=== PATIENT | male | born 1965 | race Caucasian/White ===

== ENCOUNTER → 2020-08-13 09:08 | Outpatient (BNVA) | payer SELFPAY | PROVIDERS: PCP Hospitalist; Visit Provider Urology | DX: N40.1 Benign prostatic hyperplasia with lower urinary tract symptoms (principal); N13.8 Other obstructive and reflux uropathy; R33.9 Retention of urine, unspecified | CPT/HCPCS: 99212 ==

== ENCOUNTER → 2021-02-15 13:22 | Outpatient (BNVA) | payer OTHER, SELFPAY | PROVIDERS: PCP Hospitalist; Visit Provider Urology | DX: N40.1 Benign prostatic hyperplasia with lower urinary tract symptoms (principal); R33.9 Retention of urine, unspecified; N13.8 Other obstructive and reflux uropathy | CPT/HCPCS: 51798; 99212 ==

== ENCOUNTER 2021-02-25 13:50 | Emergency (ER) | payer MEDICAID, SELFPAY ==
--- NOTE | ~2021-02-25 | CT_ITS ---
EXAMINATION: CT HEAD WITHOUT CONTRAST CLINICAL INFORMATION: Fall. Head trauma. COMPARISON: None TECHNIQUE: Contiguous axial imaging was performed from the skull base to vertex without intravenous administration of contrast. This CT examination was performed using dose optimization techniques as appropriate, variously including the following: *Automated exposure control *Adjustment of mA and/or kV according to patient size (this includes techniques or standardized protocols for targeted exams where dose is matched to indication/reason for exam; i.e. extremities or head) *Use of iterative reconstruction technique DLP: 866 mGy-cm FINDINGS: There is no evidence of acute intracranial hemorrhage or territorial infarction. No abnormal mass effect or midline shift is seen. Burt to white matter differentiation is well preserved. No extra-axial fluid collections are identified. The ventricles are normal in size. There is no abnormal attenuation within the brain parenchyma. The osseous structures and soft tissues are normal. There are skin shaun and soft tissue swelling over the right posterior parietal bone. There are small polyps or cysts seen in the maxillary sinuses. There is increased soft tissue seen in the left external auditory canal. The mastoid air cells and visualized portions of the paranasal sinuses are otherwise clear. CT/CT head/brain wo con IMPRESSION: No acute findings. Skin shaun and soft tissue swelling over the right posterior parietal bone.
--- NOTE | ~2021-02-25 | CT_ITS ---
EXAMINATION: CT CERVICAL SPINE WITHOUT CONTRAST CLINICAL INFORMATION: Fall. Head and neck trauma. COMPARISON: None TECHNIQUE: Axial images through the cervical spine without contrast. Sagittal and coronal reconstructions on the technologist's workstation were performed. This CT examination was performed using dose optimization techniques as appropriate, variously including the following: *Automated exposure control *Adjustment of mA and/or kV according to patient size (this includes techniques or standardized protocols for targeted exams where dose is matched to indication/reason for exam; i.e. extremities or head) *Use of iterative reconstruction technique DLP: 497 mGy-cm FINDINGS: Bone alignment is normal. No fracture or dislocation is seen. There is degenerative spondylosis and degenerative disc disease at C5-C6 and C6-C7. There is facet arthritis at C2-C3 on the left. Prevertebral soft tissues are normal. There is cervical lymphadenopathy. There is a 2.5 x 2 x 2 cm nodule in the inferior right lobe of the thyroid gland. The lung apices are clear. CT/CT cervical spine wo con IMPRESSION: Degenerative changes. No fracture or dislocation seen. 2.5 x 2 x 2 cm right thyroid nodule. Follow-up thyroid ultrasound recommended.
[2021-02-25 14:02] VITALS: BP 98/56; PULSE 66; RESP 17; TEMP 36.6; O2SAT 98; BMI 28.8
--- NOTE | 2021-02-25 14:42 | ED_ITS ---
HPI - Fall General Chief Complaint: Fall Stated Complaint: mechanical fall Time Seen by Provider: 02/25/21 14:17 Source: EMS Mode of arrival: EMS Limitations: other (uncooperative) History of Present Illness HPI Narrative: 55 y/o male with history of dementia, schizophrenia, anxiety disorder, GERD, BPH, HTN, urinary incontinence hx LE cellulitis who presents to the ER from SNF via EMS after he threw himself onto the ground, hit his head on the wall and sustained a small laceration to the back of his head. He was sent in for evaluation of sutures/shaun. He is not on anticoagulation and did not lose consciousness. Per SNF staff this is his baseline behavior. MD complaint: fall Onset (ago): hour(s) Fall from: standing Fall witnessed: yes, by living facility staff Place fall occurred: assisted/SNF Loss of consciousness: none Prolonged down time: no Symptoms prior to fall: none Context: history of frequent falls (frequently throws himself to the ground - baseline behavior ) Location of injury: head Severity: mild Associated symptoms (after fall): denies Related Data Home Medications Medication Instructions Recorded Confirmed acetaminophen 325 mg capsule 325 mg PO QID PRN 02/15/21 benztropine 1 mg tablet 1 mg PO DAILY 02/15/21 clonazepam 1 mg tablet 1 mg PO DAILY 02/15/21 diazepam 5 mg tablet 5 mg PO BID PRN 02/15/21 haloperidol 5 mg tablet 5 mg PO BEDTIME 02/15/21 lithium carbonate 150 mg capsule 300 mg PO BEDTIME 02/15/21 propranolol 10 mg tablet 10 mg PO BID 02/15/21 risperidone 4 mg tablet (Risperdal) 4 mg PO BEDTIME 02/15/21 sennosides 8.6 mg capsule (senna) 8.6 mg PO DAILY 02/15/21 tamsulosin 0.4 mg capsule 0.4 mg PO BEDTIME 02/15/21 Previous Rx's Medication Instructions Recorded finasteride 5 mg tablet 5 mg PO DAILY 90 Days #90 tab 08/13/20 Allergies Allergy/AdvReac Type Severity Reaction Status Date / Time Wekorwa-Nlz-Drd Reductase Allergy Unknown UNKNOWN Verified 02/15/21 13:29 Inhibitor [MVMPIOT-CND-ZPS REDUCTASE INHIBITOR] Sulfa (Sulfonamide Allergy Unknown UNKNOWN Verified 02/15/21 13:29 Antibiotics) [SULFA (SULFONAMIDE ANTIBIOTICS)] sulfamethoxazole Allergy Unknown rash Verified 02/15/21 13:29 Sulfonylureas [SULFONYLUREAS] Allergy Unknown UNKNOWN Verified 02/15/21 13:29 ANIHYPERLIPIDEMICS AdvReac Unknown ADVERSE Uncoded 02/15/21 13:29 REACTION ANTIARTERIOSCLEROTIC DRUGS AdvReac Unknown ADVERSE Uncoded 02/15/21 13:29 REACTION Review of Systems Review of Systems: uncooperative and yelling Yes Unobtainable due to mental condition [facility] Past Medical History Medical History (Updated 02/25/21 @ 15:54 by LAUREANO White) Anxiety BPH (benign prostatic hyperplasia) Dementia GERD (gastroesophageal reflux disease) HTN (hypertension) Hypernatremia Metabolic encephalopathy Schizophrenia Social History Social History Advance Directives: No Advance Directives Information Provided: No Physical Exam Vital Signs: Vital Signs: Last Vital Signs Temp 98 F 02/25/21 14:02 Pulse 76 02/25/21 15:20 Resp 19 02/25/21 15:20 BP 105/68 02/25/21 15:20 Pulse Ox 97 02/25/21 15:20 Body Mass Index 28.8 Appearance: Alert, appears older than stated age, in cervical collar, agitated. Head: occipital area with 2 cm linear laceration, mild oozing, no tenderness. no palpable skull fracture. Eyes: Pupils equal, round and reactive to light. ENT: Pharynx normal. Neck: Normal inspection. Neck supple. No cervical spinal deformities palpable. CVS: Normal heart rate and rhythm. Pulses normal. Respiratory: No respiratory distress. Breath sounds normal. Abdomen: Soft and nontender. +BS x4 Skin: Skin warm and dry. Normal skin color. Normal skin turgor. No rashes. Extremities: No lower extremity edema. Atraumatic x4 Neuro: awake and alert, uncooperative, kicking at staff, moves all extremities, yelling in complete sentences. strength appears equal and symmetrical throughout Course Course Course Narrative: 55 y/o male with history of dementia and schizophrenia who presents from SNF with small head lac after he threw himself to the ground and hit his head on a wall, no LOC, no thinners. This is his baseline behavior per SNF. Given head strike and behaviors, unreliable historian and exam will get CT head/neck to r/o traumatic injury. Reevaluation(s) Reevaluation #1: CT head/neck showed no traumtic injuries. C-spine cleared. Patient thankful for collar removal and he has no pain. His behaviors have improved. He is stable for discharge back to SNF. Procedures Laceration Laceration 1: Site: scalp Size (cm): 3 Description: linear Depth: simple, single layer Pre-repair: irrigated extensively Skin layer closed with: other (3 shaun) Critical Care Time Critical Care Time Critical Care Time: No Discharge Plan Discharge Clinical Impression: Laceration of head Qualifiers: Encounter type: initial encounter Location of open wound of head: scalp Foreign body presence: without foreign body Qualified Code(s): S01.01XA - Laceration without foreign body of scalp, initial encounter Patient Disposition: Xfer [facility] Instructions: Head Laceration (ED) Additional Instructions: Shaun will need to be removed in 10 days - see your PCP or come back to the ER for this Take all of your medication as prescribed Follow up with your doctor next week Prescriptions: No Action finasteride 5 mg tablet 5 mg PO DAILY 90 Days Qty: 90 RF: 1
[2021-02-25] MEDS: Haloperidol Lactate 5 MG/ML VIAL IM (14:51)
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
[2021-02-25 15:20] VITALS: BP 105/68; PULSE 76; RESP 19; O2SAT 97
== END 2021-02-25 19:18 | disposition skilled nursing facility (03) ==
PROVIDERS: Emergency Provider Emergency Medicine; PCP Hospitalist
DX: S01.01XA Laceration without foreign body of scalp, initial encounter (principal); R51.9 Headache, unspecified; M54.2 Cervicalgia; W01.0XXA Fall on same level from slipping, tripping and stumbling without subsequent striking against object, initial encounter; Y93.9 Activity, unspecified; Y92.129 Unspecified place in nursing home as the place of occurrence of the external cause; Y99.9 Unspecified external cause status
CPT/HCPCS: 12002; 70450; 72125; 96372; 99283; 99284

== ENCOUNTER → 2021-08-16 08:54 | Outpatient (BNVA) | payer MEDICAID, SELFPAY | PROVIDERS: PCP Hospitalist; Visit Provider Urology | DX: N40.1 Benign prostatic hyperplasia with lower urinary tract symptoms (principal); N13.8 Other obstructive and reflux uropathy; R33.8 Other retention of urine | CPT/HCPCS: 51798; 99212 ==

== ENCOUNTER → 2021-11-04 13:08 | Outpatient (BNVA) | payer MEDICAID, SELFPAY | PROVIDERS: PCP Hospitalist; Visit Provider Urology | DX: N40.1 Benign prostatic hyperplasia with lower urinary tract symptoms (principal); N13.8 Other obstructive and reflux uropathy; R33.8 Other retention of urine | CPT/HCPCS: 51798; 99212 ==

== ENCOUNTER 2022-01-23 07:04 | Day surgery (SDC) | payer SELFPAY ==
[2022-01-17 14:06] VITALS: BMI 28.0
--- NOTE | 2022-01-20 09:54 | HO.ANESPROP2 ---
Documented by User: Brandy Hess NP 01/20/22 09:57 HPI - Anesthesia Eval Consult details Narrative: 56yo M for Laser Ablation Prostate w/[facility] resident, dementia PMFSH Active Problems Active Problems: All Active Problems (Updated 02/26/21 @ 00:02 by Iona Malhotra) BPH w urinary obs/LUTS (Acute) Incomplete emptying of bladder due to benign prostatic hyperplasia (Acute) Past Medical History Medical History Anxiety BPH (benign prostatic hyperplasia) Dementia GERD (gastroesophageal reflux disease) HTN (hypertension) Hypernatremia Metabolic encephalopathy Resides in long-term facility Schizophrenia Surgical History Surgical History Hx of cystoscopy Social History Social History Housing Other:: resides at [facility] Patient Tobacco Use Status: Tobacco use Unknown Use of substances other than those prescribed or required for medical reasons: Unknown Are you DNR?: No Advance Directives: Yes (MOLST & legal guardianship) Advance Directives Information Provided: Yes Advance Directives on File: Yes Advance Directives Date on File: 01/17/22 Recently lost weight without trying: No Nutrition Risks: No Nutritional Risk Meds Allergies Allergy/AdvReac Type Severity Reaction Status Date / Time Sulfa (Sulfonamide Allergy Intermediate Rash Verified 01/23/22 07:15 Antibiotics) [SULFA (SULFONAMIDE ANTIBIOTICS)] Rjzhplp-TGQ-ImR Reductase Allergy Unknown Unknown Verified 01/23/22 07:15 Inhibitor [HUOUPXG-CZQ-QFW REDUCTASE INHIBITOR] ANTIARTERIOSCLEROTIC DRUGS AdvReac Unknown Unknown Uncoded 01/17/22 08:55 Home Medications Medication Instructions Recorded Confirmed Last Taken Type acetaminophen 325 mg capsule 325 mg PO QID PRN Pain 02/15/21 01/17/22 Unknown History benztropine 1 mg tablet 1 mg PO DAILY 02/15/21 01/17/22 Unknown History clonazepam 1 mg tablet 1 mg PO BID 02/15/21 01/17/22 Unknown History diazepam 5 mg tablet 5 mg PO BID 02/15/21 01/17/22 Unknown History haloperidol 5 mg tablet 5 mg PO BEDTIME 02/15/21 01/17/22 Unknown History lithium carbonate 150 mg capsule 300 mg PO BEDTIME 02/15/21 01/17/22 Unknown History propranolol 10 mg tablet 5 mg PO BID 02/15/21 01/17/22 Unknown History sennosides 8.6 mg capsule (senna) 8.6 mg PO DAILY 02/15/21 01/17/22 Unknown History benztropine 0.5 mg tablet 0.5 mg PO DAILY 01/17/22 01/17/22 Unknown History divalproex 125 mg capsule,delayed 625 mg PO BID 01/17/22 01/17/22 Unknown History release sprinkle (Depakote Sprinkles) haloperidol 5 mg tablet 2.5 mg PO QAM 01/17/22 01/17/22 Unknown History risperidone 2 mg tablet 2 mg PO BEDTIME 01/17/22 01/17/22 Unknown History Exam Exam Date and Time: January 20, 2022 0954 Height,Weight and Vital Signs: Height 5 ft 5 in Weight 76.544 kg Assessment and Plan Assessment Anesthesia Assessment: Chart Reviewed Documented by User: Sulma Denney MD 01/23/22 08:58 [facility] Past Medical History Medical History Anxiety BPH (benign prostatic hyperplasia) Dementia GERD (gastroesophageal reflux disease) HTN (hypertension) Hypernatremia Metabolic encephalopathy Resides in long-term facility Schizophrenia Family History Family history of problems with anesthesia: No Surgical History Surgical History Hx of cystoscopy History of Problems with Anesthesia: No Social History Social History Housing Other:: resides at [facility] Patient Tobacco Use Status: Tobacco use Unknown Use of substances other than those prescribed or required for medical reasons: Unknown Are you DNR?: No Advance Directives: Yes (MOLST & legal guardianship) Advance Directives Information Provided: Yes Advance Directives on File: Yes Advance Directives Date on File: 01/17/22 Recently lost weight without trying: No Nutrition Risks: No Nutritional Risk Meds Allergies Allergy/AdvReac Type Severity Reaction Status Date / Time Sulfa (Sulfonamide Allergy Intermediate Rash Verified 01/23/22 07:15 Antibiotics) [SULFA (SULFONAMIDE ANTIBIOTICS)] Gakqgls-WAU-CmT Reductase Allergy Unknown Unknown Verified 01/23/22 07:15 Inhibitor [BKZWDPS-UYM-EAP REDUCTASE INHIBITOR] ANTIARTERIOSCLEROTIC DRUGS AdvReac Unknown Unknown Uncoded 01/17/22 08:55 Home Medications Medication Instructions Recorded Confirmed Last Taken Type acetaminophen 325 mg capsule 325 mg PO QID PRN Pain 02/15/21 01/17/22 Unknown History benztropine 1 mg tablet 1 mg PO DAILY 02/15/21 01/17/22 Unknown History clonazepam 1 mg tablet 1 mg PO BID 02/15/21 01/17/22 Unknown History diazepam 5 mg tablet 5 mg PO BID 02/15/21 01/17/22 Unknown History haloperidol 5 mg tablet 5 mg PO BEDTIME 02/15/21 01/17/22 Unknown History lithium carbonate 150 mg capsule 300 mg PO BEDTIME 02/15/21 01/17/22 Unknown History propranolol 10 mg tablet 5 mg PO BID 02/15/21 01/17/22 Unknown History sennosides 8.6 mg capsule (senna) 8.6 mg PO DAILY 02/15/21 01/17/22 Unknown History benztropine 0.5 mg tablet 0.5 mg PO DAILY 01/17/22 01/17/22 Unknown History divalproex 125 mg capsule,delayed 625 mg PO BID 01/17/22 01/17/22 Unknown History release sprinkle (Depakote Sprinkles) haloperidol 5 mg tablet 2.5 mg PO QAM 01/17/22 01/17/22 Unknown History risperidone 2 mg tablet 2 mg PO BEDTIME 01/17/22 01/17/22 Unknown History Exam Airway Mallampati Class: II TM Dist: >3cm Neck ROM: Full Heart: rrr Lungs: cta Assessment and Plan Assessment Anesthesia Assessment: Anesthesia Plan Discussed and Chart Reviewed Final Anesthetic Review Family History of Problems with Anesthesia: No History of Problems with Anesthesia: No NPO: Yes ASA Class: III Final Preanesthetic Review: No Changes in Pt Med Stat, Meds/Allgs Chart Reviewed and Consent Obtained/Reviewed Patient Risk: Intermediate Procedure Risk: Intermediate Anesthetic Plan Anesthetic Plan: GA Disposition: Standard PACU
[2022-01-23 07:43] VITALS: BP 99/57; PULSE 67; RESP 20; TEMP 36.6; O2SAT 100
--- NOTE | 2022-01-23 07:49 | PC.NURSE ---
patient is non-verbal. caregiver trista from [facility] is present. author also spoke to [facility] staff at [facility] to verify questions that were answered in documentation. patient comfortable in bed. has personal protective helmet on. trista at bedside.
[2022-01-23] MEDS: Lactated Ringers 1,000 ML 100 ML IVCONT (07:58)
--- NOTE | 2022-01-23 09:00 | P.HPSUR_ITS ---
Pre-Procedural Eval Section A Date of Service: 01/23/22 The patient is an INPATIENT: No Changes since office visit: No Cold of Flu in the past 2 weeks, No New Medical Problems, No Changes in Medication and No Patient answered all questions The History & Physical has been completed within 30 days and I have reviewed it.: Yes Section B Chief Complaint: BPH Details of Present Illness: plan for laser prostatectomy Allergies: Allergies Allergy/AdvReac Type Severity Reaction Status Date / Time Sulfa (Sulfonamide Allergy Intermediate Rash Verified 01/23/22 07:15 Antibiotics) [SULFA (SULFONAMIDE ANTIBIOTICS)] Pdglzon-KNR-LkF Reductase Allergy Unknown Unknown Verified 01/23/22 07:15 Inhibitor [PEDUXUC-YOA-TAZ REDUCTASE INHIBITOR] ANTIARTERIOSCLEROTIC DRUGS AdvReac Unknown Unknown Uncoded 01/17/22 08:55 Review of Systems Sugical H&P ROS: Negative: Constitution, Cardiovascular, Respiratory, Neurological, Psychiatric, Hem-Onc, Allergic/Immunologic, Gastrointestinal, Genitourinary, Musculoskeletal, Integumentary, Endocrine and Eyes/Ears/Nose/ Throat Exam Surgical H&P Exam: Normal: HEENT, Normal: Heart, Normal: Lungs, Normal: Extremities, Normal: Abdomen, Normal: Skin and Normal: Neurological Plan Diagnosis/Plan: Unchanged (greenlight laser) I have reviewed the history and physical and performed a pertinent physical examination on my patient. No changes have occurred unless specified.
--- NOTE | 2022-01-23 09:34 | P.OP_ITS ---
Operative Note Operative Note Date of Service: 01/23/22 Narrative: PreOperative Diagnosis: Bladder outlet obstruction Post Operative Diagnosis: Bladder outlet obstruction Procedure: [facility] Laser Enucleation of the prostate Surgeon: Dr Jevon Sharif Anesthesia: General Indications for procedure: Failure on medications History of bladder outlet obstruction. Treated with alpha-alan and other medications. Still with symptoms. On cystoscopy in office has tight bladder neck. Recommendation for prostate procedure with laser enucleation of prostate. It has been discussed. Focus was placed on development of retrograde examination which is a normal part of this procedure. Procedure: After informed consent was verified the patient was brought to the operating room and placed in a supine position. Anesthesia was administered per protocol. Patient was placed in modified dorsal lithotomy position and prepped and draped in a sterile fashion. Safety pause time-out was confirmed. Antibiotics have been given. Twenty-four Persian laser cystoscope was inserted per urethra. No abnormalities found the anterior posterior urethra. The bladder was filled on both ureteric orifices were seen in normal position away from our area of interest. Using a GreenLight laser settings of 80 w incisions were made at the 5 and 7 o'clock position. They were taken down and then laterally on each side. They were brought from the bladder neck down to the level of the veru. These defined the lateral aspects of the median lobe area. The median lobe was ablated and enucleated tissue removed. He had a hyper developed bladder neck and fibers were divided in the direction to was each ureteric orifice. There was a short prostate from the bladder neck to the veru. Once the bladder neck tissue would been released and ablated decision was made not to move forward with lateral lobe procedures When this was completed debris and pieces of prostate removed from the bladder. Both ureteric orifices were reviewed again in shown to be patent in away from any areas of energy damage. The apical area was reviewed in any stray ooze was controlled. A 22 Persian 30 cc balloon Muller catheter was placed over stylet into the bladder. Clear efflux was obtained. 30 cc was placed in the balloon and gentle traction was placed. A snap was used to hold tension once the patient will be moved and transported. Once transportation its finish this novel be removed. A belladonna and opiate suppository was placed for postprocedure pain management. He tolerated procedure well was extubated in the operating and transferred in a stable condition to the recovery area. Total Power 25 kW, 6 minute lase time Pathology: Drains: Muller catheter
[2022-01-23 09:41] VITALS: BP 110/66; PULSE 70; RESP 16; TEMP 36.9; O2SAT 96
[2022-01-23 09:46] VITALS: BP 106/64; PULSE 68; RESP 16; O2SAT 95
[2022-01-23 09:51] VITALS: BP 104/63; PULSE 67; RESP 17; O2SAT 95
[2022-01-23 09:56] VITALS: BP 104/65; PULSE 66; RESP 20; O2SAT 95
[2022-01-23 10:11] VITALS: BP 103/66; PULSE 73; RESP 20; TEMP 36.2; O2SAT 97
== END 2022-01-23 10:39 | disposition home or self-care (01) ==
PROVIDERS: PCP Hospitalist; Visit Provider Urology
PROC: (CPT 52648; principal; 2022-01-23 09:10)
DX: N40.1 Benign prostatic hyperplasia with lower urinary tract symptoms (principal); N13.8 Other obstructive and reflux uropathy; N32.0 Bladder-neck obstruction; R33.9 Retention of urine, unspecified; I10 Essential (primary) hypertension; E87.0 Hyperosmolality and hypernatremia; K21.9 Gastro-esophageal reflux disease without esophagitis; G93.41 Metabolic encephalopathy; F20.9 Schizophrenia, unspecified; F41.1 Generalized anxiety disorder; F03.90 Unspecified dementia, unspecified severity, without behavioral disturbance, psychotic disturbance, mood disturbance, and anxiety; Z79.899 Other long term (current) drug therapy; Z88.2 Allergy status to sulfonamides; Z88.8 Allergy status to other drugs, medicaments and biological substances
CPT/HCPCS: 52648; J1100; J1956; J2250; J2405; J3010

== ENCOUNTER → 2022-03-07 09:23 | Outpatient (BNVA) | payer MEDICAID, SELFPAY | PROVIDERS: PCP Hospitalist; Visit Provider Urology | DX: N40.1 Benign prostatic hyperplasia with lower urinary tract symptoms (principal); N13.8 Other obstructive and reflux uropathy; R33.8 Other retention of urine; Z79.899 Other long term (current) drug therapy | CPT/HCPCS: 99212 ==

== ENCOUNTER → 2022-06-16 14:00 | Outpatient (BNVA) | payer SELFPAY | PROVIDERS: PCP Hospitalist; Visit Provider Nurse Practitioner Family | DX: Z01.818 Encounter for other preprocedural examination (principal) | CPT/HCPCS: 99202 ==

== ENCOUNTER 2022-08-21 10:38 | Inpatient (IN) | payer SELFPAY ==
[2022-08-21] VITALS (11 sets, daily range): BP systolic 70–104; BP diastolic 47–69; PULSE 69–89; RESP 16–20; TEMP 36.2–38.9; O2SAT 88–99; BMI 33.9
--- NOTE | ~2022-08-21 | CT_ITS ---
EXAMINATION: CTA chest and CT abdomen pelvis with IV contrast. CLINICAL INDICATION: Unwitnessed fall plus Covid 19 infection with hypoxia. COMPARISON: None. TECHNIQUE: Following intravenous administration of 85 mm Omnipaque 350 axial 5 minutes thin and reformatted 3 mm thin coronal and sagittal and 8 mm oblique images images of chest were obtained as part CTA protocol. Subsequently 5 mm thin axial and reformatted 3 mm thin sagittal and coronal images of abdomen and pelvis were obtained. FINDINGS: CTA: There is good opacification of pulmonary artery and its branches without any intraluminal filling defect. The thoracic aorta is of normal caliber. No aneurysm or dissection seen. Heart size and the great vessels are normal caliber. No abnormal size mediastinal or hilar lymph nodes seen. LUNGS: The lungs are well-expanded with a dense consolidation left lower lobe, patchy infiltrates left upper lobe and lingula. Minimal infiltrative changes also seen in the right lower lobe. Pleura: There is minimal bilateral pleural thickening seen. There is no large effusion suspected.. Axilla: No abnormal axillary lymph nodes or mass seen. The chest wall is unremarkable. Osseous structures: There is no compression fracture, aggressive lytic or sclerotic process seen except for mild spondylosis. ABDOMEN AND PELVIS:: Liver, gallbladder and ducts: The liver is homogeneous in density, normal size and contour. There is no focal lesion or intrahepatic ductal dilatation seen. Pancreas: Unremarkable. Spleen: Unremarkable. Adrenal glands: Unremarkable. Kidneys and ureters: Both kidneys are normal size, contour and cortical thickness. No radiopaque calculi or hydronephrosis seen. There are punctate lower pole cortical cyst left kidney suspected. Mild bilateral perinephric stranding seen. Lymphovascular structures: No abnormal size lymph nodes seen. The abdominal aorta is normal caliber. No retrobulbar mass or lymphadenopathy seen. GI tract: There is scattered stool and gas seen throughout the colon without any significant distention. The small bowel loops are normal caliber. Appendix is normal caliber. Abdominal wall:. Unremarkable. Pelvis: The bladder is distended. There is no free fluid or free air. No abnormal pelvic lymph nodes. Osseous structures: There is an 8 mm round sclerotic lesion left iliac bone. CT/CT abdomen pelvis w IV con IMPRESSION:: No evidence of PE. No evidence aortic dissection or aneurysm. Multi lobar infiltrates and mild bilateral posterior pleural thickening. Distended urinary bladder. Mild constipation.
--- NOTE | ~2022-08-21 | CT_ITS ---
EXAMINATION: CT brain and CT cervical spine without contrast. CLINICAL INDICATION: Unwitnessed fall. COMPARISON: CT brain 02/25/2021 TECHNIQUE: 5 mm thin axial and reformatted 2 mm thin sagittal and coronal images of brain were obtained. Subsequently axial 3 mm thin and reformatted 2 mm thin sagittal and coronal images of cervical spine were obtained. DL [id number] FINDINGS: There is no acute intra-axial, extra-axial bleed, masses or midline shift. There is no acute infarction in evolution. There is no edema. The montgomery to white matter differentiation is maintained normal. The lateral ventricles are symmetrical in size and configuration without enlargement. Bone windows reveal no calvarial abnormality. There is no scalp soft tissue abnormality. There is diffuse mucoperiosteal thickening bilateral maxillary and ethmoid sinuses. Rest of the paranasal sinuses are clear. Cervical spine: There is mild straightening of cervical lordosis. The vertebral heights and alignment is normal. There is loss of C5-C6 and C6-C7 disc heights with moderate ventral and mild posterior spondylosis. The craniovertebral junction and the C1-C2 alignment is normal. There is no acute fracture, dislocation or subluxation seen. The bone windows reveal no lytic or sclerotic process.. Is patchy opacity in the left lung base question developing infiltrate or atelectasis. The tracheal airways widely patent. CT/CT head/brain wo IV con IMPRESSION: No acute intracranial process seen. Chronic bilateral maxillary and ethmoid sinus inflammatory changes. Degenerative disc changes C5-C6 and C6-C7 disc levels with moderate ventral and mild posterior spondylosis. No visible acute fracture, dislocation or lytic process seen.
--- NOTE | ~2022-08-21 | CT_ITS ---
EXAMINATION: CT brain and CT cervical spine without contrast. CLINICAL INDICATION: Unwitnessed fall. COMPARISON: CT brain 02/25/2021 TECHNIQUE: 5 mm thin axial and reformatted 2 mm thin sagittal and coronal images of brain were obtained. Subsequently axial 3 mm thin and reformatted 2 mm thin sagittal and coronal images of cervical spine were obtained. DL [id number] FINDINGS: There is no acute intra-axial, extra-axial bleed, masses or midline shift. There is no acute infarction in evolution. There is no edema. The montgomery to white matter differentiation is maintained normal. The lateral ventricles are symmetrical in size and configuration without enlargement. Bone windows reveal no calvarial abnormality. There is no scalp soft tissue abnormality. There is diffuse mucoperiosteal thickening bilateral maxillary and ethmoid sinuses. Rest of the paranasal sinuses are clear. Cervical spine: There is mild straightening of cervical lordosis. The vertebral heights and alignment is normal. There is loss of C5-C6 and C6-C7 disc heights with moderate ventral and mild posterior spondylosis. The craniovertebral junction and the C1-C2 alignment is normal. There is no acute fracture, dislocation or subluxation seen. The bone windows reveal no lytic or sclerotic process.. Is patchy opacity in the left lung base question developing infiltrate or atelectasis. The tracheal airways widely patent. CT/CT cervical spine wo IV con IMPRESSION: No acute intracranial process seen. Chronic bilateral maxillary and ethmoid sinus inflammatory changes. Degenerative disc changes C5-C6 and C6-C7 disc levels with moderate ventral and mild posterior spondylosis. No visible acute fracture, dislocation or lytic process seen.
--- NOTE | 2022-08-21 11:00 | ECG_ITS ---
Test Reason : ALTERED MENTAL STATUS Blood Pressure : / mmHG Vent. Rate : 069 BPM Atrial Rate : 069 BPM P-R Int : 154 ms QRS Dur : 076 ms QT Int : 422 ms P-R-T Axes : 069 009 015 degrees QTc Int : 452 ms Normal sinus rhythm Cannot rule out Anterior infarct , age undetermined Abnormal ECG When compared with ECG of 28-SEP-2019 14:27, ST no longer depressed in Anterior leads T wave inversion no longer evident in Anterolateral leads Referred By: Yessica Uribe Electronically Signed By:REJI SALCIDO MD
--- NOTE | 2022-08-21 11:05 | PC.NURSE ---
pt coming from [facility] for a unwitnessed fall around 0900. pt is currently very drowsy, respirations even and unlabored, ls diminished, currently on a oxymask at 7l and sating about 95-97%, sating 87% on room air, pupils pinpoint and sluggish in reaction, skin pwd, pt will intermittently open his eyes to voice command but mostly to will respond to painful stimulations, pt is in c-aravind per ems, ns on the monitor,
[2022-08-21 11:09] LABS: Glucose, Whole Blood 89 mg/dL (60-115)
--- NOTE | 2022-08-21 11:17 | PC.NURSE ---
Spoke with nurse at [facility] who said that the patient fell approximately 0900 which was unwitnessed. Patient was noted to be very weak and lethargic and not acting like himself. Patient was assisted back to bed and sats were noted to be dropping so staff decided to send patient in for further eval and care.
[2022-08-21 11:39] LABS: ABG Base Excess 1.3 mmol/L; ABG HCO3 24 mmol/L (22-26); ABG pCO2 35 mmHg (32-45); ABG pH 7.45 (7.35-7.45); ABG pO2 58 mmHg (83-108)
[2022-08-21] MEDS: 0.9 % Sodium Chloride 1,000 ML 999 ML IVCONT (11:43)
[2022-08-21 11:46] LABS: MANUAL DIFF FLAG NO
[2022-08-21 11:51] LABS: Basophils Percent Auto 0.3 % (0-2); Eosinophils Absolute Auto 0.1 X10*3/uL (0.0-0.4); Eosinophils Percent Auto 0.7 % (0-4); Hematocrit 41.2 % (42.0-52.0); Imm Gran Abs Auto 0.03 X10*3/uL (0.00-0.03); Imm Gran Pct Auto 0.4 % (0.0-0.4); Lymphocytes Absolute Auto 1.7 X10*3/uL (1.2-4.9); Lymphocytes Percent Auto 25.2 % (20-40); Mean Corpuscular HGB Conc 31.6 g/dl (31.0-36.0); Mean Corpuscular Hemoglobin 29.3 pg (27.0-33.0); Mean Platelet Volume 11.1 fL (9.4-12.4); Monocytes Absolute Auto 0.5 X10*3/uL (0.1-1.2); Monocytes Percent Auto 7.5 % (2-11); Neutrophils Absolute Auto 4.5 x10*3/uL (2.0-8.3); Neutrophils Percent Auto 65.9 % (45-73); Platelet Count 155 X10*3/uL (160-400); Red Blood Count 4.43 X10*6/uL (4.60-5.80); Red Cell Distribution Width 14.4 % (11.0-16.0); White Blood Count 6.8 X10*3/uL (4.8-10.8)
[2022-08-21 11:55] LABS: Prothrombin Time 11.4 SEC (10.0-13.1)
[2022-08-21 11:58] LABS: Lithium 0.72 mmol/L (0.60-1.20)
[2022-08-21 12:10] LABS: Alanine Aminotransferase 13 U/L (0-40); Albumin Level 3.5 g/dL (3.5-5.0); Alkaline Phosphatase 54 U/L (39-117); Anion Gap 14 (12-20); Aspartate Amino Transferase 14 U/L (5-37); Bilirubin Total 0.3 mg/dL (0.0-1.0); Blood Urea Nitrogen 9 mg/dL (9-16); Calcium 8.8 mg/dL (8.4-10.2); Carbon Dioxide 28 mmol/L (22-29); Chloride 110 mmol/L (96-108); Creatinine Clr Calc Pharmacy 112.7; Estimated Glomerular Filt Rate > 60; Glucose Random 104 mg/dL (60-115); Lipase 10 U/L (8-78); Magnesium 2.2 mg/dL (1.6-2.6); Potassium 4.5 mmol/L (3.3-5.1); Sodium 147 mmol/L (135-145); Total Protein 5.8 g/dL (6.5-8.0)
[2022-08-21 12:10] LABS: Lactic Acid 1.3 mmol/L (0.5-2.0)
[2022-08-21 12:16] LABS: Troponin-I High Sensitivity < 3.5 ng/L (<3.5-35.0)
[2022-08-21 12:17] LABS: B Type Natriuretic Peptide 41 pg/mL (<100)
[2022-08-21 12:34] LABS: Influenza A PCR NEGATIVE (Negative); Influenza B PCR NEGATIVE (Negative); Resp Syncy Virus RNA Qual PCR NEGATIVE (Negative); SARS COV2 PCR INHOUSE POSITIVE (Negative)
[2022-08-21] MEDS: iohexoL 350 MG/ML 100 ML INFUS..BTL 85 ML IV (12:55)
[2022-08-21 13:57] LABS: ABG Refer to POC result
--- NOTE | 2022-08-21 14:22 | ED.GENADULT ---
HPI - General Adult General Chief complaint: Fall Stated complaint: LETHARGY,WEAK,FALL IN AM,+COVID FROM SNF Time Seen by Provider: 08/21/22 10:59 Source: EMS and RN notes reviewed Mode of arrival: EMS Limitations: altered mental status History of Present Illness HPI narrative: 56yoM with a PMHx of dementia, schizophrenia, anxiety disorder, GERD, BPH, hypertension, urinary incontinence, seizure disorder who wears a Helmet who is currently at [facility] who is presenting to the ER after he had unwitnessed fall at the group home prior to arrival. They report that he normally walks and they noticed today that he had generalized weakness therefore they sent him here for further evaluation treatment. He did test positive for COVID 3 days ago. [facility] nursing facility staff report that he is at baseline that he normally is difficult to understand with his speech. On arrival patient is hypoxic therefore he was placed on an OxyMask. He has pinpoint pupils. Patient does attempt to speak although we cannot understand him. No obvious signs of trauma. MD complaint: Unwitnessed fall, general weakness that started today and COVID positive x3 Related Data Home Medications Medication Instructions Recorded Confirmed acetaminophen 325 mg capsule 325 mg PO QID PRN Pain 02/15/21 01/17/22 benztropine 1 mg tablet 1 mg PO DAILY 02/15/21 01/17/22 clonazepam 1 mg tablet 1 mg PO BID 02/15/21 01/17/22 diazepam 5 mg tablet 5 mg PO BID 02/15/21 01/17/22 haloperidol 5 mg tablet 5 mg PO BEDTIME 02/15/21 01/17/22 lithium carbonate 150 mg capsule 300 mg PO BEDTIME 02/15/21 01/17/22 propranolol 10 mg tablet 5 mg PO BID 02/15/21 01/17/22 sennosides 8.6 mg capsule (senna) 8.6 mg PO DAILY 02/15/21 01/17/22 benztropine 0.5 mg tablet 0.5 mg PO DAILY 01/17/22 01/17/22 divalproex 125 mg capsule,delayed 625 mg PO BID 01/17/22 01/17/22 release sprinkle (Depakote Sprinkles) haloperidol 5 mg tablet 2.5 mg PO QAM 01/17/22 01/17/22 risperidone 2 mg tablet 2 mg PO BEDTIME 01/17/22 01/17/22 Previous Rx's Medication Instructions Recorded finasteride 5 mg tablet 5 mg PO DAILY 90 days #90 tabs 08/13/20 terazosin 10 mg capsule 10 mg PO BEDTIME 90 days #90 caps 08/16/21 ciprofloxacin HCl 250 mg tablet 250 mg PO DAILY 5 days #5 tabs 01/23/22 bisacodyl 5 mg tablet,delayed 10 mg PO BEDTIME #14 tabs 06/16/22 release (Dulcolax (bisacodyl)) polyethylene glycol 3350 17 238 g PO ONCE #238 grams 06/16/22 gram/dose oral powder (Miralax) Allergies Allergy/AdvReac Type Severity Reaction Status Date / Time Sulfa (Sulfonamide Allergy Intermediate Rash Verified 06/16/22 14:17 Antibiotics) [SULFA (SULFONAMIDE ANTIBIOTICS)] [id number]-[id number] Reductase Allergy Unknown Unknown Verified 06/16/22 14:17 Inhibitor [[id number] REDUCTASE INHIBITOR] ANTIARTERIOSCLEROTIC DRUGS AdvReac Unknown Unknown Uncoded 06/16/22 14:17 Review of Systems Review of Systems: Yes Unobtainable due to mental condition and Unobtainable due to mental status [facility] Past Medical History Source: old records reviewed and nursing notes reviewed Medical History Anxiety BPH (benign prostatic hyperplasia) Dementia GERD (gastroesophageal reflux disease) HTN (hypertension) Hypernatremia Metabolic encephalopathy Resides in custodial facility Schizophrenia Surgical History Hx of cystoscopy Social History Social History Housing Other:: resides at [facility] Alcohol intake: never Patient Tobacco Use Status: Tobacco use Unknown Smoked in Last 30 Days: No Use of substances other than those prescribed or required for medical reasons: Unable to respond Advance Directives: Yes Advance Directives on File: Yes Advance Directives Date on File: 01/17/22 Physical Exam ED Vital Signs: Vital Signs - 24 hr 08/21/22 10:55 08/21/22 14:21 Temperature 97.1 F Pulse Rate 73 87 Respiratory Rate 20 18 Blood Pressure 104/69 103/60 Pulse Oximetry 93 99 Oxygen Delivery Method Oxymask Oxymask BMI result Body Mass Index 33.9 vital signs have been reviewed as normal and appeared to be correct. Blood pressure normal. Heart rate normal. Respiration rate normal. Temperature normal. Oxygen saturation hypoxic placed on OxyMask Appearance: Patient appears somnolent. Is hypoxic otherwise no other acute distress. Head: Normal external exam. Normocephalic. Atraumatic. No Muniz signs noted. No raccoon eyes noted Eyes: Conjunctiva and sclera normal. Eyelids normal. ENT: EAC normal. TM's Normal. No septal hematoma noted. No hemotympanum noted. Pharynx normal. Uvula midline. Moist mucous membranes. No lesions/ulcerations or masses noted on the tongue. No trismus noted. No drooling noted. Neck: Normal inspection. Neck supple. FROM. No adenopathy. Thyroid Normal. No tracheal deviation noted. No crepitus is noted. No meningeal signs. No neck mass noted. No signs of trauma noted. CVS: Normal heart rate and rhythm. Heart sound normal. Pulses normal throughout. No murmurs/rales/gallops. Respiratory: No respiratory distress. Painless inspiration. Breath sounds normal. No wheezes/rales/rhonchi noted. Chest nontender. No crepitus is noted. No signs of trauma noted. No accessory muscle usage noted or decreased air movement noted. No signs of trauma. Abdomen: Soft and nontender. Bowel sounds normal in all 4 quadrants. No distention noted. No organomegaly noted. No visible injury noted. Back: No CVA tenderness. Full range of motion noted. Nontender. No signs of trauma. Patient neuro intact bilaterally and distally on all 4 extremities. Patient's reflexes intact bilaterally and distally on all 4 extremities. No rashes/lesion/induration/fluctuance or signs of infection noted. Skin: Skin warm and dry. Normal skin color. Normal skin turgor. No rashes/lesions/lacerations noted. Extremities: No lower extremity edema. No calf tenderness is noted. Extremities exhibit normal range of motion and nontender. Neuro: Somnolent. Patient able to move all extremities bilaterally. No obvious motor or sensory deficit noted. Gait has not been tested. No obvious focal neuro deficits noted. Vascular: + radial pulses/+ 2 distal pedal pulses/+2 dorsalis pedis b/l. Normal cap refill. No cyanosis noted to upper extremity nails and lower extremity toes nails. Course Course Course Narrative: 11am - 56yoM with a PMHx of dementia, schizophrenia, anxiety disorder, GERD, BPH, hypertension, urinary incontinence, seizure disorder who wears a Helmet who is currently at [facility] who is presenting to the ER after he had unwitnessed fall today along with generalized weakness and they report that he tested positive for COVID 3 days ago and they noted him to be hypoxic. residential facility report that he is at baseline that he normally is hard to understand with his speech. Although he normally walks On my exam patient noted to be hypoxic therefore was placed on OxyMask. patient is very somnolent although does try to respond although I and unable to understand what he is saying. There is no obvious focal deficits noted. He is able to move all extremities equal bilaterally. There are no obvious signs of trauma. Lungs clear to auscultation. CV RRR. Abdomen is soft and nontender. There is no lower extremity edema or calf tenderness. There is no obvious deformities. Plan: Labs, EKG, CT scan of brain/CT scan of cervical spine/ CTA of chest for PE/CT scan abdomen pelvis with IV contrast, UA, lithium/Depakote and Haldol level, blood cultures, lactic acid, ABG. Provide a L of IV fluids and re-evaluate. Reevaluation(s) Reevaluation #1: Labs reviewed - mild anemia with an H&H of 13.0/41.2 - platelet count 855199 - sodium 147 - chloride 100 time - total protein 5.8 - Patient tested positive for COVID Otherwise all other labs are within normal limits. At this time awaiting imaging will re-evaluate. Time: 14:34 Reevaluation #2: CT scan of brain/cervical spine return at this time and revealed chronic changes no acute processes are noted. CTA of chest for PE and CT scan abdomen pelvis with IV contrast revealed multilobar infiltrates and mild bilateral posterior pleural thickening and distended urinary bladder mild constipation otherwise no other acute processes noted Plan: Therefore at this time will order Zosyn and azithromycin for possible hospital-acquired pneumonia and plan to admit for hypoxia with general weakness and fall. Discussing this case with Dr. Turner Time: 15:56 Medications Administered Discontinued Medications Generic Name Dose Route Start Last Admin Trade Name Ines PRN Reason Stop Dose Admin Sodium Chloride 1,000 mls @ 999 mls/hr 08/21/22 11:00 08/21/22 13:30 Ns IVCONT 08/21/22 12:00 Infused .Q1H1M MONTEZ Infusion Iohexol 85 ml 08/21/22 12:54 08/21/22 12:55 Iohexol 350 Mg/Ml 100 Ml Infus..Btl IV 08/21/22 12:55 85 ml ONCE ONE Administration Medical Decision Making Lab Data [facility] Lab Attestation statement: I reviewed the patient's lab results. 08/21/22 11:39 08/21/22 11:39 Labs: Lab Results 08/21/22 08/21/22 08/21/22 Range/Units 11:01 11:31 11:37 WBC (4.8-10.8) X10*3/uL RBC (4.60-5.80) X10*6/uL Hgb (14.0-18.0) g/dl Hct (42.0-52.0) % MCV (80.0-98.0) fL MCH (27.0-33.0) pg MCHC (31.0-36.0) g/dl RDW (11.0-16.0) % Plt Count (160-400) X10*3/uL MPV (9.4-12.4) fL Immature Gran % (Auto) (0.0-0.4) % Neut % (Auto) (45-73) % Lymph % (Auto) (20-40) % Edmunds % (Auto) (2-11) % Eos % (Auto) (0-4) % Baso % (Auto) (0-2) % Lymph # (Auto) (1.2-4.9) X10*3/uL Edmunds # (Auto) (0.1-1.2) X10*3/uL Eos # (Auto) (0.0-0.4) X10*3/uL Baso # (Auto) (0.0-0.2) X10*3/uL Abs Immat Gran (auto) (0.00-0.03) X10*3/uL Absolute Neuts (auto) (2.0-8.3) x10*3/uL Absolute Nucleated RBC (0.0-0.012) X10*3/uL Nucleated RBC % (auto) (0.0-0.2) /100WBC PT (10.0-13.1) SEC INR (0.9-1.1) O2 Saturation 90.0 % ABG pH at Pt Temp 7.45 (7.35-7.45) ABG pCO2 at Pt Temp 35 (32-45) mmHg ABG pO2 at Pt Temp 58 L (83-108) mmHg ABG HCO3 24 (22-26) mmol/L ABG Base Excess (Actual) 1.3 mmol/L Sodium (135-145) mmol/L Potassium (3.3-5.1) mmol/L Chloride (96-108) mmol/L Carbon Dioxide (22-29) mmol/L Anion Gap (12-20) BUN (9-16) mg/dL Creatinine (0.5-1.4) mg/dL Estim Creat Clear Calc Estimated GFR POC Glucose 89 (60-115) mg/dL Random Glucose (60-115) mg/dL Lactic Acid (0.5-2.0) mmol/L Calcium (8.4-10.2) mg/dL Magnesium (1.6-2.6) mg/dL Total Bilirubin (0.0-1.0) mg/dL AST (5-37) U/L ALT (0-40) U/L Alkaline Phosphatase (39-117) U/L Total Creatine Kinase (38-174) U/L Troponin I High Sens (<3.5-35.0) ng/L B-Natriuretic Peptide 41 (<100) pg/mL Total Protein (6.5-8.0) g/dL Albumin (3.5-5.0) g/dL Lipase (8-78) U/L Valproic Acid (50.0-100.0) mcg/mL [place] (0.60-1.20) mmol/L Influenza Type A (PCR) (Negative) Influenza Type B (PCR) (Negative) RSV RNA Qual (PCR) (Negative) SARS-CoV-2 RNA (RT-PCR) (Negative) 08/21/22 08/21/22 08/21/22 Range/Units 11:38 11:38 11:38 WBC (4.8-10.8) X10*3/uL RBC (4.60-5.80) X10*6/uL Hgb (14.0-18.0) g/dl Hct (42.0-52.0) % MCV (80.0-98.0) fL MCH (27.0-33.0) pg MCHC (31.0-36.0) g/dl RDW (11.0-16.0) % Plt Count (160-400) X10*3/uL MPV (9.4-12.4) fL Immature Gran % (Auto) (0.0-0.4) % Neut % (Auto) (45-73) % Lymph % (Auto) (20-40) % Edmunds % (Auto) (2-11) % Eos % (Auto) (0-4) % Baso % (Auto) (0-2) % Lymph # (Auto) (1.2-4.9) X10*3/uL Edmunds # (Auto) (0.1-1.2) X10*3/uL Eos # (Auto) (0.0-0.4) X10*3/uL Baso # (Auto) (0.0-0.2) X10*3/uL Abs Immat Gran (auto) (0.00-0.03) X10*3/uL Absolute Neuts (auto) (2.0-8.3) x10*3/uL Absolute Nucleated RBC (0.0-0.012) X10*3/uL Nucleated RBC % (auto) (0.0-0.2) /100WBC PT (10.0-13.1) SEC INR (0.9-1.1) O2 Saturation % ABG pH at Pt Temp (7.35-7.45) ABG pCO2 at Pt Temp (32-45) mmHg ABG pO2 at Pt Temp (83-108) mmHg ABG HCO3 (22-26) mmol/L ABG Base Excess (Actual) mmol/L Sodium (135-145) mmol/L Potassium (3.3-5.1) mmol/L Chloride (96-108) mmol/L Carbon Dioxide (22-29) mmol/L Anion Gap (12-20) BUN (9-16) mg/dL Creatinine (0.5-1.4) mg/dL Estim Creat Clear Calc Estimated GFR POC Glucose (60-115) mg/dL Random Glucose (60-115) mg/dL Lactic Acid 1.3 (0.5-2.0) mmol/L Calcium (8.4-10.2) mg/dL Magnesium (1.6-2.6) mg/dL Total Bilirubin (0.0-1.0) mg/dL AST (5-37) U/L ALT (0-40) U/L Alkaline Phosphatase (39-117) U/L Total Creatine Kinase 117 (38-174) U/L Troponin I High Sens < 3.5 (<3.5-35.0) ng/L B-Natriuretic Peptide (<100) pg/mL Total Protein (6.5-8.0) g/dL Albumin (3.5-5.0) g/dL Lipase (8-78) U/L Valproic Acid (50.0-100.0) mcg/mL [place] (0.60-1.20) mmol/L Influenza Type A (PCR) (Negative) Influenza Type B (PCR) (Negative) RSV RNA Qual (PCR) (Negative) SARS-CoV-2 RNA (RT-PCR) (Negative) 08/21/22 08/21/22 08/21/22 Range/Units 11:38 11:38 11:39 WBC 6.8 (4.8-10.8) X10*3/uL RBC 4.43 L (4.60-5.80) X10*6/uL Hgb 13.0 L (14.0-18.0) g/dl Hct 41.2 L (42.0-52.0) % MCV 93.0 (80.0-98.0) fL MCH 29.3 (27.0-33.0) pg MCHC 31.6 (31.0-36.0) g/dl RDW 14.4 (11.0-16.0) % Plt Count 155 L (160-400) X10*3/uL MPV 11.1 (9.4-12.4) fL Immature Gran % (Auto) 0.4 (0.0-0.4) % Neut % (Auto) 65.9 (45-73) % Lymph % (Auto) 25.2 (20-40) % Edmunds % (Auto) 7.5 (2-11) % Eos % (Auto) 0.7 (0-4) % Baso % (Auto) 0.3 (0-2) % Lymph # (Auto) 1.7 (1.2-4.9) X10*3/uL Edmunds # (Auto) 0.5 (0.1-1.2) X10*3/uL Eos # (Auto) 0.1 (0.0-0.4) X10*3/uL Baso # (Auto) 0.0 (0.0-0.2) X10*3/uL Abs Immat Gran (auto) 0.03 (0.00-0.03) X10*3/uL Absolute Neuts (auto) 4.5 (2.0-8.3) x10*3/uL Absolute Nucleated RBC 0.000 (0.0-0.012) X10*3/uL Nucleated RBC % (auto) 0.0 (0.0-0.2) /100WBC PT (10.0-13.1) SEC INR (0.9-1.1) O2 Saturation % ABG pH at Pt Temp (7.35-7.45) ABG pCO2 at Pt Temp (32-45) mmHg ABG pO2 at Pt Temp (83-108) mmHg ABG HCO3 (22-26) mmol/L ABG Base Excess (Actual) mmol/L Sodium (135-145) mmol/L Potassium (3.3-5.1) mmol/L Chloride (96-108) mmol/L Carbon Dioxide (22-29) mmol/L Anion Gap (12-20) BUN (9-16) mg/dL Creatinine (0.5-1.4) mg/dL Estim Creat Clear Calc Estimated GFR POC Glucose (60-115) mg/dL Random Glucose (60-115) mg/dL Lactic Acid (0.5-2.0) mmol/L Calcium (8.4-10.2) mg/dL Magnesium (1.6-2.6) mg/dL Total Bilirubin (0.0-1.0) mg/dL AST (5-37) U/L ALT (0-40) U/L Alkaline Phosphatase (39-117) U/L Total Creatine Kinase (38-174) U/L Troponin I High Sens (<3.5-35.0) ng/L B-Natriuretic Peptide (<100) pg/mL Total Protein (6.5-8.0) g/dL Albumin (3.5-5.0) g/dL Lipase (8-78) U/L Valproic Acid 91.0 (50.0-100.0) mcg/mL [place] 0.72 (0.60-1.20) mmol/L Influenza Type A (PCR) (Negative) Influenza Type B (PCR) (Negative) RSV RNA Qual (PCR) (Negative) SARS-CoV-2 RNA (RT-PCR) (Negative) 08/21/22 08/21/22 08/21/22 Range/Units 11:39 11:39 11:42 WBC (4.8-10.8) X10*3/uL RBC (4.60-5.80) X10*6/uL Hgb (14.0-18.0) g/dl Hct (42.0-52.0) % MCV (80.0-98.0) fL MCH (27.0-33.0) pg MCHC (31.0-36.0) g/dl RDW (11.0-16.0) % Plt Count (160-400) X10*3/uL MPV (9.4-12.4) fL Immature Gran % (Auto) (0.0-0.4) % Neut % (Auto) (45-73) % Lymph % (Auto) (20-40) % Edmunds % (Auto) (2-11) % Eos % (Auto) (0-4) % Baso % (Auto) (0-2) % Lymph # (Auto) (1.2-4.9) X10*3/uL Edmunds # (Auto) (0.1-1.2) X10*3/uL Eos # (Auto) (0.0-0.4) X10*3/uL Baso # (Auto) (0.0-0.2) X10*3/uL Abs Immat Gran (auto) (0.00-0.03) X10*3/uL Absolute Neuts (auto) (2.0-8.3) x10*3/uL Absolute Nucleated RBC (0.0-0.012) X10*3/uL Nucleated RBC % (auto) (0.0-0.2) /100WBC PT 11.4 (10.0-13.1) SEC INR 1.0 (0.9-1.1) O2 Saturation % ABG pH at Pt Temp (7.35-7.45) ABG pCO2 at Pt Temp (32-45) mmHg ABG pO2 at Pt Temp (83-108) mmHg ABG HCO3 (22-26) mmol/L ABG Base Excess (Actual) mmol/L Sodium 147 H (135-145) mmol/L Potassium 4.5 (3.3-5.1) mmol/L Chloride 110 H (96-108) mmol/L Carbon Dioxide 28 (22-29) mmol/L Anion Gap 14 (12-20) BUN 9 (9-16) mg/dL Creatinine 0.79 (0.5-1.4) mg/dL Estim Creat Clear Calc 112.7 Estimated GFR > 60 POC Glucose (60-115) mg/dL Random Glucose 104 (60-115) mg/dL Lactic Acid (0.5-2.0) mmol/L Calcium 8.8 (8.4-10.2) mg/dL Magnesium 2.2 (1.6-2.6) mg/dL Total Bilirubin 0.3 (0.0-1.0) mg/dL AST 14 (5-37) U/L ALT 13 (0-40) U/L Alkaline Phosphatase 54 (39-117) U/L Total Creatine Kinase (38-174) U/L Troponin I High Sens (<3.5-35.0) ng/L B-Natriuretic Peptide (<100) pg/mL Total Protein 5.8 L (6.5-8.0) g/dL Albumin 3.5 (3.5-5.0) g/dL Lipase 10 (8-78) U/L Valproic Acid (50.0-100.0) mcg/mL [place] (0.60-1.20) mmol/L Influenza Type A (PCR) NEGATIVE (Negative) Influenza Type B (PCR) NEGATIVE (Negative) RSV RNA Qual (PCR) NEGATIVE (Negative) SARS-CoV-2 RNA (RT-PCR) POSITIVE A (Negative) Independent Interpretation I performed an independent interpretation of an: EKG (Normal sinus rhythm with ventricular rate of [address] abnormalities no acute ischemic change are noted. Similar compared to prior EKG 09/22/2019) and CT Scan (I reviewed all CT scan results and agreeable radiologist report) Radiology Impression Discussion of test interpretation with radiology: I have reviewed the radiologist's reading. Radiologist Impression: FINDINGS: There is no acute intra-axial, extra-axial bleed, masses or midline shift. There is no acute infarction in evolution. There is no edema. The montgomery to white matter differentiation is maintained normal. The lateral ventricles are symmetrical in size and configuration without enlargement. Bone windows reveal no calvarial abnormality. There is no scalp soft tissue abnormality. There is diffuse mucoperiosteal thickening bilateral maxillary and ethmoid sinuses. Rest of the paranasal sinuses are clear. Cervical spine: There is mild straightening of cervical lordosis. The vertebral heights and alignment is normal. There is loss of C5-C6 and C6-C7 disc heights with moderate ventral and mild posterior spondylosis. The craniovertebral junction and the C1-C2 alignment is normal. There is no acute fracture, dislocation or subluxation seen. The bone windows reveal no lytic or sclerotic process.. Is patchy opacity in the left lung base question developing infiltrate or atelectasis. The tracheal airways widely patent. CT/CT head/brain wo IV con IMPRESSION: No acute intracranial process seen. ? Chronic bilateral maxillary and ethmoid sinus inflammatory changes. ? Degenerative disc changes C5-C6 and C6-C7 disc levels with moderate ventral and mild posterior spondylosis. No visible acute fracture, dislocation or lytic process seen. FINDINGS: CTA: There is good opacification of pulmonary artery and its branches without any intraluminal filling defect. The thoracic aorta is of normal caliber. No aneurysm or dissection seen. Heart size and the great vessels are normal caliber. No abnormal size mediastinal or hilar lymph nodes seen. LUNGS: The lungs are well-expanded with a dense consolidation left lower lobe, patchy infiltrates left upper lobe and lingula. Minimal infiltrative changes also seen in the right lower lobe. Pleura: There is minimal bilateral pleural thickening seen. There is no large effusion suspected.. Axilla: No abnormal axillary lymph nodes or mass seen. The chest wall is unremarkable. Osseous structures: There is no compression fracture, aggressive lytic or sclerotic process seen except for mild spondylosis. ABDOMEN AND PELVIS:: Liver, gallbladder and ducts: The liver is homogeneous in density, normal size and contour. There is no focal lesion or intrahepatic ductal dilatation seen. Pancreas: Unremarkable. Spleen: Unremarkable. Adrenal glands: Unremarkable. Kidneys and ureters: Both kidneys are normal size, contour and cortical thickness. No radiopaque calculi or hydronephrosis seen. There are punctate lower pole cortical cyst left kidney suspected. Mild bilateral perinephric stranding seen. Lymphovascular structures: No abnormal size lymph nodes seen. The abdominal aorta is normal caliber. No retrobulbar mass or lymphadenopathy seen. GI tract: There is scattered stool and gas seen throughout the colon without any significant distention. The small bowel loops are normal caliber. Appendix is normal caliber. Abdominal wall:. Unremarkable. Pelvis: The bladder is distended. There is no free fluid or free air. No abnormal pelvic lymph nodes. Osseous structures: There is an 8 mm round sclerotic lesion left iliac bone. CT/CT angio chest PE protocol IMPRESSION:: No evidence of PE. ? No evidence aortic dissection or aneurysm. ? Multi lobar infiltrates and mild bilateral posterior pleural thickening. ? Distended urinary bladder. ? Mild constipation. Independent Historian Clinical information obtained from an independent historian. History obtained from or confirmed by: EMS and Other (We called the group home and reviewed the record) External Record Review External record reviewed: Inpatient record, Office record, Outpatient record, Prior outpatient labs, Prior outpatient radiology, Primary care record and Outside ED record All group home records, prior visits, labs, radiology are reviewed by myself Chronic Conditions Patient?s care impacted by: Other (Dementia, schizophrenia, anxiety, GERD, BPH, hypertension and multiple other chronic conditions) Critical Care Time Critical Care Time Critical Care Time: Yes Total Critical Care Time: 60 Attestation: I personally attest to this time spent taking care of the patient Discharge Plan Discharge Clinical Impression: COVID-19, Hypoxia, General weakness, Pneumonia, Fall Patient Disposition: Admitted As Inpatient
[2022-08-21] MEDS: Azithromycin 500 MG in 0.9 % Sodium Chloride 250 ML 125 MG IV (16:29)
[2022-08-21] MEDS: Piperacillin Sodium/Tazobactam 3.375 GM in 0.9 % Sodium Chloride 50 ML IV (16:34)
--- NOTE | 2022-08-21 16:37 | P.HPHOSP_ITS ---
History of Present Illness Date of Service: 08/21/22 Attending physician on admission: Sharyn Turner Chief Complaint: Weakness and fall 56yoM with a PMHx of dementia, schizophrenia, anxiety disorder, GERD, BPH, hypertension, urinary incontinence, seizure disorder who wears a Helmet while walking resident of [facility] presented to [place] [facility] after he had unwitnessed fall at the senior living prior to arrival, patient noted to have generalized weakness and recently diagnosed to have COVID 3 days prior to presentation at baseline patient walks normally, as per [facility] patient has difficult to understand speech in the emergency room patient was unable to provide meaningful history he was noted to be hypoxic, patient underwent extensive testing including head CT that showed no acute abnormality, CTA chest showed multifocal pneumonia, cervical CT showed degenerative changes otherwise no acute abnormality, CT abdomen showed distended urinary bladder and mild constipation, patient treated in the emergency room with 1 L of IV fluid, IV Zosyn and IV azithromycin, and placed on OxyMask at present oxygenation is 99% patient is being admitted to [facility] due to COVID-19 infection/pneumonia with mild hypernatremia with sodium of 147 and generalized weakness.? Review of Systems Review of Systems: Unable to obtain meaningful history since patient somnolent and speech is not clear. Yes Other [facility] Medical History Anxiety BPH (benign prostatic hyperplasia) Dementia GERD (gastroesophageal reflux disease) HTN (hypertension) Hypernatremia Metabolic encephalopathy Resides in senior living facility Schizophrenia Pertinent family history: Unable to obtain family history since patient is somnolent Surgical History Hx of cystoscopy Social History Household Members: Other Housing: [facility] Housing Other:: [facility] Unable to assess alcohol history related to: Unable to respond Alcohol intake: never Patient Tobacco Use Status: Tobacco use Unknown Advance Directives Date on File: 01/17/22 Meds Allergies Allergy/AdvReac Type Severity Reaction Status Date / Time Sulfa (Sulfonamide Allergy Intermediate Rash Verified 06/16/22 14:17 Antibiotics) [SULFA (SULFONAMIDE ANTIBIOTICS)] [id number] Reductase Allergy Unknown Unknown Verified 06/16/22 14:17 Inhibitor [[id number] REDUCTASE INHIBITOR] ANTIARTERIOSCLEROTIC DRUGS AdvReac Unknown Unknown Uncoded 06/16/22 14:17 Active Medications: Current Medications Acetaminophen (Acetaminophen 325 Mg Tablet) 650 mg PO Q6H PRN PRN Reason: Pain, Mild (Pain Scale 1-3) Albuterol Sulfate 2.5 mg/ (Ipratropium [place] 0.5 mg) 0 mg INHALE RQ6H WHILE AWAKE PRN PRN Reason: sob Dexamethasone Sodium Phosphate (Dexamethasone Sod Phosphate 4 Mg/Ml Vial) 6 mg IVPUSH DAILY MONTEZ Enoxaparin Sodium (Enoxaparin Sodium 40 Mg/0.4 Ml Syringe) 40 mg SUBCUT Q24H MONTEZ Azithromycin 500 mg/ Sodium (Chloride) 250 mls @ 125 mls/hr IV ONCE ONE Stop: 08/21/22 17:50 Last Admin: 08/21/22 16:29 Dose: 125 mls/hr Doxycycline Hyclate 100 mg/ (Sodium Chloride) 250 mls @ 166.67 mls/hr IV Q12H [facility] Ondansetron HCl (Ondansetron Hcl 4 Mg/2 Ml Vial) 4 mg IVPUSH Q8H PRN PRN Reason: Nausea and Vomiting Pharmacy Consult (Consult Rx Perform Med Rec) 1 each MISCELLANE ONCE PRN PRN Reason: Consult order Sodium Chloride (0.9 % Sodium Chloride Flush 3 Ml Syringe) 3 ml IVFLUSH QSHIFT [facility] Home Medications Medication Instructions Recorded Confirmed Last Taken Type acetaminophen 325 mg capsule 325 mg PO QID PRN Pain 02/15/21 08/21/22 Unknown History benztropine 1 mg tablet 1 mg PO BID 02/15/21 08/21/22 Unknown History clonazepam 1 mg tablet 1 mg PO BID 02/15/21 08/21/22 Unknown History diazepam 5 mg tablet 5 mg PO BID 02/15/21 08/21/22 Unknown History haloperidol 5 mg tablet 5 mg PO BEDTIME 02/15/21 08/21/22 Unknown History lithium carbonate 150 mg capsule 450 mg PO BEDTIME 02/15/21 08/21/22 Unknown History propranolol 10 mg tablet 5 mg PO BID 02/15/21 08/21/22 Unknown History sennosides 8.6 mg capsule (senna) 8.6 mg PO DAILY PRN Constipation 02/15/21 08/21/22 Unknown History benztropine 0.5 mg tablet 0.5 mg PO BID 01/17/22 08/21/22 Unknown History divalproex 125 mg capsule,delayed 625 mg PO BID 01/17/22 08/21/22 Unknown History release sprinkle (Depakote Sprinkles) haloperidol 5 mg tablet 2.5 mg PO QAM 01/17/22 08/21/22 Unknown History risperidone 2 mg tablet 2 mg PO BEDTIME 01/17/22 08/21/22 Unknown History bisacodyl 10 mg rectal suppository 10 mg PA DAILY PRN Constipation 08/21/22 08/21/22 Unknown History docusate sodium 100 mg capsule 100 mg PO BID 08/21/22 08/21/22 Unknown History lactulose 10 gram/15 mL oral 30 ml PO BID 08/21/22 08/21/22 Unknown History solution loperamide 2 mg capsule 2 mg PO Q4H PRN Diarrhea 08/21/22 08/21/22 Unknown History Physical Exam Vital Signs and Narrative: Vital Signs: Last Vital Signs Temp 97.1 F 08/21/22 10:55 Pulse 87 08/21/22 14:21 Resp 18 08/21/22 14:21 BP 103/60 08/21/22 14:21 Pulse Ox 99 08/21/22 14:21 O2 Del Method 08/21/22 14:21 Oxygen Flow Rate 5 08/21/22 10:55 BMI result Body Mass Index 33.9 Const: Other: General somnolent arousable to verbal stimuli ,in no acute distress. Pupils reactive to light Neck supple, no JVD. CVS regular rate rhythm, Respiratory lungs bilateral rhonchi, no respiratory distress, no use of accessory muscles Gastrointestinal abdomen soft, nontender, bowel sounds audible, no guarding , no rigidity. Extremities no edema. Neuro nonfocal , moving all 4 extremity , skin no rash Results Labs 08/21/22 11:39 08/21/22 11:39 Labs: Laboratory Results - last 24 hr 08/21/22 08/21/22 08/21/22 11:01 11:31 11:37 MCV MCH MCHC RDW Plt Count MPV Immature Gran % (Auto) Neut % (Auto) Lymph % (Auto) [place] % (Auto) Eos % (Auto) Baso % (Auto) Lymph # (Auto) [place] # (Auto) Eos # (Auto) Baso # (Auto) Abs Immat Gran (auto) Absolute Neuts (auto) Absolute Nucleated RBC Nucleated RBC % (auto) PT INR O2 Saturation 90.0 ABG pH at Pt Temp 7.45 ABG pCO2 at Pt Temp 35 ABG pO2 at Pt Temp 58 L ABG HCO3 24 ABG Base Excess (Actual) 1.3 Anion Gap Estim Creat Clear Calc Estimated GFR POC Glucose 89 Random Glucose Lactic Acid Calcium Magnesium Total Bilirubin AST ALT Alkaline Phosphatase Total Creatine Kinase Troponin I High Sens B-Natriuretic Peptide 41 Total Protein Albumin Lipase Valproic Acid Mag[place] Influenza Type A (PCR) Influenza Type B (PCR) RSV RNA Qual (PCR) SARS-CoV-2 RNA (RT-PCR) 08/21/22 08/21/22 08/21/22 11:38 11:38 11:38 MCV MCH MCHC RDW Plt Count MPV Immature Gran % (Auto) Neut % (Auto) Lymph % (Auto) [place] % (Auto) Eos % (Auto) Baso % (Auto) Lymph # (Auto) [place] # (Auto) Eos # (Auto) Baso # (Auto) Abs Immat Gran (auto) Absolute Neuts (auto) Absolute Nucleated RBC Nucleated RBC % (auto) PT INR O2 Saturation ABG pH at Pt Temp ABG pCO2 at Pt Temp ABG pO2 at Pt Temp ABG HCO3 ABG Base Excess (Actual) Anion Gap Estim Creat Clear Calc Estimated GFR POC Glucose Random Glucose Lactic Acid 1.3 Calcium Magnesium Total Bilirubin AST ALT Alkaline Phosphatase Total Creatine Kinase 117 Troponin I High Sens < 3.5 B-Natriuretic Peptide Total Protein Albumin Lipase Valproic Acid [place] Influenza Type A (PCR) Influenza Type B (PCR) RSV RNA Qual (PCR) SARS-CoV-2 RNA (RT-PCR) 08/21/22 08/21/22 08/21/22 11:38 11:38 11:39 MCV 93.0 MCH 29.3 MCHC 31.6 RDW 14.4 Plt Count 155 L MPV 11.1 Immature Gran % (Auto) 0.4 Neut % (Auto) 65.9 Lymph % (Auto) 25.2 [place] % (Auto) 7.5 Eos % (Auto) 0.7 Baso % (Auto) 0.3 Lymph # (Auto) 1.7 [place] # (Auto) 0.5 Eos # (Auto) 0.1 Baso # (Auto) 0.0 Abs Immat Gran (auto) 0.03 Absolute Neuts (auto) 4.5 Absolute Nucleated RBC 0.000 Nucleated RBC % (auto) 0.0 PT INR O2 Saturation ABG pH at Pt Temp ABG pCO2 at Pt Temp ABG pO2 at Pt Temp ABG HCO3 ABG Base Excess (Actual) Anion Gap Estim Creat Clear Calc Estimated GFR POC Glucose Random Glucose Lactic Acid Calcium Magnesium Total Bilirubin AST ALT Alkaline Phosphatase Total Creatine Kinase Troponin I High Sens B-Natriuretic Peptide Total Protein Albumin Lipase Valproic Acid 91.0 [place] 0.72 Influenza Type A (PCR) Influenza Type B (PCR) RSV RNA Qual (PCR) SARS-CoV-2 RNA (RT-PCR) 08/21/22 08/21/22 08/21/22 11:39 11:39 11:42 MCV MCH MCHC RDW Plt Count MPV Immature Gran % (Auto) Neut % (Auto) Lymph % (Auto) [place] % (Auto) Eos % (Auto) Baso % (Auto) Lymph # (Auto) [place] # (Auto) Eos # (Auto) Baso # (Auto) Abs Immat Gran (auto) Absolute Neuts (auto) Absolute Nucleated RBC Nucleated RBC % (auto) PT 11.4 INR 1.0 O2 Saturation ABG pH at Pt Temp ABG pCO2 at Pt Temp ABG pO2 at Pt Temp ABG HCO3 ABG Base Excess (Actual) Anion Gap 14 Estim Creat Clear Calc 112.7 Estimated GFR > 60 POC Glucose Random Glucose 104 Lactic Acid Calcium 8.8 Magnesium 2.2 Total Bilirubin 0.3 AST 14 ALT 13 Alkaline Phosphatase 54 Total Creatine Kinase Troponin I High Sens B-Natriuretic Peptide Total Protein 5.8 L Albumin 3.5 Lipase 10 Valproic Acid [place] Influenza Type A (PCR) NEGATIVE Influenza Type B (PCR) NEGATIVE RSV RNA Qual (PCR) NEGATIVE SARS-CoV-2 RNA (RT-PCR) POSITIVE A Imaging Radiologist's Impressions: Impressions Abdomen/Pelvis CT 08/21/22 13:41 IMPRESSION:: No evidence of PE. No evidence aortic dissection or aneurysm. Multi lobar infiltrates and mild bilateral posterior pleural thickening. Distended urinary bladder. Mild constipation. Cervical Spine CT 08/21/22 13:41 IMPRESSION: No acute intracranial process seen. Chronic bilateral maxillary and ethmoid sinus inflammatory changes. Degenerative disc changes C5-C6 and C6-C7 disc levels with moderate ventral and mild posterior spondylosis. No visible acute fracture, dislocation or lytic process seen. Chest CTA 08/21/22 13:41 IMPRESSION:: No evidence of PE. No evidence aortic dissection or aneurysm. Multi lobar infiltrates and mild bilateral posterior pleural thickening. Distended urinary bladder. Mild constipation. Head CT 08/21/22 13:41 IMPRESSION: No acute intracranial process seen. Chronic bilateral maxillary and ethmoid sinus inflammatory changes. Degenerative disc changes C5-C6 and C6-C7 disc levels with moderate ventral and mild posterior spondylosis. No visible acute fracture, dislocation or lytic process seen. Assessment and Plan (1) COVID-19: Status: Acute (2) Hypoxia: Status: Acute (3) General weakness: Status: Acute (4) Pneumonia: Status: Acute Plan 56-year-old gentleman resident of [facility] with underlying history of GERD, hypertension, history of convulsions, urinary incontinence, schizophrenia, unspecified dementia without behavioral disturbance, benign prostate hyperplasia sent to [facility] due to generalized weakness fall likely related to recently diagnosed COVID-19 infection will be admitted to [facility] due to acute hypoxic respiratory failure COVID-19 pneumonia. Acute hypoxic respiratory failure due to COVID-19 pneumonia Concern for super added bacterial infection, admitted to [facility] [place], no sepsis Noted to have O2 sat 88% therefore placed on 7 L OxyMask, oxygenation improved patient not on home oxygen will gradually wean O2 as tolerated. IV doxycycline, IV Decadron 6 mg daily times 10 days, supportive care with cough medication, DuoNeb updraft, Tylenol per rectum Normal CBC, no fevers, blood cultures x2 pending Hypotension Give IV fluids , hold propranolol, follow BP closley. Chronic hypernatremia likely due to decreased by mouth intake will give IV fluid follow labs. Toxic metabolic encephalopathy Patient noted to be some somnolent, has normal valproic acid and lithium level, head CT unremarkable Likely due to hypernatremia/COVID infection Hold sedatives Generalized weakness/fall Likely due to above, supportive care PT eval prior to discharge, continue helmet with ambulation , remove helmet while in bed. Dementia unspecified with no behavioral issues continue home medications History of schizophrenia hold home medications since patient somnolent/lethargic unable to take by mouth medications . DVT prophylaxis with Lovenox. Code status full code In my clinical judgment patient need 2 night inpatient stay due to COVID-19 infection requiring IV antibiotics and acute hypoxia. Time Spent With Patient Time: Total time managing care of this patient today ____ minutes. Quality Stroke Does the patient have a stroke diagnosis?: No VTE Prior VTE?: No VTE Risk Level:: Medical - moderate - high VTE Device Contraindication: Treatment Not Indicated VTE Drug Contraindication: N/A - Med Ordered
[2022-08-21] MEDS: Doxycycline Hyclate 100 MG in 0.9 % Sodium Chloride 250 ML 166.67 MG IV (17:35)
--- NOTE | 2022-08-21 17:53 | PHA.MEDREC ---
Pharmacy Consult ? Medication Reconciliation Pharmacy has completed the medication reconciliation.
[2022-08-21] MEDS: dexAMETHasone sod phosphate 4 MG/ML VIAL 6 MG IVPUSH (17:56)
[2022-08-21] MEDS: Enoxaparin Sodium 40 MG/0.4 ML SYRINGE SUBCUT (17:56)
[2022-08-21 17:57] LABS: Glucose, Whole Blood 110 mg/dL (60-115)
--- NOTE | 2022-08-21 18:03 | PC.NURSE ---
Patient noted to have a low BP on monitor, manual was 82/48; patient also more lethargic than previously; provider made aware of low BP and of changed mental status. Patient warm to touch a rectal temp was obtained and noted to be 102.1; AK Tylenol requested. Patient had phlegm in his upper airways, suctioned with good results. Patient resting at this time, will respond slightly to tactile stimulation but not to verbal stimulation at this time.
[2022-08-21] MEDS: Acetaminophen Supp 650 MG SUPP.RECT PR (18:40)
[2022-08-21] MEDS: Dextrose 5 % and Lactated Ring 1,000 ML 150 ML IVCONT (18:41)
--- NOTE | 2022-08-21 20:08 | PC.NURSE ---
This technical publications writer assumed care of this Pt at 1900. Pt hypotensive in the reverse trandelenburg position, lethargic, responsive to tactile stimuli. Pt has IV fluids running as ordered. Pt warm to touch, febrile. Incontinent of urine, incontinent care provided. 2008: RN to RN report given to Wang. Pt will be transported to room 475 by transporter.
[2022-08-21] MEDS: Lactated Ringers 1,000 ML 999 ML IV (21:20)
[2022-08-22] VITALS (8 sets, daily range): BP systolic 96–126; BP diastolic 58–76; PULSE 57–84; RESP 17–20; TEMP 36.1–36.7; O2SAT 96–99
--- NOTE | 2022-08-22 00:35 | PM.EVENT ---
Event Note Date of Service: 08/22/22 Event Note: Patient remains hypotensive despite 3 total L of fluid. Spoke to ICU, manual BP checked showed improvement in his blood pressure. Patient will receive 1 more L of bolus. Will obtain lactic acid and VBG and monitor patient closely. Time Spent With Patient Time: Total time managing care of this patient today ____ minutes.
[2022-08-22 00:38] LABS: Venous Blood Gas Refer to POC result
[2022-08-22 00:39] LABS: VBG Base Excess -0.7 mmol/L; VBG HCO3 23 mmol/L (22-26); VBG pCO2 34 mmHg; VBG pH 7.42 (7.32-7.43); VBG pO2 73 mmHg
[2022-08-22 00:44] LABS: Lactic Acid 1.8 mmol/L (0.5-2.0)
--- NOTE | 2022-08-22 00:47 | P.CONCC_ITS ---
History of Present Illness Data of Consult Service Date: 08/22/22 Requesting physician: Jodi Coello Primary Care Provider: Qamar Chacon, DO HPI Reason for consult: Hypotension/ covid 19 Source of history:? Patient's chart ? HPI: ?This is a 56-year-old patient with underlying history of schizophrenia, dementia, GERD, BPH, anxiety, hypertension, seizure disorder for which she is on Depakote and lithium, urinary incontinence, hypertension among others, as noted the patient is a resident of [facility] place the which he uses a protective helmet.? He had presented to the ER on 08/21/2022 after a un witnessed fall, he had been generally weak as he was diagnosed with COVID-19 infection 3 days ago. ? In the ER, his workup was overall unrevealing for his laboratories did not show a white count, H&H of 13.0 and 41.2 respectively with platelets of 155.? Overall normal ABG, lactic acid 1.8.? His sodium was 147, potassium 4.5, chloride 110, otherwise the remainder of his laboratories were unremarkable.? Elrod level 0.72, valproic acid 91.? Respiratory panel was negative with section of a positive COVID 2 PCR test.? Had extensive images of the chest, abdomen pelvis, cervical spine and head CT all of which were overall unremarkable without evidence of pulmonary embolism, no evidence of intra-abdominal process, no evidence of intracranial process, chronic this changes at level of C5-C6, C6-C7 with moderate ventral and mild posterior spondylosis.? No fracture. ? Patient's was treated emergency room with 1 L of IV fluid and a 2 L given later on, it looks like he received doxycycline, Zosyn, Zithromax this last given that the chest CT showed multi lobar infiltrates and mild bilateral posterior pleural thickening.? Patient was admitted to the floor for further treatment.? Were consulted because the patient developed hypotension, according to the nurse they obtained a couple blood pressures in the low 70s and they were concerned that the patient's deteriorating.? During my initial evaluation, patient quickly respond to verbal stimuli, does not appear to be in any distress however is not able to answer questions.? He does have a Umller catheter which appears to have very scant yellow concentrated urine. ? ROS:? Unable to obtain ? Past Medical History:? As above Difficulty swallowing ? Past Surgical History: Cystoscopy ? Family history:? Noncontributory ? Social History:? snf facility resident, normally he is able to walk, has difficulty understanding commands.? Tobacco use is unknown, no history of alcohol intake. ? CODE STATUS: FULL CODE ? Allergies: ?Sulfa (rash), statins (unknown), anti arthrosclerotic drugs (unknown) ? Home Medications: See Med Rec ? PHYSICAL EXAM: VS: ?96/64, 70, 16, 94% on OxyMask at 2 L. General:? Alert to verbal command and light touch, unable to determine orientat ion, seems confused although he comes down with reassurance. Skin:? Hyperpigmented left tibial area, otherwise? Intact, no lesions, edema, erythema, clubbing or cyanosis.? No ulcers. HEENT:? Head is normocephalic, atraumatic, pupils equal round reactive to light accommodation bilaterally.? Extraocular movements appear intact.? Buccal mucosa is moist, Neck is supple without lymphadenopathy. Cardiac:? Clear S1-S2, no murmurs rubs or gallops. Pulmonary:? Coarse lung sounds bilaterally with bilateral rhonchi left monitor right and upper lung congestion of coarseness, no wheezes. Abdomen:? Protuberant, positive bowel sounds in all 4 quadrants.? Soft, nontender.? Muller catheter in place with about 50 cc yellow concentrated urine. Musculoskeletal:? Appears to moving all 4 extremities on his own the major joints.? No leg edema, no asymmetry. Neurologic:? As above, otherwise unable to further assess given confusion. ? Vascular:? 2+ pulses upper and lower extremities distally. ?Less than 2 seconds capillary refill of the upper lower extremities bilaterally. ? SIGNIFICANT LABORATORY DATA:? As above ? REVIEW OF IMAGES: ? C SPINE IMPRESSION: No acute intracranial process seen. Chronic bilateral maxillary and ethmoid sinus inflammatory changes. Degenerative disc changes C5-C6 and C6-C7 disc levels with moderate ventral and mild posterior spondylosis. No visible acute fracture, dislocation or lytic process seen. CT CHEST ABDOMEN PELVIS IMPRESSION: No evidence of PE. No evidence aortic dissection or aneurysm. Multi lobar infiltrates and mild bilateral posterior pleural thickening.? Distended urinary bladder.? Mild constipation. ? HEAD CT IMPRESSION: No acute intracranial process seen. Chronic bilateral maxillary and ethmoid sinus inflammatory changes.? Degenerative disc changes C5-C6 and C6-C7 disc levels with moderate ventral and mild posterior spondylosis. No visible acute fracture, dislocation or lytic process seen. ? EKG REVIEW: To my view, Sinus rhythm 69 beats per minute.? There is no ST elevations, no ST depressions.? Age-indeterminate changes in the anterior leads.? QTC 422.? This was compared to September 2019. ? ASSESSMENT : 1. COVID-19 infection 2. Hypotension likely due to volume losses both from the urinary output and insensible losses, poor p.o. intake; There is no evidence of sepsis 3. Illness related mild thrombocytopenia 4. Hypovolemic hypernatremia 5. Hyperchloremia 6. Chronic history of incomplete emptying of the bladder due to benign prostatic hyperplasia ? PLAN OF CARE: Patient was seen and assessed, he is easily arousable, he does not appear to be in any respiratory distress.? Even though he is somewhat confused, he comes now reassurance.? His manual blood pressure is 96/64, his lung exam do not give me the impression that he is fluid overloaded, he has no JVD and no leg edema.? Furthermore he appears dehydrated and sweating likely due to his COVID-19 infection.? I believe the patient would benefit from more IV fluids, certainly monitoring his sodium and chloride levels would be important as well as his potassium. I have advised nursing personnel and discussed the case with the internal medicine physician so that we can repeat laboratories including lactic acid, given 1 L of IV fluid and continue to monitor his I's and O's; give albumin. Even though he appears to be fluid positive at 3.2 L, it is known that the patient had soaked the bed twice both in the ER as well as on the floor upon arrival but the output was not recorded. At this point recommend to continue with supportive care, I do not think he needs vasopressors, will continue to monitoring if the patient deteriorates or something else comes up, we will be happy to re-evaluate and or transfer the patient to the ICU. I do see the patient is on antibiotics, no harm with this but I doubt that this is unlikely a bacterial pneumonia, the CT changes of the chest are most likely consistent with COVID-19 infection. He will most likely required D5 half-normal saline given his hypernatremia in the setting of volume depletion. Case discussed with Dr Powell Clinical update 04:30 am patient has normal vital signs blood pressure 100/60, heart rate 73, respirations 18, temperature 98.1 degrees, O2 sat 96% on OxyMask at 2 liters/minute. Laboratories reviewed, again consider D5 half-normal saline. ? Critical care time used for critical evaluation of this patient, diagnosis, treatment and coordination of care, review her records and documentation TOTAL CRITICAL CARE TIME??90 MIN. discussion and coordination with consultants, completely separate from any procedures performed. Patient's care was discussed in detail with Dr. Bran.? He is aware of all the above as well as the plan of care for this patient. PENDING SALE TO [facility] Past Medical History Medical History Anxiety BPH (benign prostatic hyperplasia) Dementia GERD (gastroesophageal reflux disease) HTN (hypertension) Hypernatremia Metabolic encephalopathy [facility] in [facility] Schizophrenia Surgical History Surgical History Hx of cystoscopy Social History Social History Household Members: Other Housing: [facility] Housing Other:: [facility] Unable to assess alcohol history related to: Unable to respond Alcohol intake: never Patient Tobacco Use Status: Tobacco use Unknown Advance Directives Date on File: 01/17/22 service: No Current occupational status: disabled Meds Allergies Allergy/AdvReac Type Severity Reaction Status Date / Time Sulfa (Sulfonamide Allergy Intermediate Rash Verified 06/16/22 14:17 Antibiotics) [SULFA (SULFONAMIDE ANTIBIOTICS)] [id number] Reductase Allergy Unknown Unknown Verified 06/16/22 14:17 Inhibitor [[id number] REDUCTASE INHIBITOR] ANTIARTERIOSCLEROTIC DRUGS AdvReac Unknown Unknown Uncoded 06/16/22 14:17 Active Medications: Current Medications Acetaminophen (Acetaminophen 325 Mg Tablet) 650 mg PO Q6H PRN PRN Reason: Pain, Mild (Pain Scale 1-3) Acetaminophen (Acetaminophen Supp 650 Mg Supp.Rect) 650 mg [place] Q6H PRN PRN Reason: Fever Last Admin: 08/21/22 18:40 Dose: 650 mg Bisacodyl (Bisacodyl 10 Mg Supp.Rect) 10 mg [place] DAILY PRN PRN Reason: Constipation Albuterol Sulfate 2.5 mg/ (Ipratropium [place] 0.5 mg) 0 mg INHALE RQ6H WHILE AWAKE PRN PRN Reason: sob Dexamethasone Sodium Phosphate (Dexamethasone Sod Phosphate 4 Mg/Ml Vial) 6 mg IVPUSH DAILY [facility] Last Admin: 08/21/22 17:56 Dose: 6 mg Enoxaparin Sodium (Enoxaparin Sodium 40 Mg/0.4 Ml Syringe) 40 mg SUBCUT Q24H [facility] Last Admin: 08/21/22 17:56 Dose: 40 mg Guaifenesin/Dextromethorphan (Guaifenesin Dm 100/10/5 Ml 5 Ml Syrup) 10 ml PO TID [facility] Last Admin: 08/21/22 22:58 Dose: Not Given Doxycycline Hyclate 100 mg/ (Sodium Chloride) 250 mls @ 166.67 mls/hr IV Q12H [facility] Last Infusion: 08/21/22 19:40 Dose: Infused Lactated Ringer's (Lr) 1,000 mls @ 999 mls/hr IV .Q1H1M [facility] Stop: 08/22/22 01:45 Ondansetron HCl (Ondansetron Hcl 4 Mg/2 Ml Vial) 4 mg IVPUSH Q8H PRN PRN Reason: Nausea and Vomiting Pharmacy Consult (Consult Rx Perform Med Rec) 1 each MISCELLANE ONCE PRN PRN Reason: Consult order Sodium Chloride (0.9 % Sodium Chloride Flush 3 Ml Syringe) 3 ml IVFLUSH QSHIFT [facility] Home Medications Medication Instructions Recorded Confirmed Last Taken Type acetaminophen 325 mg capsule 325 mg PO QID PRN Pain 02/15/21 08/21/22 Unknown History benztropine 1 mg tablet 1 mg PO BID 02/15/21 08/21/22 Unknown History clonazepam 1 mg tablet 1 mg PO BID 02/15/21 08/21/22 Unknown History diazepam 5 mg tablet 5 mg PO BID 02/15/21 08/21/22 Unknown History haloperidol 5 mg tablet 5 mg PO BEDTIME 02/15/21 08/21/22 Unknown History lithium carbonate 150 mg capsule 450 mg PO BEDTIME 02/15/21 08/21/22 Unknown History propranolol 10 mg tablet 5 mg PO BID 02/15/21 08/21/22 Unknown History sennosides 8.6 mg capsule (senna) 8.6 mg PO DAILY PRN Constipation 02/15/21 08/21/22 Unknown History benztropine 0.5 mg tablet 0.5 mg PO BID 01/17/22 08/21/22 Unknown History divalproex 125 mg capsule,delayed 625 mg PO BID 01/17/22 08/21/22 Unknown History release sprinkle (Depakote Sprinkles) haloperidol 5 mg tablet 2.5 mg PO QAM 01/17/22 08/21/22 Unknown History risperidone 2 mg tablet 2 mg PO BEDTIME 01/17/22 08/21/22 Unknown History bisacodyl 10 mg rectal suppository 10 mg TX DAILY PRN Constipation 08/21/22 08/21/22 Unknown History docusate sodium 100 mg capsule 100 mg PO BID 08/21/22 08/21/22 Unknown History lactulose 10 gram/15 mL oral 30 ml PO BID 08/21/22 08/21/22 Unknown History solution loperamide 2 mg capsule 2 mg PO Q4H PRN Diarrhea 08/21/22 08/21/22 Unknown History Physical Exam Vital Signs: Vital Signs: Last Vital Signs Temp 97.5 F 08/21/22 23:55 Pulse 69 08/21/22 23:55 Resp 16 08/21/22 23:55 BP 96/64 08/22/22 00:39 Pulse Ox 94 08/21/22 23:55 O2 Del Method 08/21/22 23:55 O2 Flow Rate 2 08/21/22 23:55 Oxygen Flow Rate 5 08/21/22 10:55 BMI result Body Mass Index 33.9 Results Labs 08/21/22 11:39 08/21/22 11:39 Labs: Short CBC 08/21/22 Range/Units 11:39 WBC 6.8 (4.8-10.8) X10*3/uL Hgb 13.0 L (14.0-18.0) g/dl Hct 41.2 L (42.0-52.0) % Plt Count 155 L (160-400) X10*3/uL BMP 08/21/22 11:39 Sodium 147 H Potassium 4.5 Chloride 110 H Carbon Dioxide 28 BUN 9 Creatinine 0.79 Calcium 8.8 Cardiac Enzymes 08/21/22 Range/Units 11:38 Total Creatine Kinase 117 (38-174) U/L Liver Function 08/21/22 Range/Units 11:39 Total Bilirubin 0.3 (0.0-1.0) mg/dL AST 14 (5-37) U/L ALT 13 (0-40) U/L Alkaline Phosphatase 54 (39-117) U/L Albumin 3.5 (3.5-5.0) g/dL Assessment and Plan Time Spent With Patient Time: Total time managing care of this patient today ____ minutes.
[2022-08-22] MEDS: Lactated Ringers 1,000 ML 999 ML IV (00:54)
[2022-08-22] MEDS: Albumin Human 25 % 100 ML IV ×2 (02:49→04:02)
--- NOTE | 2022-08-22 04:49 | PC.NURSE ---
Arrived to unit approximately at 22:30. Upon first assessment the patient was arousable to pain and was hypotensive with manual blood pressure reading of 80/56. MD was notified. PA came and laid eyes on patient. 3 boluses of LR was ordered in total and two bags of 25gram albumin bags. Patient has become arousable by name and increasingly more restless. Blood pressure at 04:00 was 100/60 manually.
[2022-08-22] MEDS: Doxycycline Hyclate 100 MG in 0.9 % Sodium Chloride 250 ML 166.67 MG IV ×2 (05:17→16:08)
[2022-08-22 05:36] LABS: MANUAL DIFF FLAG NO
[2022-08-22 05:40] LABS: Basophils Absolute Auto 0.1 X10*3/uL (0.0-0.2); Basophils Percent Auto 0.4 % (0-2); Eosinophils Percent Auto 0.1 % (0-4); Hematocrit 34.1 % (42.0-52.0); Hemoglobin 10.6 g/dl (14.0-18.0); Imm Gran Pct Auto 0.7 % (0.0-0.4); Lymphocytes Absolute Auto 1.6 X10*3/uL (1.2-4.9); Lymphocytes Percent Auto 11.9 % (20-40); Mean Corpuscular HGB Conc 31.1 g/dl (31.0-36.0); Mean Corpuscular Hemoglobin 28.4 pg (27.0-33.0); Mean Corpuscular Volume 91.4 fL (80.0-98.0); Mean Platelet Volume 10.8 fL (9.4-12.4); Monocytes Absolute Auto 1.1 X10*3/uL (0.1-1.2); Monocytes Percent Auto 7.8 % (2-11); Neutrophils Absolute Auto 10.8 x10*3/uL (2.0-8.3); Neutrophils Percent Auto 79.1 % (45-73); Platelet Count 143 X10*3/uL (160-400); Red Blood Count 3.73 X10*6/uL (4.60-5.80); Red Cell Distribution Width 14.6 % (11.0-16.0); White Blood Count 13.7 X10*3/uL (4.8-10.8)
[2022-08-22 06:09] LABS: Anion Gap 13 (12-20); Blood Urea Nitrogen 9 mg/dL (9-16); Calcium 8.3 mg/dL (8.4-10.2); Carbon Dioxide 24 mmol/L (22-29); Chloride 117 mmol/L (96-108); Creatinine Clr Calc Pharmacy 117.2; Estimated Glomerular Filt Rate > 60; Glucose Random 121 mg/dL (60-115); Potassium 3.9 mmol/L (3.3-5.1); Sodium 150 mmol/L (135-145)
[2022-08-22] MEDS: guaiFENesin DM 100/10/5 ML 5 ML SYRUP 10 ML PO ×3 (10:49→21:41)
[2022-08-22] MEDS: dexAMETHasone sod phosphate 4 MG/ML VIAL 6 MG IVPUSH (10:49)
[2022-08-22] MEDS: Piperacillin Sodium/Tazobactam 3.375 GM in 0.9 % Sodium Chloride 50 ML IV ×3 (10:50→21:34)
[2022-08-22] MEDS: 0.9 % Sodium Chloride Flush 3 ML SYRINGE IVFLUSH ×3 (11:05→21:49)
[2022-08-22] MEDS: Divalproex Sodium Sprinkles 125 MG CAP.DR.SPR 625 MG PO ×2 (11:05→21:39)
[2022-08-22] MEDS: Dextrose 5 % 1,000 ML 100 ML IVCONT ×2 (11:17→20:05)
[2022-08-22] MEDS: Acetaminophen 325 MG TABLET 650 MG PO (11:59)
[2022-08-22] MEDS: HaloperidoL 5 MG TABLET 2.5 MG PO (11:59)
--- NOTE | 2022-08-22 13:43 | HO.PM.IMPN ---
Subjective Subjective Date of Service: 08/22/22 Interval History: Patient awake alert responding to verbal stimuli offers no acute complaints this morning, overnight events noted patient noted to be hypotensive requiring IV fluid resuscitation and IV albumin, 1 episode of high-grade fever upto 102, no fevers this morning. Review of Systems Review of Systems: Yes all other systems are reviewed and are negative Physical Exam Vital Signs: Vital Signs: Last Vital Signs Temp 98.0 F 08/22/22 12:00 Pulse 84 08/22/22 12:00 Resp 20 08/22/22 12:00 BP 126/76 08/22/22 12:00 Pulse Ox 98 08/22/22 12:00 O2 Del Method 08/22/22 12:00 O2 Flow Rate 3 08/22/22 12:00 Oxygen Flow Rate 5 08/21/22 10:55 BMI result Body Mass Index 33.9 Const: Other: General awake alert,in no acute distress.? Neck? supple, no JVD. CVS? regular rate rhythm, Respiratory lungs bilateral rhonchi, no respiratory distress, no use of accessory muscles Gastrointestinal abdomen soft, nontender, bowel sounds audible, no guarding , no rigidity. Extremities no edema. Neuro nonfocal , moving all 4 extremity , skin no rash Objective Data Active Medications Acetaminophen (Acetaminophen 325 Mg Tablet) 650 mg PO Q6H PRN PRN Reason: Pain, Mild (Pain Scale 1-3) Last Admin: 08/22/22 11:59 Dose: 650 mg Documented By: EDNA Acetaminophen (Acetaminophen Supp 650 Mg Supp.Rect) 650 mg [place] Q6H PRN PRN Reason: Fever Last Admin: 08/21/22 18:40 Dose: 650 mg Documented By: SONY Bisacodyl (Bisacodyl 10 Mg Supp.Rect) 10 mg [place] DAILY PRN PRN Reason: Constipation Clonazepam (Clonazepam 1 Mg Tablet) 1 mg PO BID [facility] Albuterol Sulfate 2.5 mg/ (Ipratropium [place] 0.5 mg) 0 mg INHALE RQ6H WHILE AWAKE PRN PRN Reason: sob Dexamethasone Sodium Phosphate (Dexamethasone Sod Phosphate 4 Mg/Ml Vial) 6 mg IVPUSH DAILY [facility] Last Admin: 08/22/22 10:49 Dose: 6 mg Documented By: EDNA Divalproex Sodium (Divalproex Sodium Sprinkles 125 Mg ) 625 mg PO BID [facility] Last Admin: 08/22/22 11:05 Dose: 625 mg Documented By: EDNA Doxazosin Mesylate (Doxazosin Mesylate 2 Mg Tablet) 8 mg PO BEDTIME [facility] Enoxaparin Sodium (Enoxaparin Sodium 40 Mg/0.4 Ml Syringe) 40 mg SUBCUT Q24H [facility] Last Admin: 08/21/22 17:56 Dose: 40 mg Documented By: SONY Finasteride (Finasteride 5 Mg Tablet) 5 mg PO DAILY [facility] Guaifenesin/Dextromethorphan (Guaifenesin Dm 100/10/5 Ml 5 Ml Syrup) 10 ml PO TID [facility] Last Admin: 08/22/22 10:49 Dose: 10 ml Documented By: EDNA Haloperidol (Haloperidol 5 Mg Tablet) 5 mg PO BEDTIME [facility] Haloperidol (Haloperidol 5 Mg Tablet) 2.5 mg PO DAILY [facility] Last Admin: 08/22/22 11:59 Dose: 2.5 mg Documented By: EDNA Doxycycline Hyclate 100 mg/ (Sodium Chloride) 250 mls @ 166.67 mls/hr IV Q12H [facility] Last Infusion: 08/22/22 07:11 Dose: 0 mls/hr Documented By: GLORIA Dextrose (D5w) 1,000 mls @ 100 mls/hr IVCONT .Q10H [facility] Last Admin: 08/22/22 11:17 Dose: 100 mls/hr Documented By: EDNA Piperacillin Sod/Tazobactam (Sod 3.375 gm/ Sodium Chloride) 50 mls @ 100 mls/hr IV Q6H [facility] Last Infusion: 08/22/22 11:58 Dose: 0 mls/hr Documented By: EDNA Lactulose (Lactulose 20 Gm/30 Ml Solution) 20 gm PO BID [facility] Perdido Carbonate (Perdido Carbonate 300 Mg Tablet) 450 mg PO BEDTIME [facility] Loperamide HCl (Loperamide Hcl 2 Mg Capsule) 2 mg PO Q4H PRN PRN Reason: Diarrhea Ondansetron HCl (Ondansetron Hcl 4 Mg/2 Ml Vial) 4 mg IVPUSH Q8H PRN PRN Reason: Nausea and Vomiting Pharmacy Consult (Consult Rx Perform Med Rec) 1 each MISCELLANE ONCE PRN PRN Reason: Consult order Risperidone (Risperidone 2 Mg Tablet) 2 mg PO BEDTIME [facility] Sodium Chloride (0.9 % Sodium Chloride Flush 3 Ml Syringe) 3 ml IVFLUSH QSHIFT [facility] Last Admin: 08/22/22 11:05 Dose: 3 ml Documented By: EDNA Labs 08/22/22 05:30 08/22/22 05:30 Labs: Laboratory Results - last 24 hr 08/21/22 08/22/22 08/22/22 17:39 00:24 00:30 MCV MCH MCHC RDW Plt Count MPV Immature Gran % (Auto) Neut % (Auto) Lymph % (Auto) [place] % (Auto) Eos % (Auto) Baso % (Auto) Lymph # (Auto) [place] # (Auto) Eos # (Auto) Baso # (Auto) Abs Immat Gran (auto) Absolute Neuts (auto) Absolute Nucleated RBC Nucleated RBC % (auto) VBG pH 7.42 VBG pCO2 34 VBG pO2 73 VBG HCO3 23 VBG O2 Saturation 98.0 VBG Base Excess -0.7 Anion Gap Estim Creat Clear Calc Estimated GFR POC Glucose 110 Random Glucose Lactic Acid 1.8 Calcium 08/22/22 08/22/22 05:30 05:30 MCV 91.4 MCH 28.4 MCHC 31.1 RDW 14.6 Plt Count 143 L MPV 10.8 Immature Gran % (Auto) 0.7 H Neut % (Auto) 79.1 H Lymph % (Auto) 11.9 L [place] % (Auto) 7.8 Eos % (Auto) 0.1 Baso % (Auto) 0.4 Lymph # (Auto) 1.6 [place] # (Auto) 1.1 Eos # (Auto) 0.0 Baso # (Auto) 0.1 Abs Immat Gran (auto) 0.10 H Absolute Neuts (auto) 10.8 H Absolute Nucleated RBC 0.000 Nucleated RBC % (auto) 0.0 VBG pH VBG pCO2 VBG pO2 VBG HCO3 VBG O2 Saturation VBG Base Excess Anion Gap 13 Estim Creat Clear Calc 117.2 Estimated GFR > 60 POC Glucose Random Glucose 121 H Lactic Acid Calcium 8.3 L Assessment and Plan (1) COVID-19: Status: Acute (2) Hypoxia: Status: Acute (3) General weakness: Status: Acute (4) Pneumonia: Status: Acute Plan 56-year-old gentleman resident of [facility] with underlying history of GERD, hypertension, history of convulsions, urinary incontinence, schizophrenia, unspecified dementia without behavioral disturbance, benign prostate hyperplasia sent to [facility] due to generalized weakness fall likely related to recently diagnosed COVID-19 infection will be admitted to [facility] due to acute hypoxic respiratory failure COVID-19 pneumonia. Acute hypoxic respiratory failure due to COVID-19 pneumonia/with superadded bacterial infection Events from last night noted patient was hypotensive responded to IV fluids,bp stable this am elevated WBC this morning, no recurrent fevers Noted to have O2 sat 88% on admission, wean oxygen keep finger oximetry above 94 Continue IV doxycycline, IV Decadron 6 mg daily day 2, add IV Zosyn follow blood cultures Hypotension BP improved , remains soft, hold propranolol follow BP closely. Chronic hypernatremia likely due to decreased by mouth intake will give IV D5 follow labs. Toxic metabolic encephalopathy Resolved was likely due to infection/hypernatremia continue treatment as above minimize sedatives Generalized weakness/fall Likely due to above, supportive care PT eval prior to discharge, continue helmet with ambulation , remove helmet while in bed. Dementia unspecified with no behavioral issues continue home medications. History of schizophrenia resume home medications, except hold diazepam 5 mg b.i.d., since on clonazepam 1 mg b.i.d. DVT prophylaxis with Lovenox. Code status full code In my clinical judgment patient need continued inpatient stay due to COVID-19 infection requiring IV antibiotics and acute hypoxia. Time Spent With Patient Time: Total time managing care of this patient today ____ minutes. Quality Stroke Does the patient have a stroke diagnosis?: No VTE Prior VTE?: No VTE Risk Level:: Medical - moderate - high VTE Device Contraindication: Treatment Not Indicated VTE Drug Contraindication: N/A - Med Ordered
--- NOTE | 2022-08-22 14:54 | MHC.CM.PN ---
EMR REVIEWED, PT W/HYPOXIA/COVID 19 FROM [facility] SLEEPING SOUNDLY, PT CONTACTED PTS GUARDIAN MARGIE AT 2:45PM AT NUMBER ON FILE, SHADYDESTIN CONFIRMS PT IS LTC AT [facility] AND THAT HE IS RECEIVING PT AT FACILITY, MARGIE ALSO REPORTS PT WILL PUT HIM SELF ON FLOOR AND CRAWL AROUND A BIT AND DOES CRY ON OCCASION AND THOSE ARE SOME OF HIS BEHAVIORS, PLAN WILL BE FOR PT TO RETURN TO [facility] WHEN MEDICALLY STABLE. PCP IS CORINE KAUR/LOIS ON FILE FROM PREVIOUS ADMISSION.
[2022-08-22] MEDS: Enoxaparin Sodium 40 MG/0.4 ML SYRINGE SUBCUT (16:09)
[2022-08-22] MEDS: Doxazosin Mesylate 2 MG TABLET 8 MG PO (21:38)
[2022-08-22] MEDS: risperiDONE 2 MG TABLET PO (21:38)
[2022-08-22] MEDS: clonazePAM 1 MG TABLET PO (21:39)
[2022-08-22] MEDS: HaloperidoL 5 MG TABLET PO (21:39)
[2022-08-22] MEDS: Lithium Carbonate 300 MG TABLET 450 MG PO (21:40)
[2022-08-22] MEDS: Lactulose 20 GM/30 ML SOLUTION PO (21:41)
[2022-08-23] VITALS: BP 106/54; PULSE 50; RESP 18; TEMP 37.2; O2SAT 99
[2022-08-23] MEDS: Piperacillin Sodium/Tazobactam 3.375 GM in 0.9 % Sodium Chloride 50 ML IV ×2 (02:12→10:11)
[2022-08-23] MEDS: Dextrose 5 % 1,000 ML 100 ML IVCONT ×2 (02:44→11:44)
[2022-08-23 03:46] VITALS: BP 121/72; PULSE 55; RESP 20; TEMP 36.4; O2SAT 99
[2022-08-23] MEDS: Doxycycline Hyclate 100 MG in 0.9 % Sodium Chloride 250 ML 166.67 MG IV (05:05)
[2022-08-23 06:59] LABS: Hematocrit 34.3 % (42.0-52.0); Hemoglobin 10.6 g/dl (14.0-18.0); Mean Corpuscular HGB Conc 30.9 g/dl (31.0-36.0); Mean Corpuscular Hemoglobin 28.7 pg (27.0-33.0); Mean Platelet Volume 11.5 fL (9.4-12.4); Platelet Count 132 X10*3/uL (160-400); Red Blood Count 3.69 X10*6/uL (4.60-5.80); Red Cell Distribution Width 14.7 % (11.0-16.0); White Blood Count 13.7 X10*3/uL (4.8-10.8)
[2022-08-23 07:31] VITALS: BP 126/80; PULSE 67; RESP 16; TEMP 36.6; O2SAT 100
[2022-08-23 07:38] LABS: Anion Gap 11 (12-20); Blood Urea Nitrogen 14 mg/dL (9-16); Calcium 8.5 mg/dL (8.4-10.2); Carbon Dioxide 27 mmol/L (22-29); Chloride 113 mmol/L (96-108); Estimated Glomerular Filt Rate > 60; Glucose Random 102 mg/dL (60-115); Potassium 4.3 mmol/L (3.3-5.1); Sodium 147 mmol/L (135-145)
[2022-08-23] MEDS: dexAMETHasone sod phosphate 4 MG/ML VIAL 6 MG IVPUSH (10:11)
[2022-08-23] MEDS: clonazePAM 1 MG TABLET PO ×2 (10:11→23:33)
[2022-08-23] MEDS: Divalproex Sodium Sprinkles 125 MG CAP.DR.SPR 625 MG PO ×2 (10:13→23:33)
[2022-08-23] MEDS: Benztropine Mesylate 0.5 MG TABLET PO ×2 (10:13→23:36)
[2022-08-23] MEDS: Finasteride 5 MG TABLET PO (10:13)
[2022-08-23] MEDS: guaiFENesin DM 100/10/5 ML 5 ML SYRUP 10 ML PO ×3 (10:13→23:32)
[2022-08-23] MEDS: Lactulose 20 GM/30 ML SOLUTION PO ×2 (10:13→23:32)
[2022-08-23] MEDS: HaloperidoL 5 MG TABLET 2.5 MG PO (10:13)
[2022-08-23 12:00] VITALS: BP 131/78; PULSE 69; RESP 18; TEMP 36.5; O2SAT 99
--- NOTE | 2022-08-23 13:52 | P.PNIM_ITS ---
Subjective Subjective Date of Service: 08/23/22 Interval History: Patient awake alert this morning, unable to provide meaningful history, noted to have no shortness of breath, no cough no fevers tolerating diet no overnight events. Review of Systems Review of Systems: Yes Unobtainable due to mental status Physical Exam Vital Signs: Vital Signs: Last Vital Signs Temp 97.7 F 08/23/22 12:00 Pulse 69 08/23/22 12:00 Resp 18 08/23/22 12:00 BP 131/78 08/23/22 12:00 Pulse Ox 99 08/23/22 12:00 O2 Del Method 08/23/22 03:46 O2 Flow Rate 3 08/23/22 03:46 Oxygen Flow Rate 5 08/21/22 10:55 BMI result Body Mass Index 33.9 Const: Other: General awake alert,in no acute distress.? Pupils equal and reactive Neck? supple, no JVD. CVS? regular rate rhythm, Respiratory lungs clear,no rhonchi , no respiratory distress, no use of accessory muscles Gastrointestinal abdomen soft, nontender, bowel sounds audible, no guarding , no rigidity. Extremities no edema. Neuro nonfocal , moving all 4 extremity , skin no rash Objective Data Active Medications Acetaminophen (Acetaminophen 325 Mg Tablet) 650 mg PO Q6H PRN PRN Reason: Pain, Mild (Pain Scale 1-3) Last Admin: 08/22/22 11:59 Dose: 650 mg Documented By: EDNA Acetaminophen (Acetaminophen Supp 650 Mg Supp.Rect) 650 mg MD Q6H PRN PRN Reason: Fever Last Admin: 08/21/22 18:40 Dose: 650 mg Documented By: SONY Benztropine Mesylate (Benztropine Mesylate 0.5 Mg Tablet) 0.5 mg PO BID [facility] Last Admin: 08/23/22 10:13 Dose: 0.5 mg Documented By: QIANA Bisacodyl (Bisacodyl 10 Mg Supp.Rect) 10 mg MD DAILY PRN PRN Reason: Constipation Clonazepam (Clonazepam 1 Mg Tablet) 1 mg PO BID [facility] Last Admin: 08/23/22 10:11 Dose: 1 mg Documented By: QIANA Albuterol Sulfate 2.5 mg/ (Ipratropium [place] 0.5 mg) 0 mg INHALE RQ6H WHILE AWAKE PRN PRN Reason: sob Dexamethasone Sodium Phosphate (Dexamethasone Sod Phosphate 4 Mg/Ml Vial) 6 mg IVPUSH DAILY [facility] Last Admin: 08/23/22 10:11 Dose: 6 mg Documented By: QIANA Divalproex Sodium (Divalproex Sodium Sprinkles 125 Mg ) 625 mg PO BID [facility] Last Admin: 08/23/22 10:13 Dose: 625 mg Documented By: QIANA Doxazosin Mesylate (Doxazosin Mesylate 2 Mg Tablet) 8 mg PO BEDTIME [facility] Last Admin: 08/22/22 21:38 Dose: 8 mg Documented By: ALBERTA Enoxaparin Sodium (Enoxaparin Sodium 40 Mg/0.4 Ml Syringe) 40 mg SUBCUT Q24H [facility] Last Admin: 08/22/22 16:09 Dose: 40 mg Documented By: EDNA Finasteride (Finasteride 5 Mg Tablet) 5 mg PO DAILY [facility] Last Admin: 08/23/22 10:13 Dose: 5 mg Documented By: QIANA Guaifenesin/Dextromethorphan (Guaifenesin Dm 100/10/5 Ml 5 Ml Syrup) 10 ml PO TID [facility] Last Admin: 08/23/22 10:13 Dose: 10 ml Documented By: QIANA Haloperidol (Haloperidol 5 Mg Tablet) 5 mg PO BEDTIME [facility] Last Admin: 08/22/22 21:39 Dose: 5 mg Documented By: ALBERTA Haloperidol (Haloperidol 5 Mg Tablet) 2.5 mg PO DAILY [facility] Last Admin: 08/23/22 10:13 Dose: 2.5 mg Documented By: QIANA Doxycycline Hyclate 100 mg/ (Sodium Chloride) 250 mls @ 166.67 mls/hr IV Q12H [facility] Last Infusion: 08/23/22 07:23 Dose: 0 mls/hr Documented By: QIANA Dextrose (D5w) 1,000 mls @ 100 mls/hr IVCONT .Q10H [facility] Last Admin: 08/23/22 11:44 Dose: 100 mls/hr Documented By: QIANA Piperacillin Sod/Tazobactam (Sod 3.375 gm/ Sodium Chloride) 50 mls @ 100 mls/hr IV Q6H [facility] Lactulose (Lactulose 20 Gm/30 Ml Solution) 20 gm PO BID [facility] Last Admin: 08/23/22 10:13 Dose: 20 gm Documented By: QIANA [place] Carbonate ([place] Carbonate 300 Mg Tablet) 450 mg PO BEDTIME [facility] Last Admin: 08/22/22 21:40 Dose: 450 mg Documented By: ALBERTA Loperamide HCl (Loperamide Hcl 2 Mg Capsule) 2 mg PO Q4H PRN PRN Reason: Diarrhea Ondansetron HCl (Ondansetron Hcl 4 Mg/2 Ml Vial) 4 mg IVPUSH Q8H PRN PRN Reason: Nausea and Vomiting Pharmacy Consult (Consult Rx Perform Med Rec) 1 each MISCELLANE ONCE PRN PRN Reason: Consult order Risperidone (Risperidone 2 Mg Tablet) 2 mg PO BEDTIME [facility] Last Admin: 08/22/22 21:38 Dose: 2 mg Documented By: ALBERTA Sodium Chloride (0.9 % Sodium Chloride Flush 3 Ml Syringe) 3 ml IVFLUSH QSHIFT [facility] Last Admin: 08/23/22 12:52 Dose: Not Given Documented By: QIANA Non-Admin Reason: See Note Labs 08/23/22 06:33 08/23/22 06:33 Labs: Laboratory Results - last 24 hr 08/23/22 08/23/22 06:33 06:33 MCV 93.0 MCH 28.7 MCHC 30.9 L RDW 14.7 Plt Count 132 L MPV 11.5 Absolute Nucleated RBC 0.000 Nucleated RBC % (auto) 0.0 Anion Gap 11 L Estim Creat Clear Calc 122.0 Estimated GFR > 60 Random Glucose 102 Calcium 8.5 Microbiology Microbiology Results: Microbiology 08/21/22 11:36 Blood Culture - Preliminary Blood - Venous No growth after 48 hours. 08/21/22 14:19 Blood Culture - Preliminary Blood - Venous No growth after 24 hours. Assessment and Plan (1) COVID-19: Status: Acute (2) Hypoxia: Status: Acute (3) General weakness: Status: Acute (4) Pneumonia: Status: Acute Plan 56-year-old gentleman resident of [facility] with underlying history of GERD, hypertension, history of convulsions, urinary incontinence, schizophrenia, unspecified dementia without behavioral disturbance, benign prostate hyperplasia sent to [facility] due to generalized weakness fall likely related to recently diagnosed COVID-19 infection will be admitted to [facility] due to acute hypoxic respiratory failure COVID-19 pneumonia. Acute hypoxic respiratory failure due to COVID-19 pneumonia/with superadded bacterial infection Blood pressure improved, no recurrent fevers, persistent leukocytosis likely due to steroids Noted to have O2 sat 88% on admission, wean oxygen keep finger oximetry above 94 on IV doxycycline and IV Zosyn day 07/09, IV Decadron 6 mg daily day 08/11 , blood cultures negative times 24 hours Will transition to by mouth Decadron and by mouth antibiotics and possible discharge in next 24 hours. Hypotension BP improved , propranolol on hold follow BP closely. If BP remains stable will resume propranolol Chronic hypernatremia likely due to decreased by mouth intake on IV D5 follow labs sodium improved from 150-147 will push by mouth fluids. Toxic metabolic encephalopathy Resolved was likely due to infection/hypernatremia continue treatment as above minimize sedatives Generalized weakness/fall Likely due to above, supportive care PT eval prior to discharge, continue helmet with ambulation , remove helmet while in bed. Dementia unspecified with no behavioral issues continue home medications. History of schizophrenia resume home medications, except hold diazepam 5 mg b.i.d., since on clonazepam 1 mg b.i.d. DVT prophylaxis with Lovenox. Code status full code In my clinical judgment patient need continued inpatient stay due to COVID-19 infection requiring IV antibiotics , on IV fluids and acute hypoxia. Time Spent With Patient Time: Total time managing care of this patient today ____ minutes. Quality Stroke Does the patient have a stroke diagnosis?: No VTE Prior VTE?: No VTE Risk Level:: Medical - moderate - high VTE Device Contraindication: Treatment Not Indicated VTE Drug Contraindication: N/A - Med Ordered
[2022-08-23] MEDS: Amoxicillin/Potassium Clav 875 MG TABLET PO (14:55)
[2022-08-23] MEDS: Doxycycline Monohydrate 100 MG CAPSULE PO (14:55)
[2022-08-23 15:05] VITALS: BP 130/77; PULSE 82; RESP 20; TEMP 36.6; O2SAT 96
[2022-08-23] MEDS: Enoxaparin Sodium 40 MG/0.4 ML SYRINGE SUBCUT (17:00)
[2022-08-23 19:07] VITALS: BP 132/85; PULSE 81; RESP 20; TEMP 36.6; O2SAT 96
[2022-08-23] MEDS: Lithium Carbonate 300 MG TABLET 450 MG PO (23:32)
[2022-08-23] MEDS: Doxazosin Mesylate 2 MG TABLET 8 MG PO (23:32)
[2022-08-23] MEDS: HaloperidoL 5 MG TABLET PO (23:33)
[2022-08-23] MEDS: risperiDONE 2 MG TABLET PO (23:33)
[2022-08-24] VITALS: BP 153/93; PULSE 72; RESP 18; TEMP 37.2; O2SAT 96
[2022-08-24] MEDS: Amoxicillin/Potassium Clav 875 MG TABLET PO ×2 (02:55→14:41)
[2022-08-24] MEDS: Doxycycline Monohydrate 100 MG CAPSULE PO ×2 (02:55→14:41)
[2022-08-24 03:58] VITALS: BP 124/73; PULSE 72; RESP 18; TEMP 37.1; O2SAT 94
[2022-08-24 08:00] VITALS: BP 130/89; PULSE 80; RESP 18; TEMP 36.9; O2SAT 93
[2022-08-24 11:13] LABS: Anion Gap 12 (12-20); Blood Urea Nitrogen 15 mg/dL (9-16); C Reactive Protein 3.15 mg/dL (< or = 0.50); Calcium 9.2 mg/dL (8.4-10.2); Carbon Dioxide 27 mmol/L (22-29); Chloride 113 mmol/L (96-108); Creatinine Clr Calc Pharmacy 95.8; Estimated Glomerular Filt Rate > 60; Glucose Random 114 mg/dL (60-115); Potassium 3.9 mmol/L (3.3-5.1); Sodium 148 mmol/L (135-145)
[2022-08-24] MEDS: Benztropine Mesylate 0.5 MG TABLET PO ×2 (11:13→22:57)
[2022-08-24] MEDS: Divalproex Sodium Sprinkles 125 MG CAP.DR.SPR 625 MG PO ×2 (11:14→22:57)
[2022-08-24] MEDS: HaloperidoL 5 MG TABLET 2.5 MG PO (11:14)
[2022-08-24] MEDS: Finasteride 5 MG TABLET PO (11:14)
[2022-08-24] MEDS: guaiFENesin DM 100/10/5 ML 5 ML SYRUP 10 ML PO ×3 (11:15→22:49)
[2022-08-24] MEDS: dexAMETHasone 6 MG TABLET PO (11:15)
[2022-08-24] MEDS: Lactulose 20 GM/30 ML SOLUTION PO ×2 (11:15→22:49)
[2022-08-24] MEDS: clonazePAM 1 MG TABLET PO ×2 (11:15→22:51)
--- NOTE | 2022-08-24 11:37 | P.PNIM_ITS ---
Subjective Subjective Date of Service: 08/24/22 Interval History: denies cough or dyspnea but history limited by mental status Na 148 Review of Systems Review of Systems: Yes Unobtainable due to mental status Physical Exam Vital Signs: Vital Signs: Last Vital Signs Temp 98.4 F 08/24/22 08:00 Pulse 80 08/24/22 08:00 Resp 18 08/24/22 08:00 BP 130/89 08/24/22 08:00 Pulse Ox 93 08/24/22 08:00 O2 Del Method Room Air 08/24/22 03:58 O2 Flow Rate 3 08/23/22 03:46 Oxygen Flow Rate 5 08/21/22 10:55 BMI result Body Mass Index 33.9 Gen: in no acute distress HEENT: sclera anicteric, moist mucus membranes Neck: supple Lungs: clear to auscultation bilaterally Heart: regular rate and rhythm, no murmurs Abd: soft, non-tender, non-distended Ext: no edema Skin: warm/well-perfused Neuro: alert, no motor weakness, rest tremor Psych: impaired insight Objective Data Active Medications Acetaminophen (Acetaminophen 325 Mg Tablet) 650 mg PO Q6H PRN PRN Reason: Pain, Mild (Pain Scale 1-3) Last Admin: 08/22/22 11:59 Dose: 650 mg Documented By: EDNA Acetaminophen (Acetaminophen Supp 650 Mg Supp.Rect) 650 mg DC Q6H PRN PRN Reason: Fever Last Admin: 08/21/22 18:40 Dose: 650 mg Documented By: SONY Amoxicillin/Clavulanate Potassium (Amoxicillin/Potassium Clav 875 Mg Tablet) 875 mg PO Q12H [facility] Last Admin: 08/24/22 02:55 Dose: 875 mg Documented By: ALBERTA Benztropine Mesylate (Benztropine Mesylate 0.5 Mg Tablet) 0.5 mg PO BID [facility] Last Admin: 08/24/22 11:13 Dose: 0.5 mg Documented By: EDNA Bisacodyl (Bisacodyl 10 Mg Supp.Rect) 10 mg DC DAILY PRN PRN Reason: Constipation Clonazepam (Clonazepam 1 Mg Tablet) 1 mg PO BID [facility] Last Admin: 08/24/22 11:15 Dose: 1 mg Documented By: EDNA Albuterol Sulfate 2.5 mg/ (Ipratropium [place] 0.5 mg) 0 mg INHALE RQ6H WHILE AWAKE PRN PRN Reason: sob Dexamethasone (Dexamethasone 6 Mg Tablet) 6 mg PO DAILY [facility] Last Admin: 08/24/22 11:15 Dose: 6 mg Documented By: EDNA Divalproex Sodium (Divalproex Sodium Sprinkles 125 Mg ) 625 mg PO BID [facility] Last Admin: 08/24/22 11:14 Dose: 625 mg Documented By: EDNA Doxazosin Mesylate (Doxazosin Mesylate 2 Mg Tablet) 8 mg PO BEDTIME [facility] Last Admin: 08/23/22 23:32 Dose: 8 mg Documented By: ALBERTA Doxycycline Monohydrate (Doxycycline Monohydrate 100 Mg Capsule) 100 mg PO Q12H [facility] Last Admin: 08/24/22 02:55 Dose: 100 mg Documented By: ALBERTA Enoxaparin Sodium (Enoxaparin Sodium 40 Mg/0.4 Ml Syringe) 40 mg SUBCUT Q24H [facility] Last Admin: 08/23/22 17:00 Dose: 40 mg Documented By: QIANA Finasteride (Finasteride 5 Mg Tablet) 5 mg PO DAILY [facility] Last Admin: 08/24/22 11:14 Dose: 5 mg Documented By: EDNA Guaifenesin/Dextromethorphan (Guaifenesin Dm 100/10/5 Ml 5 Ml Syrup) 10 ml PO TID [facility] Last Admin: 08/24/22 11:15 Dose: 10 ml Documented By: EDNA Haloperidol (Haloperidol 5 Mg Tablet) 5 mg PO BEDTIME [facility] Last Admin: 08/23/22 23:33 Dose: 5 mg Documented By: ALBERTA Haloperidol (Haloperidol 5 Mg Tablet) 2.5 mg PO DAILY [facility] Last Admin: 08/24/22 11:14 Dose: 2.5 mg Documented By: EDNA Dextrose (D5w) 1,000 mls @ 100 mls/hr IVCONT .Q10H [facility] Last Admin: 08/24/22 11:34 Dose: Not Given Documented By: EDNA Non-Admin Reason: med on hold per Lactulose (Lactulose 20 Gm/30 Ml Solution) 20 gm PO BID [facility] Last Admin: 08/24/22 11:15 Dose: 20 gm Documented By: EDNA [place] Carbonate ([place] Carbonate 300 Mg Tablet) 450 mg PO BEDTIME [facility] Last Admin: 08/23/22 23:32 Dose: 450 mg Documented By: ALBERTA Loperamide HCl (Loperamide Hcl 2 Mg Capsule) 2 mg PO Q4H PRN PRN Reason: Diarrhea Ondansetron HCl (Ondansetron Hcl 4 Mg/2 Ml Vial) 4 mg IVPUSH Q8H PRN PRN Reason: Nausea and Vomiting Pharmacy Consult (Consult Rx Perform Med Rec) 1 each MISCELLANE ONCE PRN PRN Reason: Consult order Risperidone (Risperidone 2 Mg Tablet) 2 mg PO BEDTIME [facility] Last Admin: 08/23/22 23:33 Dose: 2 mg Documented By: ALBERTA Sodium Chloride (0.9 % Sodium Chloride Flush 3 Ml Syringe) 3 ml IVFLUSH QSHIFT [facility] Last Admin: 08/24/22 01:07 Dose: Not Given Documented By: ALBERTA Non-Admin Reason: No Access Labs 08/23/22 06:33 08/24/22 09:55 Labs: Laboratory Results - last 24 hr 08/24/22 09:55 Anion Gap 12 Estim Creat Clear Calc 95.8 Estimated GFR > 60 Random Glucose 114 Calcium 9.2 D C-Reactive Protein 3.15 H Microbiology Microbiology Results: Microbiology 08/21/22 14:19 Blood Culture - Preliminary Blood - Venous No growth after 48 hours. 08/21/22 11:36 Blood Culture - Preliminary Blood - Venous No growth after 48 hours. Assessment and Plan (1) COVID-19: Status: Acute (2) Hypoxia: Status: Acute (3) General weakness: Status: Acute (4) Pneumonia: Status: Acute Plan d#4 56yo M resident of [facility] with schizophrenia, seizures, unspecified dementia, HTN, GERD, and BPH sent in with generalized weakness after falling, recently diagnosed Covid-19 infection, admitted with hypoxia + hypotension # acute hypoxic resp failure due to Covid-19 with superimposed bacterial PNA - no recurrent fevers, leukocytosis now likely due to steroids, BCx negative - SaO2 88% on admission, placed on supplemental O2, now weaned off - got 2d of IV doxy + pip-michael, switched to PO + amox-clav yesterday due to loss of IV access - on dexamethasone IV->PO d#09/11 # hypotension - resolved, will resume propranolol # hypernatremia - place midline and give D5W, recheck BMP in AM # toxic-metabolic encephalopathy - resolved, was likely due to infection + hyperNa # seizure disorder - helmet when out of bed - clonazepam, valproate # dementia, unspecified # schizophrenia - haloperidol, lithium, risperidone, benztropine # BPH - finasteride, doxazosin # VTE ppx: LMWH # dispo: anticipate eventual return to [facility] for LTC In my clinical judgment, the patient requires continued inpatient hospitalization for the following reasons: IV fluids for hypernatremia Time Spent With Patient Time: Total time managing care of this patient today __35__ minutes. Quality Stroke Does the patient have a stroke diagnosis?: No VTE Prior VTE?: No VTE Risk Level:: Medical - moderate - high VTE Device Contraindication: Treatment Not Indicated VTE Drug Contraindication: N/A - Med Ordered
[2022-08-24] MEDS: Dextrose 5 % 1,000 ML 100 ML IVCONT ×2 (14:42→22:48)
[2022-08-24] MEDS: 0.9 % Sodium Chloride Flush 3 ML SYRINGE IVFLUSH ×2 (14:42→22:57)
--- NOTE | 2022-08-24 14:48 | MHC.CM.PN ---
CM SPOKE WITH NURSE AT [facility], PT CAN RETURN WHEN MEDICALLY CLEAR. MD AWARE. CM CONTINUES TO FOLLOW.
[2022-08-24 15:32] VITALS: BP 129/81; PULSE 76; RESP 17; TEMP 37; O2SAT 95
[2022-08-24] MEDS: Enoxaparin Sodium 40 MG/0.4 ML SYRINGE SUBCUT (16:31)
[2022-08-24 19:52] VITALS: BP 152/87; PULSE 79; RESP 17; TEMP 37.3; O2SAT 95
[2022-08-24] MEDS: Lithium Carbonate 300 MG TABLET 450 MG PO (22:50)
[2022-08-24] MEDS: risperiDONE 2 MG TABLET PO (22:50)
[2022-08-24] MEDS: Doxazosin Mesylate 2 MG TABLET 8 MG PO (22:50)
[2022-08-24] MEDS: HaloperidoL 5 MG TABLET PO (22:51)
[2022-08-25] VITALS: BP 130/80; PULSE 66; RESP 20; TEMP 36.9; O2SAT 93
[2022-08-25] MEDS: Amoxicillin/Potassium Clav 875 MG TABLET PO ×2 (03:19→13:01)
[2022-08-25] MEDS: Doxycycline Monohydrate 100 MG CAPSULE PO ×2 (03:19→13:01)
[2022-08-25 03:43] VITALS: BP 134/76; PULSE 60; RESP 20; TEMP 36.6; O2SAT 94
[2022-08-25 07:24] LABS: Anion Gap 14 (12-20); Blood Urea Nitrogen 13 mg/dL (9-16); Calcium 8.8 mg/dL (8.4-10.2); Carbon Dioxide 23 mmol/L (22-29); Chloride 111 mmol/L (96-108); Creatinine Clr Calc Pharmacy 117.2; Estimated Glomerular Filt Rate > 60; Glucose Random 132 mg/dL (60-115); Potassium 3.6 mmol/L (3.3-5.1); Sodium 144 mmol/L (135-145)
[2022-08-25 08:00] VITALS: BP 121/74; PULSE 69; RESP 18; TEMP 36.1; O2SAT 94
[2022-08-25] MEDS: Finasteride 5 MG TABLET PO (09:37)
[2022-08-25] MEDS: dexAMETHasone 6 MG TABLET PO (09:37)
[2022-08-25] MEDS: clonazePAM 1 MG TABLET PO (09:37)
[2022-08-25] MEDS: HaloperidoL 5 MG TABLET 2.5 MG PO (09:37)
[2022-08-25] MEDS: Lactulose 20 GM/30 ML SOLUTION PO (09:37)
[2022-08-25] MEDS: Divalproex Sodium Sprinkles 125 MG CAP.DR.SPR 625 MG PO (09:37)
[2022-08-25] MEDS: guaiFENesin DM 100/10/5 ML 5 ML SYRUP 10 ML PO (09:37)
[2022-08-25] MEDS: 0.9 % Sodium Chloride Flush 3 ML SYRINGE IVFLUSH (09:38)
[2022-08-25] MEDS: Benztropine Mesylate 0.5 MG TABLET PO (09:38)
[2022-08-25] MEDS: Dextrose 5 % 1,000 ML 100 ML IVCONT (09:43)
[2022-08-25 11:41] VITALS: BP 130/76; PULSE 69; RESP 20; TEMP 36; O2SAT 93
--- NOTE | 2022-08-25 12:30 | PM.DS ---
DS: Providers Provider Date of Service: 08/25/22 Date of admission: 08/21/22 16:26 Date of discharge: 08/25/22 Primary care physician: Qamar Chacon DO DS: Diagnosis Discharge Diagnosis (1) COVID-19: Status: Acute (2) Hypoxia: Status: Acute (3) Pneumonia: Status: Acute (4) Hypernatremia: Status: Acute (5) Hypotension: Status: Acute (6) Toxic metabolic encephalopathy: Status: Acute DS: Summary Hospital Course Hospital Course: from admission H+P by hospitalist Sharyn Turner, 08/21/22: 56yoM with a PMHx of dementia, schizophrenia, anxiety disorder, GERD, BPH, hypertension, urinary incontinence, seizure disorder who wears a Helmet while walking resident of [facility] presented to [facility] after he had [facility]itnessed [facility] at the [facility] prior to arrival, patient noted to have generalized weakness and recently diagnosed to have COVID 3 days prior to presentation at baseline patient walks normally, as per [facility] patient has difficult to understand speech in the emergency room patient was unable to provide meaningful history he was noted to be hypoxic, patient underwent extensive testing including head CT that showed no acute abnormality, CTA chest showed multifocal pneumonia, cervical CT showed degenerative changes otherwise no acute abnormality, CT abdomen showed distended urinary bladder and mild constipation, patient treated in the emergency room with 1 L of IV fluid, IV Zosyn and IV azithromycin, and placed on OxyMask at present oxygenation is 99% patient is being admitted to [facility] due to COVID-19 infection/pneumonia with mild hypernatremia with sodium of 147 and generalized weakness.? 56yo M resident of [facility] with schizophrenia, seizures, unspecified dementia, HTN, GERD, and BPH sent in with generalized weakness after falling, recently diagnosed Covid-19 infection, admitted with hypoxia + hypotension. Hospital course by problem: # acute hypoxic resp failure due to Covid-19 with superimposed bacterial PNA - SaO2 88% on admission, placed on supplemental O2, now weaned off - got 2 days of IV doxycycline + piperacillin-tazobactam, switched to PO doxycycline + amoxicillin-clavulanate for 2 days, then discharged on 3 more days of these two oral antibiotics - got 5 days of IV, then PO dexamethasone, then discharged on 5 more days of oral dexametahsone - leukocytosis likely due to steroids. blood cultures negative # hypotension - resolved after fluid resuscitation. propranolol held, then resumed. # hypernatremia - likely due to free water deficit. repleted IV +PO. Na on discharge 144; recheck BMP in 1 week # toxic-metabolic encephalopathy - resolved, was likely due to infection + hypernatremia He was discharged back to [facility] for long-term care. Time Spent with Patient Time attestation: Total time managing care of this patient today ___35_ minutes. Discharge coordination time: Greater than 30 minutes Quality: Safe Use of Opioids Does Pt have an Active Cancer Diagnosis on the Problem List?: No Quality: Stroke Does the patient have a stroke diagnosis?: No Physical Exam Vital Signs: Vital Signs: Last Vital Signs Temp 96.8 F 08/25/22 11:41 Pulse 69 08/25/22 11:41 Resp 20 08/25/22 11:41 BP 130/76 08/25/22 11:41 Pulse Ox 93 08/25/22 11:41 O2 Del Method Room Air 08/25/22 11:41 O2 Flow Rate 3 08/23/22 03:46 Oxygen Flow Rate 5 08/21/22 10:55 BMI result Body Mass Index 33.9 Gen: in no acute distress HEENT: sclera anicteric, moist mucus membranes Neck: supple Lungs: clear to auscultation bilaterally Heart: regular rate and rhythm, no murmurs Abd: soft, non-tender, non-distended Ext: no edema Skin: warm/well-perfused Neuro: alert, no motor weakness, rest tremor Psych: impaired insight DS: Data Data Completed and Pending Completed studies during hospitalization [Text1]: Laboratory Results WBC 13.7 X10*3/uL (4.8-10.8) H 08/23/22 06:33 RBC 3.69 X10*6/uL (4.60-5.80) L 08/23/22 06:33 Hgb 10.6 g/dl (14.0-18.0) L 08/23/22 06:33 Hct 34.3 % (42.0-52.0) L 08/23/22 06:33 MCV 93.0 fL (80.0-98.0) 08/23/22 06:33 MCH 28.7 pg (27.0-33.0) 08/23/22 06:33 MCHC 30.9 g/dl (31.0-36.0) L 08/23/22 06:33 RDW 14.7 % (11.0-16.0) 08/23/22 06:33 Plt Count 132 X10*3/uL (160-400) L 08/23/22 06:33 MPV 11.5 fL (9.4-12.4) 08/23/22 06:33 Immature Gran % (Auto) 0.7 % (0.0-0.4) H 08/22/22 05:30 Neut % (Auto) 79.1 % (45-73) H 08/22/22 05:30 Lymph % (Auto) 11.9 % (20-40) L 08/22/22 05:30 [place] % (Auto) 7.8 % (2-11) 08/22/22 05:30 Eos % (Auto) 0.1 % (0-4) 08/22/22 05:30 Baso % (Auto) 0.4 % (0-2) 08/22/22 05:30 Lymph # (Auto) 1.6 X10*3/uL (1.2-4.9) 08/22/22 05:30 [place] # (Auto) 1.1 X10*3/uL (0.1-1.2) 08/22/22 05:30 Eos # (Auto) 0.0 X10*3/uL (0.0-0.4) 08/22/22 05:30 Baso # (Auto) 0.1 X10*3/uL (0.0-0.2) 08/22/22 05:30 Abs Immat Gran (auto) 0.10 X10*3/uL (0.00-0.03) H 08/22/22 05:30 Absolute Neuts (auto) 10.8 x10*3/uL (2.0-8.3) H 08/22/22 05:30 Absolute Nucleated RBC 0.000 X10*3/uL (0.0-0.012) 08/23/22 06:33 Nucleated RBC % (auto) 0.0 /100WBC (0.0-0.2) 08/23/22 06:33 PT 11.4 SEC (10.0-13.1) 08/21/22 11:39 INR 1.0 (0.9-1.1) 08/21/22 11:39 O2 Saturation 90.0 % 08/21/22 11:31 ABG pH at Pt Temp 7.45 (7.35-7.45) 08/21/22 11:31 ABG pCO2 at Pt Temp 35 mmHg (32-45) 08/21/22 11:31 ABG pO2 at Pt Temp 58 mmHg (83-108) L 08/21/22 11:31 ABG HCO3 24 mmol/L (22-26) 08/21/22 11:31 ABG Base Excess (Actual) 1.3 mmol/L 08/21/22 11:31 VBG pH 7.42 (7.32-7.43) 08/22/22 00:30 VBG pCO2 34 mmHg 08/22/22 00:30 VBG pO2 73 mmHg 08/22/22 00:30 VBG HCO3 23 mmol/L (22-26) 08/22/22 00:30 VBG O2 Saturation 98.0 % 08/22/22 00:30 VBG Base Excess -0.7 mmol/L 08/22/22 00:30 Sodium 144 mmol/L (135-145) 08/25/22 06:57 Potassium 3.6 mmol/L (3.3-5.1) 08/25/22 06:57 Chloride 111 mmol/L (96-108) H 08/25/22 06:57 Carbon Dioxide 23 mmol/L (22-29) 08/25/22 06:57 Anion Gap 14 (12-20) 08/25/22 06:57 BUN 13 mg/dL (9-16) 08/25/22 06:57 Creatinine 0.76 mg/dL (0.5-1.4) 08/25/22 06:57 Estim Creat Clear Calc 117.2 08/25/22 06:57 Estimated GFR > 60 08/25/22 06:57 POC Glucose 110 mg/dL (60-115) 08/21/22 17:39 Random Glucose 132 mg/dL (60-115) H 08/25/22 06:57 Lactic Acid 1.8 mmol/L (0.5-2.0) 08/22/22 00:24 Calcium 8.8 mg/dL (8.4-10.2) 08/25/22 06:57 Magnesium 2.2 mg/dL (1.6-2.6) 08/21/22 11:39 Total Bilirubin 0.3 mg/dL (0.0-1.0) 08/21/22 11:39 AST 14 U/L (5-37) 08/21/22 11:39 ALT 13 U/L (0-40) 08/21/22 11:39 Alkaline Phosphatase 54 U/L (39-117) 08/21/22 11:39 Total Creatine Kinase 117 U/L (38-174) 08/21/22 11:38 Troponin I High Sens < 3.5 ng/L (<3.5-35.0) 08/21/22 11:38 C-Reactive Protein 3.15 mg/dL (< or = 0.50) H 08/24/22 09:55 B-Natriuretic Peptide 41 pg/mL (<100) 08/21/22 11:37 Total Protein 5.8 g/dL (6.5-8.0) L 08/21/22 11:39 Albumin 3.5 g/dL (3.5-5.0) 08/21/22 11:39 Lipase 10 U/L (8-78) 08/21/22 11:39 Valproic Acid 91.0 mcg/mL (50.0-100.0) 08/21/22 11:38 [place] 0.72 mmol/L (0.60-1.20) 08/21/22 11:38 Influenza Type A (PCR) NEGATIVE (Negative) 08/21/22 11:42 Influenza Type B (PCR) NEGATIVE (Negative) 08/21/22 11:42 RSV RNA Qual (PCR) NEGATIVE (Negative) 08/21/22 11:42 SARS-CoV-2 RNA (RT-PCR) POSITIVE (Negative) A 08/21/22 11:42 Impressions Abdomen/Pelvis CT 08/21/22 13:41 IMPRESSION:: No evidence of PE. No evidence aortic dissection or aneurysm. Multi lobar infiltrates and mild bilateral posterior pleural thickening. Distended urinary bladder. Mild constipation. Cervical Spine CT 08/21/22 13:41 IMPRESSION: No acute intracranial process seen. Chronic bilateral maxillary and ethmoid sinus inflammatory changes. Degenerative disc changes C5-C6 and C6-C7 disc levels with moderate ventral and mild posterior spondylosis. No visible acute fracture, dislocation or lytic process seen. Chest CTA 08/21/22 13:41 IMPRESSION:: No evidence of PE. No evidence aortic dissection or aneurysm. Multi lobar infiltrates and mild bilateral posterior pleural thickening. Distended urinary bladder. Mild constipation. Head CT 08/21/22 13:41 IMPRESSION: No acute intracranial process seen. Chronic bilateral maxillary and ethmoid sinus inflammatory changes. Degenerative disc changes C5-C6 and C6-C7 disc levels with moderate ventral and mild posterior spondylosis. No visible acute fracture, dislocation or lytic process seen. Discharge Plan Discharge Anticipated Discharge Date/Time: 08/25/22 12:24 Patient Disposition: Xfer SNF Discharge Diagnosis: hypoxia due to Covid-19 and pneumonia hypernatremia Referrals: [facility] [Outside] - 1 Week (REURN TO [facility]) Qamar Chacon DO [Primary Care Provider] - 1 Week Discharge Medications: New dexamethasone 6 mg Tablet 6 mg PO DAILY Qty: 5 0RF doxycycline monohydrate 100 mg Capsule 100 mg PO Q12H Qty: 6 0RF amoxicillin-pot clavulanate 875-125 mg Tablet 875 mg PO Q12H Qty: 6 0RF Continued benztropine 0.5 mg Tablet 0.5 mg PO BID Rx Instructions: TDD = 1.5 MG BID haloperidol 5 mg Tablet 2.5 mg PO QAM risperidone 2 mg Tablet 2 mg PO BEDTIME divalproex [Depakote Sprinkles] 125 mg Capsule, Delayed Rel Sprinkle 625 mg PO BID bisacodyl 10 mg Suppository 10 mg WI DAILY PRN (Reason: Constipation) docusate sodium 100 mg Capsule 100 mg PO BID loperamide 2 mg Capsule 2 mg PO Q4H PRN (Reason: Diarrhea) Rx Instructions: administer after each loose stool until symptoms controlled; do not exceed 8 mg per 24 hrs lactulose 10 gram/15 mL Solution 30 ml PO BID finasteride 5 mg tablet 5 mg PO DAILY 90 Days Qty: 90 1RF acetaminophen 325 mg capsule 325 mg PO QID PRN (Reason: Pain) benztropine 1 mg tablet 1 mg PO BID Rx Instructions: TDD = 1.5 MG BID clonazepam 1 mg tablet 1 mg PO BID diazepam 5 mg tablet 5 mg PO BID haloperidol 5 mg tablet 5 mg PO BEDTIME lithium carbonate 150 mg capsule 450 mg PO BEDTIME propranolol 10 mg tablet 5 mg PO BID senna 8.6 mg capsule 8.6 mg PO DAILY PRN (Reason: Constipation) terazosin 10 mg capsule 10 mg PO BEDTIME 90 Days Qty: 90 1RF Discharge Orders: Discharge Order (Routine); Ordered 08/25/22 Ordered By: Dang Obrien Diet: Advance to usual diet Activity on Discharge: As tolerated Stand Alone Forms: Patient Portal Discharge page Other Ambulatory Orders: Basic Metabolic Panel (Routine) Timeframe: 1 Week Facility: [facility] - Location: Laboratory Ordered By: Dang Obrien Care Plan Goals: recovery from pneumonia + Covid-19 Health Concerns: hypoxia due to Covid-19 and pneumonia hypernatremia Plan of Treatment: take antibiotics for 3 more days: doxycycline 100 mg twice daily amoxicillin-clavulanate 875-125 mg twice daily take steroids for 5 more days: dexamethasone 6 mg once daily encourage water intake recheck BMP in 1 week Please follow up with your primary care doctor within 1 week. Return to the hospital if you experience recurrent or worsening symptoms. Assessment: See Discharge Summary.
--- NOTE | 2022-08-25 12:33 | MHC.CM.PN ---
DP: PT HAS BEEN MEDICALLY CLEARED FOR DC BACK TO [facility]. RN AWARE. [facility] DNS MADE AWARE. BLS TRANSPORT BOOKED FOR 1 P VIA [facility].
[2022-08-25 23:00] LABS: Haloperidol 4 ng/mL (5-15)
--- NOTE | 2022-08-28 11:03 | P.CDIM_ITS ---
PROVIDER RESPONSE TEXT: To clarify, the appropriate diagnosis supported by the clinical indicators: Other: Non morbid obesity. QUERY TEXT: PHYSICIAN'S DOCUMENTATION REQUEST Date of Query: 08/25/2022 11:21 AM EDT Patient Name: Willie Salomon Admit Date: 08/21/2022 Dear Dang Obrien, A review of the medical record indicates additional documentation may be needed. Please review below and update the documentation accordingly. Is there a diagnosis that correlates with the findings below: Clinical Indicators: BMI - 33.9 Height - 5ft 6in Weight - 95.2kg If possible, please provide an associated diagnosis related to the abnormal BMI, such as: Obesity due to excess calories Obesity due to other cause (Please specify cause) Severe or Morbid Obesity With alveolar hypoventilation Severe or Morbid Obesity Without alveolar hypoventilation Other (Please specify) Other (explain) Clinically unable to determine (explain) Thank you, Amanda Ortiz MS, RN, CCRN Use of terms such as suspected, likely, concern for, or probable (associated with a specific diagnosi s that is being evaluated, monitored, or treated as if it exists) are acceptable and can be coded in the inpatient se tting, when documented at the time of discharge. Please use your independent medical judgment in providing your response. THIS QUERY IS PART OF THE PERMANENT MEDICAL RECORD
== END 2022-08-25 14:04 | disposition skilled nursing facility (03) | DRG 137 ==
LOC: HO.ED 15:57 → HO.EDOVER 16:43 → HO.IMC 19:10
PROVIDERS: Internal Medicine; Physician Assistant Medical; Admitting Provider Hospitalist; Emergency Provider Emergency Medicine; PCP Hospitalist; Visit Provider Family Medicine
DX: U07.1 COVID-19 (principal); J96.02 Acute respiratory failure with hypercapnia; J12.82 Pneumonia due to coronavirus disease 2019; G92.8 Other toxic encephalopathy; J15.9 Unspecified bacterial pneumonia; I95.9 Hypotension, unspecified; E87.0 Hyperosmolality and hypernatremia; D69.59 Other secondary thrombocytopenia; F03.90 Unspecified dementia, unspecified severity, without behavioral disturbance, psychotic disturbance, mood disturbance, and anxiety; N40.1 Benign prostatic hyperplasia with lower urinary tract symptoms; N39.41 Urge incontinence; K21.9 Gastro-esophageal reflux disease without esophagitis; E86.1 Hypovolemia; E66.9 Obesity, unspecified; Z68.33 Body mass index [BMI] 33.0-33.9, adult; R39.14 Feeling of incomplete bladder emptying; F20.9 Schizophrenia, unspecified; G40.909 Epilepsy, unspecified, not intractable, without status epilepticus; Z88.2 Allergy status to sulfonamides; Z88.8 Allergy status to other drugs, medicaments and biological substances; Z79.899 Other long term (current) drug therapy
CPT/HCPCS: 0241U; 36415; 70450; 71275; 72125; 74177; 80048; 80053; 80164; 80173; 80178; 82550; 82803; 82947; 83605; 83690; 83735; 83880; 84484; 85025; 85027; 85610; 86140; 87040; 93005; 99285; J0456; J1100; J1650; J2543; J8540; P9047; Q9967

== ENCOUNTER → 2022-09-07 09:11 | Outpatient (BNVA) | payer MEDICAID, SELFPAY | PROVIDERS: PCP Hospitalist; Visit Provider Urology ==

== ENCOUNTER → 2022-10-19 08:35 | Day surgery (SDC) | payer SELFPAY ==
--- NOTE | 2022-10-18 11:58 | P.CONAN_ITS ---
HPI - Anesthesia Eval Consult details Narrative: 57yo M for Colonoscopy SNF resident, dementia COVID 08/20[facility] Active Problems Active Problems: All Active Problems (Updated 09/02/22 @ 00:02 by Iona Malhotra) Toxic metabolic encephalopathy (Acute) Hypotension (Acute) Hypernatremia (Acute) Hypernatremia (Acute) BPH w urinary obs/LUTS (Acute) Incomplete emptying of bladder due to benign prostatic hyperplasia (Acute) Past Medical History Medical History Anxiety BPH (benign prostatic hyperplasia) COVID-19 Dementia Fall General weakness GERD (gastroesophageal reflux disease) HTN (hypertension) Hypernatremia Hypoxia Metabolic encephalopathy Pneumonia Resides in assisted facility Schizophrenia Family History Family history of problems with anesthesia: No Surgical History Surgical History Hx of cystoscopy History of Problems with Anesthesia: No Social History Social History Household Members: Other Housing: [facility] Care Housing Other:: [facility] Unable to assess alcohol history related to: Unable to respond Alcohol intake: never Patient Tobacco Use Status: Tobacco use Unknown Advance Directives Date on File: 01/17/22 service: No Current occupational status: disabled Meds Allergies Allergy/AdvReac Type Severity Reaction Status Date / Time Sulfa (Sulfonamide Allergy Intermediate Rash Verified 09/07/22 09:14 Antibiotics) [SULFA (SULFONAMIDE ANTIBIOTICS)] [id number]-[id number]-KnI Reductase Allergy Unknown Unknown Verified 09/07/22 09:14 Inhibitor [IHEUZMI-PRP-LRA REDUCTASE INHIBITOR] ANTIARTERIOSCLEROTIC DRUGS AdvReac Unknown Unknown Uncoded 09/07/22 09:14 Home Medications Medication Instructions Recorded Confirmed Last Taken Type acetaminophen 325 mg capsule 325 mg PO QID PRN Pain 02/15/21 08/21/22 Unknown History benztropine 1 mg tablet 1 mg PO BID 02/15/21 08/21/22 Unknown History clonazepam 1 mg tablet 1 mg PO BID 02/15/21 08/21/22 Unknown History diazepam 5 mg tablet 5 mg PO BID 02/15/21 08/21/22 Unknown History haloperidol 5 mg tablet 5 mg PO BEDTIME 02/15/21 08/21/22 Unknown History lithium carbonate 150 mg capsule 450 mg PO BEDTIME 02/15/21 08/21/22 Unknown History propranolol 10 mg tablet 5 mg PO BID 02/15/21 08/21/22 Unknown History sennosides 8.6 mg capsule (senna) 8.6 mg PO DAILY PRN Constipation 02/15/21 08/21/22 Unknown History benztropine 0.5 mg tablet 0.5 mg PO BID 01/17/22 08/21/22 Unknown History divalproex 125 mg capsule,delayed 625 mg PO BID 01/17/22 08/21/22 Unknown History release sprinkle (Depakote Sprinkles) haloperidol 5 mg tablet 2.5 mg PO QAM 01/17/22 08/21/22 Unknown History risperidone 2 mg tablet 2 mg PO BEDTIME 01/17/22 08/21/22 Unknown History bisacodyl 10 mg rectal suppository 10 mg [place] DAILY PRN Constipation 08/21/22 08/21/22 Unknown History docusate sodium 100 mg capsule 100 mg PO BID 08/21/22 08/21/22 Unknown History lactulose 10 gram/15 mL oral 30 ml PO BID 08/21/22 08/21/22 Unknown History solution loperamide 2 mg capsule 2 mg PO Q4H PRN Diarrhea 08/21/22 08/21/22 Unknown History Exam Exam Date and Time: October 18, 2022 1158 Pertinent Lab Results Pertinent Lab Results: Laboratory Tests 08/23/22 08/25/22 06:33 06:57 WBC 13.7 H Hgb 10.6 L Hct 34.3 L Plt Count 132 L Sodium 144 Potassium 3.6 Chloride 111 H Carbon Dioxide 23 BUN 13 Creatinine 0.76 Narrative Narrative: EKG 08/2022 Vent. Rate : 069 BPM ? ? Atrial Rate : 069 BPM ?? P-R Int : 154 ms? QRS Dur : 076 ms ? ? QT Int : 422 ms ? ? ? P-R-T Axes : 069 009 015 degrees ?? QTc Int : 452 ms ? Normal sinus rhythm Cannot rule out Anterior infarct , age undetermined Abnormal ECG When compared with ECG of 28-SEP-2019 14:27, ST no longer depressed in Anterior leads T wave inversion no longer evident in Anterolateral leads Assessment and Plan Assessment Anesthesia Assessment: Chart Reviewed Final Anesthetic Review Family History of Problems with Anesthesia: No History of Problems with Anesthesia: No
--- NOTE | 2022-10-19 09:44 | PC.NURSE ---
SPOKE TO TWO NURSES AT [facility] AND NO ONE KNOWS THE COLOR OF HIS OUTPUT. NO FOOD, NO AM MEDS AND FINISHED PREP PER STAFF
[2022-10-19 09:45] VITALS: BMI 25.6
[2022-10-19 09:54] VITALS: BP 124/79; PULSE 92; RESP 16; TEMP 37; O2SAT 95
[2022-10-19] MEDS: Lactated Ringers 1,000 ML 100 ML IVCONT (10:04)
--- NOTE | 2022-10-19 10:23 | MHC.SHP ---
Pre-Procedural Eval Section A Date of Service: 10/19/22 Section B Chief Complaint: Encounter for screening for malignant neoplasm of Relevant Family History (Specify if Yes): No Relevant Social History: None Present Medications: see Short Stay Collaborative assessment Medical History: Significant History (Anxiety BPH (benign prostatic hyperplasia) COVID-19 Dementia Fall General weakness GERD (gastroesophageal reflux disease) HTN (hypertension) Hypernatremia Hypoxia Metabolic encephalopathy Pneumonia Resides in custodial facility Schizophrenia) History of Previous Operations: Relevant previous surgery/procedure and date(s) (cystoscopy) Allergies: Allergies Allergy/AdvReac Type Severity Reaction Status Date / Time Sulfa (Sulfonamide Allergy Intermediate Rash Verified 09/07/22 09:14 Antibiotics) [SULFA (SULFONAMIDE ANTIBIOTICS)] Rfycgeb-XUC-RdA Reductase Allergy Unknown Unknown Verified 09/07/22 09:14 Inhibitor [[id number] REDUCTASE INHIBITOR] ANTIARTERIOSCLEROTIC DRUGS AdvReac Unknown Unknown Uncoded 09/07/22 09:14 Review of Systems Sugical H&P ROS: Negative: Constitution, Cardiovascular, Respiratory, Neurological, Psychiatric, Hem-Onc, Allergic/Immunologic, Gastrointestinal, Genitourinary, Musculoskeletal, Integumentary, Endocrine and Eyes/Ears/Nose/Throat Exam Surgical H&P Exam: Normal: HEENT, Normal: Heart, Normal: Lungs, Normal: Extremities, Normal: Abdomen and Normal: Skin and Significant Findings: Neurological (confusion) Plan Diagnosis/Plan: Unchanged I have reviewed the history and physical and performed a pertinent physical examination on my patient. No changes have occurred unless specified. Time Spent With Patient Time: Total time managing care of this patient today ____ minutes.
--- NOTE | 2022-10-19 10:28 | P.CONAN_ITS ---
[facility] Active Problems Active Problems: All Active Problems (Updated 09/02/22 @ 00:02 by Iona Malhotra) Toxic metabolic encephalopathy (Acute) Hypotension (Acute) Hypernatremia (Acute) Hypernatremia (Acute) BPH w urinary obs/LUTS (Acute) Incomplete emptying of bladder due to benign prostatic hyperplasia (Acute) Past Medical History Medical History Anxiety BPH (benign prostatic hyperplasia) COVID-19 Dementia Fall General weakness GERD (gastroesophageal reflux disease) HTN (hypertension) Hypernatremia Hypoxia Metabolic encephalopathy Pneumonia Resides in group home facility Schizophrenia Family History Family history of problems with anesthesia: No Surgical History Surgical History Hx of cystoscopy History of Problems with Anesthesia: No Social History Social History Household Members: Other Housing: Skilled Nursing Housing Other:: [facility] Unable to assess alcohol history related to: Unable to respond Alcohol intake: never Patient Tobacco Use Status: Never used Tobacco Use of substances other than those prescribed or required for medical reasons: No Are you DNR?: No Advance Directives: No Advance Directives Information Provided: Yes Advance Directives Date on File: 01/17/22 service: No Current occupational status: disabled Meds Allergies Allergy/AdvReac Type Severity Reaction Status Date / Time Sulfa (Sulfonamide Allergy Intermediate Rash Verified 09/07/22 09:14 Antibiotics) [SULFA (SULFONAMIDE ANTIBIOTICS)] Uoxnzbb-KGZ-OwL Reductase Allergy Unknown Unknown Verified 09/07/22 09:14 Inhibitor [[id number] REDUCTASE INHIBITOR] ANTIARTERIOSCLEROTIC DRUGS AdvReac Unknown Unknown Uncoded 09/07/22 09:14 Active Medications: Current Medications Lactated Ringer's (Lr) 1,000 mls @ 100 mls/hr IVCONT .Q10H MONTEZ Last Admin: 10/19/22 10:04 Dose: 100 mls/hr Ondansetron HCl (Ondansetron Hcl 4 Mg/2 Ml Vial) 4 mg IVPUSH ONCE PRN PRN Reason: Nausea and Vomiting Home Medications Medication Instructions Recorded Confirmed Last Taken Type acetaminophen 325 mg capsule 325 mg PO QID PRN Pain 02/15/21 08/21/22 Unknown History benztropine 1 mg tablet 1 mg PO BID 02/15/21 08/21/22 Unknown History clonazepam 1 mg tablet 1 mg PO BID 02/15/21 08/21/22 Unknown History diazepam 5 mg tablet 5 mg PO BID 02/15/21 08/21/22 Unknown History haloperidol 5 mg tablet 5 mg PO BEDTIME 02/15/21 08/21/22 Unknown History lithium carbonate 150 mg capsule 450 mg PO BEDTIME 02/15/21 08/21/22 Unknown History propranolol 10 mg tablet 5 mg PO BID 02/15/21 08/21/22 Unknown History sennosides 8.6 mg capsule (senna) 8.6 mg PO DAILY PRN Constipation 02/15/21 08/21/22 Unknown History benztropine 0.5 mg tablet 0.5 mg PO BID 01/17/22 08/21/22 Unknown History divalproex 125 mg capsule,delayed 625 mg PO BID 01/17/22 08/21/22 Unknown History release sprinkle (Depakote Sprinkles) haloperidol 5 mg tablet 2.5 mg PO QAM 01/17/22 08/21/22 Unknown History risperidone 2 mg tablet 2 mg PO BEDTIME 01/17/22 08/21/22 Unknown History bisacodyl 10 mg rectal suppository 10 mg [place] DAILY PRN Constipation 08/21/22 08/21/22 Unknown History docusate sodium 100 mg capsule 100 mg PO BID 08/21/22 08/21/22 Unknown History lactulose 10 gram/15 mL oral 30 ml PO BID 08/21/22 08/21/22 Unknown History solution loperamide 2 mg capsule 2 mg PO Q4H PRN Diarrhea 08/21/22 08/21/22 Unknown History Exam Exam Date and Time: October 19, 2022 1028 Height,Weight and Vital Signs: Height 5 ft 7 in Weight 74.2 kg Last Vital Signs Temp 98.6 F 10/19/22 09:54 Pulse 92 10/19/22 09:54 Resp 16 10/19/22 09:54 BP 124/79 10/19/22 09:54 Pulse Ox 95 10/19/22 09:54 O2 Del Method Room Air 10/19/22 09:54 Airway Mallampati Class: II TM Dist: >3cm Neck ROM: Full Denture: Upper and Lower Heart: rrr Lungs: clear Assessment and Plan Final Anesthetic Review Family History of Problems with Anesthesia: No History of Problems with Anesthesia: No NPO: Yes ASA Class: III Final Preanesthetic Review: No Changes in Pt Med Stat, Meds/Allgs Chart Reviewed, Consent Obtained/Reviewed and Anes Risks/Benef Reviewed Patient Risk: Intermediate Procedure Risk: Low Anesthetic Plan Anesthetic Plan: MAC: Disposition: Standard PACU
--- NOTE | 2022-10-19 11:23 | P.OP_ITS ---
Operative Note Operative Note Date of Service: 10/19/22 Narrative: Operative Information Procedure Description: Colonoscopy Indication: screening Anesthesia: MAC COLONOSCOPY Instrument: Olympus variable stiffness pediatric scope 190L Colonoscopy Monitoring: Vital signs and clinical assessment, continuous EKG monitoring, Pulse oximetry, Carbon Dioxide monitoring and blood pressure monitoring were done throughout the procedure. Procedure: The patient was placed in the left lateral decubitis position and pre-procedure medications were administered. After a digital rectal examination of the ano-rectum, the video colonoscope was inserted into the rectum and advanced through the colon to the cecum/TI. The colonoscope was slowly withdrawn in a retrograde panoramic fashion and the colon mucosa was carefully examined including a retroflexed view of the rectum. Findings and interventions are described below. Procedure Difficulty: difficult due to tortuous colon and poor prep Findings: Terminal Ileum-not reached Cecum:not reached Ascending Colon: normal Transverse Colon -normal Descending Colon:normal Sigmoid Colon: normal Rectum: Retroflexion with small internal hemorrhoids, grade I Anorectum - normal Colon preparation: [place] Bowel Preparation Scale Right colon; 1 Transverse colon: 1 Left colon; 1-2 (0 = Unprepared colon segment with mucosa not seen due to solid stool that cannot be cleared. 1 = Portion of mucosa of the colon segment seen, but other areas of the colon segment not well seen due to staining, residual stool and/or opaque liquid. 2 = Minor amount of residual staining, small fragments of stool and/or opaque liquid, but mucosa of colon segment seen well. 3 = Entire mucosa of colon segment seen well with no residual staining, small fragments of stool or opaque liquid) Impression and Post Procedure Diagnosis: poor prep internal hemorrhoids trotuous colon Plan: High fiber diet leaflet Avoid straining at stool, epsom salts and sitz bath, anusol supps or cream Repeat Colonoscopy in 3-6 months and consider 2 d clear prep next time with adult colonoscope Above findings were reviewed with the patient and relevant handouts were provided if indicated.
[2022-10-19 11:35] VITALS: BP 116/69; PULSE 86; RESP 16; TEMP 36.8; O2SAT 96
[2022-10-19 11:50] VITALS: BP 104/67; PULSE 81; RESP 16; TEMP 37.1; O2SAT 98
== END | disposition home or self-care (01) ==
PROVIDERS: PCP Hospitalist; Visit Provider Internal Medicine Gastroenterology
PROC: 0DJD8ZZ Inspection of Lower Intestinal Tract, Via Natural or Artificial Opening Endoscopic (ICD-10-PCS; CPT 45378; principal; 2022-10-19 10:20)
DX: Z12.11 Encounter for screening for malignant neoplasm of colon (principal); Z53.8 Procedure and treatment not carried out for other reasons; K64.0 First degree hemorrhoids; Z91.199 Patient's noncompliance with other medical treatment and regimen due to unspecified reason; Q43.8 Other specified congenital malformations of intestine; F03.90 Unspecified dementia, unspecified severity, without behavioral disturbance, psychotic disturbance, mood disturbance, and anxiety; I10 Essential (primary) hypertension; F20.9 Schizophrenia, unspecified; G92.8 Other toxic encephalopathy; F41.1 Generalized anxiety disorder; N40.1 Benign prostatic hyperplasia with lower urinary tract symptoms; R33.8 Other retention of urine; E87.0 Hyperosmolality and hypernatremia; Z79.899 Other long term (current) drug therapy; Z88.2 Allergy status to sulfonamides; Z88.8 Allergy status to other drugs, medicaments and biological substances
CPT/HCPCS: 45378

== ENCOUNTER 2023-03-08 10:00 | Outpatient (AMB) | payer MEDICAID, SELFPAY ==
--- NOTE | 2023-03-08 10:01 | MHC.OFFVIS ---
Intake Intake Visit Reasons: 6M PVR Intake Note: Patient is present for 6M PVR Follow up Urology Med: Finasteride, Terazosin Antibiotic Allergy: Sulfa Antibiotics Blood Thinner: none PVR: >300 mL Experimental Physicist Required: No Accompanied by: Self / Same As Patient Allergies Sulfa (Sulfonamide Antibiotics) [SULFA (SULFONAMIDE ANTIBIOTICS)] Allergy (Intermediate, Verified 03/08/23 10:02) Rash Shlygmf-GNO-SlH Reductase Inhibitor [LBELLMC-MXJ-FVG REDUCTASE INHIBITOR] Allergy (Unknown, Verified 03/08/23 10:02) Unknown ANTIARTERIOSCLEROTIC DRUGS Adverse Reaction (Unknown, Uncoded 03/08/23 10:02) Unknown HPI HPI Comments History of Present Illness Details Willie is a pleasant male. Resident at [facility] for long-term care. Seen for following urologic issues - lower urinary tract symptoms Accompanied with caregiver Continued high PVR greater than 300 cc Optimized on bladder medications Continue 6 month surveillance Lower urinary tract symptoms Followed for many years High postvoid residual Current therapy terazosin 10 mg with finasteride PSA 11/22 0.3 Prior cystoscopy with lobar hypertrophy Prostate procedure 2020 PFSH Medical History Fall Pneumonia General weakness Hypoxia COVID-19 Resides in detention facility Dementia Schizophrenia Hypernatremia Metabolic encephalopathy BPH (benign prostatic hyperplasia) HTN (hypertension) GERD (gastroesophageal reflux disease) Anxiety Surgical History Hx of cystoscopy Social History Household Members: Other Housing: Correction Housing Other:: [facility] Unable to assess alcohol history related to: Unable to respond Alcohol intake: never Patient Tobacco Use Status: Never used Tobacco Advance Directives Date on File: 01/17/22 service: No Current occupational status: disabled Review of Systems Const Denies chills and Denies fever(s) Card Reports no additional complaints and Denies syncope Resp Denies cough GI Denies abdominal pain and Denies heartburn Reports as per HPI and Denies change in libido Neuro Denies syncope Psych Denies change in libido Endo Denies change in libido Physical Exam Const General: cooperative, healthy appearing, comfortable and no acute distress Orientation/consciousness: patient oriented x3 HEENT Face and sinus: Yes normal facial exam Mouth: moist mucous membranes Neck Neck: Yes normal visual inspection, Yes full ROM and Yes trachea midline Chest Chest palpation & inspection: normal inspection of the chest Resp Effort & Inspection: normal respiratory effort, able to speak in complete sentences and no respiratory distress GI Inspection: Yes normal to inspection Back/Spine/Pelvis Cervical Spine: normal cervical lordosis Thoracic/Lumbar Spine: thoracic and lumbar spine normal to inspection Skin General skin exam: no rashes or lesions noted Neuro General: patient oriented x3, gait normal, tone normal and moves all extremities Extrem General: Yes normal to inspection and Yes capillary refill normal Office Procedures Post Void Residual Post Residual Void Post Void Residual (PVR): 300 45829-Grqm Void Residual by ultrasound Results AMB Urinalysis, Automated UA Leukoctes 500 Jose/uL Last Edit by JANIE Baumann on 03/08/23 10:18 3+ Slim Jimenez 03/08/23 10:18 UA Nitrite Negative Last Edit by JANIE Baumann on 03/08/23 10:18 UA Urobilinogen 0.2 mg/dL Last Edit by JANIE Baumann on 03/08/23 10:18 UA Protein 15 mg/dL Last Edit by JANIE Baumann on 03/08/23 10:18 UA pH 6.5 Last Edit by Slim Jimenez Wiley on 03/08/23 10:18 UA Blood 0 Fidel/uL Last Edit by JANIE Baumann on 03/08/23 10:18 UA Specific Gustavus 1.010 Last Edit by JANIE Baumann on 03/08/23 10:18 UA Ketone Negative Last Edit by JANIE Baumann on 03/08/23 10:18 UA Bilirubin 0 mg/dL Last Edit by JANIE Baumann on 03/08/23 10:18 UA Glucose 0 mg/dL Last Edit by JANIE Baumann on 03/08/23 10:18 Results Reviewed Results Reviewed: Laboratory Last Values Urine pH (Auto) 6.5 03/08/23 10:07 Specific Gustavus (Auto) 1.010 03/08/23 10:07 Urine Protein (Auto) 15 mg/dL 03/08/23 10:07 Glucose (UA)(Auto) 0 mg/dL 03/08/23 10:07 Urine Ketones (Auto) Negative 03/08/23 10:07 Urine Blood (Auto) 0 Fidel/uL 03/08/23 10:07 Urine Nitrite (Auto) Negative 03/08/23 10:07 Urine Bilirubin (Auto) 0 mg/dL 03/08/23 10:07 Urine Urobilinogen (Auto) 0.2 mg/dL 03/08/23 10:07 Leukocyte Esterase (Auto) 500 Jose/uL 03/08/23 10:07 Assessment & Plan Assessment & Plan (1) BPH w urinary obs/LUTS: Code(s): N40.1 - Benign prostatic hyperplasia with lower urinary tract symptoms; N13.8 - Other obstructive and reflux uropathy (2) Incomplete emptying of bladder due to benign prostatic hyperplasia: Code(s): N40.1 - Benign prostatic hyperplasia with lower urinary tract symptoms; R33.9 - Retention of urine, unspecified Plan Six month televisit Orders: Orders AMB Post Void Residual by ultrasound Today N39.8 - Other specified disorders of urinary system AMB Urinalysis Automated Today Z13.9 - Encounter for screening, unspecified Patient Instructions: Imaging studies, laboratory and physical exam results were discussed and reviewed in detail. No major barriers to patient understanding were identified. An opportunity to ask questions regarding the treatment plan was provided. All questions were answered. The patient expressed understanding and agreement with the above treatment plan. The patient is aware they should contact our office by phone for worsening of their current condition or the appearance of new urologic symptoms. Compliance is encouraged with any medications and followup testing that is ordered. It is a privilege to participate in the urologic care of your patient. If you have any questions or concerns regarding treatment for the above conditions, or other urologic issues, please do not hesitate to contact me. The office telephone contact is [phone]. This note is constructed using voice recognition software. While every effort has been made to ensure accuracy marketing technologist errors may have been included. Yours sincerely, Dr Jevon Sharif MD, [facility] - Urology Providers of Expert, Compassionate Care for the Genitourinary System Coding Level of Care Code Est Pt Level 3 (05456) Diagnoses BPH w urinary obs/LUTS N40.1; N13.8 Incomplete emptying of bladder due to benign prostatic hyperplasia N40.1; R33.9 CPT Codes Post Residual Void - PVR CPT Code: 90430-Xfhz Void Residual by ultrasound ([id number])
== END 2023-03-08 10:32 | disposition home or self-care (01) ==
PROVIDERS: PCP Hospitalist; Visit Provider Urology
DX: N40.1 Benign prostatic hyperplasia with lower urinary tract symptoms (principal); N13.8 Other obstructive and reflux uropathy; R33.9 Retention of urine, unspecified; Z13.9 Encounter for screening, unspecified
CPT/HCPCS: 99213

== ENCOUNTER → 2023-03-08 10:00 | Outpatient (BNVA) | payer SELFPAY | PROVIDERS: Visit Provider Urology | DX: N40.1 Benign prostatic hyperplasia with lower urinary tract symptoms (principal); N13.8 Other obstructive and reflux uropathy; R33.8 Other retention of urine | CPT/HCPCS: 51798; 81003; 99212 ==

== ENCOUNTER 2023-03-27 11:20 | Outpatient (REF) | payer MEDICAID, SELFPAY ==
[2023-03-27 11:31] LABS: Appearance Urine Clear; Color Urine Yellow; Glucose Urine UA Negative (Negative); Leukocyte Esterase Urine Small (1+) (Negative); Nitrite Urine Negative (Negative); PH 6.5 (5.0-9.0); UMIC TRIGGER UACC YES; Urine Blood Negative (Negative); Urine Ketones Negative (Negative); Urine Protein Negative (Neg-Trace)
[2023-03-27 11:33] LABS: Bacteria Urine None Seen (None Seen); Hyaline Casts Urine 0-2 /LPF (0-2); RBC Urine 0-2 /HPF (0-2); Squamous Epithelial Cell Urine 0-2 /HPF (0-2); UACC Culture Trigger YES
== END 2023-03-27 11:21 | disposition home or self-care (01) ==
LOC: HO.LNP 11:20
PROVIDERS: Visit Provider Hospitalist
DX: F20.9 Schizophrenia, unspecified (principal)
CPT/HCPCS: 81001; 87086

== ENCOUNTER 2023-09-05 08:23 | Outpatient (AMB) | payer MEDICAID, SELFPAY ==
--- NOTE | 2023-09-05 08:25 | A.OFFVIS_ITS ---
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 Resident at [facility] for long-term care. Seen for following urologic issues - lower urinary tract symptoms Telemedicine Evaluation 15 min Consultation [employer] Juanjose Video attempted Persistent high PVR greater than 300 cc Optimized on bladder medications - combination terazosin and finasteride Continue 6 month surveillance Lower urinary tract symptoms Followed for many years High postvoid residual Current therapy terazosin 10 mg with finasteride PSA 11/22 0.3 Prior cystoscopy with lobar hypertrophy Background lithium Prostate procedure 2020 PFSH Medical History Fall Pneumonia General weakness Hypoxia COVID-19 Resides in assisted facility Dementia Schizophrenia Hypernatremia Metabolic encephalopathy BPH (benign prostatic hyperplasia) HTN (hypertension) GERD (gastroesophageal reflux disease) Anxiety Surgical History Hx of cystoscopy Social History Household Members: Other Housing: Detention Housing Other:: [facility] Unable to assess alcohol history related to: Unable to respond Alcohol intake: never Comment: 1:1 sitter Patient Tobacco Use Status: Never used Tobacco Advance Directives Date on File: 01/17/22 service: No Current occupational status: disabled Review of Systems Const All systems reviewed & are unremarkable except as noted in HPI and below Reports no additional complaints Resp Reports no additional complaints GI Reports no additional complaints Reports as per HPI Musc Reports no additional complaints Physical Exam Telemedicine evaluation Appropriate responses Regular breathing rate and rhythm HEENT Head: Yes normal to inspection Ears: hearing grossly normal bilaterally Eyes General: appearance normal, both eyes and all related structures Neck Neck: Yes normal visual inspection Chest Chest palpation & inspection: normal inspection of the chest Resp Effort & Inspection: normal respiratory effort and able to speak in complete sentences Assessment & Plan Assessment & Plan (1) BPH w urinary obs/LUTS: Code(s): N40.1 - Benign prostatic hyperplasia with lower urinary tract symptoms; N13.8 - Other obstructive and reflux uropathy (2) Incomplete emptying of bladder due to benign prostatic hyperplasia: Code(s): N40.1 - Benign prostatic hyperplasia with lower urinary tract symptoms; R33.9 - Retention of urine, unspecified Plan 6m f/u PVR in office Patient Instructions: Imaging studies, laboratory and physical exam results were discussed and reviewed in detail. No major barriers to patient understanding were identified. An opportunity to ask questions regarding the treatment plan was provided. All questions were answered. The patient expressed understanding and agreement with the above treatment plan. The patient is aware they should contact our office by phone for worsening of their current condition or the appearance of new urologic symptoms. Compliance is encouraged with any medications and followup testing that is ordered. It is a privilege to participate in the urologic care of your patient. If you have any questions or concerns regarding treatment for the above conditions, or other urologic issues, please do not hesitate to contact me. The office telephone contact is [phone]. This note is constructed using voice recognition software. While every effort has been made to ensure accuracy dye feeder errors may have been included. Yours sincerely, Dr Jevon Sharif MD, [facility] - Urology Providers of Expert, Compassionate Care for the Genitourinary System Telehealth Telehealth Location of provider rendering services: practice address Location of patient: address on file Patient Identification confirmed using: Name, : Yes Telehealth method: video Patient verbally consented to treatment: Yes Patient verbally consented to billing insurance company: Yes Patient informed of any privacy concerns related to visit: Yes Coding Level of Care Code Tele Est Pt Level 3 (91711) Diagnoses BPH w urinary obs/LUTS N40.1; N13.8 Incomplete emptying of bladder due to benign prostatic hyperplasia N40.1; R33.9
== END 2023-09-05 13:05 | disposition home or self-care (01) ==
LOC: HO.HUSH 08:23
PROVIDERS: PCP Hospitalist; Visit Provider Urology
DX: N40.1 Benign prostatic hyperplasia with lower urinary tract symptoms (principal); N13.8 Other obstructive and reflux uropathy; R33.9 Retention of urine, unspecified
CPT/HCPCS: 99213

== ENCOUNTER → 2023-09-05 08:23 | Outpatient (BNVA) | payer MEDICAID, SELFPAY | PROVIDERS: PCP Hospitalist; Visit Provider Urology ==

== ENCOUNTER → 2023-09-11 06:57 | Day surgery (SDC) | payer OTHER, SELFPAY ==
[2023-09-10 07:02] VITALS: BMI 25.5
--- NOTE | 2023-09-10 12:31 | P.CONAN_ITS ---
Documented by User: Brandy Hess NP 09/10/23 12:31 HPI - Anesthesia Eval Consult details Narrative: 58yo M for Colonoscopy SNF resident. Guardian for consent. [facility] Active Problems Active Problems: All Active Problems Toxic metabolic encephalopathy (Acute) Hypotension (Acute) Hypernatremia (Acute) Incomplete emptying of bladder due to benign prostatic hyperplasia (Acute) BPH w urinary obs/LUTS (Acute) Hypernatremia (Acute) Past Medical History Medical History (Updated 09/07/23 @ 14:02 by Maria Del Rosario Dias RN) Astigmatism Seasonal allergies Bilateral cataracts Preglaucoma Insomnia Presbyopia Parkinsons disease Seizures Fall Pneumonia General weakness Hypoxia COVID-19 Resides in shelter facility Dementia Schizophrenia Hypernatremia Metabolic encephalopathy BPH (benign prostatic hyperplasia) HTN (hypertension) GERD (gastroesophageal reflux disease) Anxiety Family History Family history of problems with anesthesia: No Surgical History Surgical History Hx of cystoscopy History of Problems with Anesthesia: No Social History Social History Household Members: Other Housing: Retirement Housing Other:: [facility] Unable to assess alcohol history related to: Unable to respond Alcohol intake: never Comment: 1:1 sitter Patient Tobacco Use Status: Never used Tobacco Are you DNR?: No Advance Directives: No Advance Directives Information Provided: Yes Advance Directives Date on File: 01/17/22 service: No Current occupational status: disabled Meds Allergies Allergy/AdvReac Type Severity Reaction Status Date / Time Sulfa (Sulfonamide Allergy Intermediate Rash Verified 09/05/23 08:27 Antibiotics) [SULFA (SULFONAMIDE ANTIBIOTICS)] Ozpxcla-SCF-NoS Reductase Allergy Unknown Unknown Verified 09/05/23 08:27 Inhibitor [EVJDNNS-PRC-TRP REDUCTASE INHIBITOR] ANTIARTERIOSCLEROTIC DRUGS AdvReac Unknown Unknown Uncoded 09/05/23 08:27 Home Medications ?Medication ?Instructions ?Recorded ?Confirmed ?Last Taken ?Type acetaminophen 325 mg capsule 650 mg PO Q4-6H PRN Pain 02/15/21 09/10/23 Unknown History benztropine 1 mg tablet 1 mg PO BID 02/15/21 09/10/23 09/11/23 History clonazepam 1 mg tablet 1 mg PO BID 02/15/21 09/10/23 09/11/23 History diazepam 5 mg tablet 5 mg PO BID 02/15/21 09/10/23 09/11/23 History haloperidol 5 mg tablet 5 mg PO BID 02/15/21 09/10/23 09/11/23 History lithium carbonate 150 mg capsule 450 mg PO BEDTIME 02/15/21 09/10/23 Unknown History propranolol 10 mg tablet 10 mg PO TID 02/15/21 09/10/23 Unknown History sennosides 8.6 mg capsule (senna) 8.6 mg PO DAILY PRN Constipation 02/15/21 09/10/23 Unknown History benztropine 0.5 mg tablet 0.5 mg PO BID 01/17/22 09/10/23 09/11/23 History divalproex 125 mg capsule,delayed 750 mg PO BID 01/17/22 09/10/23 09/11/23 History release sprinkle (Depakote Sprinkles) risperidone 2 mg tablet 2 mg PO BEDTIME 01/17/22 09/10/23 Unknown History bisacodyl 10 mg rectal suppository 10 mg AR DAILY PRN Constipation 08/21/22 09/10/23 Unknown History docusate sodium 100 mg capsule 100 mg PO BID 08/21/22 09/10/23 Unknown History lactulose 10 gram/15 mL oral 30 ml PO BID 08/21/22 09/10/23 Unknown History solution loperamide 2 mg capsule 2 mg PO Q4H PRN Diarrhea 08/21/22 09/10/23 Unknown History hydrocortisone acetate 25 mg 25 mg AR DAILY PRN Hemorrhoids 09/10/23 09/10/23 Unknown History rectal suppository (Anusol-HC) lithium carbonate 300 mg tablet 300 mg PO BEDTIME 09/10/23 09/10/23 Unknown History Exam Height,Weight and Vital Signs: Height 5 ft 7 in Weight 73.936 kg Assessment and Plan Assessment Anesthesia Assessment: Chart Reviewed Final Anesthetic Review Family History of Problems with Anesthesia: No History of Problems with Anesthesia: No Documented by User: Giacomo Landis MD 09/11/23 08:02 [facility] Past Medical History Medical History (Updated 09/07/23 @ 14:02 by Maria Del Rosario Dias RN) Astigmatism Seasonal allergies Bilateral cataracts Preglaucoma Insomnia Presbyopia Parkinsons disease Seizures Fall Pneumonia General weakness Hypoxia COVID-19 Resides in shelter facility Dementia Schizophrenia Hypernatremia Metabolic encephalopathy BPH (benign prostatic hyperplasia) HTN (hypertension) GERD (gastroesophageal reflux disease) Anxiety Surgical History Surgical History Hx of cystoscopy Social History Social History Household Members: Other Housing: Retirement Housing Other:: [facility] Unable to assess alcohol history related to: Unable to respond Alcohol intake: never Comment: 1:1 sitter Patient Tobacco Use Status: Never used Tobacco Are you DNR?: No Advance Directives: No Advance Directives Information Provided: Yes Advance Directives Date on File: 01/17/22 service: No Current occupational status: disabled Meds Allergies Allergy/AdvReac Type Severity Reaction Status Date / Time Sulfa (Sulfonamide Allergy Intermediate Rash Verified 09/05/23 08:27 Antibiotics) [SULFA (SULFONAMIDE ANTIBIOTICS)] Lvyrvqf-FVS-IrK Reductase Allergy Unknown Unknown Verified 09/05/23 08:27 Inhibitor [FANYFCE-JLF-SMR REDUCTASE INHIBITOR] ANTIARTERIOSCLEROTIC DRUGS AdvReac Unknown Unknown Uncoded 09/05/23 08:27 Home Medications ?Medication ?Instructions ?Recorded ?Confirmed ?Last Taken ?Type acetaminophen 325 mg capsule 650 mg PO Q4-6H PRN Pain 02/15/21 09/10/23 Unknown History benztropine 1 mg tablet 1 mg PO BID 02/15/21 09/10/23 09/11/23 History clonazepam 1 mg tablet 1 mg PO BID 02/15/21 09/10/23 09/11/23 History diazepam 5 mg tablet 5 mg PO BID 02/15/21 09/10/23 09/11/23 History haloperidol 5 mg tablet 5 mg PO BID 02/15/21 09/10/23 09/11/23 History lithium carbonate 150 mg capsule 450 mg PO BEDTIME 02/15/21 09/10/23 Unknown History propranolol 10 mg tablet 10 mg PO TID 02/15/21 09/10/23 Unknown History sennosides 8.6 mg capsule (senna) 8.6 mg PO DAILY PRN Constipation 02/15/21 09/10/23 Unknown History benztropine 0.5 mg tablet 0.5 mg PO BID 01/17/22 09/10/23 09/11/23 History divalproex 125 mg capsule,delayed 750 mg PO BID 01/17/22 09/10/23 09/11/23 History release sprinkle (Depakote Sprinkles) risperidone 2 mg tablet 2 mg PO BEDTIME 01/17/22 09/10/23 Unknown History bisacodyl 10 mg rectal suppository 10 mg AR DAILY PRN Constipation 08/21/22 09/10/23 Unknown History docusate sodium 100 mg capsule 100 mg PO BID 08/21/22 09/10/23 Unknown History lactulose 10 gram/15 mL oral 30 ml PO BID 08/21/22 09/10/23 Unknown History solution loperamide 2 mg capsule 2 mg PO Q4H PRN Diarrhea 08/21/22 09/10/23 Unknown History hydrocortisone acetate 25 mg 25 mg AR DAILY PRN Hemorrhoids 09/10/23 09/10/23 Unknown History rectal suppository (Anusol-HC) lithium carbonate 300 mg tablet 300 mg PO BEDTIME 09/10/23 09/10/23 Unknown History Exam Airway Mallampati Class: Patient Non-Cooperative Denture: Upper and Lower Heart: rrr Lungs: not able to asses Assessment and Plan Assessment Anesthesia Assessment: Anesthesia Plan Discussed (with guardian) Final Anesthetic Review NPO: Yes (as per care facility) ASA Class: III Final Preanesthetic Review: No Changes in Pt Med Stat, Meds/Allgs Chart Reviewed and Consent Obtained/Reviewed Patient Risk: Intermediate Procedure Risk: Intermediate Anesthetic Plan Anesthetic Plan: MAC: Disposition: Standard PACU
--- NOTE | 2023-09-11 05:55 | MHC.SHP ---
Pre-Procedural Eval Section A - 24 Hr Update-Section A only Date of Service: 09/11/23 Section B - Complete if H&P > 30 days Chief Complaint: Unspecified hemorrhoids Present Medications: see Short Stay Collaborative assessment Medical History: Significant History Allergies: Allergies Allergy/AdvReac Type Severity Reaction Status Date / Time Sulfa (Sulfonamide Allergy Intermediate Rash Verified 09/05/23 08:27 Antibiotics) [SULFA (SULFONAMIDE ANTIBIOTICS)] Jecigub-RBW-FiZ Reductase Allergy Unknown Unknown Verified 09/05/23 08:27 Inhibitor [XHZYPOF-JXW-LJN REDUCTASE INHIBITOR] ANTIARTERIOSCLEROTIC DRUGS AdvReac Unknown Unknown Uncoded 09/05/23 08:27 Plan I have reviewed the history and physical and performed a pertinent physical examination on my patient. No changes have occurred unless specified. Time Spent With Patient Time: Total time managing care of this patient today ____ minutes.
[2023-09-11 07:30] VITALS: BP 121/67; PULSE 80; RESP 18; TEMP 36.4; O2SAT 98
[2023-09-11] MEDS: Lactated Ringers 1,000 ML 100 ML IVCONT (07:37)
[2023-09-11 08:00] VITALS: BP 121/67; PULSE 80; RESP 18; TEMP 36.4; O2SAT 98
[2023-09-11] MEDS: Sodium Phosphate,Mono-Dibasic 133 ML ENEMA PR ×2 (08:04→08:09)
[2023-09-11 08:14] VITALS: BMI 28.7
--- NOTE | 2023-09-11 08:16 | PC.NURSE ---
per report, pt with desi Miller aware. 2 day prep completed. rectal exam at bedside by Dr. Miller, ok to proceed with enemas. fleets enema pr x1 given - bed to, no return, fleets #2 pr given ssmall liquid brown and small stool dr. miller aware. case cancelled iv out. dsd apploied redressed. no oozing.
== END ==
PROVIDERS: PCP Hospitalist; Visit Provider Internal Medicine Gastroenterology
DX: K64.9 Unspecified hemorrhoids (principal); Z53.8 Procedure and treatment not carried out for other reasons

== ENCOUNTER 2023-09-28 12:34 | Outpatient (AMB) | payer OTHER, SELFPAY ==
--- NOTE | 2023-09-28 12:39 | MHC.OFFVIS ---
Vital Signs 09/28/23 12:42 Height 5 ft 9 in Weight 174 lb 2.643 oz BMI 25.7 BP 111/65 Blood Pressure Location Rt brachial Position Sitting Pulse 73 Intake Visit Reasons: prep for colonoscopy Intake Note: Willie presents in the office as a follow up to discuss colonoscopy prep. CC: Supervisor Inspecting Required: No Allergies Sulfa (Sulfonamide Antibiotics) [SULFA (SULFONAMIDE ANTIBIOTICS)] Allergy (Intermediate, Verified 09/28/23 12:42) Rash Xljftti-JMH-SrV Reductase Inhibitor [THQBMYJ-COY-CYY REDUCTASE INHIBITOR] Allergy (Unknown, Verified 09/28/23 12:42) Unknown ANTIARTERIOSCLEROTIC DRUGS Adverse Reaction (Unknown, Uncoded 09/28/23 12:42) Unknown HPI HPI prep for colonoscopy: Details: LAST VISIT Screen for colon cancer No GI, cardiac or respiratory symptoms.? No issues with anesthesia in the past.? No history of sleep apnea.? No history of infectious diseases in the past or present.? Not on any anticoagulation therapy.? No family or personal history of colon cancer or polyps.? Patient denies melena, hematochezia, unintentional weight loss or ribbon like stools.? Staff confirms. Discussed at length the pre-procedure,? prep, diet & medications as well as what to expect prior, during and after the procedure with staff member.?? Stressed the importance of good bowel prep. Staff verbalizes understanding and agrees to plan of care.? They were given the opportunity to ask questions and all questions answered.? We will see him after the procedure.? Plan Medications New bisacodyl (Dulcolax (bisacodyl)) Start taking 2 tablet every night 6 days before the procedure and 1 day before procedure take 2 tablets at noon time followed by MiraLax prep 10 mg (2 x 5 mg) PO BEDTIME 14 tabs 0RF Z12.11 polyethylene glycol 3350 (Miralax) As directed by gastroenterology department at [facility] 238 grams PO ONCE 238 grams 0RF Z12.11 COLONOSCOPY Findings: Terminal Ileum-not reached Cecum:not reached Ascending Colon: normal Transverse Colon -normal Descending Colon:normal Sigmoid Colon: normal Rectum: Retroflexion with small internal hemorrhoids, grade I Anorectum - normal Colon preparation: [place] Bowel Preparation Scale Right colon; 1 Transverse colon: 1 Left colon; 1-2 (0 = Unprepared colon segment with mucosa not seen due to solid stool that cannot be cleared. 1 = Portion of mucosa of the colon segment seen, but other areas of the colon segment not well seen due to staining, residual stool and/or opaque liquid. 2 = Minor amount of residual staining, small fragments of stool and/or opaque liquid, but mucosa of colon segment seen well. 3 = Entire mucosa of colon segment seen well with no residual staining, small fragments of stool or opaque liquid) Impression and Post Procedure Diagnosis: poor prep internal hemorrhoids trotuous colon Plan: High fiber diet leaflet Avoid straining at stool, epsom salts and sitz bath, anusol supps or cream Repeat Colonoscopy in 3-6 months and consider 2 d clear prep next time with adult colonoscope TODAY'S VISIT: Patient is here today to discuss going for colonoscopy. Patient is accompanied by [facility] staff member. Patient is not able to understand instructions or answer questions appropriately due to his mental condition. Patient had suboptimal prep on last procedure in May of 2023. No changes in patient's condition since last visit. [facility] Medical History (Updated 09/07/23 @ 14:02 by Maria Del Rosario Dias RN) Astigmatism Seasonal allergies Bilateral cataracts Preglaucoma Insomnia Presbyopia Parkinsons disease Seizures Fall Pneumonia General weakness Hypoxia COVID-19 [facility] Dementia Schizophrenia Hypernatremia Metabolic encephalopathy BPH (benign prostatic hyperplasia) HTN (hypertension) GERD (gastroesophageal reflux disease) Anxiety Surgical History Hx of cystoscopy Social History Household Members: Other Housing: Group Home Housing Other:: [facility] Unable to assess alcohol history related to: Unable to respond Alcohol intake: never Comment: 1:1 sitter Patient Tobacco Use Status: Never used Tobacco Advance Directives Date on File: 01/17/22 service: No Current occupational status: disabled Review of Systems Const Denies weight gain and Denies weight loss ENT Reports no additional complaints and Denies odynophagia Card Reports no additional complaints Resp Reports no additional complaints GI Denies abdominal pain, Denies belching, Denies melena, Denies bloating, Denies excessive flatus, Denies heartburn, Denies diarrhea, Denies loose stools, Denies nausea, Denies odynophagia and Denies vomiting Reports no additional complaints Musc Reports no additional complaints Neuro Reports no additional complaints Psych Reports no additional complaints Endo Reports no additional complaints Physical Exam Vital Signs: BMI result Body Mass Index 25.7 Const Other: Patient in a wheelchair General: healthy appearing and no acute distress Nutritional Appearance: well nourished Orientation/consciousness: Other orientation findings (self) Limitations: altered mental status (Chronic) and language barrier Resp Effort & Inspection: normal respiratory effort, able to speak in complete sentences, no tracheal deviation and symmetric chest movement Auscultation: clear to auscultation bilaterally Cardio Rate: regular rate GI Inspection: Yes normal to inspection and No distended Palpation (GI): Soft to palpation, not firm, nontender and No hepatosplenomegaly present Auscultation: normal bowel sounds General: Yes no CVA tenderness Back/Spine/Pelvis Back: no CVA tenderness Skin General skin exam: elasticity normal, turgor normal and dry skin Assessment & Plan Assessment & Plan (1) Screen for colon cancer: Code(s): Z12.11 - Encounter for screening for malignant neoplasm of colon Plan Suboptimal prep last colonoscopy. Patient will start taking Dulcolax 2 tablets 1 week before procedure, day before procedure 4 tablets at noon followed by split MiraLax prep. Stressed the importance of clear liquid diet with staff who came with patient. Written instructions given to bring it back to facility. Instructed to call if any questions. Patient has no change in his health condition. No shortness of breath, no chest pain. Patient will be seen in the office after the procedure, sooner on as needed basis. Staff is agreeable to plan of care and verbalizes understanding of instructions. They were given the opportunity to ask questions and all questions answered. Thank you for allowing me to participate in his care Coding Level of Care Code Est Pt Level 3 (27699) Diagnoses Screen for colon cancer Z12.11 Time Spent (min) 30 Comment 20 minutes spent with patient and additional 10 minutes spent reviewing his records
[2023-09-28 12:42] VITALS: BP 111/65; PULSE 73; BMI 25.7
== END 2023-09-28 13:19 | disposition home or self-care (01) ==
LOC: HO.HGI 12:34
PROVIDERS: PCP Hospitalist; Visit Provider Nurse Practitioner Family
DX: Z12.11 Encounter for screening for malignant neoplasm of colon (principal); Z01.818 Encounter for other preprocedural examination
CPT/HCPCS: 99212

== ENCOUNTER → 2023-09-28 12:34 | Outpatient (BNVA) | payer OTHER, SELFPAY | PROVIDERS: PCP Hospitalist; Visit Provider Nurse Practitioner Family | DX: Z01.818 Encounter for other preprocedural examination (principal) | CPT/HCPCS: 99212 ==

== ENCOUNTER 2024-01-17 11:28 | Day surgery (SDC) | payer OTHER, SELFPAY ==
--- NOTE | 2024-01-15 14:10 | P.CONAN_ITS ---
Documented by User: Brandy Hess NP 01/15/24 14:11 HPI - Anesthesia Eval Consult details Narrative: 58yo M for Colonoscopy Dementia SNF resident PENDING SALE TO [facility] Active Problems Active Problems: All Active Problems Toxic metabolic encephalopathy (Acute) Hypotension (Acute) Hypernatremia (Acute) Incomplete emptying of bladder due to benign prostatic hyperplasia (Acute) BPH w urinary obs/LUTS (Acute) Hypernatremia (Acute) Past Medical History Medical History Astigmatism Seasonal allergies Bilateral cataracts Preglaucoma Insomnia Presbyopia Parkinsons disease Seizures Fall Pneumonia General weakness Hypoxia COVID-19 Resides in [facility] Dementia Schizophrenia Hypernatremia Metabolic encephalopathy BPH (benign prostatic hyperplasia) HTN (hypertension) GERD (gastroesophageal reflux disease) Anxiety Family History Family history of problems with anesthesia: No Surgical History Surgical History Hx of cystoscopy History of Problems with Anesthesia: No Social History Social History Household Members: Other Housing: Care Home Housing Other:: [facility] Unable to assess alcohol history related to: Unable to respond Alcohol intake: never Comment: 1:1 sitter Patient Tobacco Use Status: Never used Tobacco Advance Directives: No Advance Directives Information Provided: Yes Advance Directives Date on File: 01/17/22 service: No Current occupational status: disabled Meds Allergies Allergy/AdvReac Type Severity Reaction Status Date / Time Sulfa (Sulfonamide Allergy Intermediate Rash Verified 09/28/23 12:42 Antibiotics) [SULFA (SULFONAMIDE ANTIBIOTICS)] Fsgorrg-NAS-QuV Reductase Allergy Unknown Unknown Verified 09/28/23 12:42 Inhibitor [ENWHCJL-PZO-YYF REDUCTASE INHIBITOR] ANTIARTERIOSCLEROTIC DRUGS AdvReac Unknown Unknown Uncoded 09/28/23 12:42 Home Medications ?Medication ?Instructions ?Recorded ?Confirmed ?Last Taken ?Type acetaminophen 325 mg capsule 650 mg PO Q4-6H PRN Pain 02/15/21 09/10/23 Unknown History benztropine 1 mg tablet 1 mg PO BID 02/15/21 09/10/23 09/11/23 History clonazepam 1 mg tablet 1 mg PO BID 02/15/21 09/10/2309/10/24 History diazepam 5 mg tablet 5 mg PO BID 02/15/21 09/10/23 09/11/23 History haloperidol 5 mg tablet 5 mg PO BID 02/15/21 09/10/23 09/11/23 History lithium carbonate 150 mg capsule 450 mg PO BEDTIME 02/15/21 09/10/23 Unknown History propranolol 10 mg tablet 10 mg PO TID 02/15/21 09/10/23 Unknown History sennosides 8.6 mg capsule (senna) 8.6 mg PO DAILY PRN Constipation 02/15/21 09/10/23 Unknown History benztropine 0.5 mg tablet 0.5 mg PO BID 01/17/22 09/10/23 09/11/23 History divalproex 125 mg capsule,delayed 750 mg PO BID 01/17/22 09/10/23 09/11/23 History release sprinkle (Depakote Sprinkles) risperidone 2 mg tablet 2 mg PO BEDTIME 01/17/22 09/10/23 Unknown History bisacodyl 10 mg rectal suppository 10 mg WI DAILY PRN Constipation 08/21/22 09/10/23 Unknown History docusate sodium 100 mg capsule 100 mg PO BID 08/21/22 09/10/23 Unknown History lactulose 10 gram/15 mL oral 30 ml PO BID 08/21/22 09/10/23 Unknown History solution loperamide 2 mg capsule 2 mg PO Q4H PRN Diarrhea 08/21/22 09/10/23 Unknown History hydrocortisone acetate 25 mg 25 mg WI DAILY PRN Hemorrhoids 09/10/23 09/10/23 Unknown History rectal suppository (Anusol-HC) lithium carbonate 300 mg tablet 300 mg PO BEDTIME 09/10/23 09/10/23 Unknown History Assessment and Plan Assessment Anesthesia Assessment: Chart Reviewed Final Anesthetic Review Family History of Problems with Anesthesia: No History of Problems with Anesthesia: No Documented by User: Natalie Menezes MD 01/17/24 12:10 PENDING SALE TO [facility] Past Medical History Medical History Astigmatism Seasonal allergies Bilateral cataracts Preglaucoma Insomnia Presbyopia Parkinsons disease Seizures Fall Pneumonia General weakness Hypoxia COVID-19 Resides in [facility] Dementia Schizophrenia Hypernatremia Metabolic encephalopathy BPH (benign prostatic hyperplasia) HTN (hypertension) GERD (gastroesophageal reflux disease) Anxiety Surgical History Surgical History Hx of cystoscopy Social History Social History Household Members: Other Housing: [facility] Housing Other:: [facility] Unable to assess alcohol history related to: Unable to respond Alcohol intake: never Comment: 1:1 sitter Patient Tobacco Use Status: Never used Tobacco Advance Directives: No Advance Directives Information Provided: Yes Advance Directives Date on File: 01/17/22 service: No Current occupational status: disabled Meds Allergies Allergy/AdvReac Type Severity Reaction Status Date / Time Sulfa (Sulfonamide Allergy Intermediate Rash Verified 09/28/23 12:42 Antibiotics) [SULFA (SULFONAMIDE ANTIBIOTICS)] Qkpdtua-PNA-ItU Reductase Allergy Unknown Unknown Verified 09/28/23 12:42 Inhibitor [ZSSRMNP-YQY-SBD REDUCTASE INHIBITOR] ANTIARTERIOSCLEROTIC DRUGS AdvReac Unknown Unknown Uncoded 09/28/23 12:42 Home Medications ?Medication ?Instructions ?Recorded ?Confirmed ?Last Taken ?Type acetaminophen 325 mg capsule 650 mg PO Q4-6H PRN Pain 02/15/21 09/10/23 Unknown History benztropine 1 mg tablet 1 mg PO BID 02/15/21 09/10/23 09/11/23 History clonazepam 1 mg tablet 1 mg PO BID 02/15/21 09/10/23 09/11/23 History diazepam 5 mg tablet 5 mg PO BID 02/15/21 09/10/23 09/11/23 History haloperidol 5 mg tablet 5 mg PO BID 02/15/21 09/10/23 09/11/23 History lithium carbonate 150 mg capsule 450 mg PO BEDTIME 02/15/21 09/10/23 Unknown History propranolol 10 mg tablet 10 mg PO TID 02/15/21 09/10/23 Unknown History sennosides 8.6 mg capsule (senna) 8.6 mg PO DAILY PRN Constipation 02/15/21 09/10/23 Unknown History benztropine 0.5 mg tablet 0.5 mg PO BID 01/17/22 09/10/23 09/11/23 History divalproex 125 mg capsule,delayed 750 mg PO BID 01/17/22 09/10/23 09/11/23 History release sprinkle (Depakote Sprinkles) risperidone 2 mg tablet 2 mg PO BEDTIME 01/17/22 09/10/23 Unknown History bisacodyl 10 mg rectal suppository 10 mg WI DAILY PRN Constipation 08/21/22 09/10/23 Unknown History docusate sodium 100 mg capsule 100 mg PO BID 08/21/22 09/10/23 Unknown History lactulose 10 gram/15 mL oral 30 ml PO BID 08/21/22 09/10/23 Unknown History solution loperamide 2 mg capsule 2 mg PO Q4H PRN Diarrhea 08/21/22 09/10/23 Unknown History hydrocortisone acetate 25 mg 25 mg WI DAILY PRN Hemorrhoids 09/10/23 09/10/23 Unknown History rectal suppository (Anusol-HC) lithium carbonate 300 mg tablet 300 mg PO BEDTIME 09/10/23 09/10/23 Unknown History Exam Airway Mallampati Class: II TM Dist: >3cm Neck ROM: Full Heart: rrr Lungs: cta Assessment and Plan Assessment Anesthesia Assessment: Anesthesia Plan Discussed Final Anesthetic Review NPO: Yes ASA Class: III Final Preanesthetic Review: No Changes in Pt Med Stat, Meds/Allgs Chart Reviewed, Consent Obtained/Reviewed and Anes Risks/Benef Reviewed Patient Risk: Intermediate Procedure Risk: Low Anesthetic Plan Anesthetic Plan: MAC: Disposition: Standard PACU
[2024-01-17 11:59] VITALS: BP 121/74; PULSE 65; RESP 18; TEMP 36.4; O2SAT 97
--- NOTE | 2024-01-17 12:23 | P.HPSUR_ITS ---
Pre-Procedural Eval Section A - 24 Hr Update-Section A only Date of Service: 01/17/24 Section B - Complete if H&P > 30 days Chief Complaint: Encounter for screening for malignant neoplasm of Relevant Family History (Specify if Yes): No Relevant Social History: None Present Medications: see Short Stay Collaborative assessment Medical History: Significant History (Astigmatism Seasonal allergies Bilateral cataracts Preglaucoma Insomnia Presbyopia Parkinsons disease Seizures Fall Pneumonia General weakness Hypoxia COVID-19 Resides in [facility] facility Dementia Schizophrenia Hypernatremia Metabolic encephalopathy BPH (benign prostatic hyperplasia) HTN (hy) History of Previous Operations: Relevant previous surgery/procedure and date(s) (Hx of cystoscopy) Allergies: Allergies Allergy/AdvReac Type Severity Reaction Status Date / Time Sulfa (Sulfonamide Allergy Intermediate Rash Verified 09/28/23 12:42 Antibiotics) [SULFA (SULFONAMIDE ANTIBIOTICS)] Rswehwo-EQO-NpZ Reductase Allergy Unknown Unknown Verified 09/28/23 12:42 Inhibitor [OKEHBBA-QFE-RPB REDUCTASE INHIBITOR] ANTIARTERIOSCLEROTIC DRUGS AdvReac Unknown Unknown Uncoded 09/28/23 12:42 Review of Systems Sugical H&P ROS: Negative: Constitution, Cardiovascular, Respiratory, Neurological, Psychiatric, Hem-Onc, Allergic/Immunologic, Gastrointestinal, Genitourinary, Musculoskeletal, Integumentary, Endocrine and Eyes/Ears/Nose/Throat Exam Surgical H&P Exam: Normal: HEENT, Normal: Heart, Normal: Lungs, Normal: Extremities, Normal: Abdomen and Normal: Skin and Significant Findings: Neurological (dementia ) Plan Diagnosis/Plan: Unchanged I have reviewed the history and physical and performed a pertinent physical examination on my patient. No changes have occurred unless specified. Time Spent With Patient Time: Total time managing care of this patient today ____ minutes.
[2024-01-17] MEDS: Lactated Ringers 1,000 ML 100 ML IVCONT (12:30)
--- NOTE | 2024-01-17 14:19 | P.OPN-COLO_ITS ---
Colonoscopy Operative Note Operative Note Date of Service: 01/17/24 Narrative: Operative Information Procedure Description: Colonoscopy Indication: screening Anesthesia: MAC COLONOSCOPY Instrument: Olympus variable stiffness pediatric scope 190L Colonoscopy Monitoring: Vital signs and clinical assessment, continuous EKG monitoring, Pulse oximetry, Carbon Dioxide monitoring and blood pressure monitoring were done throughout the procedure. Colon withdrawal time was 25 minutes. Procedure: The patient was placed in the left lateral decubitis position and pre-procedure medications were administered. After a digital rectal examination of the ano-rectum, the video colonoscope was inserted into the rectum and advanced through the colon to the cecum/TI. The colonoscope was slowly withdrawn in a retrograde panoramic fashion and the colon mucosa was carefully examined including a retroflexed view of the rectum. Findings and interventions are described below. Procedure Difficulty: very difficult due to redundant colon Findings: Terminal Ileum-not reached Cecum:not reached Ascending Colon: normal Transverse Colon -normal Descending Colon:normal Sigmoid Colon: normal Rectum: Retroflexion with small internal hemorrhoids seen, grade I Anorectum - normal Intervention: none Colon preparation: [place] Bowel Preparation Scale Right colon; 2 Transverse colon: 2 Left colon; 2 (0 = Unprepared colon segment with mucosa not seen due to solid stool that jose ot be cleared. 1 = Portion of mucosa of the colon segment seen, but other areas of the colon segment not well seen due to staining, residual stool and/or opaque liquid. 2 = Minor amount of residual staining, small fragments of stool and/or opaque liquid, but mucosa of colon segment seen well. 3 = Entire mucosa of colon segment seen well with no residual staining, small fragments of stool or opaque liquid) Impression and Post Procedure Diagnosis: redundant colon, incomplete internal hemorrhoids Plan: High fiber diet leaflet Avoid straining at stool, epsom salts and sitz bath, anusol supps or cream Refer for Ct colonography due to incomplete colonoscopy--will need prep for it as well, prep can be ordered in the [facility] --I will order the Ct colonography Above findings were reviewed with the patient and relevant handouts were provided if indicated.
[2024-01-17 14:27] VITALS: BP 132/84; PULSE 74; RESP 16; TEMP 36.1; O2SAT 100
[2024-01-17 14:42] VITALS: BP 133/98; PULSE 67; RESP 15; O2SAT 100
== END 2024-01-17 15:00 ==
PROVIDERS: PCP Hospitalist; Visit Provider Internal Medicine Gastroenterology
PROC: 0DJD8ZZ Inspection of Lower Intestinal Tract, Via Natural or Artificial Opening Endoscopic (ICD-10-PCS; CPT 45378; principal; 2024-01-17 13:20)
DX: Z12.11 Encounter for screening for malignant neoplasm of colon (principal); K64.0 First degree hemorrhoids; Q43.8 Other specified congenital malformations of intestine; I10 Essential (primary) hypertension; G20.A1 Parkinson's disease without dyskinesia, without mention of fluctuations; F02.80 Dementia in other diseases classified elsewhere, unspecified severity, without behavioral disturbance, psychotic disturbance, mood disturbance, and anxiety; K21.9 Gastro-esophageal reflux disease without esophagitis; Z87.820 Personal history of traumatic brain injury; Z87.01 Personal history of pneumonia (recurrent); Z79.899 Other long term (current) drug therapy
CPT/HCPCS: 45378; J2704

== ENCOUNTER → 2024-01-17 11:28 | Outpatient (BNV) | payer OTHER, SELFPAY | PROVIDERS: PCP Hospitalist; Visit Provider Internal Medicine Gastroenterology | DX: Z12.11 Encounter for screening for malignant neoplasm of colon (principal); K64.0 First degree hemorrhoids; Q43.8 Other specified congenital malformations of intestine | CPT/HCPCS: 45378 ==

== ENCOUNTER 2024-01-23 12:53 | Outpatient (AMB) | payer MEDICAID, SELFPAY ==
--- NOTE | 2024-01-23 12:55 | A.OFFVIS_ITS ---
Vital Signs 01/23/24 12:56 Height 5 ft 8 in BP 91/49 L Blood Pressure Location Rt brachial Position Sitting Pulse 81 Intake Visit Reasons: s/p colon Intake Note: Willie presents in the office as a follow up colonoscopy. CC: No concerns just here for results to the colonoscopy. Allergies Sulfa (Sulfonamide Antibiotics) [SULFA (SULFONAMIDE ANTIBIOTICS)] Allergy (Intermediate, Verified 01/23/24 12:56) Rash Zaxzgdf-KQV-KoG Reductase Inhibitor [SFXHFDG-ZWB-BDY REDUCTASE INHIBITOR] Allergy (Unknown, Verified 01/23/24 12:56) Unknown ANTIARTERIOSCLEROTIC DRUGS Adverse Reaction (Unknown, Uncoded 01/23/24 12:56) Unknown HPI HPI s/p colon: Details: LAST VISIT Screen for colon cancer Plan Suboptimal prep last colonoscopy. Patient will start taking Dulcolax 2 tablets 1 week before procedure, day before procedure 4 tablets at noon followed by split MiraLax prep. Stressed the importance of clear liquid diet with staff who came with patient. Written instructions given to bring it back to facility. Instructed to call if any questions. Patient has no change in his health condition. No shortness of breath, no chest pain. Patient will be seen in the office after the procedure, sooner on as needed basis. Staff is agreeable to plan of care and verbalizes understanding of instructions. They were given the opportunity to ask questions and all questions answered. ? COLONOSCOPY Findings: Terminal Ileum-not reached Cecum:not reached Ascending Colon: normal Transverse Colon -normal Descending Colon:normal Sigmoid Colon: normal Rectum: Retroflexion with small internal hemorrhoids seen, grade I Anorectum - normal Intervention: none Colon preparation: [place] Bowel Preparation Scale Right colon; 2 Transverse colon: 2 Left colon; 2 (0 = Unprepared colon segment with mucosa not seen due to solid stool that cannot be cleared. 1 = Portion of mucosa of the colon segment seen, but other areas of the colon segment not well seen due to staining, residual stool and/or opaque liquid. 2 = Minor amount of residual staining, small fragments of stool and/or opaque liquid, but mucosa of colon segment seen well. 3 = Entire mucosa of colon segment seen well with no residual staining, small fragments of stool or opaque liquid) Impression and Post Procedure Diagnosis: redundant colon, incomplete internal hemorrhoids Plan: High fiber diet leaflet Avoid straining at stool, epsom salts and sitz bath, anusol supps or cream Refer for Ct colonography due to incomplete colonoscopy--will need prep for it as well, prep can be ordered in the [facility] --I will order the Ct colonography TODAY'S VISIT Follow-up and to discuss colonoscopy results. Patient had suboptimal prep term inal ileum and cecum was not reached to examine due to prep. Redundant colon. Dr. Patterson ordered CT colonography and patient will need to do prep before then as well. Patient is accompanied by facility staff. No post procedural complications identified. [facility] Medical History (Updated 01/17/24 @ 14:22 by Ferdinand Patterson MD) TBI (traumatic brain injury) Astigmatism Seasonal allergies Bilateral cataracts Preglaucoma Insomnia Presbyopia Parkinsons disease Seizures Fall Pneumonia General weakness Hypoxia COVID-19 Resides in [facility] facility Dementia Schizophrenia Hypernatremia Metabolic encephalopathy BPH (benign prostatic hyperplasia) HTN (hypertension) GERD (gastroesophageal reflux disease) Anxiety Surgical History (Updated 01/23/24 @ 13:03 by JANIE Oviedo) Hx of colonoscopy Hx of cystoscopy Social History Household Members: Other Housing: Senior Living Housing Other:: [facility] Unable to assess alcohol history related to: Unable to respond Alcohol intake: never Comment: 1:1 sitter Patient Tobacco Use Status: Never used Tobacco Advance Directives Date on File: 01/17/22 service: No Current occupational status: disabled Review of Systems Const Denies weight gain and Denies weight loss ENT Reports no additional complaints and Denies odynophagia Card Reports no additional complaints Resp Reports no additional complaints GI Denies abdominal pain, Denies belching, Denies melena, Denies bloating, Denies excessive flatus, Denies heartburn, Denies diarrhea, Denies loose stools, Denies nausea, Denies odynophagia and Denies vomiting Reports no additional complaints Musc Reports no additional complaints Neuro Reports no additional complaints Psych Reports no additional complaints Endo Reports no additional complaints Physical Exam Const Other: Patient in a wheelchair General: healthy appearing and no acute distress Nutritional Appearance: well nourished Orientation/consciousness: Other orientation findings (self) Limitations: altered mental status (Chronic) and language barrier Resp Effort & Inspection: normal respiratory effort, able to speak in complete se ntences, no tracheal deviation and symmetric chest movement Auscultation: clear to auscultation bilaterally Cardio Rate: regular rate GI Inspection: Yes normal to inspection and No distended Palpation (GI): Soft to palpation, not firm, nontender and No hepatosplenomegaly present Auscultation: normal bowel sounds General: Yes no CVA tenderness Back/Spine/Pelvis Back: no CVA tenderness Skin General skin exam: elasticity normal, turgor normal and dry skin Assessment & Plan Assessment & Plan (1) Status post colonoscopy: Code(s): Z98.890 - Other specified postprocedural states Plan Patient will need to do prep day before going for colonography. Will call with colonography resolved. Patient will follow-up on as needed basis. Coding Level of Care Code Est Pt Level 3 (08408) Diagnoses Status post colonoscopy Z98.890 Time Spent (min) 25 Comment 15 minutes spent with patient and additional 10 minutes spent reviewing his records
[2024-01-23 12:56] VITALS: BP 91/49; PULSE 81
== END 2024-01-23 13:33 | disposition home or self-care (01) ==
PROVIDERS: PCP Hospitalist; Visit Provider Nurse Practitioner Family
DX: Z98.890 Other specified postprocedural states (principal)
CPT/HCPCS: 99213

== ENCOUNTER → 2024-01-23 12:53 | Outpatient (BNVA) | payer MEDICAID, SELFPAY | PROVIDERS: PCP Hospitalist; Visit Provider Nurse Practitioner Family | DX: Z71.2 Person consulting for explanation of examination or test findings (principal); Z98.890 Other specified postprocedural states | CPT/HCPCS: 99212 ==

== ENCOUNTER 2024-01-28 14:57 | Emergency (ER) | payer MEDICAID, SELFPAY ==
--- NOTE | ~2024-01-28 | US_ITS ---
EXAMINATION: US SCROTUM CLINICAL INFORMATION: Scrotal pain and swelling. COMPARISON: None available. TECHNIQUE: A sonogram of the scrotum was performed assessing montgomery-scale appearance and color Doppler flow. Spectral Doppler analysis of the arterial and venous flow were performed in the testes bilaterally. FINDINGS: RIGHT: Right testicle measures 5.4 x 2.2 x 3.7 cm, volume 23 mL. No focal testicular parenchymal lesions are visualized. Spectral Doppler analysis of the arterial and venous flow is normal in the right testis. Right epididymal head is normal in size but contains a 7 x 4 x 8 mm septated cyst.. No right hydrocele or varicocele is seen. Right epididymal Doppler flow is normal. LEFT: Left testicle measures 4.8 x 3.1 x 4.5 cm, volume 35 mL. No focal testicular parenchymal lesions are visualized. An appendix testis is present which contains a small 2 mm cyst. Spectral Doppler analysis of the arterial and venous flow is normal in the left testis. Left epididymal head is normal in size and contains a 3 mm epididymal head cyst. No varicocele is seen. A large left-sided hydrocele is present which contains some septations. Left epididymal Doppler flow is normal. US/US scrotum doppler IMPRESSION: 1. Large left-sided hydrocele with some septations. 2. Bilateral small epididymal head cysts. 3. No evidence of testicular torsion. Electronically signed by: Jamie Novak MD 01/28/2024 07:55 PM EDT
--- NOTE | ~2024-01-28 | US_ITS ---
EXAMINATION: US SCROTUM CLINICAL INFORMATION: Scrotal pain and swelling. COMPARISON: None available. TECHNIQUE: A sonogram of the scrotum was performed assessing montgomery-scale appearance and color Doppler flow. Spectral Doppler analysis of the arterial and venous flow were performed in the testes bilaterally. FINDINGS: RIGHT: Right testicle measures 5.4 x 2.2 x 3.7 cm, volume 23 mL. No focal testicular parenchymal lesions are visualized. Spectral Doppler analysis of the arterial and venous flow is normal in the right testis. Right epididymal head is normal in size but contains a 7 x 4 x 8 mm septated cyst.. No right hydrocele or varicocele is seen. Right epididymal Doppler flow is normal. LEFT: Left testicle measures 4.8 x 3.1 x 4.5 cm, volume 35 mL. No focal testicular parenchymal lesions are visualized. An appendix testis is present which contains a small 2 mm cyst. Spectral Doppler analysis of the arterial and venous flow is normal in the left testis. Left epididymal head is normal in size and contains a 3 mm epididymal head cyst. No varicocele is seen. A large left-sided hydrocele is present which contains some septations. Left epididymal Doppler flow is normal. US/US scrotum IMPRESSION: 1. Large left-sided hydrocele with some septations. 2. Bilateral small epididymal head cysts. 3. No evidence of testicular torsion. Electronically signed by: Jamie Novak MD 01/28/2024 07:55 PM EDT
[2024-01-28 15:05] VITALS: BP 126/70; PULSE 70; O2SAT 99
--- NOTE | 2024-01-28 15:23 | ED_ITS ---
HPI - General Adult General Chief complaint: Urogenital-Male Stated complaint: ENLARGED TESTICLE,FROM [facility] PER EMS Time Seen by Provider: 01/28/24 15:22 Source: patient and EMS Mode of arrival: EMS Limitations: other (Poor historian/ nonverbal ) History of Present Illness ED Provider: Jake TAYLOR HPI narrative: This is a 58-year-old male history of TBI, seizure disorder controlled with Depakote and lithium, urinary incontinence, hypertension, dementia, schizophrenia, BPH, anxiety, GERD, hypertension, coming from [facility] facility in which he uses a protective helmet presenting to the emergency department with testicular swelling. Carlyt difficult to communicate with but says no when asked if he has pain. Related Data Home Medications ?Medication ?Instructions ?Recorded ?Confirmed acetaminophen 325 mg capsule 650 mg PO Q4-6H PRN Pain 02/15/21 09/10/23 benztropine 1 mg tablet 1 mg PO BID 02/15/21 09/10/23 clonazepam 1 mg tablet 1 mg PO BID 02/15/21 09/10/23 diazepam 5 mg tablet 5 mg PO BID 02/15/21 09/10/23 haloperidol 5 mg tablet 5 mg PO BID 02/15/21 09/10/23 lithium carbonate 150 mg capsule 450 mg PO BEDTIME 02/15/21 09/10/23 propranolol 10 mg tablet 10 mg PO TID 02/15/21 09/10/23 sennosides 8.6 mg capsule (senna) 8.6 mg PO DAILY PRN Constipation 02/15/21 09/10/23 benztropine 0.5 mg tablet 0.5 mg PO BID 01/17/22 09/10/23 divalproex 125 mg capsule,delayed 750 mg PO BID 01/17/22 09/10/23 release sprinkle (Depakote Sprinkles) risperidone 2 mg tablet 2 mg PO BEDTIME 01/17/22 09/10/23 bisacodyl 10 mg rectal suppository 10 mg [place] DAILY PRN Constipation 08/21/22 09/10/23 docusate sodium 100 mg capsule 100 mg PO BID 08/21/22 09/10/23 lactulose 10 gram/15 mL oral 30 ml PO BID 08/21/22 09/10/23 solution loperamide 2 mg capsule 2 mg PO Q4H PRN Diarrhea 08/21/22 09/10/23 hydrocortisone acetate 25 mg 25 mg NY DAILY PRN Hemorrhoids 09/10/23 09/10/23 rectal suppository (Anusol-HC) lithium carbonate 300 mg tablet 300 mg PO BEDTIME 09/10/23 09/10/23 Previous Rx's ?Medication ?Instructions ?Recorded finasteride 5 mg tablet 5 mg PO DAILY 90 days #90 tabs 08/13/20 terazosin 10 mg capsule 10 mg PO BEDTIME 90 days #90 caps 08/16/21 bisacodyl 5 mg tablet,delayed 20 mg (4 x 5 mg) PO ONCE 1 day #4 09/07/23 release (Dulcolax (bisacodyl)) tabs polyethylene glycol 3350 17 238 g PO ONCE 1 day #238 grams 09/07/23 gram/dose oral powder (Miralax) Allergies Allergy/AdvReac Type Severity Reaction Status Date / Time Sulfa (Sulfonamide Allergy Intermediate Rash Verified 01/28/24 15:27 Antibiotics) [SULFA (SULFONAMIDE ANTIBIOTICS)] Oktzgni-SQH-KtG Reductase Allergy Unknown Unknown Verified 01/28/24 15:27 Inhibitor [MDKOXGK-[id number]-DLP REDUCTASE INHIBITOR] ANTIARTERIOSCLEROTIC DRUGS AdvReac Unknown Unknown Uncoded 01/28/24 15:27 Review of Systems 2 Review of Systems: Yes all other systems are reviewed and are negative PMFSH Past Medical History Attestation statement: The following information was validated with the patient. Source: old records reviewed and nursing notes reviewed Medical History (Updated 01/28/24 @ 20:11 by LAUREANO Peterson) TBI (traumatic brain injury) Astigmatism Seasonal allergies Bilateral cataracts Preglaucoma Insomnia Presbyopia Parkinsons disease Seizures Fall Pneumonia General weakness Hypoxia COVID-19 Resides in retirement facility Dementia Schizophrenia Hypernatremia Metabolic encephalopathy BPH (benign prostatic hyperplasia) HTN (hypertension) GERD (gastroesophageal reflux disease) Anxiety Surgical History (Updated 01/23/24 @ 13:03 by JANIE Oviedo) Hx of colonoscopy Hx of cystoscopy Social History Social History Household Members: Other Housing: Assisted Housing Other:: [facility] Unable to assess alcohol history related to: Unable to respond Alcohol intake: never Comment: 1:1 sitter Patient Tobacco Use Status: Never used Tobacco Advance Directives: Yes Advance Directives on File: Yes Advance Directives Date on File: 01/17/22 Do you have a plan to hurt others: No Plan service: No Current occupational status: disabled Physical Exam ED Vital Signs: Vital Signs - 24 hr 01/28/24 15:25 01/28/24 18:00 Temperature 98.1 F 97.1 F Pulse Rate 71 79 Respiratory Rate 16 22 H Blood Pressure 141/75 H 152/96 H Pulse Oximetry 98 99 Oxygen Delivery Method Room Air Room Air BMI result Body Mass Index 28.2 vss Appearance: Alert.? Oriented X3.? No acute distress.? Head: Normocephalic, atraumatic, no step-offs or deformities Eyes: Pupils equal, round and reactive to light.? CVS: Normal heart rate and rhythm.? Pulses normal.? Respiratory: No respiratory distress.? Breath sounds normal.? Abdomen: Soft and nontender.? Skin: Skin warm and dry.? Normal skin color.? Normal skin turgor.? Extremities: No lower extremity edema.? No calf ttp. 5/5 strength to bilateral upper and lower extremities Back: No midline tenderness, no C-spine tenderness, full range of motion, no CVA tenderness bilaterally Neuro: Oriented X 3.? No motor deficit.? No sensory deficit. CN 2-12 intact Sensative: Michelle PCT at bedside large left sided hydrocele w/ + transillumination test. Course Reevaluation(s) Reevaluation #1: CBC with normocytic anemia. Chemistry no acute findings needing intervention. Appears to be around patient's baseline. BNP normal. Scrotal ultrasound large left-sided hydrocele with some septations bilateral small epididymal head cyst. No evidence of testicular torsion. No tenderness on exam I do not suspect torsion or intermittent torsion. No urinary symptoms. Unlikely UTI. Educated patient on diagnosis and treatment plan, answered all question, patient verbalizes understanding. At this time patient will be discharged home, advised to return with new or worsening symptoms. Educated on worrisome signs and symptoms and when to return. At this time I feel comfortable discharge home. Medical Decision Making Medical Decision Making [facility] Narrative: 1525 50-year-old male presents with testicular swelling unclear amount of time coming from care 1. Physical exam - limited at this time as he is in a newton bed History and physical exam concerning for hydrocele versus torsion versus epididymitis versus orchitis. Will rule out UTI. Will rule out CHF . Plan labs, imaging, urine Differential Diagnosis Differential Diagnoses: The differential diagnosis associated with the presentation includes History and physical exam concerning for hydrocele versus torsion versus epididymitis versus orchitis. Will rule out UTI. Will rule out CHF Admission/Observation Consideration of admission/observation: Escalation of care including admission/observation considered Lab Data 01/28/24 19:10 01/28/24 19:10 Labs: Lab Results 01/28/24 Range/Units 19:10 WBC 5.9 (4.8-10.8) X10*3/uL RBC 4.36 L (4.60-5.80) X10*6/uL Hgb 12.5 L (14.0-18.0) g/dl Hct 39.4 L (42.0-52.0) % MCV 90.4 (80.0-98.0) fL MCH 28.7 (27.0-33.0) pg MCHC 31.7 (31.0-36.0) g/dl RDW 15.2 (11.0-16.0) % Plt Count 141 L (160-400) X10*3/uL MPV 11.3 (9.4-12.4) fL Immature Gran % (Auto) 0.3 (0.0-0.4) % Neut % (Auto) 60.3 (45-73) % Lymph % (Auto) 29.4 (20-40) % Ponce % (Auto) 6.9 (2-11) % Eos % (Auto) 2.4 (0-4) % Baso % (Auto) 0.7 (0-2) % Lymph # (Auto) 1.7 (1.2-4.9) X10*3/uL Ponce # (Auto) 0.4 (0.1-1.2) X10*3/uL Eos # (Auto) 0.1 (0.0-0.4) X10*3/uL Baso # (Auto) 0.0 (0.0-0.2) X10*3/uL Abs Immat Gran (auto) 0.02 (0.00-0.03) X10*3/uL Absolute Neuts (auto) 3.6 (2.0-8.3) x10*3/uL Absolute Nucleated RBC 0.000 (0.0-0.012) X10*3/uL Nucleated RBC % (auto) 0.0 (0.0-0.2) /100WBC Smear Tech's Comments VERIFIED Sodium 146 H (135-145) mmol/L Potassium 4.4 (3.3-5.1) mmol/L Chloride 111 H (96-108) mmol/L Carbon Dioxide 29 (22-29) mmol/L Anion Gap 10 L (12-20) BUN 14 (9-16) mg/dL Creatinine 0.89 (0.5-1.4) mg/dL Estim Creat Clear Calc 89.6 Estimated GFR > 60 Random Glucose 100 (60-115) mg/dL Calcium 9.5 D (8.4-10.2) mg/dL Total Bilirubin 0.3 (0.0-1.0) mg/dL AST 22 (5-37) U/L ALT 18 (0-40) U/L Alkaline Phosphatase 52 (39-117) U/L B-Natriuretic Peptide 43 (<100) pg/mL Total Protein 6.6 (6.5-8.0) g/dL Albumin 3.6 (3.5-5.0) g/dL Discharge Plan Discharge Clinical Impression: Hydrocele Patient Disposition: Home, Self-Care Instructions: Hydrocele (ED) Additional Instructions: Take your medications as prescribed. If you were prescribed antibiotics today, it is important that you take your medication to their entirety, do not skip any doses, do not finish them early. Follow-up with your primary care provider this week. Return to the emergency department with new or worsening symptoms. Such as fevers, chills, chest pain, shortness of breath, nausea, vomiting, dizziness, headache, vision changes, lethargy In case of emergency call 911 Follow up with urology US/US scrotum doppler IMPRESSION: 1. Large left-sided hydrocele with some septations. 2. Bilateral small epididymal head cysts. 3. No evidence of testicular torsion. Prescriptions: No Action bisacodyl [Dulcolax (bisacodyl)] 5 mg tablet,delayed release (DR/EC) 20 mg PO ONCE 1 Days Qty: 4 0RF Rx Instructions: take at noon the day before colonoscopy polyethylene glycol 3350 [Miralax] 17 gram/dose powder 238 g PO ONCE 1 Days Qty: 238 0RF Rx Instructions: Take as directed by mouth the day before your procedure. benztropine 0.5 mg Tablet 0.5 mg PO BID Rx Instructions: TDD = 1.5 MG BID risperidone 2 mg Tablet 2 mg PO BEDTIME divalproex [Depakote Sprinkles] 125 mg Capsule, Delayed Rel Sprinkle 750 mg PO BID bisacodyl 10 mg Suppository 10 mg [place] DAILY PRN (Reason: Constipation) docusate sodium 100 mg Capsule 100 mg PO BID loperamide 2 mg Capsule 2 mg PO Q4H PRN (Reason: Diarrhea) Rx Instructions: administer after each loose stool until symptoms controlled; do not exceed 8 mg per 24 hrs lactulose 10 gram/15 mL Solution 30 ml PO BID hydrocortisone acetate [Anusol-HC] 25 mg Suppository 25 mg [place] DAILY PRN (Reason: Hemorrhoids) lithium carbonate 300 mg Tablet 300 mg PO BEDTIME finasteride 5 mg tablet 5 mg PO DAILY 90 Days Qty: 90 1RF acetaminophen 325 mg capsule 650 mg PO Q4-6H PRN (Reason: Pain) benztropine 1 mg tablet 1 mg PO BID Rx Instructions: TDD = 1.5 MG BID clonazepam 1 mg tablet 1 mg PO BID diazepam 5 mg tablet 5 mg PO BID haloperidol 5 mg tablet 5 mg PO BID lithium carbonate 150 mg capsule 450 mg PO BEDTIME propranolol 10 mg tablet 10 mg PO TID senna 8.6 mg capsule 8.6 mg PO DAILY PRN (Reason: Constipation) terazosin 10 mg capsule 10 mg PO BEDTIME 90 Days Qty: 90 1RF Referrals: [facility] [Provider Group] - 2 days Print Language: Azeri
[2024-01-28 15:25] VITALS: BP 141/75; PULSE 71; RESP 16; TEMP 36.7; O2SAT 98; BMI 28.2
[2024-01-28 18:00] VITALS: BP 152/96; PULSE 79; RESP 22; TEMP 36.2; O2SAT 99
--- NOTE | 2024-01-28 18:27 | PC.NURSE ---
has been waiting patiently. tolerated ultrasound. awaits lab results. given snack. calm.
[2024-01-28 19:35] LABS: Alanine Aminotransferase 18 U/L (0-40); Albumin Level 3.6 g/dL (3.5-5.0); Alkaline Phosphatase 52 U/L (39-117); Anion Gap 10 (12-20); Aspartate Amino Transferase 22 U/L (5-37); Bilirubin Total 0.3 mg/dL (0.0-1.0); Blood Urea Nitrogen 14 mg/dL (9-16); Calcium 9.5 mg/dL (8.4-10.2); Carbon Dioxide 29 mmol/L (22-29); Chloride 111 mmol/L (96-108); Creatinine Clr Calc Pharmacy 89.6; Estimated Glomerular Filt Rate > 60; Glucose Random 100 mg/dL (60-115); Potassium 4.4 mmol/L (3.3-5.1); Sodium 146 mmol/L (135-145); Total Protein 6.6 g/dL (6.5-8.0)
[2024-01-28 19:38] LABS: B Type Natriuretic Peptide 43 pg/mL (<100)
[2024-01-28 20:05] LABS: Basophils Percent Auto 0.7 % (0-2); Eosinophils Absolute Auto 0.1 X10*3/uL (0.0-0.4); Eosinophils Percent Auto 2.4 % (0-4); Hematocrit 39.4 % (42.0-52.0); Hemoglobin 12.5 g/dl (14.0-18.0); Imm Gran Abs Auto 0.02 X10*3/uL (0.00-0.03); Imm Gran Pct Auto 0.3 % (0.0-0.4); Lymphocytes Absolute Auto 1.7 X10*3/uL (1.2-4.9); Lymphocytes Percent Auto 29.4 % (20-40); MANUAL DIFF FLAG SCAN; Mean Corpuscular HGB Conc 31.7 g/dl (31.0-36.0); Mean Corpuscular Hemoglobin 28.7 pg (27.0-33.0); Mean Corpuscular Volume 90.4 fL (80.0-98.0); Mean Platelet Volume 11.3 fL (9.4-12.4); Monocytes Absolute Auto 0.4 X10*3/uL (0.1-1.2); Monocytes Percent Auto 6.9 % (2-11); Neutrophils Absolute Auto 3.6 x10*3/uL (2.0-8.3); Neutrophils Percent Auto 60.3 % (45-73); PLT CLUMP 1; Red Blood Count 4.36 X10*6/uL (4.60-5.80); Red Cell Distribution Width 15.2 % (11.0-16.0); SCAN SMEAR FLAG 1
[2024-01-28 20:06] LABS: Platelet Count 141 X10*3/uL (160-400); SLIDE REVIEW VERIFIED; White Blood Count 5.9 X10*3/uL (4.8-10.8)
[2024-01-28 20:58] LABS: Appearance Urine Clear; Color Urine Yellow; Glucose Urine UA Negative (Negative); Leukocyte Esterase Urine Large (3+) (Negative); Nitrite Urine Negative (Negative); UMIC TRIGGER UACC YES; Urine Blood Negative (Negative); Urine Ketones Negative (Negative); Urine Protein Negative (Neg-Trace)
[2024-01-28 21:00] LABS: Bacteria Urine None Seen (None Seen); Hyaline Casts Urine 0-2 /LPF (0-2); RBC Urine 0-2 /HPF (0-2); Squamous Epithelial Cell Urine 0-2 /HPF (0-2); UACC Culture Trigger YES; WBC Urine 21-50 /HPF (0-5)
[2024-01-28 22:37] VITALS: BP 112/85; PULSE 71; RESP 17; TEMP 36.7; O2SAT 98
[2024-01-28 22:44] VITALS: BP 112/85; PULSE 71; RESP 17; TEMP 36.7; O2SAT 98
[2024-01-29 05:42] LABS: CT PCR NOT DETECTED (Not Detect.); NG PCR NOT DETECTED (Not Detect.)
== END 2024-01-28 22:44 | disposition home or self-care (01) ==
PROVIDERS: Physician Assistant; Emergency Provider Emergency Medicine; PCP Hospitalist
DX: N43.3 Hydrocele, unspecified (principal); N44.8 Other noninflammatory disorders of the testis; R10.2 Pelvic and perineal pain; R32 Unspecified urinary incontinence; R06.02 Shortness of breath; F03.90 Unspecified dementia, unspecified severity, without behavioral disturbance, psychotic disturbance, mood disturbance, and anxiety; Z79.899 Other long term (current) drug therapy
CPT/HCPCS: 36415; 76870; 80053; 81001; 83880; 85025; 87086; 87491; 87591; 93975; 99284

== ENCOUNTER 2024-03-07 09:09 | Outpatient (AMB) | payer MEDICAID, SELFPAY ==
--- NOTE | 2024-03-07 09:35 | MHC.OFFVIS ---
Intake Visit Reasons: 6m/ER-lg left hydrocele Intake Note: Patient is Present for [facility] ER Follow Up - 01/27 Left Hydrocele Urology Medication: Finasteride, Terazosin Antibiotic Allergies:Sulfa Blood Thinners:None Roll Line Operator Required: No Mobile Home Laborer: Mobile Home Laborer Present ([facility]) Accompanied by: Computer Peripheral Equipment Operator Allergies Sulfa (Sulfonamide Antibiotics) [SULFA (SULFONAMIDE ANTIBIOTICS)] Allergy (Intermediate, Verified 03/07/24 09:38) Rash Apvsojz-JID-LwX Reductase Inhibitor [ANGEDYP-VJF-GIP REDUCTASE INHIBITOR] Allergy (Unknown, Verified 03/07/24 09:38) Unknown ANTIARTERIOSCLEROTIC DRUGS Adverse Reaction (Unknown, Uncoded 03/07/24 09:38) Unknown HPI Comments Details: Willie is a pleasant male. Resident at [facility] for long-term care. Seen for following urologic issues - lower urinary tract symptoms - left hydrocele Here from assessment of hydrocele Found during emergency presentation On examination has large left-sided hydrocele Recommend office drainage Lower urinary tract symptoms Followed for many years High postvoid residual Current therapy terazosin 10 mg with finasteride PSA 11/22 0.3 Prior cystoscopy with lobar hypertrophy Background lithium [facility] procedure [facility] Medical History TBI (traumatic brain injury) Astigmatism Seasonal allergies Bilateral cataracts Preglaucoma Insomnia Presbyopia Parkinsons disease Seizures Fall Pneumonia General weakness Hypoxia COVID-19 Resides in assisted facility Dementia Schizophrenia Hypernatremia Metabolic encephalopathy BPH (benign prostatic hyperplasia) HTN (hypertension) GERD (gastroesophageal reflux disease) Anxiety Surgical History Hx of colonoscopy Hx of cystoscopy Social History Household Members: Other Housing: [facility] Other:: [facility] Unable to assess alcohol history related to: Unable to respond Alcohol intake: never Comment: 1:1 sitter Patient Tobacco Use Status: Never used Tobacco Advance Directives Date on File: 01/17/22 service: No Current occupational status: disabled Review of Systems Const Denies chills and Denies fever(s) Card Reports no additional complaints and Denies syncope Resp Denies cough GI Denies abdominal pain and Denies heartburn Reports as per HPI and Denies change in libido Neuro Denies syncope Psych Denies change in libido Endo Denies change in libido Physical Exam Const General: cooperative, healthy appearing, comfortable and no acute distress Orientation/consciousness: patient oriented x3 HEENT Face and sinus: Yes normal facial exam Mouth: moist mucous membranes Neck Neck: Yes normal visual inspection, Yes full ROM and Yes trachea midline Chest Chest palpation & inspection: normal inspection of the chest Resp Effort & Inspection: normal respiratory effort, able to speak in complete sentences and no respiratory distress GI Inspection: Yes normal to inspection Back/Spine/Pelvis Cervical Spine: normal cervical lordosis Thoracic/Lumbar Spine: thoracic and lumbar spine normal to inspection Skin General skin exam: no rashes or lesions noted Neuro General: patient oriented x3, gait normal, tone normal and moves all extremities Extrem General: Yes normal to inspection and Yes capillary refill normal Assessment & Plan Assessment & Plan (1) Hydrocele in adult: Code(s): N43.3 - Hydrocele, unspecified Category: Medical Plan Left hydrocele aspiration in office Patient Instructions: Imaging studies, laboratory and physical exam results were discussed and reviewed in detail. No major barriers to patient understanding were identified. An opportunity to ask questions regarding the treatment plan was provided. All questions were answered. The patient expressed understanding and agreement with the above treatment plan. The patient is aware they should contact our office by phone for worsening of their current condition or the appearance of new urologic symptoms. Compliance is encouraged with any medications and followup testing that is ordered. It is a privilege to participate in the urologic care of your patient. If you have any questions or concerns regarding treatment for the above conditions, or other urologic issues, please do not hesitate to contact me. The office telephone contact is [phone]. This note is constructed using voice recognition software. While every effort has been made to ensure accuracy section laborer errors may have been included. Yours sincerely, Dr Jevon Sharif MD, DANIEL [facility] - Urology Providers of Expert, Compassionate Care for the Genitourinary System Coding Level of Care Code Est Pt Level 4 (18002) Diagnoses Hydrocele in adult N43.3
== END 2024-03-07 10:23 | disposition home or self-care (01) ==
PROVIDERS: PCP Hospitalist; Visit Provider Urology
DX: N43.3 Hydrocele, unspecified (principal)
CPT/HCPCS: 99214

== ENCOUNTER → 2024-03-07 09:09 | Outpatient (BNVA) | payer MEDICAID, SELFPAY | PROVIDERS: PCP Hospitalist; Visit Provider Urology | DX: N43.3 Hydrocele, unspecified (principal) | CPT/HCPCS: 99212 ==

== ENCOUNTER 2024-04-11 12:20 | Inpatient (IN) | payer MEDICAID, SELFPAY ==
[2024-04-11] VITALS (8 sets, daily range): BP systolic 100–161; BP diastolic 52–116; PULSE 72–107; RESP 12–20; TEMP 36.8–37.6; O2SAT 95–100; BMI 26.4
--- NOTE | ~2024-04-11 | CT_ITS ---
EXAMINATION: CT PELVIS WITHOUT CONTRAST CLINICAL INFORMATION: Fall, evaluate for fracture COMPARISON: CT abdomen pelvis 08/21/2022 TECHNIQUE: Helical scanning was performed with submillimeter collimation through the pelvis. Sagittal and coronal multiplanar 2-D reconstructions were obtained. This CT examination was performed using dose optimization techniques as appropriate, variously including the following: *Automated exposure control *Adjustment of mA and/or kV according to patient size (this includes techniques or standardized protocols for targeted exams where dose is matched to indication/reason for exam; i.e. extremities or head) *Use of iterative reconstruction technique DLP: 440 mGy-cm FINDINGS: No pelvic, spine or hip fracture is seen. There is a 1 cm sclerotic lesion in the left iliac bone with a smaller punctate sclerotic area in the left hemisacrum, both unchanged when compared to 08/21/2022. The bladder is very distended rising up to the level of the umbilicus. Patient appears to be status post TURP. Visualized bowel is unremarkable. No abdominal wall or retroperitoneal hematomas are seen. The visualized bowel, including the appendix, is unremarkable. CT/CT pelvis wo IV con IMPRESSION: 1. No evidence of a pelvic fracture. 2. Incidental note made of a very distended bladder and a 1 cm sclerotic lesion in the left iliac bone, unchanged since 08/21/2022. Correlate with PSA. Electronically signed by: Jamie Novak MD 04/11/2024 09:23 PM [facility]
--- NOTE | ~2024-04-11 | CT_ITS ---
EXAMINATION: CT HEAD WITHOUT CONTRAST CLINICAL INFORMATION: change in mental status unknown COMPARISON: CT dated August 21, 2022. TECHNIQUE: Contiguous axial imaging was performed from the skull base to vertex without intravenous administration of contrast. This CT examination was performed using dose optimization techniques as appropriate, variously including the following: *Automated exposure control *Adjustment of mA and/or kV according to patient size (this includes techniques or standardized protocols for targeted exams where dose is matched to indication/reason for exam; i.e. extremities or head) *Use of iterative reconstruction technique DLP: 759 mGy-cm FINDINGS: No acute intracranial hemorrhage, mass effect, midline shift, hydrocephalus or herniation. Burt-white matter differentiation is normal. Posterior cranial fossa contents demonstrated no acute intracranial hemorrhage or mass effect. Sellar/suprasellar region demonstrated no gross masses or hemorrhage. Craniocervical junction is intact. Retention cysts versus polyps in the maxillary sinuses. Mucosal thickening in the ethmoid air cells. No air-fluid levels in the included paranasal sinuses. Tympanic cavities and mastoid air cells are aerated. Probable cerumen in the osseous segment of the left external auditory canal CT/CT head/brain wo IV con IMPRESSION: No acute intracranial hemorrhage. Stable appearance of the brain. Electronically signed by: Ovidio Pablo MD 04/11/2024 03:46 PM [facility]
--- NOTE | ~2024-04-11 | CT_ITS ---
EXAMINATION: CT HEAD WITHOUT CONTRAST CT CERVICAL SPINE WITHOUT CONTRAST CLINICAL INFORMATION: Fall with head and neck injury, pain COMPARISON: CT head from 04/11/2024 and 08/21/2022 TECHNIQUE: Contiguous axial imaging was performed from the skull base to vertex without intravenous administration of contrast. In addition, helical noncontrast CT imaging was acquired through the cervical spine and source images were reviewed along with axial reconstructions and sagittal and coronal MPRs. All CT exams at this location are performed using dose optimization techniques as appropriate to a performed exam including at least one of the following: * Automated exposure control * Adjustment of the mA and/or kV according to patient size (this includes techniques or standardized protocols for targeted exams where dose is matched to indication / reason for exam; i/e/ extremities or head) * Use of iterative reconstructive technique DLP: 1545 mGy-cm FINDINGS: HEAD: No intracranial mass, hemorrhage, or midline shift is visualized. The ventricles and sulci are age-appropriate. No extra-axial collections are identified. The paranasal sinuses are well aerated. CERVICAL SPINE: There is no evidence of acute cervical spine fracture. Vertebral body height and alignment is well maintained. No pre- or paravertebral soft tissue abnormality is identified. Degenerative changes with disc space narrowing and osteophyte formation is seen at C5/6 and C6/7. Posterior facet joint arthropathy is seen at C2/3, C5/6 and C6/7 bilaterally. Limited assessment of the lung apices is unremarkable. CT/CT head/brain wo IV con IMPRESSION: 1. No acute intracranial pathology. 2. No CT evidence of acute cervical spine fracture or traumatic subluxation. Degenerative changes as described above Electronically signed by: Heron Richards MD 04/11/2024 09:11 PM [facility]
--- NOTE | ~2024-04-11 | XR_ITS ---
EXAMINATION: XR CHEST CLINICAL INFORMATION: Fever. COMPARISON: CTA chest dated 08/21/2022. TECHNIQUE: Frontal view of the chest was obtained. FINDINGS: Hypoinflation of the lungs. No focal airspace consolidation. No pleural effusion or pneumothorax. Stable cardiomediastinal silhouette. XR/XR chest 1V IMPRESSION: Hypoinflation of the lungs without focal airspace consolidation. Electronically signed by: Lazaro Antoine MD 04/11/2024 02:06 PM [facility]
--- NOTE | ~2024-04-11 | CT_ITS ---
EXAMINATION: CT HEAD WITHOUT CONTRAST CT CERVICAL SPINE WITHOUT CONTRAST CLINICAL INFORMATION: Fall with head and neck injury, pain COMPARISON: CT head from 04/11/2024 and 08/21/2022 TECHNIQUE: Contiguous axial imaging was performed from the skull base to vertex without intravenous administration of contrast. In addition, helical noncontrast CT imaging was acquired through the cervical spine and source images were reviewed along with axial reconstructions and sagittal and coronal MPRs. All CT exams at this location are performed using dose optimization techniques as appropriate to a performed exam including at least one of the following: * Automated exposure control * Adjustment of the mA and/or kV according to patient size (this includes techniques or standardized protocols for targeted exams where dose is matched to indication / reason for exam; i/e/ extremities or head) * Use of iterative reconstructive technique DLP: 1545 mGy-cm FINDINGS: HEAD: No intracranial mass, hemorrhage, or midline shift is visualized. The ventricles and sulci are age-appropriate. No extra-axial collections are identified. The paranasal sinuses are well aerated. CERVICAL SPINE: There is no evidence of acute cervical spine fracture. Vertebral body height and alignment is well maintained. No pre- or paravertebral soft tissue abnormality is identified. Degenerative changes with disc space narrowing and osteophyte formation is seen at C5/6 and C6/7. Posterior facet joint arthropathy is seen at C2/3, C5/6 and C6/7 bilaterally. Limited assessment of the lung apices is unremarkable. CT/CT cervical spine wo IV con IMPRESSION: 1. No acute intracranial pathology. 2. No CT evidence of acute cervical spine fracture or traumatic subluxation. Degenerative changes as described above Electronically signed by: Heron Richards MD 04/11/2024 09:[address] [facility]
--- NOTE | ~2024-04-11 | CT_ITS ---
EXAMINATION: CT ABDOMEN AND PELVIS WITH CONTRAST CLINICAL INFORMATION: [Status. Fever. Abdominal pain. COMPARISON: CT dated August 21, 2022. TECHNIQUE: Multidetector volumetric images were obtained from the superior aspect of the liver through the pubic symphysis following administration 85 mL of Omnipaque 350 intravenous contrast without reported immediate complications. Sagittal and coronal reformatted images were obtained on the technologist's workstation. Oral contrast: No This CT examination was performed using dose optimization techniques as appropriate, variously including the following: *Automated exposure control *Adjustment of mA and/or kV according to patient size (this includes techniques or standardized protocols for targeted exams where dose is matched to indication/reason for exam; i.e. extremities or head) *Use of iterative reconstruction technique DLP: 927 mGy-cm FINDINGS: LUNG BASES: Pulmonary patchy groundglass, lung bases and lingula. LIVER, GALLBLADDER, AND BILIARY TREE: Liver measures 15 cm. No focal mass. Main portal vein, hepatic veins and intrahepatic portion of the IVC are patent. Status post cholecystectomy likely laparoscopic. Common bile duct measures 4 mm. PANCREAS: Reduced pancreatic parenchyma. No focal mass. No main pancreatic ductal dilatation. No peripancreatic fluid collections. SPLEEN: 10 cm. No focal mass. ADRENAL GLANDS: No nodular lesions. KIDNEYS AND URETERS: No renal mass. Prominent pelvicalyceal systems. No nephrolithiasis. Fluid-filled distended bladder. BLADDER: Fluid-filled distended bladder. GASTROINTESTINAL TRACT: Abundant stool. No intestinal obstruction pattern. No pneumatosis intestinalis. No pneumoperitoneum. No ascites. Appendix is normal. ABDOMINAL WALL: No significant hernia is appreciated. LYMPH NODES: No gross lymphadenopathy. VASCULAR: No aneurysm or dissection, abdominal aorta. Calcified plaques in the distal abdominal aorta and iliac arteries. PELVIC VISCERA: I do not see the prostate gland. OSSEOUS STRUCTURES: Multilevel thoracolumbar spondylosis. Osteopenia versus osteoporosis. No acute fracture or listhesis. CT/CT abdomen pelvis w IV con IMPRESSION: Concerning urinary retention either mechanical or neurogenic. Fleischner guidelines were followed. Electronically signed by: Ovidio Pablo MD 04/11/2024 03:51 PM [facility] [place]
--- NOTE | 2024-04-11 12:34 | ECG_ITS ---
Test Reason : WEAKNESS Blood Pressure : / mmHG Vent. Rate : 095 BPM Atrial Rate : 095 BPM P-R Int : 124 ms QRS Dur : 072 ms QT Int : 376 ms P-R-T Axes : 018 001 007 degrees QTc Int : 472 ms Normal sinus rhythm Low voltage QRS Cannot rule out Inferior infarct , age undetermined Cannot rule out Anterior infarct (cited on or before 21-AUG-2022) Abnormal ECG When compared with ECG of 21-AUG-2022 11:26, No significant change was found Referred By: Shaneka New Electronically Signed By:REJI SALCIDO MD
--- NOTE | 2024-04-11 12:36 | ED.AMS ---
HPI - Altered Mental Status General Chief Complaint: Altered Mental Status Stated Complaint: SEPSIS ALERT,AMS,WARM TO TOUCH PER EMS Time Seen by Provider: 04/11/24 12:25 Source: patient, EMS and old records reviewed Mode of arrival: EMS Limitations: altered mental status History of Present Illness ED Provider: CARLTON HPI narrative: 58 yo male with PMH of dementia, schizophrenia, anxiety disorder, GERD, BPH, hypertension, urinary incontinence, seizure disorder, pneumonia from [facility] who called EMS for reports of patient more confused, hot to touch with temp of 101.2 at facility, EMS noted low BPs 70/50s, Patient cannot really communicate well but does state his upper abdomen hurts. No trauma or seizure reported. L leg has cellulitis. Unclear what meds were given beyond 300cc NS by EMS - [facility] states they gave Willie something to calm down. MD complaint: weakness Onset (ago): day(s) (one AM) Timing confirmed by: other Severity: moderate Consistency of symptoms: constant Associated symptoms: fever, malaise, weakness and other (abd pain) Treatments prior to arrival: IV fluid Related Data Home Medications ?Medication ?Instructions ?Recorded ?Confirmed acetaminophen 325 mg capsule 650 mg PO Q4-6H PRN Pain 02/15/21 09/10/23 benztropine 1 mg tablet 1 mg PO BID 02/15/21 09/10/23 clonazepam 1 mg tablet 1 mg PO BID 02/15/21 09/10/23 diazepam 5 mg tablet 5 mg PO BID 02/15/21 09/10/23 haloperidol 5 mg tablet 5 mg PO BID 02/15/21 09/10/23 lithium carbonate 150 mg capsule 450 mg PO BEDTIME 02/15/21 09/10/23 propranolol 10 mg tablet 10 mg PO TID 02/15/21 09/10/23 sennosides 8.6 mg capsule (senna) 8.6 mg PO DAILY PRN Constipation 02/15/21 09/10/23 benztropine 0.5 mg tablet 0.5 mg PO BID 01/17/22 09/10/23 divalproex 125 mg capsule,delayed 750 mg PO BID 01/17/22 09/10/23 release sprinkle (Depakote Sprinkles) risperidone 2 mg tablet 2 mg PO BEDTIME 01/17/22 09/10/23 bisacodyl 10 mg rectal suppository 10 mg [place] DAILY PRN Constipation 08/21/22 09/10/23 docusate sodium 100 mg capsule 100 mg PO BID 08/21/22 09/10/23 lactulose 10 gram/15 mL oral 30 ml PO BID 08/21/22 09/10/23 solution loperamide 2 mg capsule 2 mg PO Q4H PRN Diarrhea 08/21/22 09/10/23 hydrocortisone acetate 25 mg 25 mg [place] DAILY PRN Hemorrhoids 09/10/23 09/10/23 rectal suppository (Anusol-HC) lithium carbonate 300 mg tablet 300 mg PO BEDTIME 09/10/23 09/10/23 Previous Rx's ?Medication ?Instructions ?Recorded finasteride 5 mg tablet 5 mg PO DAILY 90 days #90 tabs 08/13/20 terazosin 10 mg capsule 10 mg PO BEDTIME 90 days #90 caps 08/16/21 bisacodyl 5 mg tablet,delayed 20 mg (4 x 5 mg) PO ONCE 1 day #4 09/07/23 release (Dulcolax (bisacodyl)) tabs polyethylene glycol 3350 17 238 g PO ONCE 1 day #238 grams 09/07/23 gram/dose oral powder (Miralax) Allergies Allergy/AdvReac Type Severity Reaction Status Date / Time Sulfa (Sulfonamide Allergy Intermediate Rash Verified 04/11/24 12:34 Antibiotics) [SULFA (SULFONAMIDE ANTIBIOTICS)] [place]-XWP-[id number] Reductase Allergy Unknown Unknown Verified 04/11/24 12:34 Inhibitor [GJOQPSK-FKZ-HIS REDUCTASE INHIBITOR] ANTIARTERIOSCLEROTIC DRUGS AdvReac Unknown Unknown Uncoded 04/11/24 12:34 Review of Systems Review of Systems: ROS unable to be obtained due to altered mental status [facility] Past Medical History Source: old records reviewed Medical History TBI (traumatic brain injury) Astigmatism Seasonal allergies Bilateral cataracts Preglaucoma Insomnia Presbyopia Parkinsons disease Seizures Fall Pneumonia General weakness Hypoxia COVID-19 Resides in half-way facility Dementia Schizophrenia Hypernatremia Metabolic encephalopathy BPH (benign prostatic hyperplasia) HTN (hypertension) GERD (gastroesophageal reflux disease) Anxiety Surgical History Hx of colonoscopy Hx of cystoscopy Social History Social History Household Members: Other Housing: [facility] Housing Other:: [facility] Unable to assess alcohol history related to: Unable to respond Alcohol intake: never Comment: 1:1 sitter Patient Tobacco Use Status: Never used Tobacco Advance Directives: Yes Advance Directives on File: Yes Advance Directives Date on File: 01/17/22 Do you have a plan to hurt others: No Plan service: No Current occupational status: disabled Physical Exam ED Vital Signs: Vital Signs - 24 hr 04/11/24 12:31 04/11/24 13:54 04/11/24 15:10 Temperature 99.7 F 98.7 F 98.7 F Pulse Rate 102 H 88 Respiratory Rate 18 20 Blood Pressure 107/52 L 111/72 Pulse Oximetry 95 Oxygen Delivery Method Room Air Room Air 04/11/24 15:16 Temperature Pulse Rate 72 Respiratory Rate 16 Blood Pressure 112/65 Pulse Oximetry 98 Oxygen Delivery Method Room Air BMI result Body Mass Index 26.4 Appearance: Somnolent, confused, Mild acute distress. Eyes: Pupils equal, round and reactive to light. ENT: Pharynx very dry MM. Wearing iron man helmet Neck: Normal inspection. Neck supple. CVS: tachycardic heart rate and rhythm. Pulses normal. Respiratory: No respiratory distress. Breath sounds both bases diminished. Abdomen: Soft but says yes to pain with palpation of epigastric and RUQ area Skin: Skin warm and dry. Normal skin color. Normal skin turgor. Extremities: 1+ pitting edema both legs on L anterior taylor there is redness and warmth to the touch no crepitus or abscess noted Neuro: unable to participate seems to prefer R side Course Course Course Narrative: need to give zyprexa cannot get imaging done due to his agitation BP stable, oral zyprexa ordered Reevaluation(s) Reevaluation #1: signed out pending CT scan to Dr. Verdugo BP has been stable Reevaluation #2: added on vancomycin for cellulitis Medications Administered Discontinued Medications Generic Name Dose Route Start Last Admin Trade Name Freq PRN Reason Stop Dose Admin Acetaminophen 650 mg 04/11/24 12:35 04/11/24 12:56 Acetaminophen Oral Liquid 650 Mg/20.3 Ml Solution PO 04/11/24 12:36 650 mg ONCE ONE Administration Lactated Ringer's 2,361 mls @ 2,361 mls/hr 04/11/24 12:31 04/11/24 15:10 Lr 30 ml/kg infuse over 1 hr (2361 ml) 04/11/24 13:30 Infused IV Infusion .Q1H ONE Cefepime HCl 2 gm in 50 mls @ 100 mls/hr 04/11/24 12:35 04/11/24 13:30 Maxipime IV 04/11/24 13:04 Infused ONCE ONE Infusion Iohexol 100 ml 04/11/24 14:52 04/11/24 14:52 Iohexol 350 Mg/Ml 100 Ml Infus..Btl IV 04/11/24 14:53 85 ml ONCE ONE Administration Olanzapine 10 mg 04/11/24 13:33 04/11/24 13:54 Olanzapine Odt 10 Mg Tab.Rapdis TRANSLINGU 04/11/24 13:34 10 mg ONCE ONE Administration Medical Decision Making Medical Decision Making MDM Narrative: 58 yo male with PMH of dementia, schizophrenia, anxiety disorder, GERD, BPH, hypertension, urinary incontinence, seizure disorder here with increased confusion, fevers, abdominal pain at this time sepsis alert called - IVF 30cc/kg bolus, UA, labs, CXR, CT scan of abdomen and empiric cefepime, could be cellulitis, UTI, pneumonia, abdominal pathology. Patient limited and unable to give good history Differential Diagnosis Differential Diagnoses: The differential diagnosis associated with the presentation includes cellulitis, UTI, pneumonia, abdominal pathology Admission/Observation Consideration of admission/observation: Escalation of care including admission/observation considered will admit given fevers, hypotension pre hospital with cellulitis Consult Healthcare Provider Management of the patient was discussed with: Hospitalist (will admit) Lab Data [facility] Lab Attestation statement: I reviewed the patient's lab results. 04/11/24 13:03 04/11/24 13:03 Labs: Lab Results 04/11/24 04/11/24 04/11/24 Range/Units 13:03 13:20 15:06 WBC 7.1 (4.8-10.8) X10*3/uL RBC 3.80 L (4.60-5.80) X10*6/uL Hgb 11.2 L (14.0-18.0) g/dl Hct 33.5 L (42.0-52.0) % MCV 88.2 (80.0-98.0) fL MCH 29.5 (27.0-33.0) pg MCHC 33.4 (31.0-36.0) g/dl RDW 14.6 (11.0-16.0) % Plt Count 90 L D (160-400) X10*3/uL MPV 12.1 (9.4-12.4) fL Immature Gran % (Auto) 0.4 (0.0-0.4) % Neut % (Auto) 69.7 (45-73) % Lymph % (Auto) 17.3 L (20-40) % [place] % (Auto) 11.1 H (2-11) % Eos % (Auto) 1.1 (0-4) % Baso % (Auto) 0.4 (0-2) % Lymph # (Auto) 1.2 (1.2-4.9) X10*3/uL [place] # (Auto) 0.8 (0.1-1.2) X10*3/uL Eos # (Auto) 0.1 (0.0-0.4) X10*3/uL Baso # (Auto) 0.0 (0.0-0.2) X10*3/uL Abs Immat Gran (auto) 0.03 (0.00-0.03) X10*3/uL Absolute Neuts (auto) 4.9 (2.0-8.3) x10*3/uL Absolute Nucleated RBC 0.000 (0.0-0.012) X10*3/uL Nucleated RBC % (auto) 0.0 (0.0-0.2) /100WBC Sodium 145 (135-145) mmol/L Potassium 3.5 D (3.3-5.1) mmol/L Chloride 116 H (96-108) mmol/L Carbon Dioxide 22 (22-29) mmol/L Anion Gap 11 L (12-20) BUN 14 (9-16) mg/dL Creatinine 1.10 (0.5-1.4) mg/dL Estim Creat Clear Calc 70.8 Estimated GFR > 60 Random Glucose 90 (60-115) mg/dL Lactic Acid 1.5 (0.5-2.0) mmol/L Calcium 8.6 D (8.4-10.2) mg/dL Magnesium 1.8 (1.6-2.6) mg/dL Total Bilirubin 0.5 (0.0-1.0) mg/dL Direct Bilirubin 0.2 (0.0-0.5) mg/dL AST 34 (5-37) U/L ALT 20 (0-40) U/L Alkaline Phosphatase 60 (39-117) U/L Troponin I High Sens 2.9 (<3.5-35.0) ng/L C-Reactive Protein 0.25 (< or = 0.50) mg/dL B-Natriuretic Peptide 55 (<100) pg/mL Total Protein 5.6 L (6.5-8.0) g/dL Albumin 3.2 L (3.5-5.0) g/dL Lipase 12 (8-78) U/L Procalcitonin 0.05 ng/mL Urine Color Yellow Urine Appearance Clear Urine pH 7.0 (5.0-9.0) Ur Specific [place] 1.010 (1.005-1.025) Urine Protein Negative (Neg-Trace) mg/dL Urine Glucose (UA) Negative (Negative) mg/dL Urine Ketones Negative (Negative) mg/dL Urine Blood Moderate (2+) H (Negative) Urine Nitrite Negative (Negative) Ur Leukocyte Esterase Negative (Negative) Urine RBC 11-20 H (0-2) /HPF Urine WBC 0-5 (0-5) /HPF Ur Squamous Epith Cells 0-2 (0-2) /HPF Urine Bacteria None Seen (None Seen) Hyaline Casts 0-2 (0-2) /LPF Valproic Acid 25.0 L (50.0-100.0) mcg/mL [place] 0.59 L (0.60-1.20) mmol/L Influenza Type A (PCR) NEGATIVE (Negative) Influenza Type B (PCR) NEGATIVE (Negative) RSV RNA Qual (PCR) NEGATIVE (Negative) SARS-CoV-2 RNA (RT-PCR) NEGATIVE (Negative) Independent Interpretation I performed an independent interpretation of an: EKG, Plain X-Ray (no pneumonia) and CT Scan (no ICH, no abdominal pathology ) Interpretation: Rate: Rhythm: [place]: Normal P waves. Normal JAMAL. Normal QRS complex. ST T wave : qTC: prior studies: The study has been interpreted contemporaneously by me. . Radiology Impression Discussion of test interpretation with radiology: I have reviewed the radiologist's reading. Independent Historian Clinical information obtained from an independent historian. History obtained from or confirmed by: EMS External Record Review External record reviewed: Outpatient record Discharge Plan Discharge Clinical Impression: Acute encephalopathy, Cellulitis Patient Disposition: Admitted As Inpatient Prescriptions: No Action bisacodyl [Dulcolax (bisacodyl)] 5 mg tablet,delayed release (DR/EC) 20 mg PO ONCE 1 Days Qty: 4 0RF Rx Instructions: take at noon the day before colonoscopy polyethylene glycol 3350 [Miralax] 17 gram/dose powder 238 g PO ONCE 1 Days Qty: 238 0RF Rx Instructions: Take as directed by mouth the day before your procedure. benztropine 0.5 mg Tablet 0.5 mg PO BID Rx Instructions: TDD = 1.5 MG BID risperidone 2 mg Tablet 2 mg PO BEDTIME divalproex [Depakote Sprinkles] 125 mg Capsule, Delayed Rel Sprinkle 750 mg PO BID bisacodyl 10 mg Suppository 10 mg [place] DAILY PRN (Reason: Constipation) docusate sodium 100 mg Capsule 100 mg PO BID loperamide 2 mg Capsule 2 mg PO Q4H PRN (Reason: Diarrhea) Rx Instructions: administer after each loose stool until symptoms controlled; do not exceed 8 mg per 24 hrs lactulose 10 gram/15 mL Solution 30 ml PO BID hydrocortisone acetate [Anusol-HC] 25 mg Suppository 25 mg ME DAILY PRN (Reason: Hemorrhoids) lithium carbonate 300 mg Tablet 300 mg PO BEDTIME finasteride 5 mg tablet 5 mg PO DAILY 90 Days Qty: 90 1RF acetaminophen 325 mg capsule 650 mg PO Q4-6H PRN (Reason: Pain) benztropine 1 mg tablet 1 mg PO BID Rx Instructions: TDD = 1.5 MG BID clonazepam 1 mg tablet 1 mg PO BID diazepam 5 mg tablet 5 mg PO BID haloperidol 5 mg tablet 5 mg PO BID lithium carbonate 150 mg capsule 450 mg PO BEDTIME propranolol 10 mg tablet 10 mg PO TID senna 8.6 mg capsule 8.6 mg PO DAILY PRN (Reason: Constipation) terazosin 10 mg capsule 10 mg PO BEDTIME 90 Days Qty: 90 1RF Print Language: Welsh
[2024-04-11] MEDS: LACTATED RINGERS 2361 ML IV (12:44)
[2024-04-11] MEDS: Acetaminophen Oral Liquid 650 MG/20.3 ML SOLUTION PO (12:56)
[2024-04-11] MEDS: cefEPime HCl/D5W 2 GM/50 ML PIGGYBACK IV (13:04)
[2024-04-11 13:26] LABS: Lithium 0.59 mmol/L (0.60-1.20)
[2024-04-11 13:32] LABS: Basophils Percent Auto 0.4 % (0-2); Eosinophils Absolute Auto 0.1 X10*3/uL (0.0-0.4); Eosinophils Percent Auto 1.1 % (0-4); Hematocrit 33.5 % (42.0-52.0); Hemoglobin 11.2 g/dl (14.0-18.0); Imm Gran Abs Auto 0.03 X10*3/uL (0.00-0.03); Imm Gran Pct Auto 0.4 % (0.0-0.4); Lymphocytes Absolute Auto 1.2 X10*3/uL (1.2-4.9); Lymphocytes Percent Auto 17.3 % (20-40); Mean Corpuscular HGB Conc 33.4 g/dl (31.0-36.0); Mean Corpuscular Hemoglobin 29.5 pg (27.0-33.0); Mean Corpuscular Volume 88.2 fL (80.0-98.0); Mean Platelet Volume 12.1 fL (9.4-12.4); Monocytes Absolute Auto 0.8 X10*3/uL (0.1-1.2); Monocytes Percent Auto 11.1 % (2-11); Neutrophils Absolute Auto 4.9 x10*3/uL (2.0-8.3); Neutrophils Percent Auto 69.7 % (45-73); Platelet Count 90 X10*3/uL (160-400); Red Cell Distribution Width 14.6 % (11.0-16.0); White Blood Count 7.1 X10*3/uL (4.8-10.8)
[2024-04-11 13:33] LABS: Lactic Acid 1.5 mmol/L (0.5-2.0)
[2024-04-11 13:41] LABS: Alanine Aminotransferase 20 U/L (0-40); Albumin Level 3.2 g/dL (3.5-5.0); Alkaline Phosphatase 60 U/L (39-117); Anion Gap 11 (12-20); Aspartate Amino Transferase 34 U/L (5-37); Bilirubin Direct 0.2 mg/dL (0.0-0.5); Bilirubin Total 0.5 mg/dL (0.0-1.0); Blood Urea Nitrogen 14 mg/dL (9-16); C Reactive Protein 0.25 mg/dL (< or = 0.50); Calcium 8.6 mg/dL (8.4-10.2); Carbon Dioxide 22 mmol/L (22-29); Chloride 116 mmol/L (96-108); Creatinine Clr Calc Pharmacy 70.8; Estimated Glomerular Filt Rate > 60; Glucose Random 90 mg/dL (60-115); Lipase 12 U/L (8-78); Magnesium 1.8 mg/dL (1.6-2.6); Potassium 3.5 mmol/L (3.3-5.1); Sodium 145 mmol/L (135-145); Total Protein 5.6 g/dL (6.5-8.0)
[2024-04-11 13:44] LABS: Troponin-I High Sensitivity 2.9 ng/L (<3.5-35.0)
[2024-04-11] MEDS: OLANZapine ODT 10 MG TAB.RAPDIS TRANSLINGU (13:54)
[2024-04-11 13:56] LABS: B Type Natriuretic Peptide 55 pg/mL (<100)
[2024-04-11 14:13] LABS: Influenza A PCR NEGATIVE (Negative); Influenza B PCR NEGATIVE (Negative); Resp Syncy Virus RNA Qual PCR NEGATIVE (Negative); SARS COV2 PCR INHOUSE NEGATIVE (Negative)
[2024-04-11 14:16] LABS: Procalcitonin 0.05 ng/mL
[2024-04-11] MEDS: iohexoL 350 MG/ML 100 ML INFUS..BTL IV (14:52)
[2024-04-11 15:13] LABS: Appearance Urine Clear; Color Urine Yellow; Glucose Urine UA Negative (Negative); Leukocyte Esterase Urine Negative (Negative); Nitrite Urine Negative (Negative); UMIC TRIGGER UACC YES; Urine Blood Moderate (2+) (Negative); Urine Ketones Negative (Negative); Urine Protein Negative (Neg-Trace)
[2024-04-11 15:15] LABS: Bacteria Urine None Seen (None Seen); Hyaline Casts Urine 0-2 /LPF (0-2); Squamous Epithelial Cell Urine 0-2 /HPF (0-2); WBC Urine 0-5 /HPF (0-5)
--- NOTE | 2024-04-11 16:48 | PM.IMHP ---
History of Present Illness Date of Service: 04/11/24 Attending physician on admission: [facility] Chief Complaint: AMS, hypotension Pt is a 58-year-old male with a PMH significant for?dementia, BPH, HTN, urinary retention, seizure disorder, GERD, schizophrenia, and anxiety who presents to the ED from [facility] for evaluation of altered mental status, fever, and hypotension. Patient is currently alert but not oriented and mumbling incoherently. Patient is agitated, standing at bedside with clothes in his hands and on bed in front of him. Initially attempts to strike out at this provider when 1st approached. Contacted staff at [facility] and they report patient is normally at baseline capable of being understood, making his needs known, and even of holding a full conversation. This morning patient was found to be very agitated, throwing himself repeatedly on the floor, and screaming he was in pain although he would not specify where. Temporal thermometer found patient to have a fever of 101.2 with soft BP of 82/54. Was given fluids at the facility with repeat BP again 82/54. Patient also was found to be tachycardic. EMS was called and apparently found patient to be hypotensive in 70s/50s. When patient arrived to the ED apparently was initially complaining of abdominal pain. In the ED pt with low-grade fever 99.7, tachycardia of 102, and slightly soft BP of 107/52. Labs were grossly unremarkable and around baseline for patient. No leukocytosis. Stable H&H. No significant electrolyte abnormalities. Renal and hepatic function WNL. Lactic acid WNL at 1.5. Troponin 2.9. BNP 55. Lipase 12. UA negative for UTI. Valproic acid levels subtherapeutic at 25.0, lithium levels mildly decreased at 0.59. Tested negative for flu, RSV, COVID. CXR showed hypoinflated lungs without clear focal consolidation. CT?of head found no acute intracranial hemorrhage or acute process. CT of abdomen/pelvis found distended and fluid-filled bladder concerning for urinary retention, but otherwise negative for acute abdomen. EKG demonstrated normal sinus rhythm without evidence of significant ST elevations or depressions. Pt was treated with IVF, acetaminophen, olanzapine, vancomycin, and cefepime. Pt will be admitted to the hospital for treatment and further evaluation of acute encephalopathy in the setting of left lower extremity cellulitis with sepsis. Review of Systems Review of Systems: Yes Unobtainable due to mental status [facility] Medical History TBI (traumatic brain injury) Astigmatism Seasonal allergies Bilateral cataracts Preglaucoma Insomnia Presbyopia Parkinsons disease Seizures Fall Pneumonia General weakness Hypoxia COVID-19 Resides in [facility] facility Dementia Schizophrenia Hypernatremia Metabolic encephalopathy BPH (benign prostatic hyperplasia) HTN (hypertension) GERD (gastroesophageal reflux disease) Anxiety Surgical History Hx of colonoscopy Hx of cystoscopy Social History Household Members: Other Housing: Group Home Housing Other:: [facility] Unable to assess alcohol history related to: Unable to respond Alcohol intake: never Comment: 1:1 sitter Patient Tobacco Use Status: Never used Tobacco Advance Directives: Yes Advance Directives on File: Yes Advance Directives Date on File: 01/17/22 Do you have a plan to hurt others: No Plan service: No Current occupational status: disabled Meds Allergies Allergy/AdvReac Type Severity Reaction Status Date / Time Sulfa (Sulfonamide Allergy Intermediate Rash Verified 04/11/24 12:34 Antibiotics) [SULFA (SULFONAMIDE ANTIBIOTICS)] Qfeilee-HRU-MvP Reductase Allergy Unknown Unknown Verified 04/11/24 12:34 Inhibitor [AKQZEJY-BUP-CGE REDUCTASE INHIBITOR] ANTIARTERIOSCLEROTIC DRUGS AdvReac Unknown Unknown Uncoded 04/11/24 12:34 Active Medications: Current Medications Vancomycin HCl (Vancomycin/Ns) 2,000 mg in 500 mls @ 250 mls/hr IV ONCE ONE Stop: 04/11/24 17:58 Home Medications ?Medication ?Instructions ?Recorded ?Confirmed ?Last Taken ?Type acetaminophen 325 mg capsule 650 mg PO Q4-6H PRN Pain 02/15/21 09/10/23 Unknown History benztropine 1 mg tablet 1 mg PO BID 02/15/21 09/10/23 01/17/24 History clonazepam 1 mg tablet 1 mg PO BID 02/15/21 09/10/23 01/17/24 History diazepam 5 mg tablet 5 mg PO BID 02/15/21 09/10/23 01/17/24 History haloperidol 5 mg tablet 5 mg PO BID 02/15/21 09/10/23 01/17/24 History lithium carbonate 150 mg capsule 450 mg PO BEDTIME 02/15/21 09/10/23 Unknown History propranolol 10 mg tablet 10 mg PO TID 02/15/21 09/10/23 01/17/24 History sennosides 8.6 mg capsule (senna) 8.6 mg PO DAILY PRN Constipation 02/15/21 09/10/23 Unknown History benztropine 0.5 mg tablet 0.5 mg PO BID 01/17/22 09/10/23 01/17/24 History divalproex 125 mg capsule,delayed 750 mg PO BID 01/17/22 09/10/23 01/17/24 History release sprinkle (Depakote Sprinkles) risperidone 2 mg tablet 2 mg PO BEDTIME 01/17/22 09/10/23 Unknown History bisacodyl 10 mg rectal suppository 10 mg [place] DAILY PRN Constipation 08/21/22 09/10/23 Unknown History docusate sodium 100 mg capsule 100 mg PO BID 08/21/22 09/10/23 Unknown History lactulose 10 gram/15 mL oral 30 ml PO BID 08/21/22 09/10/23 Unknown History solution loperamide 2 mg capsule 2 mg PO Q4H PRN Diarrhea 08/21/22 09/10/23 Unknown History hydrocortisone acetate 25 mg 25 mg [place] DAILY PRN Hemorrhoids 09/10/23 09/10/23 Unknown History rectal suppository (Anusol-HC) lithium carbonate 300 mg tablet 300 mg PO BEDTIME 09/10/23 09/10/23 Unknown History Physical Exam Vital Signs and Narrative: Vital Signs: Last Vital Signs Temp 98.6 F 04/11/24 16:09 Pulse 72 04/11/24 16:09 Resp 12 04/11/24 16:09 BP 107/61 04/11/24 16:09 Pulse Ox 97 04/11/24 16:09 O2 Del Method Room Air 04/11/24 16:09 BMI result Body Mass Index 26.4 General: Alert, not oriented, mumbling incoherently. Agitated and aggressive. Resp: CTA bilaterally CVS: S1, S2, RRR GI: +BS, NT, no distention Skin: Warm, dry Neuro: Cranial nerves II-XII grossly intact bilaterally. Motor grossly intact bilaterally Extremities: Left lower extremity as pictured below with area swelling, warmth, and erythema. Psych: Encephalopathic, agitated. Results Labs 04/11/24 13:03 04/11/24 13:03 Labs: Laboratory Results - last 24 hr 04/11/24 04/11/24 04/11/24 13:03 13:20 15:06 MCV 88.2 MCH 29.5 MCHC 33.4 RDW 14.6 Plt Count 90 L D MPV 12.1 Immature Gran % (Auto) 0.4 Neut % (Auto) 69.7 Lymph % (Auto) 17.3 L [place] % (Auto) 11.1 H Eos % (Auto) 1.1 Baso % (Auto) 0.4 Lymph # (Auto) 1.2 [place] # (Auto) 0.8 Eos # (Auto) 0.1 Baso # (Auto) 0.0 Abs Immat Gran (auto) 0.03 Absolute Neuts (auto) 4.9 Absolute Nucleated RBC 0.000 Nucleated RBC % (auto) 0.0 Anion Gap 11 L Estim Creat Clear Calc 70.8 Estimated GFR > 60 Random Glucose 90 Lactic Acid 1.5 Calcium 8.6 D Magnesium 1.8 Total Bilirubin 0.5 Direct Bilirubin 0.2 AST 34 ALT 20 Alkaline Phosphatase 60 Troponin I High Sens 2.9 C-Reactive Protein 0.25 B-Natriuretic Peptide 55 Total Protein 5.6 L Albumin 3.2 L Lipase 12 Procalcitonin 0.05 Urine Color Yellow Urine Appearance Clear Urine pH 7.0 Ur Specific [place] 1.010 Urine Protein Negative Urine Glucose (UA) Negative Urine Ketones Negative Urine Blood Moderate (2+) H Urine Nitrite Negative Ur Leukocyte Esterase Negative Urine RBC 11-20 H Urine WBC 0-5 Ur Squamous Epith Cells 0-2 Urine Bacteria None Seen Hyaline Casts 0-2 Valproic Acid 25.0 L [place] 0.59 L Influenza Type A (PCR) NEGATIVE Influenza Type B (PCR) NEGATIVE RSV RNA Qual (PCR) NEGATIVE SARS-CoV-2 RNA (RT-PCR) NEGATIVE Imaging Radiologist's Impressions: Impressions Chest X-Ray 04/11/24 12:34 IMPRESSION: Hypoinflation of the lungs without focal airspace consolidation. Electronically signed by: Lazaro Antoine MD 04/11/2024 02:06 PM [facility] [place] CT 04/11/24 14:48 IMPRESSION: Concerning urinary retention either mechanical or neurogenic. Fleischner guidelines were followed. Electronically signed by: Ovidio Pablo MD 04/11/2024 03:51 PM EST RP Head CT 04/11/24 14:48 IMPRESSION: No acute intracranial hemorrhage. Stable appearance of the brain. Electronically signed by: Ovidio Pablo MD 04/11/2024 03:46 PM EST RP Assessment and Plan (1) Acute encephalopathy: Status: Acute (2) Cellulitis: Qualifiers: Laterality: left Site of cellulitis: extremity Site of cellulitis of extremity: lower extremity Qualified Code(s): L03.116 - Cellulitis of left lower limb Status: Acute Plan Pt is a 58-year-old male with a PMH significant for?dementia, BPH, HTN, urinary retention, seizure disorder who wears protective helmet during ambulation, GERD, schizophrenia, and anxiety who presents to the ED from [facility] for evaluation of altered mental status, fever, and hypotension. Pt will be admitted to the hospital for treatment and further evaluation of acute encephalopathy in the setting of left lower extremity cellulitis with sepsis. Acute metabolic encephalopathy in the setting of acute left lower extremity cellulitis Increased agitation, confusion, and incoherence Left lower extremity with area of erythema, warmth, and swelling Does not meet sepsis criteria: Tachycardia, but no tachypnea, fever, or leukocytosis; lactic acid WNL Patient given IVF and started on broad-spectrum antibiotics in the ED Will treat with vancomycin and cefepime, started 04/11/2024 Follow cultures Monitor mentation Hypotension EMS recorded BP of 70s/50s Received IVF by EMS, and in ED No hypotension noted while in the ED Hold propranolol, finasteride, terazosin for now Monitor BP Seizure disorder Valproic acid subtherapeutic at 25.0 Continue Depakote Mood disorder Continue home mood stabilizers [place] levels minimally low at 0.59 Full Code Attending:?Dr. Peter DVT Prophylaxis: Lovenox Pt will require a hospitalization of at least two nights for treatment of?acute metabolic encephalopathy in the setting of left lower extremity cellulitis that will require administration of IV antibiotics and close monitoring mentation. Quality Stroke Does the patient have a stroke diagnosis?: No VTE Prior VTE?: No VTE Risk Level:: Medical - moderate - high VTE Device Contraindication: Treatment Not Indicated VTE Drug Contraindication: N/A - Med Ordered
--- NOTE | 2024-04-11 18:42 | P.EN_ITS ---
Event Note Date of Service: 04/11/24 Event Note: Notified by nursing that patient had fallen in the ED hallway. Patient was increasing agitated and exit seeking, had his clothes in his hands and was mumbling home, home, home, home . Unclear whether pt had a mechanical fall or threw himself on the floor per normal behavior. Patient had removed his protective helmet which was found on his bed. Patient was secured in a C- collar, had helmet replaced, and was placed on a stretcher. Will get CT of head, C-spine, and hips to evaluate for acute injuries. We will give 1 mg Ativan IV for agitation. Patient will need a sitter due to agitation and exit seeking. Time Spent With Patient Time: Total time managing care of this patient today ____ minutes.
[2024-04-11] MEDS: vancomycin/NS 2,000 MG/500 ML PLAST..BAG 250 MG IV (18:46)
[2024-04-11] MEDS: LORazepam 2 MG/ML VIAL 1 MG IVPUSH (18:56)
--- NOTE | 2024-04-11 20:04 | PC.NURSE ---
Back charting for approx 1600, pt was found to have pulled helmet off, and was running down the [place] with his cloths in his hand. At this time patient fell and was witnessed to fall down to the ground and hit his head. Mds at bedside, pt C-Collared and put on backboard and put back in bed. Admitted provider at bedside and ordered virginia Azevedo at baseline neuro.
--- NOTE | 2024-04-11 20:12 | PHA.PROG ---
Admission Date/Time: April 11, 2024 17:18 Indication: SKIN Weight in k.7 kg Adjusted body weight in Kg: [place] body weight in Kg: Obesity Dosing Indication % IBW: Serum Creatinine - Last 168 Hours 04/11/24 13:03 Creatinine 1.10 Estimated CrCl and GFR - Last 168 Hours 04/11/24 13:03 Estim Creat Clear Calc 70.8 Estimated GFR > 60 Vancomycin Loading Dose: 2000 MG Current Vancomycin Dosing Regimen: 1500 MG Q24H Vancomycin Monitoring using AUC goal of 400 - 600 range with trough as surrogate marker: [id number] TROUGH=12.3 Date and Time for next Vancomycin Level to be drawn: 04/13/2024 @1600 Pharmacist Comments on Vancomycin Plan: Vancomycin dosing will take advantage of Than[employer] as a clinical decision support tool that uses Bayesian modeling to calculate individual patient's pharmacokinetic parameters and forecast the patient's drug concentration time course with the target goal AUC 24 range of 400 - 600 mg/L/hr.
--- NOTE | 2024-04-11 20:19 | PHA.MEDREC ---
Addendum entered by Vale Youssef [facility] 04/12/24 07:56: according to papers from facility, [place] 150 capsule: 1 capsule given once daily at 0800. Addendum entered by Jose Chavez [facility] 04/11/24 21:06: MED REC CHECKED BY [facility] Original Note: Pharmacy Consult ? Medication Reconciliation Pharmacy has completed the medication reconciliation. Utilized list from [facility] to confirm med list.
--- NOTE | 2024-04-11 21:40 | MHC.EDTECH ---
Pt found to be incontinent. Bedding change done, Pt cleaned and repositioned.
[2024-04-12] VITALS (7 sets, daily range): BP systolic 124–157; BP diastolic 68–95; PULSE 64–97; RESP 14–18; TEMP 36.5–36.9; O2SAT 94–100
[2024-04-12] MEDS: cefEPime HCl/D5W 2 GM/50 ML PIGGYBACK IV ×2 (01:36→13:15)
--- NOTE | 2024-04-12 03:17 | PC.NURSE ---
2345; Patient arrived from ED. Patient is alert but not orientated nor answering admission questions. Patient was Incontinent- external cath applied. Skin check complete- patient has L knee wound that is scabbed over/ scattered bruising/ L buttock bruise and redness on his coccyx. Sitter is present for safety.
[2024-04-12 07:18] LABS: Estimated Glomerular Filt Rate > 60
[2024-04-12] MEDS: Benztropine Mesylate 0.5 MG TABLET PO ×2 (09:48→20:37)
[2024-04-12] MEDS: clonazePAM 1 MG TABLET PO ×2 (09:48→20:38)
[2024-04-12] MEDS: diazePAM 5 MG TABLET PO ×2 (09:48→20:38)
[2024-04-12] MEDS: HaloperidoL 5 MG TABLET PO ×2 (09:48→20:37)
[2024-04-12] MEDS: Propranolol HCL 10 MG TABLET PO ×3 (09:48→20:39)
[2024-04-12] MEDS: Finasteride 5 MG TABLET PO (09:49)
[2024-04-12] MEDS: Divalproex Sodium Sprinkles 125 MG CAP.DR.SPR 750 MG PO ×2 (09:49→20:39)
[2024-04-12] MEDS: 0.9 % Sodium Chloride Flush 3 ML SYRINGE IVFLUSH ×3 (09:49→20:48)
[2024-04-12] MEDS: Lactulose 20 GM/30 ML SOLUTION PO ×2 (09:49→20:37)
--- NOTE | 2024-04-12 10:05 | HE.PHANOTE ---
Re: Long Renal function has improved. Current dose needs to be increased now. Dose increased to 1,000 q12h. Given a dose at 10am today, but continuing q12h @ 0600 & 1800. Keeping trough scheduled at 11 @ 1600.
[2024-04-12] MEDS: vancomycin HCL 1,000 MG in 0.9 % Sodium Chloride 250 ML 270 MG IV ×2 (10:33→17:03)
--- NOTE | 2024-04-12 10:52 | P.PNIM_ITS ---
Subjective Subjective Date of Service: 04/12/24 Interval History: no compalints Physical Exam 2 Vital Signs: Vital Signs: Last Vital Signs Temp 97.8 F 04/12/24 09:42 Pulse 66 04/12/24 09:42 Resp 14 04/12/24 09:42 BP 157/82 H 04/12/24 09:42 Pulse Ox 99 04/12/24 09:42 O2 Del Method Room Air 04/12/24 09:42 BMI result Body Mass Index 26.4 General: no acute distress Resp: CTA bilateral, no accessory muscles used CVS: S1,S2,RRR GI: soft, non tender, non distended Neuro: motor grossly intact, alert Objective Data Active Medications Acetaminophen (Acetaminophen 325 Mg Tablet) 650 mg PO Q6H PRN PRN Reason: Pain, Mild (Pain Scale 1-3), fever or headache Benztropine Mesylate (Benztropine Mesylate 0.5 Mg Tablet) 0.5 mg PO BID [facility] Last Admin: 04/12/24 09:48 Dose: 0.5 mg Documented By: PIPO Benztropine Mesylate (Benztropine Mesylate 0.5 Mg Tablet) 1 mg PO BID [facility] Calcium Carbonate (Calcium Carbonate 750 Mg Tab.Chew) 750 mg PO Q4H PRN PRN Reason: Heartburn Clonazepam (Clonazepam 1 Mg Tablet) 1 mg PO BID [facility] Last Admin: 04/12/24 09:48 Dose: 1 mg Documented By: PIPO Diazepam (Diazepam 5 Mg Tablet) 5 mg PO BID [facility] Last Admin: 04/12/24 09:48 Dose: 5 mg Documented By: PIPO Divalproex Sodium (Divalproex Sodium Sprinkles 125 Mg ) 750 mg PO BID [facility] Last Admin: 04/12/24 09:49 Dose: 750 mg Documented By: PIPO Doxazosin Mesylate (Doxazosin Mesylate 2 Mg Tablet) 8 mg PO BEDTIME [facility] Enoxaparin Sodium (Enoxaparin Sodium 40 Mg/0.4 Ml Syringe) 40 mg SUBCUT Q24H [facility] Last Admin: 04/11/24 18:58 Dose: Not Given Documented By: ELVA Non-Admin Reason: See Note Finasteride (Finasteride 5 Mg Tablet) 5 mg PO DAILY [facility] Last Admin: 04/12/24 09:49 Dose: 5 mg Documented By: PIPO Haloperidol (Haloperidol 5 Mg Tablet) 5 mg PO BID [facility] Last Admin: 04/12/24 09:48 Dose: 5 mg Documented By: PIPO Cefepime HCl (Maxipime) 2 gm in 50 mls @ 100 mls/hr IV Q12H [facility] Last Infusion: 04/12/24 02:06 Dose: Infused Documented By: SOLEDAD Vancomycin HCl 1,000 mg/ (Sodium Chloride) 270 mls @ 270 mls/hr IV Q12H [facility] Vancomycin HCl 1,000 mg/ (Sodium Chloride) 270 mls @ 270 mls/hr IV ONCE ONE Stop: 04/12/24 11:14 Last Admin: 04/12/24 10:33 Dose: 270 mls/hr Documented By: PIPO Lactulose (Lactulose 20 Gm/30 Ml Solution) 20 gm PO BID [facility] Last Admin: 04/12/24 09:49 Dose: 20 gm Documented By: PIPO Kiana Carbonate (Kiana Carbonate 300 Mg Capsule) 300 mg PO BEDTIME [facility] Kiana Carbonate (Kiana Carbonate 300 Mg Tablet) 150 mg PO DAILY [facility] Magnesium Hydroxide (Milk Of Magnesia 30 Ml Oral.Susp) 30 ml PO DAILY PRN PRN Reason: Constipation Melatonin (Melatonin 3 Mg Tablet) 6 mg PO BEDTIME PRN PRN Reason: Insomnia Pharmacy Consult (Consult Rx Vancomycin Dosing) 1 each MISCELLANE DAILY PRN PRN Reason: Consult order Propranolol HCl (Propranolol Hcl 10 Mg Tablet) 10 mg PO TID [facility]; Protocol Last Admin: 04/12/24 09:48 Dose: 10 mg Documented By: PIPO Risperidone (Risperidone 2 Mg Tablet) 2 mg PO BEDTIME [facility] Sodium Chloride (0.9 % Sodium Chloride Flush 3 Ml Syringe) 3 ml IVFLUSH QSHIFT [facility] Last Admin: 04/12/24 09:49 Dose: 3 ml Documented By: PIPO Labs 04/11/24 13:03 04/12/24 05:46 Labs: Laboratory Results - last 24 hr 04/11/24 04/11/24 04/11/24 13:03 13:20 15:06 MCV 88.2 MCH 29.5 MCHC 33.4 RDW 14.6 Plt Count 90 L D MPV 12.1 Immature Gran % (Auto) 0.4 Neut % (Auto) 69.7 Lymph % (Auto) 17.3 L [place] % (Auto) 11.1 H Eos % (Auto) 1.1 Baso % (Auto) 0.4 Lymph # (Auto) 1.2 [place] # (Auto) 0.8 Eos # (Auto) 0.1 Baso # (Auto) 0.0 Abs Immat Gran (auto) 0.03 Absolute Neuts (auto) 4.9 Absolute Nucleated RBC 0.000 Nucleated RBC % (auto) 0.0 Hold Purple Top Anion Gap 11 L Estim Creat Clear Calc 70.8 Estimated GFR > 60 Random Glucose 90 Lactic Acid 1.5 Calcium 8.6 D Magnesium 1.8 Total Bilirubin 0.5 Direct Bilirubin 0.2 AST 34 ALT 20 Alkaline Phosphatase 60 Troponin I High Sens 2.9 C-Reactive Protein 0.25 B-Natriuretic Peptide 55 Total Protein 5.6 L Albumin 3.2 L Lipase 12 Procalcitonin 0.05 Urine Color Yellow Urine Appearance Clear Urine pH 7.0 Ur Specific [place] 1.010 Urine Protein Negative Urine Glucose (UA) Negative Urine Ketones Negative Urine Blood Moderate (2+) H Urine Nitrite Negative Ur Leukocyte Esterase Negative Urine RBC 11-20 H Urine WBC 0-5 Ur Squamous Epith Cells 0-2 Urine Bacteria None Seen Hyaline Casts 0-2 Valproic Acid 25.0 L [place] 0.59 L Influenza Type A (PCR) NEGATIVE Influenza Type B (PCR) NEGATIVE RSV RNA Qual (PCR) NEGATIVE SARS-CoV-2 RNA (RT-PCR) NEGATIVE 04/12/24 05:46 MCV MCH MCHC RDW Plt Count MPV Immature Gran % (Auto) Neut % (Auto) Lymph % (Auto) [place] % (Auto) Eos % (Auto) Baso % (Auto) Lymph # (Auto) [place] # (Auto) Eos # (Auto) Baso # (Auto) Abs Immat Gran (auto) Absolute Neuts (auto) Absolute Nucleated RBC Nucleated RBC % (auto) Hold Purple Top SEE NOTE Anion Gap Estim Creat Clear Calc 95.0 Estimated GFR > 60 Random Glucose Lactic Acid Calcium Magnesium Total Bilirubin Direct Bilirubin AST ALT Alkaline Phosphatase Troponin I High Sens C-Reactive Protein B-Natriuretic Peptide Total Protein Albumin Lipase Procalcitonin Urine Color Urine Appearance Urine pH Ur Specific [place] Urine Protein Urine Glucose (UA) Urine Ketones Urine Blood Urine Nitrite Ur Leukocyte Esterase Urine RBC Urine WBC Ur Squamous Epith Cells Urine Bacteria Hyaline Casts Valproic Acid [place] Influenza Type A (PCR) Influenza Type B (PCR) RSV RNA Qual (PCR) SARS-CoV-2 RNA (RT-PCR) Assessment and Plan (1) Cellulitis: Status: Acute Plan 58M PMH BPH, unspecified dementia, hypertension, urinary retention, seizure disorder who requires protective helmet, GERD, schizophrenia, anxiety presented from [facility] for altered mental status, fever, hypotension Acute metabolic encephalopathy due to left lower extremity cellulitis? Continue vancomycin and cefepime Follow up cultures Hypotension Not due to sepsis, resolved with IV fluids Hold BP meds for now Seizure disorder Continue Depakote Mood disorder Continue lithium DVT prophylaxis with Lovenox Full Code reason for continued hospitalization: IV antibiotics for cellulitis Quality Stroke Does the patient have a stroke diagnosis?: No VTE Prior VTE?: No VTE Risk Level:: Medical - moderate - high VTE Device Contraindication: Treatment Not Indicated VTE Drug Contraindication: N/A - Med Ordered
--- NOTE | 2024-04-12 16:26 | MHC.CM.PN ---
Addendum entered by Josette Starr 04/13/24 14:59: PER [facility], PTS GUARDIAN IS MARGIE GUO CM SPOKE TO MS GUO [phone], SHE CONFIRMS SHE IS THE GUARDIAN AND ASKS TO BE NOTIFIED AT [place] Original Note: PT IS A LTC RESIDENT OF [facility] MESSAGE LEFT TO DETERMINE WHO PTS CURRENT GUARDIAN IS THE DOCUMENT ON FILE INDICATES IT IS [employer] AND ARYA JOHN IS ALSO LISTED HE WILL NEED BLS TRANSPORT TO RETURN
[2024-04-12] MEDS: Enoxaparin Sodium 40 MG/0.4 ML SYRINGE SUBCUT (17:04)
[2024-04-12] MEDS: risperiDONE 2 MG TABLET PO (20:37)
[2024-04-12] MEDS: Doxazosin Mesylate 2 MG TABLET 8 MG PO (20:38)
[2024-04-12] MEDS: Lithium Carbonate 300 MG CAPSULE PO (20:38)
[2024-04-12] MEDS: Benztropine Mesylate 0.5 MG TABLET 1 MG PO (20:38)
[2024-04-13] MEDS: cefEPime HCl/D5W 2 GM/50 ML PIGGYBACK IV ×2 (00:39→12:39)
[2024-04-13 04:00] VITALS: BP 122/76; PULSE 78; RESP 18; TEMP 36.4; O2SAT 96
[2024-04-13] MEDS: vancomycin HCL 1,000 MG in 0.9 % Sodium Chloride 250 ML 270 MG IV ×2 (05:50→17:25)
[2024-04-13 07:24] VITALS: BP 116/66; PULSE 66; RESP 16; TEMP 36.3; O2SAT 97
[2024-04-13 08:14] LABS: Creatinine Clr Calc Pharmacy 93.8; Estimated Glomerular Filt Rate > 60
[2024-04-13] MEDS: clonazePAM 1 MG TABLET PO ×2 (08:16→20:07)
[2024-04-13] MEDS: Divalproex Sodium Sprinkles 125 MG CAP.DR.SPR 750 MG PO ×2 (08:16→20:07)
[2024-04-13] MEDS: Lactulose 20 GM/30 ML SOLUTION PO ×2 (08:16→20:08)
[2024-04-13] MEDS: Benztropine Mesylate 0.5 MG TABLET 1 MG PO ×2 (08:16→20:06)
[2024-04-13] MEDS: Propranolol HCL 10 MG TABLET PO ×3 (08:16→20:08)
[2024-04-13] MEDS: Finasteride 5 MG TABLET PO (08:16)
[2024-04-13] MEDS: HaloperidoL 5 MG TABLET PO ×2 (08:17→20:06)
[2024-04-13] MEDS: Benztropine Mesylate 0.5 MG TABLET PO ×2 (08:17→20:30)
[2024-04-13] MEDS: Lithium Carbonate 300 MG TABLET 150 MG PO (08:17)
[2024-04-13] MEDS: diazePAM 5 MG TABLET PO ×2 (08:17→20:07)
[2024-04-13] MEDS: 0.9 % Sodium Chloride Flush 3 ML SYRINGE IVFLUSH ×3 (08:17→20:16)
--- NOTE | 2024-04-13 10:17 | P.PNIM_ITS ---
Subjective Subjective Date of Service: 04/13/24 Interval History: no compalints Physical Exam 2 Vital Signs: Vital Signs: Last Vital Signs Temp 97.4 F 04/13/24 07:24 Pulse 66 04/13/24 07:24 Resp 16 04/13/24 07:24 BP 116/66 04/13/24 07:24 Pulse Ox 97 04/13/24 07:24 O2 Del Method Room Air 04/13/24 07:24 FiO2 98 04/12/24 19:31 BMI result Body Mass Index 26.4 General: no acute distress Resp: CTA bilateral, no accessory muscles used CVS: S1,S2,RRR GI: soft, non tender, non distended Neuro: motor grossly intact, alert Objective Data Active Medications Acetaminophen (Acetaminophen 325 Mg Tablet) 650 mg PO Q6H PRN PRN Reason: Pain, Mild (Pain Scale 1-3), fever or headache Benztropine Mesylate (Benztropine Mesylate 0.5 Mg Tablet) 0.5 mg PO BID PENDING SALE TO [facility] Last Admin: 04/13/24 08:17 Dose: 0.5 mg Documented By: PIPO Benztropine Mesylate (Benztropine Mesylate 0.5 Mg Tablet) 1 mg PO BID PENDING SALE TO [facility] Last Admin: 04/13/24 08:16 Dose: 1 mg Documented By: PIPO Calcium Carbonate (Calcium Carbonate 750 Mg Tab.Chew) 750 mg PO Q4H PRN PRN Reason: Heartburn Clonazepam (Clonazepam 1 Mg Tablet) 1 mg PO BID PENDING SALE TO [facility] Last Admin: 04/13/24 08:16 Dose: 1 mg Documented By: PIPO Diazepam (Diazepam 5 Mg Tablet) 5 mg PO BID PENDING SALE TO [facility] Last Admin: 04/13/24 08:17 Dose: 5 mg Documented By: PIPO Divalproex Sodium (Divalproex Sodium Sprinkles 125 Mg ) 750 mg PO BID PENDING SALE TO [facility] Last Admin: 04/13/24 08:16 Dose: 750 mg Documented By: PIPO Doxazosin Mesylate (Doxazosin Mesylate 2 Mg Tablet) 8 mg PO BEDTIME PENDING SALE TO [facility] Last Admin: 04/12/24 20:38 Dose: 8 mg Documented By: SEBASTIAN Enoxaparin Sodium (Enoxaparin Sodium 40 Mg/0.4 Ml Syringe) 40 mg SUBCUT Q24H PENDING SALE TO [facility] Last Admin: 04/12/24 17:04 Dose: 40 mg Documented By: PIPO Finasteride (Finasteride 5 Mg Tablet) 5 mg PO DAILY PENDING SALE TO [facility] Last Admin: 04/13/24 08:16 Dose: 5 mg Documented By: PIPO Haloperidol (Haloperidol 5 Mg Tablet) 5 mg PO BID PENDING SALE TO [facility] Last Admin: 04/13/24 08:17 Dose: 5 mg Documented By: PIPO Cefepime HCl (Maxipime) 2 gm in 50 mls @ 100 mls/hr IV Q12H PENDING SALE TO [facility] Last Infusion: 04/13/24 01:23 Dose: Infused Documented By: SEBASTIAN Vancomycin HCl 1,000 mg/ (Sodium Chloride) 270 mls @ 270 mls/hr IV Q12H PENDING SALE TO [facility] Last Infusion: 04/13/24 06:57 Dose: Infused Documented By: PIPO Lactulose (Lactulose 20 Gm/30 Ml Solution) 20 gm PO BID PENDING SALE TO [facility] Last Admin: 04/13/24 08:16 Dose: 20 gm Documented By: PIPO Califon Carbonate (Califon Carbonate 300 Mg Capsule) 300 mg PO BEDTIME PENDING SALE TO [facility] Last Admin: 04/12/24 20:38 Dose: 300 mg Documented By: SEBASTIAN Califon Carbonate (Califon Carbonate 300 Mg Tablet) 150 mg PO DAILY PENDING SALE TO [facility] Last Admin: 04/13/24 08:17 Dose: 150 mg Documented By: PIPO Magnesium Hydroxide (Milk Of Magnesia 30 Ml Oral.Susp) 30 ml PO DAILY PRN PRN Reason: Constipation Melatonin (Melatonin 3 Mg Tablet) 6 mg PO BEDTIME PRN PRN Reason: Insomnia Pharmacy Consult (Consult Rx Vancomycin Dosing) 1 each MISCELLANE DAILY PRN PRN Reason: Consult order Propranolol HCl (Propranolol Hcl 10 Mg Tablet) 10 mg PO TID PENDING SALE TO [facility]; Protocol Last Admin: 04/13/24 08:16 Dose: 10 mg Documented By: PIPO Risperidone (Risperidone 2 Mg Tablet) 2 mg PO BEDTIME PENDING SALE TO [facility] Last Admin: 04/12/24 20:37 Dose: 2 mg Documented By: SEBASTIAN Sodium Chloride (0.9 % Sodium Chloride Flush 3 Ml Syringe) 3 ml IVFLUSH QSHIFT PENDING SALE TO [facility] Last Admin: 04/13/24 08:17 Dose: 3 ml Documented By: PIPO Labs 04/11/24 13:03 04/13/24 05:50 Labs: Laboratory Results - last 24 hr 04/13/24 05:50 Hold Purple Top SEE NOTE Estim Creat Clear Calc 93.8 Estimated GFR > 60 Microbiology Microbiology Results: Microbiology 04/11/24 13:03 Blood Culture - Preliminary Blood - Venous No growth after 24 hours. 04/11/24 12:46 Blood Culture - Preliminary Blood - Venous No growth after 24 hours. Assessment and Plan (1) Cellulitis: Status: Acute Plan 58M PMH BPH, unspecified dementia, hypertension, urinary retention, seizure disorder who requires protective helmet, GERD, schizophrenia, anxiety presented from [facility] for altered mental status, fever, hypotension Acute metabolic encephalopathy due to left lower extremity cellulitis? Continue vancomycin and cefepime Follow up cultures improving Hypotension Not due to sepsis, resolved with IV fluids Hold BP meds for now Seizure disorder Continue Depakote Mood disorder Continue lithium DVT prophylaxis with Lovenox Full Code reason for continued hospitalization: IV antibiotics for cellulitis Quality Stroke Does the patient have a stroke diagnosis?: No VTE Prior VTE?: No VTE Risk Level:: Medical - moderate - high VTE Device Contraindication: Treatment Not Indicated VTE Drug Contraindication: N/A - Med Ordered
[2024-04-13 15:49] VITALS: BP 111/59; PULSE 61; RESP 18; TEMP 36; O2SAT 98
[2024-04-13 16:33] LABS: Vancomycin Random 14.8 mcg/mL (15-20)
[2024-04-13] MEDS: Enoxaparin Sodium 40 MG/0.4 ML SYRINGE SUBCUT (17:26)
[2024-04-13 19:57] VITALS: BP 117/57; PULSE 67; RESP 18; TEMP 36.2; O2SAT 98
[2024-04-13] MEDS: risperiDONE 2 MG TABLET PO (20:06)
[2024-04-13] MEDS: Lithium Carbonate 300 MG CAPSULE PO (20:07)
[2024-04-13] MEDS: Doxazosin Mesylate 2 MG TABLET 8 MG PO (20:11)
[2024-04-14] MEDS: cefEPime HCl/D5W 2 GM/50 ML PIGGYBACK IV (01:09)
[2024-04-14 03:40] VITALS: BP 126/70; PULSE 57; RESP 16; TEMP 36.1; O2SAT 98
[2024-04-14] MEDS: vancomycin HCL 1,000 MG in 0.9 % Sodium Chloride 250 ML 270 MG IV (05:51)
[2024-04-14 06:28] LABS: Estimated Glomerular Filt Rate > 60
[2024-04-14 07:25] VITALS: BP 113/71; PULSE 51; RESP 16; TEMP 36.4; O2SAT 96
[2024-04-14] MEDS: 0.9 % Sodium Chloride Flush 3 ML SYRINGE IVFLUSH (08:54)
[2024-04-14] MEDS: HaloperidoL 5 MG TABLET PO (08:55)
[2024-04-14] MEDS: Propranolol HCL 10 MG TABLET PO (08:55)
[2024-04-14] MEDS: Lactulose 20 GM/30 ML SOLUTION PO (08:55)
[2024-04-14] MEDS: diazePAM 5 MG TABLET PO (08:55)
[2024-04-14] MEDS: Benztropine Mesylate 0.5 MG TABLET 1 MG PO (08:55)
[2024-04-14] MEDS: clonazePAM 1 MG TABLET PO (08:55)
[2024-04-14] MEDS: Finasteride 5 MG TABLET PO (08:55)
[2024-04-14] MEDS: Benztropine Mesylate 0.5 MG TABLET PO (08:56)
[2024-04-14] MEDS: Lithium Carbonate 300 MG TABLET 150 MG PO (08:56)
--- NOTE | 2024-04-14 09:34 | P.DS_ITS ---
DS: Providers Provider Date of Service: 04/14/24 Date of admission: 04/11/24 17:18 Date of discharge: 04/14/24 Primary care physician: Qamar Chacon DO DS: Diagnosis Discharge Diagnosis (1) Cellulitis: Status: Acute DS: Summary Hospital Course Hospital Course: from initial hpi: 58-year-old male with a PMH significant for?dementia, BPH, HTN, urinary retention, seizure disorder, GERD, schizophrenia, and anxiety who presents to the ED from [facility] for evaluation of altered mental status, fever, and hypotension. Patient is currently alert but not oriented and mumbling incoherently. Patient is agitated, standing at bedside with clothes in his hands and on bed in front of him. Initially attempts to strike out at this provider when 1st approached. Contacted staff at [facility] and they report patient is normally at baseline capable of being understood, making his needs known, and even of holding a full conversation. This morning patient was found to be very agitated, throwing himself repeatedly on the floor, and screaming he was in pain although he would not specify where. Temporal thermometer found patient to have a fever of 101.2 with soft BP of 82/54. Was given fluids at the facility with repeat BP again 82/54. Patient also was found to be tachycardic. EMS was called and apparently found patient to be hypotensive in 70s/50s. When patient arrived to the ED apparently was initially complaining of abdominal pain. In the ED pt with low-grade fever 99.7, tachycardia of 102, and slightly soft BP of 107/52. Labs were grossly unremarkable and around baseline for patient. No leukocytosis. Stable H&H. No significant electrolyte abnormalities. Renal and hepatic function WNL. Lactic acid WNL at 1.5. Troponin 2.9. BNP 55. Lipase 12. UA negative for UTI. Valproic acid levels subtherapeutic at 25.0, lithium levels mildly decreased at 0.59. Tested negative for flu, RSV, COVID. CXR showed hypoinflated lungs without clear focal consolidation. CT?of head found no acute intracranial hemorrhage or acute process. CT of abdomen/pelvis found distended and fluid-filled bladder concerning for urinary retention, but otherwise negative for acute abdomen. EKG demonstrated normal sinus rhythm without evidence of significant ST elevations or depressions. Pt was treated with IVF, acetaminophen, olanzapine, vancomycin, and cefepime. Pt will be admitted to the hospital for treatment and further evaluation of acute enceph alopathy in the setting of left lower extremity cellulitis with sepsis. hospital course: Patient was admitted for acute metabolic encephalopathy due to left lower extremity cellulitis was treated with vancomycin cefepime and mental status returned to baseline, cultures were negative, will be transitioned to 5 more days of doxycycline on discharge. Patient had hypotension not due to sepsis and resolved with IV fluids. For seizure disorder was continued on Depakote. For mood disorder was continued on lithium. course complicated by urinary retention needing lopez insertion, should have voiding trial as outpatient when more ambulatory. Patient is feeling better will be discharged back to [facility]. Time Attestation Discharge Coordination Time (in mins): 36 Quality: Safe Use of Opioids Does Pt have an Active Cancer Diagnosis on the Problem List?: No Quality: Stroke Does the patient have a stroke diagnosis?: No Physical Exam Vital Signs: Vital Signs: Last Vital Signs Temp 97.5 F 04/14/24 07:25 Pulse 51 04/14/24 07:25 Resp 16 04/14/24 07:25 BP 113/71 04/14/24 07:25 Pulse Ox 96 04/14/24 07:25 O2 Del Method Room Air 04/14/24 07:25 FiO2 98 04/12/24 19:31 BMI result Body Mass Index 26.4 General: no acute distress Resp: CTA bilateral, no accessory muscles used CVS: S1,S2,RRR GI: soft, non tender, non distended Neuro: motor grossly intact, alert DS: Data Data Completed and Pending Labs on day of discharge: Laboratory Results - last 24 hr 04/13/24 04/14/24 16:09 06:02 Hold Purple Top SEE NOTE Creatinine 0.82 Estim Creat Clear Calc 95.0 Estimated GFR > 60 Random Vancomycin 14.8 L Preliminary micro results at discharge 04/11/24 13:03 Blood Culture - Preliminary Blood - Venous No growth after 48 hours. 04/11/24 12:46 Blood Culture - Preliminary Blood - Venous No growth after 48 hours. Discharge Plan Discharge Anticipated Discharge Date/Time: 04/14/24 09:29 Patient Disposition: Xfer SNF Discharge Diagnosis: cellulitis Referrals: Qamar Chacon DO [Primary Care Provider] - 1 Week Discharge Medications: New doxycycline hyclate 100 mg tablet 100 mg PO BID Qty: 10 0RF Continued benztropine 0.5 mg Tablet 0.5 mg PO BID Rx Instructions: TDD = 1.5 MG BID risperidone 2 mg Tablet 2 mg PO BEDTIME divalproex [Depakote Sprinkles] 125 mg Capsule, Delayed Rel Sprinkle 750 mg PO BID bisacodyl 10 mg Suppository 10 mg OH DAILY PRN (Reason: Constipation) Rx Instructions: If Senna Ineffective. docusate sodium 100 mg Capsule 100 mg PO BID loperamide 2 mg Capsule 2 mg PO Q4H PRN (Reason: Diarrhea) Rx Instructions: administer after each loose stool until symptoms controlled; do not exceed 8 mg per 24 hrs lactulose 10 gram/15 mL Solution 30 ml PO BID hydrocortisone acetate [Anusol-HC] 25 mg Suppository 25 mg OH DAILY PRN (Reason: Hemorrhoids) lithium carbonate 300 mg Tablet 300 mg PO BEDTIME Fleet Enema 19-7 gram/118 mL Enema 118 ml OH BEDTIME PRN (Reason: Constipation) Rx Instructions: If Bisacodyl supp. ineffective. chlorhexidine gluconate [Hibiclens] 4 % Liquid 1 appl TOPICAL SUTUTH@1800 Rx Instructions: lower legs finasteride 5 mg tablet 5 mg PO DAILY 90 Days Qty: 90 1RF acetaminophen 325 mg capsule 650 mg PO Q6H MDD 3 gm/day PRN (Reason: Pain) benztropine 1 mg tablet 1 mg PO BID Rx Instructions: TDD = 1.5 MG BID clonazepam 1 mg tablet 1 mg PO BID diazepam 5 mg tablet 5 mg PO BID haloperidol 5 mg tablet 5 mg PO BID lithium carbonate 150 mg capsule 150 mg PO DAILY propranolol 10 mg tablet 10 mg PO TID senna 8.6 mg capsule 8.6 mg PO DAILY PRN (Reason: Constipation) terazosin 10 mg capsule 10 mg PO BEDTIME 90 Days Qty: 90 1RF Discharge Orders: Discharge Order (Routine); Ordered 04/14/24 Ordered By: Prince Long Diet: Advance to usual diet Activity on Discharge: As tolerated Stand Alone Forms: Patient Portal Discharge page Print Language: Indonesian Care Plan Goals: recovery Health Concerns: cellulitis, urinary retention Plan of Treatment: 5 days doxy, voiding trial Assessment: see above
--- NOTE | 2024-04-14 09:54 | MHC.CM.PN ---
Patient medically cleared for dc, will resume LTC @ [facility] [place]. BLS transport scheduled for 11am. RN and guardian aware.
[2024-04-14] MEDS: Divalproex Sodium Sprinkles 125 MG CAP.DR.SPR 750 MG PO (09:57)
== END 2024-04-14 13:42 | disposition skilled nursing facility (03) | DRG 383 ==
LOC: HO.ED 16:04 → HO.EDOVER 17:52 → HO.S3 22:55
PROVIDERS: Emergency Medicine; Admitting Provider Student in an Organized Health Care Education/Training Program; Emergency Provider Emergency Medicine; PCP Hospitalist; Visit Provider Internal Medicine
DX: L03.116 Cellulitis of left lower limb (principal); G93.41 Metabolic encephalopathy; F03.90 Unspecified dementia, unspecified severity, without behavioral disturbance, psychotic disturbance, mood disturbance, and anxiety; I95.9 Hypotension, unspecified; F41.9 Anxiety disorder, unspecified; F20.9 Schizophrenia, unspecified; N40.1 Benign prostatic hyperplasia with lower urinary tract symptoms; R33.8 Other retention of urine; G40.909 Epilepsy, unspecified, not intractable, without status epilepticus; Z20.822 Contact with and (suspected) exposure to COVID-19; Z79.899 Other long term (current) drug therapy
CPT/HCPCS: 0241U; 36415; 70450; 71045; 72125; 72192; 74177; 80048; 80076; 80164; 80178; 80202; 81001; 82565; 83605; 83690; 83735; 83880; 84145; 84484; 85025; 86140; 87040; 93005; 99285; C1758; J0692; J1650; J2060; J3370; J7120; Q9967

== ENCOUNTER → 2024-04-11 12:34 | Outpatient (BNV) | payer MEDICAID, SELFPAY | PROVIDERS: Emergency Provider Emergency Medicine; PCP Hospitalist; Visit Provider Radiology Diagnostic Radiology | DX: R10.9 Unspecified abdominal pain (principal); R41.82 Altered mental status, unspecified | CPT/HCPCS: 70450; 74177 ==

== ENCOUNTER → 2024-04-11 12:34 | Outpatient (BNV) | payer MEDICAID, SELFPAY | PROVIDERS: Emergency Provider Emergency Medicine; PCP Hospitalist; Visit Provider Internal Medicine Cardiovascular Disease | DX: R94.31 Abnormal electrocardiogram [ECG] [EKG] (principal) | CPT/HCPCS: 93010 ==

== ENCOUNTER → 2024-04-11 17:18 | Outpatient (BNV) | payer MEDICAID, SELFPAY | PROVIDERS: Admitting Provider Student in an Organized Health Care Education/Training Program; Emergency Provider Emergency Medicine; PCP Hospitalist; Visit Provider Student in an Organized Health Care Education/Training Program | DX: L03.116 Cellulitis of left lower limb (principal); G93.41 Metabolic encephalopathy; I95.9 Hypotension, unspecified; G40.909 Epilepsy, unspecified, not intractable, without status epilepticus | CPT/HCPCS: 99232; 99233; 99239; 99499 ==

== ENCOUNTER 2024-04-15 09:47 | Outpatient (AMB) | payer MEDICAID, SELFPAY ==
--- NOTE | 2024-04-15 10:02 | MHC.OFFVIS ---
Intake Visit Reasons: hydrocele drainage Intake Note: Patient is present for Hydrocele Drainage Urology Med: Terazosin, Finasteride Antibiotic Allergy: Sulfa Speech Therapist Technician Required: No Embosser Apprentice: Embosser Apprentice Present ([facility]) Accompanied by: Handicapped Dependent Allergies Sulfa (Sulfonamide Antibiotics) [SULFA (SULFONAMIDE ANTIBIOTICS)] Allergy (Intermediate, Verified 04/15/24 10:08) Rash Szccntj-YGA-BoB Reductase Inhibitor [XTMVOES-OIQ-JCT REDUCTASE INHIBITOR] Allergy (Unknown, Verified 04/15/24 10:08) Unknown ANTIARTERIOSCLEROTIC DRUGS Adverse Reaction (Unknown, Uncoded 04/15/24 10:08) Unknown HPI Comments Details: Willie is a pleasant male. Resident at [facility] for long-term care. Seen for following urologic issues - lower urinary tract symptoms - left hydrocele Last left/hydrocele drainage in office Drainage performed with proximally 200 cc 4 week follow-up nursing for resolution May then follow yearly for lower urinary tract symptoms Lower urinary tract symptoms Followed for many years High postvoid residual Current therapy terazosin 10 mg with finasteride PSA 11/22 0.3 Prior cystoscopy with lobar hypertrophy Background lithium Prostate procedure 2020 [facility] Medical History TBI (traumatic brain injury) Astigmatism Seasonal allergies Bilateral cataracts Preglaucoma Insomnia Presbyopia Parkinsons disease Seizures Fall Pneumonia General weakness Hypoxia COVID-19 Resides in nursing home facility Dementia Schizophrenia Hypernatremia Metabolic encephalopathy BPH (benign prostatic hyperplasia) HTN (hypertension) GERD (gastroesophageal reflux disease) Anxiety Surgical History Hx of colonoscopy Hx of cystoscopy Social History Household Members: None Housing: [facility] Housing Other:: [facility] Do you presently have visiting nurse or other home services: Yes Unable to assess alcohol history related to: Unable to respond Alcohol intake: never Comment: 1;1 sitter Patient Tobacco Use Status: Never used Tobacco Advance Directives Date on File: 01/17/22 service: No Current occupational status: disabled Review of Systems Const Denies chills and Denies fever(s) Card Reports no additional complaints and Denies syncope Resp Denies cough GI Denies abdominal pain and Denies heartburn Reports as per HPI and Denies change in libido Neuro Denies syncope Psych Denies change in libido Endo Denies change in libido Physical Exam Const General: cooperative, healthy appearing, comfortable and no acute distress Orientation/consciousness: patient oriented x3 HEENT Face and sinus: Yes normal facial exam Mouth: moist mucous membranes Neck Neck: Yes normal visual inspection, Yes full ROM and Yes trachea midline Chest Chest palpation & inspection: normal inspection of the chest Resp Effort & Inspection: normal respiratory effort, able to speak in complete sentences and no respiratory distress GI Inspection: Yes normal to inspection Back/Spine/Pelvis Cervical Spine: normal cervical lordosis Thoracic/Lumbar Spine: thoracic and lumbar spine normal to inspection Skin General skin exam: no rashes or lesions noted Neuro General: patient oriented x3, gait normal, tone normal and moves all extremities Extrem General: Yes normal to inspection and Yes capillary refill normal Office Procedures Procedure Thyroid Biopsy Procedural Documentation: PreOperative Diagnosis: Right hydrocele Post Operative Diagnosis: Right hydrocele Procedure: Drainage of hydrocele with sclerotherapy in office Surgeon: Dr Jevon Sharif Anesthesia: Local Indications for procedure: Persistent hydrocele Procedure: Informed consent was verified and site confirmed The testicle was prepped using Betadine swab stick 10 cc 1% lidocaine placed in cord for cord block Testicle was elevated and 18 gauge Angiocath placed for drainage of hydrocele fluid Two hundred cc of fluid removed 20 cc of 200 mg doxycycline mixed with 1% lidocaine injected for sclerotherapy Procedure tolerated CPT 75314, 33809 Assessment & Plan Assessment & Plan (1) Hydrocele in adult: Code(s): N43.3 - Hydrocele, unspecified Category: Medical Plan Four week follow-up nursing Patient Instructions: Imaging studies, laboratory and physical exam results were discussed and reviewed in detail. No major barriers to patient understanding were identified. An opportunity to ask questions regarding the treatment plan was provided. All questions were answered. The patient expressed understanding and agreement with the above treatment plan. The patient is aware they should contact our office by phone for worsening of their current condition or the appearance of new urologic symptoms. Compliance is encouraged with any medications and followup testing that is ordered. It is a privilege to participate in the urologic care of your patient. If you have any questions or concerns regarding treatment for the above conditions, or other urologic issues, please do not hesitate to contact me. The office telephone contact is [phone]. This note is constructed using voice recognition software. While every effort has been made to ensure accuracy [employer] errors may have been included. Yours sincerely, Dr Jevon Sharif MD, [facility] - Urology Providers of Expert, Compassionate Care for the Genitourinary System Coding Level of Care Code Procedure Only Diagnoses Hydrocele in adult N43.3
== END 2024-04-15 10:46 | disposition home or self-care (01) ==
PROVIDERS: Visit Provider Urology
DX: N43.3 Hydrocele, unspecified (principal)
CPT/HCPCS: 55000

== ENCOUNTER → 2024-04-15 09:47 | Outpatient (BNVA) | payer MEDICAID, SELFPAY | PROVIDERS: Visit Provider Urology | DX: N43.3 Hydrocele, unspecified (principal) | CPT/HCPCS: 55000 ==

== ENCOUNTER → 2024-05-13 10:02 | Outpatient (BNVA) | payer MEDICAID, SELFPAY | PROVIDERS: PCP Hospitalist; Visit Provider Urology ==

== ENCOUNTER 2024-11-13 10:29 | Outpatient (AMB) | payer MEDICAID, SELFPAY ==
--- NOTE | 2024-11-13 10:35 | A.OFFVIS_ITS ---
Intake Visit Reasons: 6m follow up Intake Note: Patient is present for 6M F/U Urology Medication:FINASTERIDE,TERAZOSIN Antibiotic Allergy:SULFA Blood Thinner:NONE Broadcast Checker Required: No Allergies Sulfa (Sulfonamide Antibiotics) [SULFA (SULFONAMIDE ANTIBIOTICS)] Allergy (Intermediate, Verified 11/13/24 10:37) Rash Ddofapc-NXT-SnO Reductase Inhibitor [ZQETPXZ-SSQ-ENX REDUCTASE INHIBITOR] Allergy (Unknown, Verified 11/13/24 10:37) Unknown ANTIARTERIOSCLEROTIC DRUGS Adverse Reaction (Unknown, Uncoded 11/13/24 10:37) Unknown HPI Comments Details: Willie is a pleasant male. Resident at [facility] for long-term care. Seen for following urologic issues - lower urinary tract symptoms - left hydrocele Yearly review lower urinary tract symptoms Remains on terazosin and finasteride Continue medication Hydrocele drainage in office 04/27 - 200 cc Lower urinary tract symptoms Followed for many years High postvoid residual Current therapy terazosin 10 mg with finasteride PSA 11/22 0.3 Prior cystoscopy with lobar hypertrophy Background lithium [facility] Medical History TBI (traumatic brain injury) Astigmatism Seasonal allergies Bilateral cataracts Preglaucoma Insomnia Presbyopia Parkinsons disease Seizures Fall Pneumonia General weakness Hypoxia COVID-19 Resides in long-term facility Dementia Schizophrenia Hypernatremia Metabolic encephalopathy BPH (benign prostatic hyperplasia) HTN (hypertension) GERD (gastroesophageal reflux disease) Anxiety Surgical History Hx of colonoscopy Hx of cystoscopy Social History Household Members: None Housing: [facility] Housing Other:: [facility] Do you presently have visiting nurse or other home services: Yes Unable to assess alcohol history related to: Unable to respond Alcohol intake: never Comment: 1;1 sitter Patient Tobacco Use Status: Never used Tobacco Advance Directives Date on File: 01/17/22 service: No Current occupational status: disabled Review of Systems Const Denies chills and Denies fever(s) Card Reports no additional complaints and Denies syncope Resp Denies cough GI Denies abdominal pain and Denies heartburn Reports as per HPI and Denies change in libido Neuro Denies syncope Psych Denies change in libido Endo Denies change in libido Physical Exam Const General: cooperative, healthy appearing, comfortable and no acute distress Orientation/consciousness: patient oriented x3 HEENT Face and sinus: Yes normal facial exam Mouth: moist mucous membranes Neck Neck: Yes normal visual inspection, Yes full ROM and Yes trachea midline Chest Chest palpation & inspection: normal inspection of the chest Resp Effort & Inspection: normal respiratory effort, able to speak in complete sentences and no respiratory distress GI Inspection: Yes normal to inspection Back/Spine/Pelvis Cervical Spine: normal cervical lordosis Thoracic/Lumbar Spine: thoracic and lumbar spine normal to inspection Skin General skin exam: no rashes or lesions noted Neuro General: patient oriented x3, gait normal, tone normal and moves all extremities Extrem General: Yes normal to inspection and Yes capillary refill normal Assessment & Plan Assessment & Plan (1) BPH w urinary obs/LUTS: Code(s): N40.1 - Benign prostatic hyperplasia with lower urinary tract symptoms; N13.8 - Other obstructive and reflux uropathy Category: Medical (2) Incomplete emptying of bladder due to benign prostatic hyperplasia: Code(s): N40.1 - Benign prostatic hyperplasia with lower urinary tract symptoms; R33.9 - Retention of urine, unspecified Category: Medical Plan Twelve month follow-up Medications: Refilled finasteride 5 mg PO DAILY 90 days 90 tabs 3RF N13.8 - Other obstructive and reflux uropathy, N40.1 - Benign prostatic hyperplasia with lower urinary tract symptoms terazosin 10 mg PO BEDTIME 90 days 90 caps 3RF N13.8 - Other obstructive and reflux uropathy, N40.0 - Benign prostatic hyperplasia without lower urinary tract symptoms, N40.1 - Benign prostatic hyperplasia with lower urinary tract symptoms, R33.9 - Retention of urine, unspecified Patient Instructions: This note is constructed using voice recognition software. While every effort has been made to ensure accuracy photovoltaic solar cell designer errors may have been included. Imaging studies, laboratory and physical exam results were discussed and reviewed in detail. No major barriers to patient understanding were identified. An opportunity to ask questions regarding the treatment plan was provided. All questions were answered. The patient expressed understanding and agreement with the above treatment plan. The patient is aware they should contact our office by phone for worsening of their current condition or the appearance of new urologic symptoms. Compliance is encouraged with any medications and followup testing that is ordered. It is a privilege to participate in the urologic care of your patient. If you have any questions or concerns regarding treatment for the above conditions, or other urologic issues, please do not hesitate to contact me. The office telephone contact is [phone]. Sincerely, Dr Jevon Sharif MD, [facility] - Urology Compassionate Specialist Care for the Genitourinary System Coding Level of Care Code Est Pt Level 3 (90687) Complex EM visit Add On G2211 Diagnoses BPH w urinary obs/LUTS N40.1; N13.8 Incomplete emptying of bladder due to benign prostatic hyperplasia N40.1; R33.9
--- OUTSIDE RECORDS SUMMARY | 2024-11-13 12:14 | XMS_ITS | Encounter Summary ---
Author Organization [facility] Address [address] [place] [address] Care Team Providers Care Document Restorer Name Role Phone Qamar Chacon MD Primary Care Provider [phone] Encounter Details Date Type Department Care Team (Late st Contact Info) Description 10/22/2024 Lab Requisition [facility] - Main Lab [address] [place] [address] Qamar Chacon MD [address] [place] [address] [address] [place], [place] Benign prostatic hyperplasia with lower urinary tract symptoms Social History Tobacco Use Types Packs/Day Years Used Date Smoking Tobacco: Never Assessed Sex and Gender Information Value Date Recorded Sex Assigned at Not on file Legal Sex Male 8:27 PM EST Gender Identity Not on file Sexual Orientation Not on file documented as of this encounter Plan of Treatment Not on file documented as of this encounter Procedures Procedure Name Priority Date/Time Associated Diagnosis Comments PROSTATE SPECIFIC ANTIGEN DIAGNOSTIC Routine 10/22/2024 6:41 AM EDT Benign prostatic hyperplasia with lower urinary tract symptoms documented in this encounter Results * Prostate specific antigen diagnostic (10/22/2024 6:41 AM EDT) PSA 0.08 0.00 - 4.00 ng/mL LAB CHEMISTRY METHOD 10/22/2024 9:24 AM EDT [facility] Blood Venous blood specimen / Unknown 10/22/2024 6:41 AM EDT 10/22/2024 7:13 AM EDT Narrative [facility] - 10/22/2024 9:24 AM EDT The Siemens Advia Centaur Chemiluminescent Immunoassay is used. Results obtained with different assay methods or kits cannot be used interchangeably. Results cannot be interpreted as absolute evidence of the presence or absence of malignant disease. us Qamar Chacon MD LAB BLOOD ORDERABLES Final Resul t [facility] [address] [place] [address], documented in this encounter Visit Diagnoses Diagnosis Benign prostatic hyperplasia with lower urinary tract symptoms documented in this encounter Care Teams Document Restorer Relationship Specialty Start Date End Date Qamar Chacon MD [address] [place] [address] Dr [address] [place], [place] PCP - General Internal Medicine 07/14/24 documented as of this encounter
== END 2024-11-13 11:02 | disposition home or self-care (01) ==
LOC: HO.HUSH 10:30
PROVIDERS: PCP Hospitalist; Visit Provider Urology
DX: N40.1 Benign prostatic hyperplasia with lower urinary tract symptoms (principal); N13.8 Other obstructive and reflux uropathy; R33.9 Retention of urine, unspecified
CPT/HCPCS: 99213; G2211

== ENCOUNTER → 2024-11-13 10:29 | Outpatient (BNVA) | payer MEDICAID, SELFPAY | PROVIDERS: PCP Hospitalist; Visit Provider Urology | DX: N40.1 Benign prostatic hyperplasia with lower urinary tract symptoms (principal); N13.8 Other obstructive and reflux uropathy; R33.9 Retention of urine, unspecified | CPT/HCPCS: 99212 ==

== ENCOUNTER 2025-01-17 08:40 | Emergency (ER) | payer MEDICAID, SELFPAY ==
[2025-01-17] VITALS (7 sets, daily range): BP systolic 106–128; BP diastolic 54–82; PULSE 63–75; RESP 13–17; TEMP 36.9–37.4; O2SAT 97–100; BMI 25.8
--- NOTE | ~2025-01-17 | CT_ITS ---
CLINICAL HISTORY: fall, pain CT head without contrast. COMPARISON: CT head dated 04/11/24 at 14:48 EST FINDINGS: The visualized paranasal sinuses are clear. The mastoid air cells are clear. No calvarial fracture. No evidence for mass or mass effect. No intracranial hemorrhage or abnormal extra-axial fluid collection. No CT evidence of acute infarct. The ventricles are proportional with the degree of mild global cerebral volume loss without evidence of hydrocephalus. Basilar cisterns are patent. There are periventricular areas of low attenuation compatible with mild white matter small vessel disease. Posterior fossa appears unremarkable. IMPRESSION: 1. No acute intracranial findings. This document has been electronically signed by: Denilson Salinas MD on 01/17/2025 13:50:19
--- NOTE | ~2025-01-17 | CT_ITS ---
CLINICAL HISTORY: fall, pain CT cervical spine without contrast. COMPARISON: CT cervical spine dated 04/11/24 at 19:17 EST FINDINGS: Most inferior aspect of the C7 vertebral body is outside the field of view. There is straightening of the spine with loss of normal cervical lordosis. Vertebral body heights are maintained. Skull base and intracranial structures appear normal. Calcified plaque present at the carotid bulb on the right. C2-C3: Facet joint arthrosis. C3-C4: Facet joint arthrosis. C4-C5: Anterior marginal osteophytes. C5-C6: Anterior marginal osteophytes. Loss of disc space height. Posterior disc osteophyte complex. Uncovertebral joint hypertrophy. [id number] bilateral neural foraminal narrowing. C6-C7: Anterior marginal osteophytes. Loss of disc space height. Posterior disc osteophyte complex. Uncovertebral joint hypertrophy. Moderate right and mild left neural foraminal narrowing. IMPRESSION: 1. Technically limited study with most inferior aspect of the C7 vertebral body outside the field of view. Within limits of study, no evidence of acute injury to the cervical spine. 2. Straightening of the normal cervical lordosis, likely positional. 3. Moderate to advanced mid to lower cervical spondylosis. This document has been electronically signed by: Denilson Salinas MD on 01/17/2025 13:57:26
--- NOTE | ~2025-01-17 | XR_ITS ---
CLINICAL HISTORY: weakness 1 view chest x-ray Comparison: CR/SR - XR CHEST 1 VIEW - 04/11/24 13:21 EST Findings: Mild left basilar opacities are present. Normal size heart. Remote left posterior 5th rib fracture is noted. IMPRESSION: Mild left basilar opacities, which may represent atelectasis or pneumonia. This document has been electronically signed by: Sergio Batista on 01/17/2025 09:32:40
--- NOTE | 2025-01-17 08:58 | ED_ITS ---
HPI - General Adult General Chief complaint: Fall Stated complaint: UNWITNESSED FALL Time Seen by Provider: 01/17/25 08:58 Source: patient and EMS Mode of arrival: EMS Limitations: other (patient is demented at baseline) History of Present Illness ED Provider: Edel Cowan PA-C HPI narrative: Patient is a 59 year old assigned male at with a history of dementia, BPH, HTN, seizure disorder, GERD, schizophrenia, and anxiety - currently residing at [facility] presenting to the emergency department today after a fall. Staff states that the patient had an unwitnessed fall and now has a laceration to his forehead. Per staff, patient is at his baseline. Guardian was contacted by myself shortly after patient's arrival - she consented to all treatment. Related Data Home Medications ?Medication ?Instructions ?Recorded ?Confirmed acetaminophen 325 mg capsule 650 mg PO Q6H PRN Pain 04/11/24 benztropine 1 mg tablet 1 mg PO BID 02/15/21 4 clonazepam 1 mg tablet 1 mg PO BID 02/15/21 4 diazepam 5 mg tablet 5 mg PO BID 02/15/21 4 haloperidol 5 mg tablet 5 mg PO BID 02/15/21 4 lithium carbonate 150 mg capsule 150 mg PO DAILY 02/1504/12/24 propranolol 10 mg tablet 10 mg PO TID 02/15/21 sennosides 8.6 mg capsule (senna) 8.6 mg PO DAILY PRN Constipation 02/15/21 04/11/24 benztropine 0.5 mg tablet 0.5 mg PO BID 01/17/2204/11 divalproex 125 mg capsule,delayed 750 mg PO BID 04/11/24 release sprinkle (Depakote Sprinkles) risperidone 2 mg tablet 2 mg PO BEDTIME 01/17/2201/25 bisacodyl 10 mg rectal suppository 10 mg ID DAILY PRN Constipation 08/21/22 04/11/24 docusate sodium 100 mg capsule 100 mg PO BID 08/21/22 04/11/24 lactulose 10 gram/15 mL oral 30 ml PO BID 08/21/2201/25 solution loperamide 2 mg capsule 2 mg PO Q4H PRN Diarrhea 04/11/24 hydrocortisone acetate 25 mg 25 mg ID DAILY PRN Hemorr hoids 09/10/23 04/11/24 rectal suppository (Anusol-HC) lithium carbonate 300 mg tablet 300 mg PO BEDTIME 01/2504/11/24 chlorhexidine gluconate 4 % 1 appl topical SUTUTH@1800 04/11/24 04/11/24 topical liquid (Hibiclens) sodium phosphates 19 gram-7 118 ml ID BEDTIME PRN Cons tipation 04/11/24 04/11/24 gram/118 mL enema (Fleet Enema) Previous Rx's ?Medication ?Instructions ?Recorded doxycycline hyclate 100 mg tablet 100 mg PO BID #10 ta bs 04/14/24 finasteride 5 mg tablet 5 mg PO DAILY 90 days #90 ta bs 11/13/24 terazosin 10 mg capsule 10 mg PO BEDTIME 90 days #90 caps 11/13/24 amoxicillin 875 mg-potassium 1 tab PO BID 7 days #14 t abs 01/17/25 clavulanate 125 mg tablet doxycycline hyclate 100 mg tablet 100 mg PO BID 7 days #14 tabs 01/17/25 Allergies Allergy/AdvReac Type Severity Reaction Status Date / Time Sulfa (Sulfonamide Allergy Intermediate Rash Verified 01/17/25 08:57 Antibiotics) (SULFA (SULFONAMIDE ANTIBIOTICS)) Axjnhok-WAM-NkV Reductase Allergy Unknown Unknown Verified 01/17/25 08:57 Inhibitor (DVEPLRG-FKR-SAP REDUCTASE INHIBITOR) ANTIARTERIOSCLEROTIC DRUGS AdvReac Unknown Unknown Uncoded 01/17/25 08:57 Review of Systems 2 Review of Systems: Yes Unobtainable due to mental status (patient demented at baseline) Constitutional: Constitutional: Reports as per HPI Eyes: Eyes: Reports as per HPI ENT: Reports as per HPI Cardiovascular: Cardiovascular: Reports as per HPI Respiratory: Respiratory: Reports as per HPI Gastrointestinal: Gastrointestinal: Reports as per HPI Genitourinary: Genitourinary: Reports as per HPI Musculoskeletal: Musculoskeletal: Reports as per HPI Integumentary/Breasts: Skin/Breast: Reports as per HPI Neurologic: Reports as per HPI Psychiatric: Psychiatric: Reports as per HPI Endocrine: Endocrine: Reports as per HPI Hematologic/Lymphatic: Hematologic/Lymphatic: Reports as per HPI Allergic/Immunologic: Allergic/Immunologic: Reports as per HPI PMFSH Past Medical History Attestation statement: The following information was validated with the patient. Source: old records reviewed, nursing notes reviewed and other ([facility] Staff provided additional history) Medical History TBI (traumatic brain injury) Astigmatism Seasonal allergies Bilateral cataracts Preglaucoma Insomnia Presbyopia Parkinsons disease Seizures Fall Pneumonia General weakness Hypoxia COVID-19 Resides in assisted facility Dementia Schizophrenia Hypernatremia Metabolic encephalopathy BPH (benign prostatic hyperplasia) HTN (hypertension) GERD (gastroesophageal reflux disease) Anxiety Surgical History Hx of colonoscopy Hx of cystoscopy Social History Social History Household Members: None Housing: [facility] Other:: [facility] Do you presently have visiting nurse or other home services: Yes Unable to assess alcohol history related to: Unable to respond Alcohol intake: never Comment: 1;1 sitter Patient Tobacco Use Status: Never used Tobacco Advance Directives: Yes Advance Directives on File: Yes Advance Directives Date on File: 01/17/22 service: No Current occupational status: disabled Physical Exam ED Vital Signs: Vital Signs - 24 hr 01/17/25 08:49 01/17/25 10:30 01/17/25 12:39 Temperature 99.3 F 98.6 F Pulse Rate 73 71 75 Respiratory Rate 13 17 14 Blood Pressure 114/54 L 128/79 126/82 Pulse Oximetry 99 100 100 Oxygen Delivery Method Room Air Room Air Room Air 01/17/25 14:09 Temperature Pulse Rate 63 Respiratory Rate 14 Blood Pressure 113/63 Pulse Oximetry 100 Oxygen Delivery Method Room Air BMI result Body Mass Index 25.8 Const General: cooperative, no acute distress, alert and awake Nutritional Appearance: well nourished Limitations: other limitations (patient demented at baseline) HENMT Ears: hearing grossly normal bilaterally and external ears normal General nose exam: Normal external nose present, no nasal discharge noted and no epistaxis Face images: 2 1. 0.5cm laceration - no gaping, no active bleeding Mouth: Normal oral and palatal mucosa present, no drooling and no muffled voice Eyes General: appearance normal, both eyes and all related structures Periorbital: periorbital findings normal Eyelids: Yes eyelids normal Conjunctivae: conjunctivae normal Pupils: Equal, round and reactive pupils present EOM: EOMs intact bilaterally Neck Neck: Yes normal visual inspection and Yes full ROM Resp Effort & Inspection: normal respiratory effort Neuro General: moves all extremities and CN's II-XI intact bilaterally Cranial nerves: Yes Equal, round and reactive pupils present Cognition (Neuro): normal cognition Extrem General: Yes normal to inspection, Yes full ROM and Yes capillary refill normal Psych Appearance: grossly normal Affect: normal affect Medications Administered Discontinued Medications Generic Name Dose Route Start Last Admin Trade Name Freq PRN Reason Stop Dose Admin Ceftriaxone Sodium 1 gm 01/17/25 10:11 01/17/25 10:28 Ceftriaxone Sodium 1 Gm Vial IVPUSH 01/17/25 10:12 1 gm ONCE ONE Administration Procedures Laceration Laceration 1: Site: face Side (If applicable): right Size (cm): 0.5 Description: linear Depth: simple, single layer Pre-repair: wound explored, irrigated extensively and deep structures intact Skin layer closed with: other (dermabond) Size (cm): other (dermabond) Technique: other (dermabond) Medical Decision Making Medical Decision Making MDM Narrative: Patient is a 59 year old assigned male at with a history of dementia, BPH, HTN, seizure disorder, GERD, schizophrenia, and anxiety - currently residing at [facility] presenting to the emergency department today after a fall. Patient's physical exam was as noted in the physical exam portion of this note. Patient was retaining urine at 676ml and had a small (non gaping) laceration to his right eyebrow. Patient's blood work was unremarkable. Patient's urine showed no acute process. Patient's chest x-ray showed possible left sided pneumonia. Patient's CT head and c-spine were unremarkable. I explained my physical exam findings as well as all test results to the patient and the patient's guardian (via telephone). I answered all questions asked by the patient's guardian (via telephone). Patient's guardian agreed to having the patient have a lopez catheter placed, his head laceration repaired, and treating his pneumonia. Patient had a lopez catheter placed without incident and his bladder was decompressed. Patient's laceration was repaired with dermabond without incident. Patient was given IV Ceftriaxone while in the department. Patient was not septic (@1430). I spoke to the patient's priry provider at [facility], Dr. Chacon, who verbalized agreement with the plan and the patient being discharged back to [facility]. I stressed the importance of the patient taking his medication as directed (either prescribed or as the over the counter packaging recommends). I stressed the importance of the patient following up with his primary care provider and the urologist. I stressed the importance of the patient returning to the emergency department immediately if his symptoms were to worsen or if he were to develop any dizziness, shortness of breath, difficulty breathing, chest pain, blurry vision, loss of vision, nausea, vomiting, abdominal pain, fever, chills, back pain, or any other complaints. Patient cleared for discharge. Differential Diagnosis Differential Diagnoses: The differential diagnosis associated with the presentation includes Fall Laceration Pneumonia UTI Urinary retention Admission/Observation Consideration of admission/observation: Escalation of care including admission/observation considered Patient would have been admitted to the hospital had his work up had any findings where hospital admission was appropriate and his clinical presentation warranted hospital admission. Lab Data [facility] Lab Attestation statement: I reviewed the patient's lab results. My interpretation of these results are in the [facility] Rationale portion of this note. 01/17/25 10:22 01/17/25 11:06 Labs: Lab Results 01/17/25 01/17/25 01/17/25 Range/Units 10:22 11:05 11:06 WBC 9.3 (4.8-10.8) X10*3/uL RBC 4.73 D (4.60-5.80) X10*6/uL Hgb 13.9 L D (14.0-18.0) g/dl Hct 42.0 D (42.0-52.0) % MCV 88.8 (80.0-98.0) fL MCH 29.4 (27.0-33.0) pg MCHC 33.1 (31.0-36.0) g/dl RDW 14.6 (11.0-16.0) % Plt Count 198 D (160-400) X10*3/uL MPV 10.6 (9.4-12.4) fL Immature Gran % (Auto) 0.4 (0.0-0.4) % Neut % (Auto) 69.5 (45-73) % Lymph % (Auto) 18.2 L (20-40) % Beaver % (Auto) 10.7 (2-11) % Eos % (Auto) 0.9 (0-4) % Baso % (Auto) 0.3 (0-2) % Lymph # (Auto) 1.7 (1.2-4.9) X10*3/uL Beaver # (Auto) 1.0 (0.1-1.2) X10*3/uL Eos # (Auto) 0.1 (0.0-0.4) X10*3/uL Baso # (Auto) 0.0 (0.0-0.2) X10*3/uL Abs Immat Gran (auto) 0.04 H (0.00-0.03) X10*3/uL Absolute Neuts (auto) 6.5 (2.0-8.3) x10*3/uL Absolute Nucleated RBC 0.000 (0.0-0.012) X10*3/uL Nucleated RBC % (auto) 0.0 (0.0-0.2) /100WBC Hold Purple Top SEE NOTE Sodium 145 (135-145) mmol/L Potassium 4.7 D (3.3-5.1) mmol/L Chloride 110 H (96-108) mmol/L Carbon Dioxide 27 (22-29) mmol/L Anion Gap 13 (12-20) BUN 11 (9-16) mg/dL Creatinine 0.80 (0.5-1.4) mg/dL Estim Creat Clear Calc 89.7 Estimated GFR > 60 Random Glucose 83 (60-115) mg/dL Calcium 9.0 (8.4-10.2) mg/dL Total Bilirubin 0.4 (0.0-1.0) mg/dL AST 31 (5-37) U/L ALT 15 (0-40) U/L Alkaline Phosphatase 66 (39-117) U/L Total Protein 6.5 (6.5-8.0) g/dL Albumin 3.4 L (3.5-5.0) g/dL Urine Color Urine Appearance Urine pH (5.0-9.0) Ur Specific [place] (1.005-1.025) Urine Protein (Neg-Trace) mg/dL Urine Glucose (UA) (Negative) mg/dL Urine Ketones (Negative) mg/dL Urine Blood (Negative) Urine Nitrite (Negative) Ur Leukocyte Esterase (Negative) Urine RBC (0-2) /HPF Urine WBC (0-5) /HPF Ur Squamous Epith Cells (0-2) /HPF Urine Bacteria (None Seen) Hyaline Casts (0-2) /LPF 01/17/25 Range/Units 13:16 WBC (4.8-10.8) X10*3/uL RBC (4.60-5.80) X10*6/uL Hgb (14.0-18.0) g/dl Hct (42.0-52.0) % MCV (80.0-98.0) fL MCH (27.0-33.0) pg MCHC (31.0-36.0) g/dl RDW (11.0-16.0) % Plt Count (160-400) X10*3/uL MPV (9.4-12.4) fL Immature Gran % (Auto) (0.0-0.4) % Neut % (Auto) (45-73) % Lymph % (Auto) (20-40) % Beaver % (Auto) (2-11) % Eos % (Auto) (0-4) % Baso % (Auto) (0-2) % Lymph # (Auto) (1.2-4.9) X10*3/uL Beaver # (Auto) (0.1-1.2) X10*3/uL Eos # (Auto) (0.0-0.4) X10*3/uL Baso # (Auto) (0.0-0.2) X10*3/uL Abs Immat Gran (auto) (0.00-0.03) X10*3/uL Absolute Neuts (auto) (2.0-8.3) x10*3/uL Absolute Nucleated RBC (0.0-0.012) X10*3/uL Nucleated RBC % (auto) (0.0-0.2) /100WBC Hold Purple Top Sodium (135-145) mmol/L Potassium (3.3-5.1) mmol/L Chloride (96-108) mmol/L Carbon Dioxide (22-29) mmol/L Anion Gap (12-20) BUN (9-16) mg/dL Creatinine (0.5-1.4) mg/dL Estim Creat Clear Calc Estimated GFR Random Glucose (60-115) mg/dL Calcium (8.4-10.2) mg/dL Total Bilirubin (0.0-1.0) mg/dL AST (5-37) U/L ALT (0-40) U/L Alkaline Phosphatase (39-117) U/L Total Protein (6.5-8.0) g/dL Albumin (3.5-5.0) g/dL Urine Color Yellow Urine Appearance Clear Urine pH 6.5 (5.0-9.0) Ur Specific [place] 1.020 (1.005-1.025) Urine Protein Negative (Neg-Trace) mg/dL Urine Glucose (UA) Negative (Negative) mg/dL Urine Ketones Negative (Negative) mg/dL Urine Blood Negative (Negative) Urine Nitrite Negative (Negative) Ur Leukocyte Esterase Negative (Negative) Urine RBC 0-2 (0-2) /HPF Urine WBC 0-5 (0-5) /HPF Ur Squamous Epith Cells 0-2 (0-2) /HPF Urine Bacteria None Seen (None Seen) Hyaline Casts 0-2 (0-2) /LPF Independent Interpretation I performed an independent interpretation of an: Plain X-Ray and CT Scan Interpretation: My interpretation is in agreement with the radiologist's impression of these imaging studies. L Report Number: [id number]: Total DLP = 281.00 mGy-cm CLINICAL HISTORY: fall, pain CT cervical spine without contrast. COMPARISON: CT cervical spine dated 04/11/24 at 19:17 EST FINDINGS: Most inferior aspect of the C7 vertebral body is outside the field of view. There is straightening of the spine with loss of normal cervical lordosis. Vertebral body heights are maintained. Skull base and intracranial structures appear normal. Calcified plaque present at the carotid bulb on the right. C2-C3: Facet joint arthrosis. C3-C4: Facet joint arthrosis. C4-C5: Anterior marginal osteophytes. C5-C6: Anterior marginal osteophytes. Loss of disc space height. Posterior disc osteophyte complex. Uncovertebral joint hypertrophy. [id number] bilateral neural foraminal narrowing. C6-C7: Anterior marginal osteophytes. Loss of disc space height. Posterior disc osteophyte complex. Uncovertebral joint hypertrophy. Moderate right and mild left neural foraminal narrowing. IMPRESSION: 1. Technically limited study with most inferior aspect of the C7 vertebral body outside the field of view. Within limits of study, no evidence of acute injury to the cervical spine. 2. Straightening of the normal cervical lordosis, likely positional. 3. Moderate to advanced mid to lower cervical spondylosis. This document has been electronically signed by: Denilson Salinas MD on 01/17/2025 13:57:26 Dictated By: Denilson Salinas MD Signed By: Electronically signed by Denilson Salinas MD 01/17/25 1358 Report Number: [id number]: Total DLP = 740.00 mGy-cm CLINICAL HISTORY: fall, pain CT head without contrast. COMPARISON: CT head dated 04/11/24 at 14:48 EST FINDINGS: The visualized paranasal sinuses are clear. The mastoid air cells are clear. No calvarial fracture. No evidence for mass or mass effect. No intracranial hemorrhage or abnormal extra-axial fluid collection. No CT evidence of acute infarct. The ventricles are proportional with the degree of mild global cerebral volume loss without evidence of hydrocephalus. Basilar cisterns are patent. There are periventricular areas of low attenuation compatible with mild white matter small vessel disease. Posterior fossa appears unremarkable. IMPRESSION: 1. No acute intracranial findings. This document has been electronically signed by: Denilson Salinas MD on 01/17/2025 13:50:19 Dictated By: Denilson Salinas MD Signed By: Electronically signed by Denilson Salinas MD 01/17/25 1351 CLINICAL HISTORY: weakness 1 view chest x-ray Comparison: CR/SR - XR CHEST 1 VIEW - 04/11/24 13:21 EST Findings: Mild left basilar opacities are present. Normal size heart. Remote left posterior 5th rib fracture is noted. IMPRESSION: Mild left basilar opacities, which may represent atelectasis or pneumonia. This document has been electronically signed by: Sergio Batista on 01/17/2025 09:32:40 Dictated By: Sergio Batista MD Signed By: Electronically signed by Sergio Batista MD 01/17/25 0934 Radiology Impression Discussion of test interpretation with radiology: I have reviewed the radiologist's reading. Independent Historian Clinical information obtained from an independent historian. History obtained from or confirmed by: EMS (EMS provided additional history and confirmed [facility] history provided.) and Other ([facility] staff provided additional history) Prescription Management I considered prescription management with: Antibiotic (patient prescribed antibiotics for possible PNA) Critical Care Time Critical Care Time Critical Care Time: Yes Total Critical Care Time: 48 Attestation: I spent 48 minutes of Critical Care Time with this patient. This does not include time spent on separately reported billable procedures. Discharge Plan Discharge Clinical Impression: Acute urinary retention Facial laceration Qualifiers: Encounter type: initial encounter Qualified Code(s): S01.81XA - Laceration without foreign body of other part of head, initial encounter Fall Qualifiers: Encounter type: initial encounter Qualified Code(s): W19.XXXA - Unspecified fall, initial encounter Pneumonia Qualifiers: Pneumonia type: due to unspecified organism Laterality: left Lung location: u nspecified part of lung Qualified Code(s): J18.9 - Pneumonia, unspecified organism Patient Disposition: Home, Self-Care Instructions: Laceration (DC), Lopez Catheter Placement and Care (ED), Fall Prevention for Older Adults (ED), Skin Adhesive Care (ED), Pneumonia (ED) Additional Instructions: You had a lopez catheter placed because your bladder was not emptying well. Have this followed up on by Urology. Your chest x-ray showed evidence of pneumonia, you have been prescribed antibiotics for this. Your right sided forehead laceration was repaired with dermabond. You CANNOT get this area wet for at LEAST 7 days. The glue will dissolve on it's own. IF you are prescribed home medications and/or you are taking over the counter medications at home - it is very important you continue to do so as prescribed / directed unless told otherwise. Follow up with your primary care provider. Return to the emergency department immediately if your symptoms worsen or if you develop any numbness, tingling, dizziness, shortness of breath, difficulty breathing, chest pain, blurry vision, loss of vision, nausea, vomiting, abdominal pain, fever, chills, back pain, or any other complaints. Please see the information below about our Patient Portal. If you are not yet enrolled in the [facility] Patient Portal, you will receive an enrollment email invitation following your visit to any [facility] care setting. You may also self-enroll in the Patient Portal by visiting our website: [email or web address] The following information is required to access the Patient Portal: - Your [facility] Medical Record Number - Your personal home email address (must match what is in your electronic medical record, Registration staff can assist with this) - Name - Date of Capabilities of the Patient Portal: - Message some providers - View upcoming appointments - Access your health summary, medical history, and visit history - View current conditions and allergies - View procedure and lab results - View your medications, including guidelines, side effects, and precautions - Complete pre-appointment questionnaires requested by your provider - Ready summary reports of your office visits and procedures To access the Patient Portal Mobile Juanjose, follow these directions: - Search [employer] in the [employer] Store or [employer] Store - Download the Juanjose - Search for [facility] - Enter your login/password Prescriptions: New doxycycline hyclate 100 mg tablet 100 mg PO BID 7 Days Qty: 14 0RF amoxicillin-pot clavulanate 875-125 mg tablet 1 tab PO BID 7 Days Qty: 14 0RF No Action benztropine 0.5 mg Tablet 0.5 mg PO BID Rx Instructions: TDD = 1.5 MG BID risperidone 2 mg Tablet 2 mg PO BEDTIME divalproex [Depakote Sprinkles] 125 mg Capsule, Delayed Rel Sprinkle 750 mg PO BID bisacodyl 10 mg Suppository 10 mg ID DAILY PRN (Reason: Constipation) Rx Instructions: If Senna Ineffective. docusate sodium 100 mg Capsule 100 mg PO BID loperamide 2 mg Capsule 2 mg PO Q4H PRN (Reason: Diarrhea) Rx Instructions: administer after each loose stool until symptoms controlled; do not exceed 8 mg per 24 hrs lactulose 10 gram/15 mL Solution 30 ml PO BID hydrocortisone acetate [Anusol-HC] 25 mg Suppository 25 mg ID DAILY PRN (Reason: Hemorrhoids) lithium carbonate 300 mg Tablet 300 mg PO BEDTIME Fleet Enema 19-7 gram/118 mL Enema 118 ml ID BEDTIME PRN (Reason: Constipation) Rx Instructions: If Bisacodyl supp. ineffective. chlorhexidine gluconate [Hibiclens] 4 % Liquid 1 appl TOPICAL SUTUTH@1800 Rx Instructions: lower legs doxycycline hyclate 100 mg tablet 100 mg PO BID Qty: 10 0RF acetaminophen 325 mg capsule 650 mg PO Q6H MDD 3 gm/day PRN (Reason: Pain) benztropine 1 mg tablet 1 mg PO BID Rx Instructions: TDD = 1.5 MG BID clonazepam 1 mg tablet 1 mg PO BID diazepam 5 mg tablet 5 mg PO BID haloperidol 5 mg tablet 5 mg PO BID lithium carbonate 150 mg capsule 150 mg PO DAILY propranolol 10 mg tablet 10 mg PO TID senna 8.6 mg capsule 8.6 mg PO DAILY PRN (Reason: Constipation) finasteride 5 mg tablet 5 mg PO DAILY 90 Days Qty: 90 3RF terazosin 10 mg capsule 10 mg PO BEDTIME 90 Days Qty: 90 3RF Referrals: [facility] [Provider Group, Urology] Qamar Chacon DO [Primary Care Provider, Internal Medicine] Print Language: Unable To Collect
--- NOTE | 2025-01-17 10:28 | PC.NURSE ---
22gIV placed in the left thumb - no blood cultures needed prior to abx administration per provider order. medication administered per provider order. pt pending scan results at this time.
[2025-01-17 10:30] LABS: Hematocrit 42.0 % (42.0-52.0); Hemoglobin 13.9 g/dl (14.0-18.0); Imm Gran Abs Auto 0.04 X10*3/uL (0.00-0.03); Imm Gran Pct Auto 0.4 % (0.0-0.4); Lymphocytes Absolute Auto 1.7 X10*3/uL (1.2-4.9); Mean Corpuscular HGB Conc 33.1 g/dl (31.0-36.0); Mean Corpuscular Hemoglobin 29.4 pg (27.0-33.0); Mean Corpuscular Volume 88.8 fL (80.0-98.0); NRBC Abs Auto 0.000 X10*3/uL (0.0-0.012); NRBC Pct Auto 0.0 /100WBC (0.0-0.2); Platelet Count 198 X10*3/uL (160-400); Red Blood Count 4.73 X10*6/uL (4.60-5.80); White Blood Count 9.3 X10*3/uL (4.8-10.8)
[2025-01-17 10:37] LABS: MANUAL DIFF FLAG NO
[2025-01-17 11:30] LABS: Alanine Aminotransferase 15 U/L (0-40); Albumin Level 3.4 g/dL (3.5-5.0); Alkaline Phosphatase 66 U/L (39-117); Anion Gap 13 (12-20); Aspartate Amino Transferase 31 U/L (5-37); Blood Urea Nitrogen 11 mg/dL (9-16); Calcium 9.0 mg/dL (8.4-10.2); Carbon Dioxide 27 mmol/L (22-29); Chloride 110 mmol/L (96-108); Creatinine Clr Calc Pharmacy 89.7; Estimated Glomerular Filt Rate > 60; Potassium 4.7 mmol/L (3.3-5.1); Sodium 145 mmol/L (135-145); Total Protein 6.5 g/dL (6.5-8.0)
--- NOTE | 2025-01-17 13:15 | PC.NURSE ---
patient noted to have urinary retention despite having external catheter in place. bladder scan obtained displaying 676ml. provider notified/aware. provider spoke w/ SNF as well as guardian in regards to having lopez catheter placed. 16fr lopez catheter w/ 10ml balloon placed w/o difficulty. pt noted to have 1200ml of dark yellow, non-foul smelling urine immediately post output. specimen obtained/sent to lab.
[2025-01-17 13:22] LABS: Appearance Urine Clear; Glucose Urine UA Negative (Negative); PH 6.5 (5.0-9.0); Specific Gravity - Urine 1.020 (1.005-1.025)
--- NOTE | 2025-01-17 15:11 | PC.NURSE ---
Addendum entered by Emani Chandler 01/17/25 15:20: [facility] transport ETA is 1630. Patient otherwise continues to rest in no apparent distress. Plan of care ongoing. Original Note: Report given to NIRALI Yañez at [facility] in [place] at this time. Patient currently pending transfer via BLS. ETA unknown.
--- NOTE | 2025-01-17 15:59 | PC.NURSE ---
pt leaving via ANTONI Fabian at this time.
== END 2025-01-17 16:03 | disposition home or self-care (01) ==
PROVIDERS: Physician Assistant Medical; Emergency Provider Emergency Medicine; PCP Hospitalist
DX: S01.81XA Laceration without foreign body of other part of head, initial encounter (principal); W19.XXXA Unspecified fall, initial encounter; Y93.9 Activity, unspecified; Y92.9 Unspecified place or not applicable; Y99.9 Unspecified external cause status; N40.0 Benign prostatic hyperplasia without lower urinary tract symptoms; I10 Essential (primary) hypertension; G40.909 Epilepsy, unspecified, not intractable, without status epilepticus; K21.9 Gastro-esophageal reflux disease without esophagitis; F20.9 Schizophrenia, unspecified; F41.9 Anxiety disorder, unspecified; G47.00 Insomnia, unspecified; G20.A1 Parkinson's disease without dyskinesia, without mention of fluctuations; F02.80 Dementia in other diseases classified elsewhere, unspecified severity, without behavioral disturbance, psychotic disturbance, mood disturbance, and anxiety; E87.0 Hyperosmolality and hypernatremia
CPT/HCPCS: 36415; 70450; 71045; 72125; 80053; 81001; 85025; 96374; 99284; 99285; J0696

== ENCOUNTER → 2025-01-17 09:03 | Outpatient (BNV) | payer MEDICAID, SELFPAY | PROVIDERS: PCP Hospitalist; Visit Provider Radiology Vascular & Interventional Radiology | DX: M47.812 Spondylosis without myelopathy or radiculopathy, cervical region (principal); S01.81XA Laceration without foreign body of other part of head, initial encounter; W19.XXXA Unspecified fall, initial encounter; R53.1 Weakness | CPT/HCPCS: 70450; 71045; 72125 ==

== ENCOUNTER → 2025-02-16 09:01 | Outpatient (BNVA) | payer MEDICAID, SELFPAY | PROVIDERS: PCP Hospitalist; Visit Provider Urology | DX: N40.1 Benign prostatic hyperplasia with lower urinary tract symptoms (principal); R33.9 Retention of urine, unspecified; N13.8 Other obstructive and reflux uropathy | CPT/HCPCS: 51700 ==

== ENCOUNTER → 2025-03-17 13:19 | Outpatient (BNVA) | payer MEDICAID, SELFPAY | PROVIDERS: Visit Provider Urology | DX: Z46.6 Encounter for fitting and adjustment of urinary device (principal); N13.8 Other obstructive and reflux uropathy; N40.1 Benign prostatic hyperplasia with lower urinary tract symptoms; R33.9 Retention of urine, unspecified | CPT/HCPCS: 51702 ==

== ENCOUNTER 2025-03-22 03:51 | Inpatient (IN) | payer OTHER, SELFPAY ==
[2025-03-22] VITALS (34 sets, daily range): BP systolic 81–139; BP diastolic 47–118; PULSE 53–127; RESP 12–22; TEMP 36.4–39.9; O2SAT 95–99; BMI 28.5
--- NOTE | 2025-03-22 | ECG_ITS ---
Test Reason : SEPSIS Blood Pressure : */* mmHG Vent. Rate : 90 BPM Atrial Rate : 90 BPM P-R Int : 150 ms QRS Dur : 74 ms QT Int : 354 ms P-R-T Axes : 84 5 22 degrees QTcB Int : 433 ms Normal sinus rhythm Normal ECG When compared with ECG of 11-Apr-2024 13:17, No significant change was found Referred By: Generic ED Physician Electronically Signed By: Jeremías Newell
--- NOTE | ~2025-03-22 | CT_ITS ---
CLINICAL HISTORY: hematuria, fever CT abdomen and pelvis without contrast Comparison: None provided Findings: No consolidation or effusion. Solid organs are within normal limits. There is no abnormal findings in the gallbladder fossa. No renal stones. No bowel obstruction, pneumoperitoneum, or pneumatosis. There is a feces distended rectum. Correlate for impaction. There is air in the nondependent portion of the urinary bladder. Correlate for recent catheterization. Urinary bladder wall is thickened. Correlate for cystitis. Pelvic contents are otherwise unremarkable. Normal appendix. The bones are intact. IMPRESSION: 1. Urinary bladder wall changes possibly related to cystitis. Correlate clinically. 2. Feces distended rectum, nonspecific. Correlate for impaction. This document has been electronically signed by: Iftikhar Castillo MD on 03/22/2025 09:15:54
--- NOTE | ~2025-03-22 | XR_ITS ---
CLINICAL HISTORY: sepsis 1 view chest Comparison: CR - XR CHEST 1V - 01/17/25 09:27 EDT Findings: Low inspiration. Resultant mild vascular crowding centrally with subsegmental atelectasis. No consolidation or effusion. Heart size upper limit. No acute fractures. Impression: 1. Low inspiration with central vascular crowding and subsegmental atelectasis. This document has been electronically signed by: Abby Kirkland MD on 03/22/2025 05:46:24
--- NOTE | 2025-03-22 04:11 | MHC.EDSEPSIS ---
HPI - Sepsis General Chief Complaint: Fever Stated Complaint: Fever Time Seen by Provider: 03/22/25 04:05 Source: EMS, RN notes reviewed and old records reviewed Mode of arrival: EMS Limitations: altered mental status and physical limitation (Parkinsons, dementia) History of Present Illness ED Provider: Dr. Kaylee Mayo HPI Narrative: 59-year-old male presenting via EMS from the long-term care facility where he is currently residing, [facility], coming in with reported fever and hematuria. Temperatures as high as 100.4? at the facility. Also has a bright red urine coming from the Muller. He had his Muller catheter changed yesterday and developed bloody urine today. Patient found to be febrile here in the emergency department with a core temperature of 102.5?. Patient is unable to give any history secondary to his clinical condition. He has a medical history of BPH, chronic indwelling Muller catheter, TBI, Parkinson's disease and dementia, schizophrenia as well as hypertension and GERD. Reportedly taking all medications as prescribed. No reported vomiting. He has a cough that is nonproductive. No reported bowel changes. Unclear if there have been any sick contacts. No further information able to be obtained at this time. Related Data Home Medications ?Medication ?Instructions ?Recorded ?Confirmed acetaminophen 325 mg capsule 650 mg PO Q6H PRN Pain 02/15/21 04/11/24 benztropine 1 mg tablet 1 mg PO BID 02/15/21 04/11/24 clonazepam 1 mg tablet 1 mg PO BID 02/15/21 04/11/24 diazepam 5 mg tablet 5 mg PO BID 02/15/21 04/11/24 haloperidol 5 mg tablet 5 mg PO BID 02/15/21 04/11/24 lithium carbonate 150 mg capsule 150 mg PO DAILY 02/15/21 04/12/24 propranolol 10 mg tablet 10 mg PO TID 02/15/21 04/11/24 sennosides 8.6 mg capsule (senna) 8.6 mg PO DAILY PRN Constipation 02/15/21 04/11/24 benztropine 0.5 mg tablet 0.5 mg PO BID 01/17/22 04/11/24 divalproex 125 mg capsule,delayed 750 mg PO BID 01/17/22 04/11/24 release sprinkle (Depakote Sprinkles) risperidone 2 mg tablet 2 mg PO BEDTIME 01/17/22 04/11/24 bisacodyl 10 mg rectal suppository 10 mg IL DAILY PRN Constipation 08/21/22 04/11/24 docusate sodium 100 mg capsule 100 mg PO BID 08/21/22 04/11/24 lactulose 10 gram/15 mL oral 30 ml PO BID 08/21/22 04/11/24 solution loperamide 2 mg capsule 2 mg PO Q4H PRN Diarrhea 08/21/22 04/11/24 hydrocortisone acetate 25 mg 25 mg IL DAILY PRN Hemorrhoids 09/10/23 04/11/24 rectal suppository (Anusol-HC) lithium carbonate 300 mg tablet 300 mg PO BEDTIME 09/10/23 04/11/24 chlorhexidine gluconate 4 % 1 appl topical SUTUTH@1800 04/11/24 04/11/24 topical liquid (Hibiclens) sodium phosphates 19 gram-7 118 ml IL BEDTIME PRN Constipation 04/11/24 04/11/24 gram/118 mL enema (Fleet Enema) Previous Rx's ?Medication ?Instructions ?Recorded doxycycline hyclate 100 mg tablet 100 mg PO BID #10 tabs 04/14/24 finasteride 5 mg tablet 5 mg PO DAILY 90 days #90 tabs 11/13/24 terazosin 10 mg capsule 10 mg PO BEDTIME 90 days #90 caps 11/13/24 amoxicillin 875 mg-potassium 1 tab PO BID 7 days #14 tabs 01/17/25 clavulanate 125 mg tablet doxycycline hyclate 100 mg tablet 100 mg PO BID 7 days #14 tabs 01/17/25 Allergies Allergy/AdvReac Type Severity Reaction Status Date / Time Sulfa (Sulfonamide Allergy Intermediate Rash Verified 03/22/25 05:03 Antibiotics) (SULFA (SULFONAMIDE ANTIBIOTICS)) Xrnslcq-XGT-XyR Reductase Allergy Unknown Unknown Verified 03/22/25 05:03 Inhibitor (ZBAMOPI-OPL-LUM REDUCTASE INHIBITOR) ANTIARTERIOSCLEROTIC DRUGS AdvReac Unknown Unknown Uncoded 03/22/25 05:03 Review of Systems Review of Systems as per HPI, full review of systems performed and negative but for the above mentioned pertinent positives and negatives. Physical Exam Exam Exam: GENERAL: Ill-Appearing, appears uncomfortable. SKIN: Pale, warm, dry, no rashes noted. HEENT:? Normocephalic, atraumatic, no stridor, dry mucous membranes, edentulous, EOMI. NECK: Soft, supple, full ROM, midline structures nontender, no step-offs, no deformities, no lymphadenopathy. CHEST: Heart regular tachycardia, no murmurs, symmetric chest rise and fall. PULMONARY: Coarse lung sounds bilaterally, diminished at the bases, tachypnea, no wheezes. ABDOMINAL: Soft, nondistended, nontender, positive bowel sounds in all quadrants. : Muller catheter in place, no blood at the meatus. MUSCULOSKELETAL: Hypertonic extremities, limited range of motion, no deformities, no peripheral edema. NEURO: Alert, moans in pain, equal strength bilateral upper and lower extremities, no focal neurologic deficits.? PSYCHIATRIC: Nonverbal, appropriate demeanor. Vital Signs: Last Vital Signs Temp 102.4 F H 03/22/25 07:16 Pulse 121 H 03/22/25 07:16 Resp 22 H 03/22/25 07:17 BP 109/67 03/22/25 07:16 Pulse Ox 99 03/22/25 05:59 O2 Del Method Room Air 03/22/25 05:59 BMI result Body Mass Index 28.5 Course Course Course Narrative: Patient presents with complaints of fever. Differential diagnosis is incredibly broad but SBI, meningitis, sepsis, serious skin infection, or other emergent etiologies certainly considered.? Less emergent diagnoses such as viral infection also considered.? This patient is pale with slight tachypnea and tachycardia but is otherwise nontoxic. Suspect source would be viral due to recent cough versus urinary given his indwelling Muller catheter and new hematuria. Broad-based workup was initiated to rule out other sources. 7:42 AM 03/22/2025 (Dr. Kaylee Mayo, D.O.) Chest x-ray clear, no solid consolidations, urine is showing mostly RBCs. I was contacted by the lab to report that there are 4+ bacteria in the urine that could not be reported in the original sample due to the level of hematuria. However, they will initiate urine culture from the sample. He has been covered with broad-spectrum antibiotics including Zosyn and vancomycin. He remains tachycardic and febrile. He had received Tylenol prior to arrival. Given his hematuria I have held off on giving Motrin. Ice packs were placed in the armpits. He started to call out and pain so he was given fentanyl. Bladder scan shows 240 in the bladder so we will attempt irrigation. I have added on a CT of the abdomen and pelvis to evaluate for other acute intra-abdominal pathology but I suspect that urine we will be his main source for infection. 7:48 AM 03/22/2025 (Dr. Kaylee Mayo, D.O.) attempted irrigation and flush of the Muller catheter without success. Will replace Muller catheter and start bladder irrigation. Patient remains afebrile, rigorous. Lactic acid level is relatively low though and the rest of his workup is reassuring. Kidney function is normal. We will admit to hospitalist for urology consult, further care and evaluation. Critical Care Time Critical Care Time Critical Care Time: Yes Total Critical Care Time: 40 Attestation: CRITICAL CARE TIME: 40 minutes of critical care time was spent in direct patient care at the bedside or in the immediate area with this patient. Critical care was necessary to treat or prevent imminent or life-threatening deterioration of the following conditions severe sepsis due to UTI versus viral process. This patient is high risk for decompensation and/or . This time was spent assessing and managing the patient, interpreting labs and imaging, coordinating care with other medical providers, gathering history from either the patient, their representatives, EMS or chart review, and discussing management with admitting team. Discharge Plan Discharge Clinical Impression: Severe sepsis, Hematuria, Acute UTI Patient Disposition: Admitted As Inpatient Print Language: Mongolian Sepsis Event Note Evaluation Current stage of sepsis: severe sepsis Reason for ruling out sepsis: Acute febrile illness, cough, hematuria Initial hypotension due to sepsis/infection: SBP < 90 mmHg and MAP < 65 mmHg Possible source: pulmonary and genitourinary Focused Exam Vital signs: Vital Signs Temp Pulse Resp BP Pulse Ox O2 Del Method 03/22/25 07:17 22 H 03/22/25 07:16 102.4 F H 121 H 22 H 109/67 03/22/25 05:59 101.1 F H 103 H 14 99/58 L 99 Room Air 03/22/25 05:41 101.1 F H 100 12 93/54 L 99 Room Air 03/22/25 04:59 101 F H 100 16 96/51 L 97 Room Air Respiratory exam: Present rales Cardiovascular exam: tachycardia Capillary refill: < 2 Seconds Peripheral pulse strength: 3+ Normal Peripheral pulse location: Radial Skin exam: normal turgor and pale Date exam was performed: 03/22/25 Time exam was performed: 07:38 Bedside Monitoring Fluid responsiveness: fluid responsive Date bedside monitoring was performed: 03/22/25 Time bedside monitoring was performed: 07:16 [facility] Past Medical History Medical History TBI (traumatic brain injury) Astigmatism Seasonal allergies Bilateral cataracts Preglaucoma Insomnia Presbyopia Parkinsons disease Seizures Fall Pneumonia General weakness Hypoxia COVID-19 Resides in [place] [facility] Dementia Schizophrenia Hypernatremia Metabolic encephalopathy BPH (benign prostatic hyperplasia) HTN (hypertension) GERD (gastroesophageal reflux disease) Anxiety Surgical History Hx of colonoscopy Hx of cystoscopy Social History Social History Household Members: None Housing: [facility] Other:: [facility] Do you presently have visiting nurse or other home services: Yes Alcohol intake: never Comment: 1;1 sitter Patient Tobacco Use Status: Never used Tobacco Advance Directives: Yes Advance Directives on File: Yes Advance Directives Date on File: 01/17/22 service: No Current occupational status: disabled
[2025-03-22] MEDS: vancomycin/NS 2,000 MG/500 ML PLAST..BAG 250 MG IV (04:28)
[2025-03-22 04:35] LABS: Hematocrit 37.3 % (42.0-52.0); Hemoglobin 11.9 g/dl (14.0-18.0); Imm Gran Abs Auto 0.05 X10*3/uL (0.00-0.03); Imm Gran Pct Auto 0.5 % (0.0-0.4); Lymphocytes Absolute Auto 0.2 X10*3/uL (1.2-4.9); MANUAL DIFF FLAG SCAN; Mean Corpuscular HGB Conc 31.9 g/dl (31.0-36.0); Mean Corpuscular Hemoglobin 28.8 pg (27.0-33.0); Mean Corpuscular Volume 90.3 fL (80.0-98.0); NRBC Abs Auto 0.000 X10*3/uL (0.0-0.012); NRBC Pct Auto 0.0 /100WBC (0.0-0.2); Platelet Count 152 X10*3/uL (160-400); Red Blood Count 4.13 X10*6/uL (4.60-5.80); SCAN SMEAR FLAG 1; White Blood Count 10.1 X10*3/uL (4.8-10.8)
[2025-03-22 04:43] LABS: INTERNATIONAL NORM RATIO 1.1 (0.9-1.1); Prothrombin Time 12.7 SEC (10.9-12.4)
[2025-03-22 04:49] LABS: Alanine Aminotransferase 11 U/L (0-40); Albumin Level 3.4 g/dL (3.5-5.0); Alkaline Phosphatase 58 U/L (39-117); Anion Gap 11 (12-20); Aspartate Amino Transferase 21 U/L (5-37); Blood Urea Nitrogen 16 mg/dL (9-16); Calcium 8.9 mg/dL (8.4-10.2); Carbon Dioxide 25 mmol/L (22-29); Chloride 111 mmol/L (96-108); Estimated Glomerular Filt Rate > 60; Potassium 3.6 mmol/L (3.3-5.1); Sodium 143 mmol/L (135-145); Total Protein 5.9 g/dL (6.5-8.0)
[2025-03-22 04:53] LABS: Appearance Urine Turbid; Glucose Urine UA Negative (Negative); Specific Gravity - Urine <= 1.005 (1.005-1.025); UMIC TRIGGER UACC YES
[2025-03-22 04:56] LABS: Troponin-I High Sensitivity 2.7 ng/L (<3.5-35.0)
[2025-03-22 05:22] LABS: Other Crystals Urine Present
--- NOTE | 2025-03-22 05:28 | PC.NURSE ---
rectal core probe placed, 101.3, fluids and antibiotics running, systolic b/p over 90 (see vitals). pt alert and oriented to self and states he is int he hospital. EMS states this is pt baseline. lopez noted to have blood in parts of the tubing and bag.
--- OUTSIDE RECORDS SUMMARY | 2025-03-22 05:44 | XMS_ITS | Encounter Summary ---
Author Organization [facility] Address [address] [place] [address] Care Team Providers Care Software Applications Engineer Name Role Phone Qamar Chacon MD Primary Care Provider [phone] Encounter Details Date Type Department Care Team (Late st Contact Info) Description 01/15/2025 Lab Requisition [facility] [address] [place] [phone] Qamar Chacon MD [address] [place] [address] [address] [place], [place] Abnormal results of thyroid function studies Social History Tobacco Use Types Packs/Day Years [...] Procedure Name Priority Date/Time Associated Diagnosis Comments THYROID STIMULATING HORMONE Routine 01/15/2025 7:00 AM EDT Abnormal results of thyroid function studies documented in this encounter Results * Thyroid stimulating hormone (01/15/2025 7:00 AM EDT) TSH 1.31 0.40 - 4.00 mcIU/mL LAB CHEMISTRY METHOD 01/15/2025 9:31 AM EDT [facility] Blood Venous blood specimen / Unknown 01/15/2025 7:00 AM EDT 01/15/2025 8:27 AM EDT us Qamar Chacon MD LAB BLOOD ORDERABLES Final Resul t [facility] [address] [place] [address], [place] [phone] documented in this encounter Visit Diagnoses Diagnosis Abnormal results of thyroid function studies Nonspecific abnormal results of thyroid function study documented in this encounter Care Teams Software Applications Engineer Relationship Specialty Start Date End Date Qamar Chacon MD [address] [place] [address] Dr [address] [facility] Steward PCP - General Internal Medicine 07/14/24 documented as of this encounter
--- OUTSIDE RECORDS SUMMARY | 2025-03-22 05:44 | XMS_ITS | Clinical Summary ---
Author Organization [address] [facility] Address [address] [place] [address] Phone Care Team Providers Care Housing Manager Name Role Phone Qamar Chacon MD Primary Care Provider [phone] Encounters Date Type Department Care Team Description 03/17/2025 Lab Requisition [facility] Lab [address] [place] [phone] Qamar Chaocn MD Disorder of urea cycle metabolism, unspecified ([facility] V24) 03/11/2025 Lab Requisition [facility] Lab [address] [place] [phone] Qamar Chacon MD Disorder of urea cycle metabolism, unspecified (CMS/HCC V24); Unspecified convulsions (CMS/HCC V24, CMS/HCC V28) 02/13/2025 Lab Requisition [facility] Lab [address] [place] [phone] Qamar Chacon MD Disorder of urea cycle metabolism, unspecified (CMS/HCC V24) 02/03/2025 Lab Requisition [facility] Lab [address] [place] [phone] Qamar Chacon MD Encounter for other specified special examinations 01/19/2025 Lab Requisition [facility] Lab [address] [place] [phone] Qamar Chacon MD Schizophrenia, unspecified (CMS/HCC V24, CMS/HCC V28); Unspecified convulsions (CMS/HCC V24, CMS/HCC V28); Disorder of urea cycle metabolism, unspecified (CMS/HCC V24) 01/15/2025 Lab Requisition [facility] Lab [address] [place] [address] Qamar Chacon MD Abnormal results of thyroid function studies from Last 3 Months Social History Tobacco Use Types Packs/Day Years Used Date Smoking Tobacco: Never Assessed Sex and Gender Information Value Date Recorded Sex Assigned at Not on file Legal Sex Male 8:27 PM EST Gender Identity Not on file Sexual Orientation Not on file Plan of Treatment Health Maintenance Due Date Last Done Comments DTaP,Tdap,and Td Vaccines (1 - Tdap) 1984 Hepatitis B Vaccines (1 of 3 - 19+ 3-dose series) 1984 Pneumococcal Vaccine: 50+ Ye ars (1 of 1 - PCV) 09/08/2015 Zoster Vaccines (1 of 2) 09/08/2015 Depression Screening 06/04/2024 COVID-19 Vaccine (1 - 2023-2 5 season) 2025 Influenza Vaccine (#1) 2025 RSV Immunization Adult Patie nts (1 - 1-dose 75+ series) 2040 HIB Vaccines Aged Out No longer eligi ble based on patient's age to complete this topic HPV Vaccines Aged Out No longer eligi ble based on patient's age to complete this topic Hepatitis A Vaccines Aged Out No long er eligible based on patient's age to complete this topic IPV Vaccines Aged Out No longer eligi ble based on patient's age to complete this topic MMR Vaccines Aged Out No longer eligi ble based on patient's age to complete this topic Meningococcal ACWY Vaccine Aged Out N o longer eligible based on patient's age to complete this topic Meningococcal B Vaccine Aged Out No l onger eligible based on patient's age to complete this topic RSV Immunization Patients Un rajan 20 months Aged Out No longer eligible b ased on patient's age to complete this topic Varicella Vaccines Aged Out No longer eligible based on patient's age to complete this topic Procedures Procedure Name Priority Date/Time Associated Diagnosis Comments BASIC METABOLIC PANEL Routine 03/17/2025 6:41 AM EDT Disorder of urea cycle metabolism, unspecified (CMS/HCC V24) VALPROIC ACID LEVEL, TOTAL Routine 03/11/2025 6:46 AM EDT Disorder of urea cycle metabolism, unspecified (CMS/HCC V24) Unspecified convulsions (CMS/HCC V24, CMS/HCC V28) COMPREHENSIVE METABOLIC PANEL Routine 03/11/2025 6:46 AM EDT Disorder of urea cycle metabolism, unspecified (CMS/HCC V24) Unspecified convulsions (CMS/HCC V24, CMS/HCC V28) AMMONIA Routine 02/13/2025 6:49 AM EDT Disorder of urea cycle metabolism, unspecified (CMS/HCC V24) COMPLETE BLOOD COUNT Routine 02/03/2025 7:09 AM EDT Encounter for other specified special examinations BASIC METABOLIC PANEL Routine 02/03/2025 7:09 AM EDT Encounter for other specified special examinations HEPATIC FUNCTION PANEL Routine 02/03/2025 7:09 AM EDT Encounter for other specified special examinations RED - PLAIN Routine 01/19/2025 6:44 AM EDT Schizophrenia, unspecified (CMS/HCC V24, CMS/HCC V28) Unspecified convulsions (CMS/HCC V24, CMS/HCC V28) Disorder of urea cycle metabolism, unspecified (CMS/HCC V24) CBC WITH AUTO DIFFERENTIAL Routine 01/19/2025 6:44 AM EDT Schizophrenia, unspecified (CMS/HCC V24, CMS/HCC V28) Unspecified convulsions (CMS/HCC V24, CMS/HCC V28) Disorder of urea cycle metabolism, unspecified (CMS/HCC V24) LITHIUM LEVEL Routine 01/19/2025 6:44 AM EDT Schizophrenia, unspecified (CMS/HCC V24, CMS/HCC V28) Unspecified convulsions (CMS/HCC V24, CMS/HCC V28) Disorder of urea cycle metabolism, unspecified (CMS/HCC V24) VALPROIC ACID LEVEL, TOTAL Routine 01/19/2025 6:44 AM EDT Schizophrenia, unspecified (CMS/HCC V24, CMS/HCC V28) Unspecified convulsions (CMS/HCC V24, CMS/HCC V28) Disorder of urea cycle metabolism, unspecified (CMS/HCC V24) AMMONIA Routine 01/19/2025 6:44 AM EDT Schizophrenia, unspecified (CMS/HCC V24, CMS/HCC V28) Unspecified convulsions (CMS/HCC V24, CMS/HCC V28) Disorder of urea cycle metabolism, unspecified (CMS/HCC V24) CBC AND DIFFERENTIAL Routine 01/19/2025 6:44 AM EDT Schizophrenia, unspecified (CMS/HCC V24, CMS/HCC V28) Unspecified convulsions (CMS/HCC V24, CMS/HCC V28) Disorder of urea cycle metabolism, unspecified (CMS/HCC V24) COMPREHENSIVE METABOLIC PANEL Routine 01/19/2025 6:44 AM EDT Schizophrenia, unspecified (CMS/HCC V24, CMS/HCC V28) Unspecified convulsions (CMS/HCC V24, CMS/HCC V28) Disorder of urea cycle metabolism, unspecified (CMS/HCC V24) THYROID STIMULATING HORMONE Routine 01/15/2025 7:00 AM EDT Abnormal results of thyroid function studies from Last 3 Months Results * Basic metabolic panel (03/17/2025 6:41 AM EDT) Only the most recent of2 resultswithin the time period is included. Sodium 143 133 - 145 mmol/L LAB CHEMISTRY METHOD 03/17/2025 8:47 AM T [facility] Potassium 4.2 3.5 - 5.5 mmol/L LAB CHEMISTRY METHOD 03/17/2025 8:47 AM [facility] Chloride 109 96 - 110 mmol/L LAB CHEMISTRY METHOD 03/17/2025 8:47 AM [facility] CO2 31 21 - 32 mmol/L LAB CHEMISTRY METHOD 03/17/2025 8:47 AM [facility] Anion Gap 3 3 - 11 LAB CHEMISTRY METHOD 03/17/2025 8:47 AM EDT [facility] Glucose 88 70 - 100 mg/dL LAB CHEMISTRY METHOD 03/17/2025 8:47 AM EDT [facility] BUN 12 5 - 25 mg/dL LAB CHEMISTRY METHOD 03/17/2025 8:47 AM EDT [facility] Creatinine 0.84 0.70 - 1.30 mg/dL LAB CHEMISTRY METHOD 03/17/2025 8:47 AM EDT [facility] eGFR 100 >=60 mL/min/1. 73m2 LAB CHEMISTRY METHOD 03/17/2025 8:47 AM EDT [facility] Comment:Calculation based on the Chronic Kidney Disease Epidemiology Collaboration (CKD-EPI) equation refit without adjustment for race. BUN/Creatinine Ratio 14.3 LAB CHEMISTRY METHOD 03/17/2025 8:47 AM EDT [facility] Calcium 9.4 8.5 - 10.5 mg/dL LAB CHEMISTRY METHOD 03/17/2025 8:47 AM T [facility] Blood Venous blood specimen / Unknown 03/17/2025 6:41 AM EDT 03/17/2025 7:49 AM EDT us Qamar Chacon MD LAB BLOOD ORDERABLES Final Resul t [facility] [address] [place] [address], * Valproic acid level, total (03/11/2025 6:46 AM EDT) Only the most recent of2 resultswithin the time period is included. Valproic Acid, Total 56 50 - 100 mcg/mL LAB CHEMISTRY METHOD 03/11/2025 8:23 AM EDT [facility] Blood Venous blood specimen / Unknown 03/11/2025 6:46 AM EDT 03/11/2025 7:24 AM EDT us Qamar Chacon MD LAB BLOOD ORDERABLES Final Resul t [facility] [address] [place] [address], * (ABNORMAL) Comprehensive metabolic panel (03/11/2025 6:46 AM EDT) Only the most recent of2 resultswithin the time period is included. Sodium 146(H) 133 - 145 mmol/L LAB CHEMISTRY METHOD 03/11/2025 8:35 AM [facility] Potassium 4.0 3.5 - 5.5 mmol/L LAB CHEMISTRY METHOD 03/11/2025 8:35 AM [facility] Chloride 115(H) 96 - 110 mmol/L LAB CHEMISTRY METHOD 03/11/2025 8:35 AM [facility] CO2 29 21 - 32 mmol/L LAB CHEMISTRY METHOD 03/11/2025 8:35 AM [facility] Anion Gap 2(L) 3 - 11 LAB CHEMISTRY METHOD 03/11/2025 8:35 AM [facility] Glucose 98 70 - 100 mg/dL LAB CHEMISTRY METHOD 03/11/2025 8:35 AM [facility] BUN 8 5 - 25 mg/dL LAB CHEMISTRY METHOD 03/11/2025 8:35 AM [facility] Creatinine 0.76 0.70 - 1.30 mg/dL LAB CHEMISTRY METHOD 03/11/2025 8:35 AM [facility] eGFR 104 >=60 mL/min/1. 73m2 LAB CHEMISTRY METHOD 03/11/2025 8:35 AM [facility] Comment:Calculation based on the Chronic Kidney Disease Epidemiology Collaboration (CKD-EPI) equation refit without adjustment for race. BUN/Creatinine Ratio 10.5 LAB CHEMISTRY METHOD 03/11/2025 8:35 AM [facility] Calcium 8.9 8.5 - 10.5 mg/dL LAB CHEMISTRY METHOD 03/11/2025 8:35 AM EDT [facility] AST (SGOT) 22 10 - 42 unit/L LAB CHEMISTRY METHOD 03/11/2025 8:35 AM EDT [facility] ALT (SGPT) 21 10 - 60 unit/L LAB CHEMISTRY METHOD 03/11/2025 8:35 AM EDT [facility] Alkaline Phosphatase 76 42 - 121 unit/L LAB CHEMISTRY METHOD 03/11/2025 8:35 AM EDT [facility] Total Protein 5.4(L) 6.0 - 8.0 g/dL LAB CHEMISTRY METHOD 03/11/2025 8:35 AM EDT [facility] Albumin 2.5(L) 3.2 - 5.0 g/dL LAB CHEMISTRY METHOD 03/11/2025 8:35 AM EDT [facility] Total Bilirubin 0.2 0.0 - 1.4 mg/dL LAB CHEMISTRY METHOD 03/11/2025 8:35 AM EDT [facility] Blood Venous blood specimen / Unknown 03/11/2025 6:46 AM EDT 03/11/2025 7:24 AM EDT us Qamar Chacon MD LAB BLOOD ORDERABLES Final Resul t [facility] [address] [place] [address], * Ammonia (02/13/2025 6:49 AM EDT) Only the most recent of2 resultswithin the time period is included. Ammonia 30 11 - 35 mcmol/L LAB CHEMISTRY METHOD 02/13/2025 7:43 AM EDT [facility] Blood Venous blood specimen / Unknown 02/13/2025 6:49 AM EDT 02/13/2025 7:14 AM EDT us Qamar Chacon MD LAB BLOOD ORDERABLES Final Resul t [facility] [address] [place] [address], * (ABNORMAL) Complete blood count (02/03/2025 7:09 AM EDT) WBC 9.9 4.8 - 10.8 K/mcL LAB HEMETOLOGY METHOD 02/03/2025 8:00 AM EDT [facility] RBC 4.60 4.50 - 5.50 M/mcL LAB HEMETOLOGY METHOD 02/03/2025 8:00 AM [facility] Hemoglobin 12.9(L) 13.5 - 17.5 g/dL LAB HEMETOLOGY METHOD 02/03/2025 8:00 AM [facility] Hematocrit 42.4 42.0 - 54.0 % LAB HEMETOLOGY METHOD 02/03[facility]25 [facility] MCV 92.8 79.0 - 98.0 FL LAB HEMETOLOGY METHOD 02/03/2025 8:00 AM [facility] MCH 28.2 27.0 - 32.0 pcg LAB HEMETOLOGY METHOD 02/03/2025 8:00 AM [facility] MCHC 30.4(L) 32.0 - 37.0 g/dL LAB HEMETOLOGY METHOD 02/03/2025 8:00 AM [facility] RDW 15.1(H) 11.0 - 15.0 % LAB HEMETOLOGY METHOD 02/03/2025 8:00 AM [facility] Platelets 198 130 - 400 K/mcL LAB HEMETOLOGY METHOD 02/03/2025 8:00 AM T [facility] MPV 11.1(H) 7.0 - 11.0 FL LAB HEMETOLOGY METHOD 02/03/2025 8:00 AM EDT [facility] NRBC 0.0 <1.0 % LAB HEMETOLOGY METHOD 02/03/2025 8:00 AM EDT [facility] NRBC Absolute 0.00 <0.10 K/mcL LAB HEMETOLOGY METHOD 02/03/2025 8:00 AM EDT [facility] Blood Venous blood specimen / Unknown 02/03/2025 7:09 AM EDT 02/03/2025 7:48 AM EDT us Qamar Chacon MD LAB BLOOD ORDERABLES Final Resul t [facility] [address] [place] [address], * (ABNORMAL) Hepatic function panel (02/03/2025 7:09 AM EDT) Total Protein 6.3 6.0 - 8.0 g/dL LAB CHEMISTRY METHOD 02/03/2025 8:35 AM [facility] Albumin 3.0(L) 3.2 - 5.0 g/dL LAB CHEMISTRY METHOD 02/03/2025 8:35 AM [facility] Total Bilirubin 0.3 0.0 - 1.4 mg/dL LAB CHEMISTRY METHOD 02/03/2025 8:35 AM [facility] Bilirubin, Direct <0.1 0.0 - 0.3 mg/dL LAB CHEMISTRY METHOD 02/03/2025 8:35 AM [facility] Bilirubin, Indirect LAB CHEMISTRY METHOD 02/03/2025 8:35 AM [facility] Comment:Unable to calculate Indirect Bilirubin. ALT (SGPT) 14 10 - 60 unit/L LAB CHEMISTRY METHOD 02/03/2025 8:35 AM [facility] AST (SGOT) 13 10 - 42 unit/L LAB CHEMISTRY METHOD 02/03/2025 8:35 AM EDT [facility] Alkaline Phosphatase 74 42 - 121 unit/L LAB CHEMISTRY METHOD 02/03/2025 8:35 AM EDT [facility] Blood Venous blood specimen / Unknown 02/03/2025 7:09 AM EDT 02/03/2025 7:48 AM EDT us Qamar Chacon MD LAB BLOOD ORDERABLES Final Resul t [facility] [address] [place] [address], * (ABNORMAL) CBC auto differential (01/19/2025 6:44 AM EDT) WBC 11.3(H) 4.8 - 10.8 K/mcL LAB HEMETOLOGY METHOD 01/19/2025 8:14 AM [facility] RBC 4.10(L) 4.50 - 5.50 M/[facility] LAB HEMETOLOGY METHOD 01/19/2025 8:14 AM [facility] Hemoglobin 11.8(L) 13.5 - 17.5 g/dL LAB HEMETOLOGY METHOD 01/19/2025 8:14 AM [facility] Hematocrit 37.5(L) 42.0 - 54.0 % LAB HEMETOLOGY METHOD 01/19/2025 8:14 AM [facility] MCV 91.5 79.0 - 98.0 FL LAB HEMETOLOGY METHOD 01/19/2025 8:14 AM [facility] MCH 28.8 27.0 - 32.0 pcg LAB HEMETOLOGY METHOD 01/19/2025 8:14 AM [facility] MCHC 31.5(L) 32.0 - 37.0 g/dL LAB HEMETOLOGY METHOD 01/19/2025 8:14 AM [facility] RDW 14.6 11.0 - 15.0 % LAB HEMETOLOGY METHOD 01/19/2025 8:14 AM [facility] Platelets 220 130 - 400 K/mcL LAB HEMETOLOGY METHOD 01/19/2025 8:14 AM [facility] MPV 10.9 7.0 - 11.0 FL LAB HEMETOLOGY METHOD 01/19/2025 8:14 AM [facility] NRBC 0.0 <1.0 % LAB HEMETOLOGY METHOD 01/19/2025 8:14 AM [facility] NRBC Absolute 0.00 <0.10 K/mcL LAB HEMETOLOGY METHOD 01/19/2025 8:14 AM [facility] Neutrophils Relative 75.2 % LAB HEMETOLOGY METHOD 01/19/2025 8:14 AM [facility] Lymphocytes Relative 14.8 % LAB HEMETOLOGY METHOD 01/19/2025 8:14 AM [facility] Monocytes Relative 8.7 % LAB HEMETOLOGY METHOD 01/19/2025 8:14 AM [facility] Eosinophils Relative 0.5 % LAB HEMETOLOGY METHOD 01/19/2025 8:14 AM [facility] Basophils Relative 0.4 % LAB HEMETOLOGY METHOD 01/19/2025 8:14 AM [facility] Immature Granulocytes Relative 0.4 % LAB HEMETOLOGY METHOD 01/19/2025 8:14 AM [facility] Neutrophils Absolute 8.50(H) 1.50 - 7.00 K/mcL LAB HEMETOLOGY METHOD 01/19/2025 8:14 AM [facility] Lymphocytes Absolute 1.68 1.00 - 5.00 K/[facility] LAB HEMETOLOGY METHOD 01/19/2025 8:14 AM EDT [facility] Monocytes Absolute 0.99 0.20 - 1.00 K/[facility] LAB HEMETOLOGY METHOD 01/19/2025 8:14 AM EDT [facility] Eosinophils Absolute 0.06 0.00 - 0.50 K/[facility] LAB HEMETOLOGY METHOD 01/19/2025 8:14 AM EDT [facility] Basophils Absolute 0.04 0.00 - 0.20 K/[facility] LAB HEMETOLOGY METHOD 01/19/2025 8:14 AM EDT [facility] Immature Granulocytes Absolute 0.05(H) 0.00 - 0.03 K/[facility] LAB HEMETOLOGY METHOD 01/19/2025 8:14 AM EDT [facility] Blood Venous blood specimen / Unknown 01/19/2025 6:44 AM EDT 01/19/2025 7:42 AM EDT us Qamar Chacon MD LAB BLOOD ORDERABLES Final Resul t Performing Organization Address City/[facility]/ZIP Co de Phone Number [facility] [address] [place] [address], [place] [phone] * Red tube (01/19/2025 6:44 AM EDT) Extra Tube Hold for add-ons. 01/19/2025 9:01 AM EDT [facility] Comment:Auto resulted. Blood Venous blood specimen / Unknown 01/19/2025 6:44 AM EDT 01/19/2025 7:42 AM EDT us Qamar Chacon MD LAB BLOOD ORDERABLES Final Resul t Performing Organization Address [facility]/ZIP Co de Phone Number [facility] [address] [place] [address], [place] [phone] * [place] level (01/19/2025 6:44 AM EDT) [place] Level 0.6 0.6 - 1.2 mEq/L LAB CHEMISTRY METHOD 01/19/2025 8:37 AM EDT [facility] Blood Venous blood specimen / Unknown 01/19/2025 6:44 AM EDT 01/19/2025 7:42 AM EDT us Qamar Chacon MD LAB BLOOD ORDERABLES Final Resul t Performing Organization Address [facility]/ZIP Co de Phone Number [facility] [address] [place] [address], [place] [phone] * Thyroid stimulating hormone (01/15/2025 7:00 AM EDT) TSH 1.31 0.40 - 4.00 mcIU/mL LAB CHEMISTRY METHOD 01/15/2025 9:31 AM EDT [facility] Blood Venous blood specimen / Unknown 01/15/2025 7:00 AM EDT 01/15/2025 8:27 AM EDT us Qamar Chacon MD LAB BLOOD ORDERABLES Final Resul t Performing Organization Address City/[facility]/ZIP Co de Phone Number [facility] [address] [place] [address], [place] [phone] from Last 3 Months Care Teams Housing Manager Relationship Specialty Start Date End Date Qamar Chacon MD [address] [place] [address] Dr Preethi [address] [place] PCP - General Internal Medicine 07/14/24
--- OUTSIDE RECORDS SUMMARY | 2025-03-22 05:44 | XMS_ITS | Encounter Summary ---
Author Organization [employer] Address [address] [place] [address] Care Team Providers Care Ship Keeper Name Role Phone Qamar Chacon MD Primary Care Provider [phone] Encounter Details Date Type Department Care Team (Late st Contact Info) Description 10/01/2024 Lab Requisition [facility] [address] [facility] [place] [address] Qamar Chacon MD [address] [place] [address] [address] [place], [place] Schizophrenia, unspecified (CMS/HCC V24, CMS/HCC V28) Social History Tobacco Use Types Packs/Day Years [...] Procedure Name Priority Date/Time Associated Diagnosis Comments URINALYSIS WITH REFLEX MICROSCOPIC Routine 10/01/2024 5:00 AM EDT Schizophrenia, unspecified (CMS/HCC V24, CMS/HCC V28) URINALYSIS WITH REFLEX MICROSCOPIC Routine 10/01/2024 5:00 AM EDT Schizophrenia, unspecified (CMS/HCC V24, CMS/HCC V28) CULTURE URINE Routine 10/01/2024 5:00 AM EDT Schizophrenia, unspecified (CMS/HCC V24, CMS/HCC V28) documented in this encounter Results * (ABNORMAL) Urinalysis with reflex microscopic (10/01/2024 5:00 AM EDT) Specific [place] Urine 1.016 1.003 - 1.030 LAB URINALYSIS - AUTOMATED METHOD 10/01/2024 8:55 AM [facility] pH, Urine 6.0 5.0 - 8.0 pH LAB URINALYSIS - AUTOMATED METHOD 10/01/2024 8:55 AM [facility] Leukocytes, Urine Trace(A) Negative LAB URINALYSIS - AUTOMATED METHOD 10/01/2024 8:55 AM [facility] Nitrite, Urine Negative Negative LAB URINALYSIS - AUTOMATED METHOD 10/01/2024 8:55 AM [facility] Protein, Urine Negative <=Trace mg/dL LAB URINALYSIS - AUTOMATED METHOD 10/01/2024 8:55 AM [facility] Glucose, Urine Negative Negative mg/dL LAB URINALYSIS - AUTOMATED METHOD 10/01/2024 8:55 AM [facility] Ketones, Urine Negative Negative mg/dL LAB URINALYSIS - AUTOMATED METHOD 10/01/2024 8:55 AM [facility] Urobilinogen, Urine 0.2 0.2 - 1.0 mg/dL LAB URINALYSIS - AUTOMATED METHOD 10/01/2024 8:55 AM [facility] Bilirubin, Urine Negative Negative LAB URINALYSIS - AUTOMATED METHOD 10/01/2024 8:55 AM [facility] Blood, Urine Negative Negative LAB URINALYSIS - AUTOMATED METHOD 10/01/2024 8:55 AM [facility] RBC, Urine 1.5 0 - 4 /HPF LAB URINALYSIS - AUTOMATED METHOD 10/01/2024 8:55 AM [facility] WBC, Urine 4.5(H) 0 - 4 /HPF LAB URINALYSIS - AUTOMATED METHOD 10/01/2024 8:55 AM [facility] Squamous Epithelial, Urine 13 0 - 60 /LPF LAB URINALYSIS - AUTOMATED METHOD 10/01/2024 8:55 AM [facility] Bacteria, Urine Negative Negative /HPF LAB URINALYSIS - AUTOMATED METHOD 10/01/2024 8:55 AM EDT [facility] Hyaline Casts, Urine 1.2 0 - 3 /LPF LAB URINALYSIS - AUTOMATED METHOD 10/01/2024 8:55 AM EDT [facility] Urine Urine specimen obtained by clean catch procedure / Unknown 10/01/2024 5:00 AM EDT 10/01/2024 8:06 AM EDT us Qamar Chacon MD LAB URINE ORDERABLES Final Resul t [facility] [address] [place] [address], [place] [phone] * Culture urine (10/01/2024 5:00 AM EDT) Culture, Urine <10,000 cfu/ml, insignificant count, no further workup. 10/02/2024 11:01 AM EDT [facility] Urine Urine specimen obtained by clean catch procedure / Unknown 10/01/2024 5:00 AM EDT 10/01/2024 8:06 AM EDT us Qamar Chacon MD LAB MICROBIOLOGY - GENERAL ORDER LIDA Final Result [facility] [address] [place] [address], [place] [phone] documented in this encounter Visit Diagnoses Diagnosis Schizophrenia, unspecified (CMS/HCC V24, CMS/HCC V28) documented in this encounter Care Teams Ship Keeper Relationship Specialty Start Date End Date Qamar Chacon MD [address] [place] [address] Dr Preethi Steward [place] PCP - General Internal Medicine 07/14/24 documented as of this encounter
--- OUTSIDE RECORDS SUMMARY | 2025-03-22 05:44 | XMS_ITS | Encounter Summary ---
Author Organization [employer] [facility] Address [address] [place] [address] Care Team Providers Care Weighter Name Role Phone Qamar Chacon MD Primary Care Provider [phone] Encounter Details Date Type Department Care Team (Late st Contact Info) Description 03/17/2025 Lab Requisition [facility] Lab [address] [place] [address] Qamar Chacon MD [address] [place] [address] [address] [place], [place] Disorder of urea cycle metabolism, unspecified (CMS/HCC V24) Social History Tobacco Use Types Packs/Day Years [...] of urea cycle metabolism, unspecified (CMS/HCC V24) documented in this encounter Results * Basic metabolic panel (03/17/2025 6:41 AM EDT) Sodium 143 133 - 145 mmol/L LAB CHEMISTRY METHOD 03/17/2025 8:47 AM EDT [facility] Potassium 4.2 3.5 - 5.5 mmol/L LAB CHEMISTRY METHOD 03/17/2025 8:47 AM EDT [facility] Chloride 109 96 - 110 mmol/L LAB CHEMISTRY METHOD 03/17/2025 8:47 AM EDT [facility] CO2 31 21 - 32 mmol/L LAB [facility] Anion Gap 3 3 - 11 LAB CHEMISTRY METHOD 03/17/2025 8:47 AM [facility] Glucose 88 70 - 100 mg/dL LAB CHEMISTRY METHOD 03/17/2025 8:47 AM [facility] BUN 12 5 - 25 mg/dL LAB CHEMISTRY METHOD 03/17/2025 8:47 AM [facility] Creatinine 0.84 0.70 - 1.30 mg/dL LAB CHEMISTRY METHOD 03/17/2025 8:47 AM [facility] eGFR 100 >=60 mL/min/1. 73m2 LAB CHEMISTRY METHOD 03/17/2025 8:47 AM [facility] Comment:Calculation based on the Chronic Kidney Disease Epidemiology Collaboration (CKD-EPI) equation refit without adjustment for race. BUN/Creatinine Ratio 14.3 LAB CHEMISTRY METHOD 03/17/2025 8:47 AM [facility] Calcium 9.4 8.5 - 10.5 mg/dL LAB CHEMISTRY METHOD 03/17/2025 8:47 AM [facility] Blood Venous blood specimen / Unknown 03/17/2025 6:41 AM EDT 03/17/2025 7:49 AM EDT us Qamar Chacon MD LAB BLOOD ORDERABLES Final Resul t [facility] [address] [place] [address], documented in this encounter Visit Diagnoses Diagnosis Disorder of urea cycle metabolism, unspecified (CMS/HCC V24) documented in this encounter Care Teams Weighter Relationship Specialty Start Date End Date Qamar Chacon MD [address] [place] [address] Dr Oro [facility] [place] PCP - General Internal Medicine 07/14/24 documented as of this encounter
--- OUTSIDE RECORDS SUMMARY | 2025-03-22 05:44 | XMS_ITS | Encounter Summary ---
Author Organization [employer] [facility] Address [address] [place] [address] Care Team Providers Care Cryptologic Support Specialist Name Role Phone Qamar Chacon MD Primary Care Provider [phone] Encounter Details Date Type Department Care Team (Late st Contact Info) Description 08/05/[address] [facility] - Main Lab [address] [place] [address] Qamar Chacon MD [address] [place] [address] [address] [place], [place] Encounter for screening for other metabolic disorders; Disorder of urea cycle metabolism, unspecified (CMS/HCC [...] Procedure Name Priority Date/Time Associated Diagnosis Comments AMMONIA Routine 08/05/2024 7:01 AM EST Encounter for screening for other metabolic disorders Disorder of urea cycle metabolism, unspecified (CMS/HCC) COMPREHENSIVE METABOLIC PANEL Routine 08/05/2024 7:01 AM EST Encounter for screening for other metabolic disorders Disorder of urea cycle metabolism, unspecified (CMS/HCC) documented in this encounter Results * Comprehensive metabolic panel (08/05/2024 7:01 AM EST) Sodium 145 133 - 145 mmol/L LAB CHEMISTRY METHOD 08/05/2024 8:[address] [facility] Potassium 4.9 3.5 - 5.5 mmol/L LAB CHEMISTRY METHOD 08/05/2024 8:[address] [facility] Chloride 109 96 - 110 mmol/L LAB CHEMISTRY METHOD 08/05/2024 8:[address] [facility] CO2 30 21 - 32 mmol/L LAB CHEMISTRY METHOD 08/05/2024 8:[address] [facility] Anion Gap 6 3 - 11 LAB CHEMISTRY METHOD 08/05/2024 8:[address] [facility] Glucose 89 70 - 100 mg/dL LAB CHEMISTRY METHOD 08/05/2024 8:[address] [facility] BUN 14 5 - 25 mg/dL LAB CHEMISTRY METHOD 08/05/2024 8:[address] [facility] Creatinine 0.92 0.70 - 1.30 mg/dL LAB CHEMISTRY METHOD 08/05/2024 8:[address] [facility] eGFR 96 >=60 mL/min/1. 73m2 LAB CHEMISTRY METHOD 08/05/2024 8:[address] [facility] Comment:Calculation based on the Chronic Kidney Disease Epidemiology Collaboration (CKD-EPI) equation refit without adjustment for race. BUN/Creatinine Ratio 15.2 LAB CHEMISTRY METHOD 08/05/2024 8:[address] [facility] Calcium 9.6 8.5 - 10.5 mg/dL LAB CHEMISTRY METHOD 08/05/2024 8:[address] [facility] AST (SGOT) 24 10 - 42 unit/L LAB CHEMISTRY METHOD 08/05/2024 8:[address] [facility] ALT (SGPT) 24 10 - 60 unit/L LAB CHEMISTRY METHOD 08/05/2024 8:[address] [facility] Alkaline Phosphatase 68 42 - 121 unit/L LAB CHEMISTRY METHOD 08/05/2024 8:[address] [facility] Total Protein 6.5 6.0 - 8.0 g/dL LAB CHEMISTRY METHOD 08/05/2024 8:[address] [facility] Albumin 3.2 3.2 - 5.0 g/dL LAB CHEMISTRY METHOD 08/05/2024 8:[address] [facility] Total Bilirubin 0.3 0.0 - 1.4 mg/dL LAB CHEMISTRY METHOD 08/05/2024 8:[address] [facility] Blood Venous blood specimen / Unknown 08/05/2024 7:01 AM EST 08/05/2024 8:07 AM EST us Qamar Chacon MD LAB BLOOD ORDERABLES Final Resul t Performing Organization Address City/[facility]/ZIP Co de Phone Number [facility] [address] [place] [address], [place] [phone] * Ammonia (08/05/2024 7:01 AM EST) Ammonia 28 11 - 35 mcmol/L LAB CHEMISTRY METHOD 08/05/2024 8:[address] [facility] Blood Venous blood specimen / Unknown 08/05/2024 7:01 AM EST 08/05/2024 8:07 AM EST us Qamar Chacon MD LAB BLOOD ORDERABLES Final Resul t Performing Organization Address [facility]/ZIP Co de Phone Number [facility] [address] [place] [address], [place] [phone] documented in this encounter Visit Diagnoses Diagnosis Encounter for screening for other metabolic disorders Disorder of urea cycle metabolism, unspecified (CMS/HCC V24) documented in this encounter Care Teams Cryptologic Support Specialist Relationship Specialty Start Date End Date Qamar Chacon MD [address] [place] PCP - General Internal Medicine 07/14/24 documented as of this encounter
--- OUTSIDE RECORDS SUMMARY | 2025-03-22 05:44 | XMS_ITS | Encounter Summary ---
Author Organization [facility] Address [address] [place] [address] Care Team Providers Care Wellness Nurse Name Role Phone Qamar Chacon MD Primary Care Provider [phone] Encounter Details Date Type Department Care Team (Late st Contact Info) Description 10/22/2024 Lab Requisition [facility] Main Lab [address] [place] [address] Qamar Chacon MD [address] [place] [address] [address] [place], [place] Benign prostatic hyperplasia with lower urinary [...] LAB CHEMISTRY METHOD 10/22/2024 9:24 AM EDT [facility] Blood Venous blood specimen / Unknown 10/22/2024 6:41 AM EDT 10/22/2024 7:13 AM EDT Narrative [facility] - 10/22/2024 9:24 AM EDT The Siemens Advia Centaur Chemiluminescent Immunoassay is used. Results obtained with different assay methods or kits cannot be used interchangeably. Results cannot be interpreted as absolute evidence of the presence or absence of malignant disease. us Qamar Chacon MD LAB BLOOD ORDERABLES Final Resul t [facility] [address] [place] [address], documented in this encounter Visit Diagnoses Diagnosis Benign prostatic hyperplasia with lower urinary tract symptoms documented in this encounter Care Teams Wellness Nurse Relationship Specialty Start Date End Date Qamar Chacon MD [address] [place] [address] Dr [address] [place], [place] PCP - General Internal Medicine 07/14/24 documented as of this encounter
--- OUTSIDE RECORDS SUMMARY | 2025-03-22 05:44 | XMS_ITS | Encounter Summary ---
Author Organization [employer] Address [address] [place] [address] Care Team Providers Care Certified Bench Jeweler Technician Name Role Phone Qamar Chaocn MD Primary Care Provider [phone] Encounter Details Date Type Department Care Team (Late st Contact Info) Description 05/27/2024 Lab Requisition [facility] - Main Lab [address] [facility] [place] [address] Qamar Chacon MD [address] [place] [address] [address] [place] Schizophrenia, unspecified (CMS/HCC V24, CMS/HCC V28); Disorder of urea [...] Procedure Name Priority Date/Time Associated Diagnosis Comments COMPLETE BLOOD COUNT Routine 05/27/2024 6:35 AM EST Schizophrenia, unspecified (CMS/HCC) Disorder of urea cycle metabolism, unspecified (CMS/HCC) AMMONIA Routine 05/27/2024 6:35 AM EST Schizophrenia, unspecified (CMS/HCC) Disorder of urea cycle metabolism, unspecified (CMS/HCC) COMPREHENSIVE METABOLIC PANEL Routine 05/27/2024 6:35 AM EST Schizophrenia, unspecified (CMS/HCC) Disorder of urea cycle metabolism, unspecified (CMS/HCC) documented in this encounter Results * (ABNORMAL) Ammonia (05/27/2024 6:35 AM EST) Ammonia 46(H) 11 - 35 mcmol/L LAB CHEMISTRY METHOD 05/27/2024 7:[address] [facility] Blood Venous blood specimen / Unknown 05/27/2024 6:35 AM EST 05/27/2024 6:59 AM EST us Qamar Chacon MD LAB BLOOD ORDERABLES Final Resul t [facility] [address] [place] [address], [place] [phone] * (ABNORMAL) Comprehensive metabolic panel (05/27/2024 6:35 AM EST) Sodium 143 133 - 145 mmol/L LAB CHEMISTRY METHOD 05/27/2024 7:[address] [facility] Potassium 4.2 3.5 - 5.5 mmol/L LAB CHEMISTRY METHOD 05/27/2024 7:[address] [facility] Chloride 112(H) 96 - 110 mmol/L LAB CHEMISTRY METHOD 05/27/2024 7:[address] [facility] CO2 26 21 - 32 mmol/L LAB CHEMISTRY METHOD 05/27/2024 7:[address] [facility] Anion Gap 5 3 - 11 LAB CHEMISTRY METHOD 05/27/2024 7:[address] [facility] Glucose 86 70 - 100 mg/dL LAB CHEMISTRY METHOD 05/27/2024 7:[address] [facility] BUN 18 5 - 25 mg/dL LAB CHEMISTRY METHOD 05/27/2024 7:[address] [facility] Creatinine 0.95 0.70 - 1.30 mg/dL LAB CHEMISTRY METHOD 05/27/2024 7:[address] [facility] eGFR 93 >=60 mL/min/1. 73m2 LAB CHEMISTRY METHOD 05/27/2024 7:[address] [facility] Comment:Calculation based on the Chronic Kidney Disease Epidemiology Collaboration (CKD-EPI) equation refit without adjustment for race. BUN/Creatinine Ratio 18.9 LAB CHEMISTRY METHOD 05/27/2024 7:[address] [facility] Calcium 9.2 8.5 - 10.5 mg/dL LAB CHEMISTRY METHOD 05/27/2024 7:[address] [facility] AST (SGOT) 21 10 - 42 unit/L LAB CHEMISTRY METHOD 05/27/2024 7:[address] [facility] ALT (SGPT) 21 10 - 60 unit/L LAB CHEMISTRY METHOD 05/27/2024 7:[address] [facility] Alkaline Phosphatase 65 42 - 121 unit/L LAB CHEMISTRY METHOD 05/27/2024 7:[address] [facility] Total Protein 6.0 6.0 - 8.0 g/dL LAB CHEMISTRY METHOD 05/27/2024 7:[address] [facility] Albumin 2.9(L) 3.2 - 5.0 g/dL LAB CHEMISTRY METHOD 05/27/2024 7:[address] [facility] Total Bilirubin 0.4 0.0 - 1.4 mg/dL LAB CHEMISTRY METHOD 05/27/2024 7:[address] [facility] Blood Venous blood specimen / Unknown 05/27/2024 6:35 AM EST 05/27/2024 6:59 AM EST us Qamar Chacon MD LAB BLOOD ORDERABLES Final Resul t [facility] [address] [place] [address], * (ABNORMAL) Complete blood count (05/27/2024 6:35 AM EST) WBC 7.7 4.8 - 10.8 K/mcL LAB HEMETOLOGY METHOD 05/27/2024 7:[address] [facility] RBC 4.00(L) 4.50 - 5.50 M/mcL LAB HEMETOLOGY METHOD 05/27/2024 7:[address] [facility] Hemoglobin 11.6(L) 13.5 - 17.5 g/dL LAB HEMETOLOGY METHOD 05/27/2024 7:[address] [facility] Hematocrit 36.8(L) 42.0 - 54.0 % LAB HEMETOLOGY METHOD 05/27/2024 7:[address] [facility] MCV 91.1 79.0 - 98.0 FL LAB HEMETOLOGY METHOD 05/27/2024 7:[address] [facility] MCH 28.7 27.0 - 32.0 pcg LAB HEMETOLOGY METHOD 05/27/2024 7:[address] [facility] MCHC 31.5(L) 32.0 - 37.0 g/dL LAB HEMETOLOGY METHOD 05/27/2024 7:[address] [facility] RDW 15.1(H) 11.0 - 15.0 % LAB HEMETOLOGY METHOD 05/27/2024 7:[address] [facility] Platelets 116(L) 130 - 400 K/mcL LAB HEMETOLOGY METHOD 05/27/2024 7:[address] [facility] MPV 11.1(H) 7.0 - 11.0 FL LAB HEMETOLOGY METHOD 05/27/2024 7:[address] [facility] NRBC 0.0 <1.0 % LAB HEMETOLOGY METHOD 05/27/2024 7:[address] [facility] NRBC Absolute 0.00 <0.10 K/mcL LAB HEMETOLOGY METHOD 05/27/2024 7:[address] [facility] Blood Venous blood specimen / Unknown 05/27/2024 6:35 AM EST 05/27/2024 6:59 AM EST Qamar Chacon MD LAB BLOOD ORDERABLES Final Resul t [facility] [address] [place] [address], documented in this encounter Visit Diagnoses Diagnosis Schizophrenia, unspecified (CMS/HCC V24, CMS/HCC V28) Disorder of urea cycle metabolism, unspecified (CMS/HCC V24) documented in this encounter Care Teams Certified Bench Jeweler Technician Relationship Specialty Start Date End Date Qamar Chacon MD [address] [place] [address] Dr [address] [place], [place] PCP - General Internal Medicine 07/14/24 documented as of this encounter
--- OUTSIDE RECORDS SUMMARY | 2025-03-22 05:44 | XMS_ITS | Encounter Summary ---
Author Organization [employer] Address [address] [place] [address] Care Team Providers Care Record Changer Tester Name Role Phone Qamar Chacon MD Primary Care Provider [phone] Encounter Details Date Type Department Care Team (Late st Contact Info) Description 03/11/2025 Lab Requisition [facility] - Main Lab [address] [facility] [place] [address] Qamar Chacon MD [address] [place] [address] [address] [place] Disorder of urea cycle metabolism, unspecified (CMS/HCC V24); Unspecified convulsions (CMS/HCC V24, CMS/HCC V28) Social History Tobacco [...] Procedure Name Priority Date/Time Associated Diagnosis Comments VALPROIC ACID LEVEL, TOTAL Routine 03/11/2025 6:46 AM EDT Disorder of urea cycle metabolism, unspecified (CMS/HCC V24) Unspecified convulsions (CMS/HCC V24, CMS/HCC V28) COMPREHENSIVE METABOLIC PANEL Routine 03/11/2025 6:46 AM EDT Disorder of urea cycle metabolism, unspecified (CMS/HCC V24) Unspecified convulsions (CMS/HCC V24, CMS/HCC V28) documented in this encounter Results * Valproic acid level, total (03/11/2025 6:46 AM EDT) Valproic Acid, Total 56 50 - 100 mcg/mL LAB CHEMISTRY METHOD 03/11/2025 8:23 AM EDT [facility] Blood Venous blood specimen / Unknown 03/11/2025 6:46 AM EDT 03/11/2025 7:24 AM EDT us Qamar Chacon MD LAB BLOOD ORDERABLES Final Resul t [facility] [address] [place] [address], * (ABNORMAL) Comprehensive metabolic panel (03/11/2025 6:46 AM EDT) Sodium 146(H) 133 - 145 mmol/L LAB CHEMISTRY METHOD 03/11/2025 8:35 AM [facility] Potassium 4.0 3.5 - 5.5 mmol/L LAB CHEMISTRY METHOD 03/11/2025 8:35 AM [facility] Chloride 115(H) 96 - 110 mmol/L LAB CHEMISTRY METHOD 03/11/2025 8:35 AM [facility] CO2 29 21 - 32 mmol/L LAB CHEMISTRY METHOD 03/11/2025 8:35 AM [facility] Anion Gap 2(L) 3 - 11 LAB CHEMISTRY METHOD 03/11/2025 8:35 AM [facility] Glucose 98 70 - 100 mg/dL LAB CHEMISTRY METHOD 03/11/2025 8:35 AM [facility] BUN 8 5 - 25 mg/dL LAB CHEMISTRY METHOD 03/11/2025 8:35 AM [facility] Creatinine 0.76 0.70 - 1.30 mg/dL LAB CHEMISTRY METHOD 03/11/2025 8:35 AM [facility] eGFR 104 >=60 mL/min/1. 73m2 LAB CHEMISTRY METHOD 03/11/2025 8:35 AM [facility] Comment:Calculation based on the Chronic Kidney Disease Epidemiology Collaboration (CKD-EPI) equation refit without adjustment for race. BUN/Creatinine Ratio .5 LAB CHEMISTRY METHOD 03/11/2025 8:35 AM [facility] Calcium 8.9 8.5 - 10.5 mg/dL LAB CHEMISTRY METHOD 03/11/2025 8:35 AM [facility] AST (SGOT) 22 10 - 42 unit/L LAB CHEMISTRY METHOD 03/11/2025 8:35 AM [facility] ALT (SGPT) 21 10 - 60 unit/L LAB CHEMISTRY METHOD 03/11/2025 8:35 AM [facility] Alkaline Phosphatase 76 42 - 121 unit/L LAB CHEMISTRY METHOD 03/11/2025 8:35 AM [facility] Total Protein 5.4(L) 6.0 - 8.0 g/dL LAB CHEMISTRY METHOD 03/11/2025 8:35 AM [facility] Albumin 2.5(L) 3.2 - 5.0 g/dL LAB CHEMISTRY METHOD 03/11/2025 8:35 AM [facility] Total Bilirubin 0.2 0.0 - 1.4 mg/dL LAB CHEMISTRY METHOD 03/11/2025 8:35 AM [facility] Blood Venous blood specimen / Unknown 03/11/2025 6:46 AM EDT 03/11/2025 7:24 AM EDT Qamar Chacon MD LAB BLOOD ORDERABLES Final Resul t [facility] [address] [place] [address], documented in this encounter Visit Diagnoses Diagnosis Disorder of urea cycle metabolism, unspecified (CMS/HCC V24) Unspecified convulsions (CMS/HCC V24, CMS/HCC V28) documented in this encounter Care Teams Record Changer Tester Relationship Specialty Start Date End Date Qamar Chacon MD [address] [place] [address] Dr Pre[address]i [facility] [place], [place] PCP - General Internal Medicine 07/14/24 documented as of this encounter
--- OUTSIDE RECORDS SUMMARY | 2025-03-22 05:44 | XMS_ITS | Encounter Summary ---
Author Organization [employer] Address [address] [place] [address] Care Team Providers Care Company Marker Name Role Phone Qamar Chacon MD Primary Care Provider Encounter Details Date Type Department Care Team (Late st Contact Info) Description 11/10/2024 Lab Requisition [facility] - Main Lab [address] [facility] [place] [address] Qamar Chacon MD [address] [place] [address] [address] [place] Disorder of urea cycle metabolism, unspecified (CMS/HCC [...] Associated Diagnosis Comments COMPLETE BLOOD COUNT Routine 11/10/2024 7:09 AM EDT Disorder of urea cycle metabolism, unspecified (CMS/HCC V24) Unspecified convulsions (CMS/HCC V24, CMS/HCC V28) AMMONIA Routine 11/10/2024 7:09 AM EDT Disorder of urea cycle metabolism, unspecified (CMS/HCC V24) Unspecified convulsions (CMS/HCC V24, CMS/HCC V28) COMPREHENSIVE METABOLIC PANEL Routine 11/10/2024 7:09 AM EDT Disorder of urea cycle metabolism, unspecified (CMS/HCC V24) Unspecified convulsions (CMS/HCC V24, CMS/HCC V28) documented in this encounter Results * Ammonia (11/10/2024 7:09 AM EDT) Ammonia 28 11 - 35 mcmol/L LAB CHEMISTRY METHOD 11/10/2024 7:59 AM [facility] Blood Venous blood specimen / Unknown 11/10/2024 7:09 AM EDT 11/10/2024 7:37 AM EDT Qamar Chacon MD LAB BLOOD ORDERABLES Final Resul t [facility] [address] [place] [address], [place] [phone] * Comprehensive metabolic panel (11/10/2024 7:09 AM EDT) [facility] Sodium 142 133 - 145 mmol/L LAB CHEMISTRY METHOD 11/10/2024 8:19 AM [facility] Potassium 3.8 3.5 - 5.5 mmol/L LAB CHEMISTRY METHOD 11/10/2024 8:19 AM [facility] Chloride 108 96 - 110 mmol/L LAB CHEMISTRY METHOD 11/10/2024 8:19 AM [facility] CO2 28 21 - 32 mmol/L LAB CHEMISTRY METHOD 11/10/2024 8:19 AM [facility] Anion Gap 6 3 - 11 LAB CHEMISTRY METHOD 11/10/2024 8:19 AM [facility] Glucose 87 70 - 100 mg/dL LAB CHEMISTRY METHOD 11/10/2024 8:19 AM [facility] BUN 17 5 - 25 mg/dL LAB CHEMISTRY METHOD 11/10/2024 8:19 AM [facility] Creatinine 1.00 0.70 - 1.30 mg/dL LAB CHEMISTRY METHOD 11/10/2024 8:19 AM [facility] eGFR 87 >=60 mL/min/1. 73m2 LAB CHEMISTRY METHOD 11/10/2024 8:19 AM [facility] Comment:Calculation based on the Chronic Kidney Disease Epidemiology Collaboration (CKD-EPI) equation refit without adjustment for race. BUN/Creatinine Ratio 17.0 LAB CHEMISTRY METHOD 11/10/2024 8:19 AM [facility] Calcium 9.2 8.5 - 10.5 mg/dL LAB CHEMISTRY METHOD 11/10/2024 8:19 AM [facility] AST (SGOT) 19 10 - 42 unit/L LAB CHEMISTRY METHOD 11/10/2024 8:19 AM [facility] ALT (SGPT) 22 10 - 60 unit/L LAB CHEMISTRY METHOD 11/10/2024 8:19 AM [facility] Alkaline Phosphatase 70 42 - 121 unit/L LAB CHEMISTRY METHOD 11/10/2024 8:19 AM [facility] Total Protein 6.9 6.0 - 8.0 g/dL LAB CHEMISTRY METHOD 11/10/2024 8:19 AM [facility] Albumin 3.5 3.2 - 5.0 g/dL LAB CHEMISTRY METHOD 11/10/2024 8:19 AM [facility] Total Bilirubin 0.5 0.0 - 1.4 mg/dL LAB CHEMISTRY METHOD 11/10/2024 8:19 AM [facility] Blood Venous blood specimen / Unknown 11/10/2024 7:09 AM EDT 11/10/2024 7:37 AM EDT us Qamar Chacon MD LAB BLOOD ORDERABLES Final Resul t [facility] [address] [place] [address], * (ABNORMAL) Complete blood count (11/10/2024 7:09 AM EDT) WBC 8.5 4.8 - 10.8 K/[facility] LAB HEMETOLOGY METHOD 11/10/2024 7:48 AM [facility] RBC 4.50 4.50 - 5.50 M/mcL LAB HEMETOLOGY METHOD 11/10/2024 7:48 AM [facility] Hemoglobin 13.2(L) 13.5 - 17.5 g/dL LAB HEMETOLOGY METHOD 11/10/2024 7:48 AM [facility] Hematocrit 42.3 42.0 - 54.0 % LAB HEMETOLOGY METHOD 11/10/2024 7:48 AM [facility] MCV 93.2 79.0 - 98.0 FL LAB HEMETOLOGY METHOD 11/10/2024 7:48 AM [facility] MCH 29.1 27.0 - 32.0 pcg LAB HEMETOLOGY METHOD 11/10/2024 7:48 AM [facility] MCHC 31.2(L) 32.0 - 37.0 g/dL LAB HEMETOLOGY METHOD 11/10/2024 7:48 AM [facility] RDW 14.6 11.0 - 15.0 % LAB HEMETOLOGY METHOD 11/10/2024 7:48 AM [facility] Platelets 196 130 - 400 K/mcL LAB HEMETOLOGY METHOD 11/10/2024 7:48 AM [facility] MPV 10.1 7.0 - 11.0 FL LAB HEMETOLOGY METHOD 11/10/2024 7:48 AM [facility] NRBC 0.0 <1.0 % LAB HEMETOLOGY METHOD 11/10/2024 7:48 AM [facility] NRBC Absolute 0.00 <0.10 K/mcL LAB HEMETOLOGY METHOD 11/10/2024 7:48 AM [facility] Blood Venous blood specimen / Unknown 11/10/2024 7:09 AM EDT 11/10/2024 7:37 AM EDT Qamar Chacon MD LAB BLOOD ORDERABLES Final Resul t [facility] [address] [place] [address], documented in this encounter Visit Diagnoses Diagnosis Disorder of urea cycle metabolism, unspecified (CMS/HCC V24) Unspecified convulsions (CMS/HCC V24, CMS/HCC V28) documented in this encounter Care Teams Company Marker Relationship Specialty Start Date End Date Qamar Chacon MD [address] [place] [address] [address] [place], [place] PCP - General Internal Medicine 07/14/24 documented as of this encounter
--- OUTSIDE RECORDS SUMMARY | 2025-03-22 05:44 | XMS_ITS | Encounter Summary ---
Author Organization [employer] Address [address] [place] [address] Care Team Providers Care Diesel Dragline Operator Name Role Phone Qamar Chacon MD Primary Care Provider [phone] Encounter Details Date Type Department Care Team (Late st Contact Info) Description 01/19/2025 Lab Requisition [facility] - Main Lab 299 [facility] [place] [address] Qamar Chacon MD [address] [place] [address] [address] [place], [place] Schizophrenia, unspecified (CMS/HCC V24, CMS/HCC V28); Unspecified [...] Procedure Name Priority Date/Time Associated Diagnosis Comments CBC WITH AUTO DIFFERENTIAL Routine 01/19/2025 6:44 AM EDT Schizophrenia, unspecified (CMS/HCC V24, CMS/HCC V28) Unspecified convulsions (CMS/HCC V24, CMS/HCC V28) Disorder of urea cycle metabolism, unspecified (CMS/HCC V24) RED - PLAIN Routine 01/19/2025 6:44 AM [...] V24) documented in this encounter Results * Red tube (01/19/2025 6:44 AM EDT) Extra Tube Hold for add-ons. 01/19/2025 9:01 AM EDT [facility] Comment:Auto resulted. Blood Venous blood specimen / Unknown 01/19/2025 6:44 AM EDT 01/19/2025 7:42 AM EDT Qamar Chacon MD LAB BLOOD ORDERABLES Final Resul t [facility] [address] [place] [address], * (ABNORMAL) CBC auto differential (01/19/2025 6:44 AM EDT) WBC 11.3(H) 4.8 - 10.8 K/mcL LAB HEMETOLOGY METHOD 01/19/2025 8:14 AM EDT [facility] RBC 4.10(L) 4.50 - 5.50 M/mcL LAB HEMETOLOGY METHOD 01/19/2025 8:14 AM EDT [facility] Hemoglobin 11.8(L) 13.5 - 17.5 g/dL LAB HEMETOLOGY METHOD 01/19/2025 8:14 AM EDT [facility] Hematocrit 37.5(L) 42.0 - 54.0 % LAB HEMETOLOGY METHOD 01/19/2025 8:14 AM EDT [facility] MCV 91.5 79.0 - 98.0 FL LAB HEMETOLOGY METHOD 01/19/2025 8:14 AM EDT [facility] MCH 28.8 27.0 - 32.0 pcg LAB HEMETOLOGY METHOD 01/19/2025 8:14 AM EDT [facility] MCHC 31.5(L) 32.0 - 37.0 g/dL LAB HEMETOLOGY METHOD 01/19/2025 8:14 AM EDT [facility] RDW 14.6 11.0 - 15.0 % LAB HEMETOLOGY METHOD 01/19/2025 8:14 AM EDT [facility] Platelets 220 130 - 400 K/mcL LAB HEMETOLOGY METHOD 01/19/2025 8:14 AM EDT [facility] MPV 10.9 7.0 - 11.0 FL LAB HEMETOLOGY METHOD [facility]/19[facility]2025 [facility] NRBC 0.0 <1.0 % [...] LAB Lymphocytes Absolute 1.68 1.00 - 5.00 K/mcL LAB HEMETOLOGY METHOD 01/19/2025 8:14 AM [facility] Monocytes Absolute 0.99 0.20 - 1.00 K/mcL LAB HEMETOLOGY METHOD 01/19/2025 8:14 AM [facility] Eosinophils Absolute 0.06 0.00 - 0.50 K/mcL LAB HEMETOLOGY METHOD 01/19/2025 8:14 AM [facility] Basophils Absolute 0.04 0.00 - 0.20 K/mcL LAB HEMETOLOGY METHOD 01/19/2025 8:14 AM EDT [facility] Immature Granulocytes Absolute 0.05(H) 0.00 - 0.03 K/mcL LAB HEMETOLOGY METHOD 01/19/2025 8:14 AM EDT [facility] Blood Venous blood specimen / Unknown 01/19/2025 6:44 AM EDT 01/19/2025 7:42 AM EDT us Qamar Chacon MD LAB BLOOD ORDERABLES Final Resul t Performing Organization Address [facility] Co de Phone Number [facility] [address] [place] [address], [place] [phone] * [place] level (01/19/2025 6:44 AM EDT) [place] Level 0.6 0.6 - 1.2 mEq/L LAB CHEMISTRY METHOD 01/19/2025 8:37 AM EDT [facility] Blood Venous blood specimen / Unknown 01/19/2025 6:44 AM EDT 01/19/2025 7:42 AM EDT us Qamar Chacon MD LAB BLOOD ORDERABLES Final Resul t Performing Organization Address [facility] Co de Phone Number [facility] [address] [place] [address], [place] [phone] * Valproic acid level, total (01/19/2025 6:44 AM EDT) Valproic Acid, Total 56 50 - 100 mcg/mL LAB CHEMISTRY METHOD 01/19/2025 8:34 AM EDT [facility] Blood Venous blood specimen / Unknown 01/19/2025 6:44 AM EDT 01/19/2025 7:42 AM EDT us Qamar Chacon MD LAB BLOOD ORDERABLES Final Resul t Performing Organization Address City/[facility]/ZIP Co de Phone Number [facility] [address] [place] [address], [place] [phone] * Ammonia (01/19/2025 6:44 AM EDT) [facility] Ammonia 22 11 - 35 mcmol/L LAB CHEMISTRY METHOD 01/19/2025 8:02 AM EDT [facility] Blood Venous blood specimen / Unknown 01/19/2025 6:44 AM EDT 01/19/2025 7:42 AM EDT Qamar Chacon MD LAB BLOOD ORDERABLES Final Resul t Performing Organization Address [facility]/ZIP Co de Phone Number [facility] [address] [place] [address], [place] [phone] * (ABNORMAL) Comprehensive metabolic panel (01/19/2025 6:44 AM EDT) [facility] Sodium 144 133 - 145 mmol/L LAB CHEMISTRY METHOD 01/19/2025 8:35 AM [facility] Potassium 4.0 3.5 - 5.5 mmol/L LAB CHEMISTRY METHOD 01/19/2025 8:35 AM [facility] Chloride 113(H) 96 - 110 mmol/L LAB CHEMISTRY METHOD 01/19/2025 8:35 AM [facility] CO2 29 21 - 32 mmol/L LAB CHEMISTRY METHOD 01/19/2025 8:35 AM [facility] Anion Gap 2(L) 3 - 11 LAB CHEMISTRY METHOD 01/19/2025 8:35 AM [facility] Glucose 88 70 - 100 mg/dL LAB CHEMISTRY METHOD 01/19/2025 8:35 AM [facility] BUN 13 5 - 25 mg/dL LAB CHEMISTRY METHOD 01/19/2025 8:35 AM [facility] Creatinine 0.77 0.70 - 1.30 mg/dL LAB CHEMISTRY METHOD 01/19/2025 8:35 AM [facility] eGFR 103 >=60 mL/min/1. 73m2 LAB CHEMISTRY METHOD 01/19/2025 8:35 AM [facility] Comment:Calculation based on the Chronic Kidney Disease Epidemiology Collaboration (CKD-EPI) equation refit without adjustment for race. BUN/Creatinine Ratio 16.9 LAB CHEMISTRY METHOD 01/19/2025 8:35 AM [facility] Calcium 9.3 8.5 - 10.5 mg/dL LAB CHEMISTRY METHOD 01/19/2025 8:35 AM [facility] AST (SGOT) 9(L) 10 - 42 unit/L LAB CHEMISTRY METHOD 01/19/2025 8:35 AM [facility] ALT (SGPT) 19 10 - 60 unit/L LAB CHEMISTRY METHOD 01/19/2025 8:35 AM [facility] Alkaline Phosphatase 64 42 - 121 unit/L LAB CHEMISTRY METHOD 01/19/2025 8:35 AM [facility] Total Protein 5.7(L) 6.0 - 8.0 g/dL LAB CHEMISTRY METHOD 01/19/2025 8:35 AM [facility] Albumin 2.7(L) 3.2 - 5.0 g/dL LAB CHEMISTRY METHOD 01/19/2025 8:35 AM [facility] Total Bilirubin 0.5 0.0 - 1.4 mg/dL LAB CHEMISTRY METHOD 01/19/2025 8:35 AM [facility] Blood Venous blood specimen / Unknown 01/19/2025 6:44 AM EDT 01/19/2025 7:42 AM EDT us Qamar Chacon MD LAB BLOOD ORDERABLES Final Resul t [facility] [address] [place] [address], documented in this encounter Visit Diagnoses Diagnosis Schizophrenia, unspecified (CMS/HCC V24, CMS/HCC V28) Unspecified convulsions (CMS/HCC V24, CMS/HCC V28) Disorder of urea cycle metabolism, unspecified (CMS/HCC V24) documented in this encounter Care Teams Diesel Dragline Operator Relationship Specialty Start Date End Date Qamar Chacon MD [address] [place] [address] Dr [address] [place], [place] PCP - General Internal Medicine 07/14/24 documented as of this encounter
--- OUTSIDE RECORDS SUMMARY | 2025-03-22 05:44 | XMS_ITS | Encounter Summary ---
Author Organization [employer] [facility] Address [address] [place] [address] Care Team Providers Care Configuration Management Administrator Name Role Phone Qamar Chacon MD Primary Care Provider [phone] Encounter Details Date Type Department Care Team (Late st Contact Info) Description 02/03/[address] [facility] - Main Lab [address] [place] [address] Qamar Chacon MD [address] [place] [address] [address] [place], [place] Encounter for other specified special examinations Social History Tobacco Use Types Packs/Day Years [...] Associated Diagnosis Comments COMPLETE BLOOD COUNT Routine 02/03/2025 7:09 AM EDT Encounter for other specified special examinations HEPATIC FUNCTION PANEL Routine 02/03/2025 7:09 AM EDT Encounter for other specified special examinations BASIC METABOLIC PANEL Routine 02/03/2025 7:09 AM EDT Encounter for other specified special examinations documented in this encounter Results * (ABNORMAL) Complete blood count (02/03/2025 7:09 AM EDT) WBC 9.9 4.8 - 10.8 K/[facility] LAB HEMETOLOGY METHOD 02/03/2025 8:00 AM EDT [facility] RBC 4.60 4.50 - 5.50 M/mcL LAB HEMETOLOGY METHOD 02/03/2025 8:00 AM EDT [facility] Hemoglobin 12.9(L) 13.5 - 17.5 g/dL LAB HEMETOLOGY METHOD 02/03/2025 8:00 AM [facility] Hematocrit 42.4 42.0 - 54.0 % LAB HEMETOLOGY METHOD 02/03/2025 8:00 AM [facility] MCV 92.8 79.0 - 98.0 FL LAB HEMETOLOGY METHOD 02/03/2025 8:00 AM [facility] MCH 28.2 27.0 - 32.0 pcg LAB HEMETOLOGY METHOD 02/03/2025 8:00 AM [facility] MCHC 30.4(L) 32.0 - 37.0 g/dL LAB HEMETOLOGY METHOD 02/03/2025 8:00 AM [facility] RDW 15.1(H) 11.0 - 15.0 % LAB HEMETOLOGY METHOD 02/03/2025 8:00 AM [facility] Platelets 198 130 - 400 K/mcL LAB HEMETOLOGY METHOD 02/03/2025 8:00 AM [facility] MPV 11.1(H) 7.0 - 11.0 FL LAB HEMETOLOGY METHOD 02/03/2025 8:00 AM [facility] NRBC 0.0 <1.0 % LAB HEMETOLOGY METHOD 02/03/2025 8:00 AM [facility] NRBC Absolute 0.00 <0.10 K/mcL LAB HEMETOLOGY METHOD 02/03/2025 8:00 AM [facility] Blood Venous blood specimen / Unknown 02/03/2025 7:09 AM EDT 02/03/2025 7:48 AM EDT us Qamar Chacon MD LAB BLOOD ORDERABLES Final Resul t [facility] [address] [place] [address], [place] [phone] * (ABNORMAL) Basic metabolic panel (02/03/2025 7:09 AM EDT) Sodium 142 133 - 145 mmol/L LAB CHEMISTRY METHOD 02/03/2025 9:00 AM [facility] Potassium 4.5 3.5 - 5.5 mmol/L LAB CHEMISTRY METHOD 02/03/2025 9:00 AM [facility] Chloride 109 96 - 110 mmol/L LAB CHEMISTRY METHOD 02/03/2025 9:00 AM [facility] CO2 31 21 - 32 mmol/L LAB CHEMISTRY METHOD 02/03/2025 9:00 AM [facility] Anion Gap 2(L) 3 - 11 LAB CHEMISTRY METHOD 02/03/2025 9:00 AM [facility] Glucose 79 70 - 100 mg/dL LAB CHEMISTRY METHOD 02/03/2025 9:00 AM [facility] BUN 11 5 - 25 mg/dL LAB CHEMISTRY METHOD 02/03/2025 9:00 AM [facility] Creatinine 0.83 0.70 - 1.30 mg/dL LAB CHEMISTRY METHOD 02/03/2025 9:00 AM [facility] eGFR 101 >=60 mL/min/1. 73m2 LAB CHEMISTRY METHOD 02/03/2025 9:00 AM [facility] Comment:Calculation based on the Chronic Kidney Disease Epidemiology Collaboration (CKD-EPI) equation refit without adjustment for race. BUN/Creatinine Ratio 13.3 LAB CHEMISTRY METHOD 02/03/2025 9:00 AM [facility] Calcium 9.3 8.5 - 10.5 mg/dL LAB CHEMISTRY METHOD 02/03/2025 9:00 AM [facility] Blood Venous blood specimen / Unknown 02/03/2025 7:09 AM EDT 02/03/2025 7:48 AM EDT us Qamar Chacon MD LAB BLOOD ORDERABLES Final Resul t [facility] [address] [place] [address], [place] [phone] * (ABNORMAL) Hepatic function panel (02/03/2025 7:09 AM EDT) Pathologist [facility] Total Protein 6.3 6.0 - 8.0 g/dL LAB CHEMISTRY METHOD 02/03/2025 8:35 AM EDT [facility] Albumin 3.0(L) 3.2 - 5.0 g/dL LAB CHEMISTRY METHOD 02/03/2025 8:35 AM EDT [facility] Total Bilirubin 0.3 0.0 - 1.4 mg/dL LAB CHEMISTRY METHOD 02/03/2025 8:35 AM T [facility] Bilirubin, Direct <0.1 0.0 - 0.3 mg/dL LAB CHEMISTRY METHOD 02/03/2025 8:35 AM T [facility] Bilirubin, Indirect LAB CHEMISTRY METHOD 02/03/2025 8:35 AM T [facility] Comment:Unable to calculate Indirect Bilirubin. ALT (SGPT) 14 10 - 60 unit/L LAB CHEMISTRY METHOD 02/03/2025 8:35 AM EDT [facility] AST (SGOT) 13 10 - 42 unit/L LAB CHEMISTRY METHOD 02/03/2025 8:35 AM T [facility] Alkaline Phosphatase 74 42 - 121 unit/L LAB CHEMISTRY METHOD 02/03/2025 8:35 AM [facility] Blood Venous blood specimen / Unknown 02/03/2025 7:09 AM EDT 02/03/2025 7:48 AM EDT us Qamar Chacon MD LAB BLOOD ORDERABLES Final Resul t [facility] ([facility]) [facility] [address] [place] [address], documented in this encounter Visit Diagnoses Diagnosis Encounter for other specified special examinations documented in this encounter Care Teams Configuration Management Administrator Relationship Specialty Start Date End Date Qamar Chacon MD [address] [place] [address] Dr [address] [place], [place] PCP - General Internal Medicine 07/14/24 documented as of this encounter
--- OUTSIDE RECORDS SUMMARY | 2025-03-22 05:44 | XMS_ITS | Encounter Summary ---
Author Organization [employer] Address [address] [place] [address] Care Team Providers Care Laborer Dairy Farm Name Role Phone Qamar Chacon MD Primary Care Provider [phone] Encounter Details Date Type Department Care Team (Late st Contact Info) Description 12/02/2024 Lab Requisition [facility] - Main Lab [address] [place] [address] Qamar Chacon MD [address] [place] [address] [address] [place], [place] Schizophrenia, unspecified (CMS/HCC V24, CMS/HCC V28) [...] Associated Diagnosis Comments COMPLETE BLOOD COUNT Routine 12/02/2024 6:58 AM EDT Schizophrenia, unspecified (CMS/HCC V24, CMS/HCC V28) LITHIUM LEVEL Routine 12/02/2024 6:58 AM EDT Schizophrenia, unspecified (CMS/HCC V24, CMS/HCC V28) COMPREHENSIVE METABOLIC PANEL Routine 12/02/2024 6:58 AM EDT Schizophrenia, unspecified (CMS/HCC V24, CMS/HCC V28) documented in this encounter Results * [place] level (12/02/2024 6:58 AM EDT) [place] Level 0.6 0.6 - 1.2 mEq/L LAB CHEMISTRY METHOD 12/02/2024 8:27 AM EDT [facility] Blood Venous blood specimen / Unknown 12/02/2024 6:58 AM EDT 12/02/2024 7:41 AM EDT us Qamar Chacon MD LAB BLOOD ORDERABLES Final Resul t [facility] [address] [place] [address], * (ABNORMAL) Complete blood count (12/02/2024 6:58 AM EDT) [facility] WBC 10.5 4.8 - 10.8 K/mcL LAB HEMETOLOGY METHOD [facility]24 [facility] RBC 4.20(L) 4.50 - 5.50 M/mcL LAB HEMETOLOGY METHOD 12/02/2024 7[facility] Hemoglobin 12.2(L) 13.5 - 17.5 g/dL LAB HEMETOLOGY METHOD 12/02/2024 7:57 AM [facility] Hematocrit 38.6(L) 42.0 - 54.0 % LAB HEMETOLOGY METHOD 12/02/2024 7:57 AM [facility] MCV 91.9 79.0 - 98.0 FL LAB HEMETOLOGY METHOD 12/02/2024 7:57 [facility] MCH 29.0 27.0 - 32.0 pcg LAB HEMETOLOGY METHOD 12/02/2024 7:57 AM [facility] MCHC 31.6(L) 32.0 - 37.0 g/dL LAB HEMETOLOGY METHOD 12/02/2024 7:57 AM [facility] RDW 14.6 11.0 - 15.0 % LAB HEMETOLOGY METHOD 12/02/2024 7:57 AM [facility] Platelets 142 130 - 400 K/mcL LAB HEMETOLOGY METHOD 12/02/2024 7:57 AM EDT [facility] MPV 11.1(H) 7.0 - 11.0 FL LAB HEMETOLOGY METHOD 12/02/2024 7:57 AM EDT [facility] NRBC 0.0 <1.0 % LAB HEMETOLOGY METHOD 12/02/2024 7:57 AM EDT [facility] NRBC Absolute 0.00 <0.10 K/[facility] LAB HEMETOLOGY METHOD 12/02/2024 7:57 AM EDT [facility] Blood Venous blood specimen / Unknown 12/02/2024 6:58 AM EDT 12/02/2024 7:41 AM EDT us Qamar Chacon MD LAB BLOOD ORDERABLES Final Resul t [facility] [address] [place] [address], [place] [phone] * (ABNORMAL) Comprehensive metabolic panel (12/02/2024 6:58 AM EDT) Sodium 144 133 - 145 mmol/L LAB CHEMISTRY METHOD 12/02/2024 8:26 AM [facility] Potassium 4.0 3.5 - 5.5 mmol/L LAB CHEMISTRY METHOD 12/02/2024 8:26 AM [facility] Chloride 112(H) 96 - 110 mmol/L LAB CHEMISTRY METHOD 12/02/2024 8:26 AM [facility] CO2 28 21 - 32 mmol/L LAB CHEMISTRY METHOD 12/02/2024 8:26 AM [facility] Anion Gap 4 3 - 11 LAB CHEMISTRY METHOD 12/02/2024 8:26 AM [facility] Glucose 109(H) 70 - 100 mg/dL LAB CHEMISTRY METHOD 12/02/2024 8:26 AM [facility] BUN 17 5 - 25 mg/dL LAB CHEMISTRY METHOD 12/02/2024 8:26 AM [facility] Creatinine 1.00 0.70 - 1.30 mg/dL LAB CHEMISTRY METHOD 12/02/2024 8:26 AM [facility] eGFR 87 >=60 mL/min/1. 73m2 LAB CHEMISTRY METHOD 12/02/2024 8:26 AM [facility] Comment:Calculation based on the Chronic Kidney Disease Epidemiology Collaboration (CKD-EPI) equation refit without adjustment for race. BUN/Creatinine Ratio 17.0 LAB CHEMISTRY METHOD 12/02/2024 8:26 AM [facility] Calcium 9.3 8.5 - 10.5 mg/dL LAB CHEMISTRY METHOD 12/02/2024 8:26 AM [facility] AST (SGOT) 30 10 - 42 unit/L LAB CHEMISTRY METHOD 12/02/2024 8:26 AM [facility] ALT (SGPT) 22 10 - 60 unit/L LAB CHEMISTRY METHOD 12/02/2024 8:26 AM [facility] Alkaline Phosphatase 64 42 - 121 unit/L LAB CHEMISTRY METHOD 12/02/2024 8:26 AM [facility] Total Protein 6.5 6.0 - 8.0 g/dL LAB CHEMISTRY METHOD 12/02/2024 8:26 AM [facility] Albumin 3.1(L) 3.2 - 5.0 g/dL LAB CHEMISTRY METHOD 12/02/2024 8:26 AM [facility] Total Bilirubin 0.7 0.0 - 1.4 mg/dL LAB CHEMISTRY METHOD 12/02/2024 8:26 AM [facility] Blood Venous blood specimen / Unknown 12/02/2024 6:58 AM EDT 12/02/2024 7:41 AM EDT us Qamar Chacon MD LAB BLOOD ORDERABLES Final Resul t [facility] [address] [place] [address], documented in this encounter Visit Diagnoses Diagnosis Schizophrenia, unspecified (CMS/HCC V24, CMS/HCC V28) documented in this encounter Care Teams Laborer Dairy Farm Relationship Specialty Start Date End Date Qamar Chacon MD [address] [place] [address] Dr [address] [place], [place] PCP - General Internal Medicine 07/14/24 documented as of this encounter
--- OUTSIDE RECORDS SUMMARY | 2025-03-22 05:44 | XMS_ITS | Encounter Summary ---
Author Organization [employer] Address [address] [place] [address] Care Team Providers Care Electrical Maintenance Man Name Role Phone Qamar Chacon MD Primary Care Provider [phone] Encounter Details Date Type Department Care Team (Late st Contact Info) Description 02/13/2025 Lab Requisition [facility] - Main Lab [address] [place] [id number] Qamar Chacon MD [address] [place] [address] [address] [place], [place] Disorder of urea cycle metabolism, unspecified [...] Priority Date/Time Associated Diagnosis Comments AMMONIA Routine 02/13/2025 6:49 AM EDT Disorder of urea cycle metabolism, unspecified (CMS/HCC V24) documented in this encounter Results * Ammonia (02/13/2025 6:49 AM EDT) Ammonia 30 11 - 35 mcmol/L LAB CHEMISTRY METHOD 02/13/2025 7:[address] [facility] Blood Venous blood specimen / Unknown 02/13/2025 6:49 AM EDT 02/13/2025 7:14 AM EDT us Qamar Chacon MD LAB BLOOD ORDERABLES Final Resul t [facility] [address] [place], [place] [address] [phone] documented in this encounter Visit Diagnoses Diagnosis Disorder of urea cycle metabolism, unspecified (CMS/HCC V24) documented in this encounter Care Teams Electrical Maintenance Man Relationship Specialty Start Date End Date Qamar Chacon MD [address] [place] [address] Dr [address] [place] PCP - General Internal Medicine 07/14/24 documented as of this encounter
--- OUTSIDE RECORDS SUMMARY | 2025-03-22 05:44 | XMS_ITS | Encounter Summary ---
Author Organization [facility] Address [address] [place] [address] Care Team Providers Care Sheet Pile Driver Operator Name Role Phone Qamar Chacon MD Primary Care Provider [phone] Encounter Details Date Type Department Care Team (Late st Contact Info) Description 07/14/2024 Lab Requisition [facility] - Main Lab [address] [place] [address] Qamar Chacon MD [address] [place] [address] [address] [place], [place] Other hyperlipidemia; Hypothyroidism, unspecified Social History Tobacco Use Types Packs/Day Years [...] Procedure Name Priority Date/Time Associated Diagnosis Comments LIPID PANEL WITH REFLEX TO DIRECT LDL Routine 07/14/2024 6:36 AM EST Other hyperlipidemia Hypothyroidism, unspecified THYROID STIMULATING HORMONE Routine 07/14/2024 6:36 AM EST Other hyperlipidemia Hypothyroidism, unspecified documented in this encounter Results * Thyroid stimulating hormone (07/14/2024 6:36 AM EST) TSH 0.98 0.40 - 4.00 mcIU/mL LAB CHEMISTRY METHOD 07/14/2024 9:01 AM EST [place] ([facility]) [facility] Blood Venous blood specimen / Unknown 07/14/2024 6:36 AM EST 07/14/2024 8:18 AM EST us Qamar Chacon MD LAB BLOOD ORDERABLES Final Resul t [facility] [address] [place] [address], [place] [phone] * (ABNORMAL) Lipid panel with reflex to direct LDL (07/14/2024 6:36 AM EST) Cholesterol 123 0 - 200 mg/dL LAB CHEMISTRY METHOD 07/14/2024 8:53 AM EST [facility] Triglycerides 134 0 - 150 mg/dL LAB CHEMISTRY METHOD 07/14/2024 8:53 AM EST [facility] HDL 36(L) >=40 mg/dL LAB CHEMISTRY METHOD 07/14/2024 8:53 AM EST [facility] LDL Calculated 60 0 - 100 mg/dL LAB CHEMISTRY METHOD 07/14/2024 8:53 AM EST [facility] VLDL Cholesterol [place] 26.8 mg/dL LAB CHEMISTRY METHOD 07/14/2024 8:53 AM EST [facility] Non HDL Chol. (LDL+VLDL) 87 <145 mg/dL LAB CHEMISTRY METHOD 07/14/2024 8:53 AM EST [facility] Chol/HDL Ratio 3.4 0.0 - 4.4 LAB CHEMISTRY METHOD 07/14/2024 8:53 AM EST [facility] Blood Venous blood specimen / Unknown 07/14/2024 6:36 AM EST 07/14/2024 8:18 AM EST us Qamar Chacon MD LAB BLOOD ORDERABLES Final Resul t [facility] [address] [place] [address], [place] [phone] documented in this encounter Visit Diagnoses Diagnosis Other hyperlipidemia Hypothyroidism, unspecified documented in this encounter Care Teams Sheet Pile Driver Operator Relationship Specialty Start Date End Date Qamar Chacon MD [address] [facility] [address] [place] PCP - General Internal Medicine 07/14/24 documented as of this encounter
--- OUTSIDE RECORDS SUMMARY | 2025-03-22 05:44 | XMS_ITS | Encounter Summary ---
Author Organization [employer] Address [address] [place] [address] Care Team Providers Care Irrigation Supervisor Name Role Phone Qamar Chacon MD Primary Care Provider [phone] Encounter Details Date Type Department Care Team (Late st Contact Info) Description 09/18/2024 Lab Requisition [facility] - Main Lab [address] [facility] [employer] [place] [address] Qamar Chacon MD [address] [place] [address] [address] [place] Schizophrenia, unspecified (CMS/HCC V24, CMS/HCC V28); Unspecified convulsions (CMS/HCC V24, CMS/HCC V28) Social [...] Procedure Name Priority Date/Time Associated Diagnosis Comments RED - PLAIN Routine 09/18/2024 7:00 AM EDT Schizophrenia, unspecified (CMS/HCC V24, CMS/HCC V28) Unspecified convulsions (CMS/HCC V24, CMS/HCC V28) LITHIUM LEVEL Routine 09/18/2024 7:00 AM EDT Schizophrenia, unspecified (CMS/HCC V24, CMS/HCC V28) Unspecified convulsions (CMS/HCC V24, CMS/HCC V28) VALPROIC ACID LEVEL, TOTAL Routine 09/18/2024 7:00 AM EDT Schizophrenia, unspecified (CMS/HCC V24, CMS/HCC V28) Unspecified convulsions (CMS/HCC V24, CMS/HCC V28) documented in this encounter Results * Red tube (09/18/2024 7:00 AM EDT) Extra Tube Hold for add-ons. 09/18/2024 9:01 AM EDT [facility] Comment:Auto resulted. Blood Venous blood specimen / Unknown 09/18/2024 7:00 AM EDT 09/18/2024 7:38 AM EDT us Qamar Chacon MD LAB BLOOD ORDERABLES Final Resul t Performing Organization Address [facility] de Phone Number [facility] [address] [place] [address], [place] [phone] * Valproic acid level, total (09/18/2024 7:00 AM EDT) Pathologist [facility] [place] Valproic Acid, Total 50 50 - 100 mcg/mL LAB CHEMISTRY METHOD 09/18/2024 8:48 AM EDT [facility] Blood Venous blood specimen / Unknown 09/18/2024 7:00 AM EDT 09/18/2024 7:37 AM EDT us Qamar Chacon MD LAB BLOOD ORDERABLES Final Resul t Performing Organization Address [facility] de Phone Number [facility] [address] [place] [address], [place] [phone] * [place] level (09/18/2024 7:00 AM EDT) Pathologist [facility] [place] Level 0.6 0.6 - 1.2 mEq/L LAB CHEMISTRY METHOD 09/18/2024 8:56 AM EDT [facility] Blood Venous blood specimen / Unknown 09/18/2024 7:00 AM EDT 09/18/2024 7:37 AM EDT us Qamar Chacon MD LAB BLOOD ORDERABLES Final Resul t [facility] [address] [place] [address], documented in this encounter Visit Diagnoses Diagnosis Schizophrenia, unspecified (CMS/HCC V24, CMS/HCC V28) Unspecified convulsions (CMS/HCC V24, CMS/HCC V28) documented in this encounter Care Teams Irrigation Supervisor Relationship Specialty Start Date End Date Qamar Chacon MD [address] [place] [address] [address] [place], [place] PCP - General Internal Medicine 07/14/24 documented as of this encounter
--- NOTE | 2025-03-22 08:38 | PC.NURSE ---
Assumed care of patient at 0700, patient yelling out in pain, febrile, and tacycardic. Medicated for pain with some effect. IV tylenol given. bladder scanned for 310 mls, unable to irrigate lopez , aware stating to remove Lopez. Patient went to CT. New [address] way 20 fr 35cc lopez placed with immediate output of pink urine HR down to 120`s. Appears more comfortable.
--- NOTE | 2025-03-22 08:50 | PC.NURSE ---
Provider aware of low BP new orders to start x 1 liters NS
[2025-03-22] MEDS: Lactated Ringers 1,000 ML 999 ML IV ×3 (08:52→13:50)
[2025-03-22] MEDS: Albumin Human 25 % 100 ML 133.33 ML IV ×2 (08:54→09:41)
[2025-03-22 09:06] LABS: IDNOW Serial# 55D5AD1C
[2025-03-22 09:09] LABS: COVID-19 Test Negative (Negative)
[2025-03-22 09:21] LABS: IDNOW Serial# 55D5AD1C; Influenza B2 Negative (Negative)
--- NOTE | 2025-03-22 09:40 | PC.NURSE ---
CBI continues to infuse. No clots, output clear. MD aware
--- NOTE | 2025-03-22 09:53 | PC.NURSE ---
Prior to assuming care of patient sepsis work up completed, including infusion of IV fluids. Patient hypotensive after sepsis fluids complete, additional fluids and x2 bags of albumin ordered.
--- NOTE | 2025-03-22 11:06 | PC.NURSE ---
Hospitalist at bedside, okay to stop CBI, has been running clear. Aware ot continued elevated temp. Per [facility] paperwork patient is a full code
--- NOTE | 2025-03-22 11:31 | PM.IMHP ---
History of Present Illness Date of Service: 03/22/25 Chief Complaint: Fever, altered mentation A 59-year-old male with a history of chronic urinary retention with indwelling Muller catheter, Seizure disorder, dementia, schizophrenia , hypertension, diabetes mellitus, COPD, coronary artery disease and chronic kidney disease was brought to the ED via EMS from his long-term care facility for fever, chills, and hematuria. According to facility staff, his Muller catheter was changed yesterday, and today he developed bright red urine along with fevers up to 100.4?F. On arrival to the ED, he was noted to be febrile to 102.5?F and tachypneic, with altered mental status limiting history-taking. No vomiting or bowel changes were reported; cough was noted to be nonproductive. During ED evaluation, his temperature peaked at 104.1?F with rigors and hypotension (MAP 62 mmHg) despite initial fluid resuscitation. Additional IV fluids and albumin were administered for blood pressure support. CT abdomen/pelvis showed perinephric fat stranding bilaterally, consistent with pyelonephritis. Given the high fevers and acute decline, sepsis secondary to complicated UTI/pyelonephritis is strongly suspected. COVID and influenza swabs are negative Patient?s condition has improved slightly with better mentation and decreased rigors after fluids and antibiotics; however, blood pressure remains borderline. Admitted to the hospitalist team as BP stabilized with concerns over possible deterioration and needing higher level of care at ICU. Review of Systems Review of Systems: Yes Unobtainable due to mental status PMFSH Medical History TBI (traumatic brain injury) Astigmatism Seasonal allergies Bilateral cataracts Preglaucoma Insomnia Presbyopia Parkinsons disease Seizures Fall Pneumonia General weakness Hypoxia COVID-19 Resides in retirement facility Dementia Schizophrenia Hypernatremia Metabolic encephalopathy BPH (benign prostatic hyperplasia) HTN (hypertension) GERD (gastroesophageal reflux disease) Anxiety Surgical History Hx of colonoscopy Hx of cystoscopy Social History Household Members: None Housing: [facility]illed Nursing Housing Other:: [facility] Do you presently have visiting nurse or other home services: Yes Alcohol intake: never Comment: 1;1 sitter Patient Tobacco Use Status: Never used Tobacco Advance Directives: Yes Advance Directives on File: Yes Advance Directives Date on File: 01/17/22 service: No Current occupational status: disabled Meds Allergies Allergy/AdvReac Type Severity Reaction Status Date / Time Sulfa (Sulfonamide Allergy Intermediate Rash Verified 03/22/25 05:03 Antibiotics) (SULFA (SULFONAMIDE ANTIBIOTICS)) [id number] Reductase Allergy Unknown Unknown Verified 03/22/25 05:03 Inhibitor ([id number] REDUCTASE INHIBITOR) ANTIARTERIOSCLEROTIC DRUGS AdvReac Unknown Unknown Uncoded 03/22/25 05:03 Active Medications: Current Medications Acetaminophen (Acetaminophen 325 Mg Tablet) 650 mg PO Q6H PRN PRN Reason: Pain, Mild 1-3,fever,headache Bisacodyl (Bisacodyl 10 Mg Supp.Rect) 10 mg NE ONCE ONE Stop: 03/22/25 11:20 Calcium Carbonate (Calcium Carbonate 750 Mg Tab.Chew) 750 mg PO Q4H PRN PRN Reason: Heartburn Haloperidol Lactate (Haloperidol Lactate 5 Mg/Ml Vial) 2.5 mg IM Q8H PRN PRN Reason: anxiety/restlessness Lactated Ringer's (Lr) 1,000 mls @ 75 mls/hr IVCONT .[id number] MONTEZ Piperacillin Sod/Tazobactam (Sod 3.375 gm/ Sodium Chloride) 100 mls @ 200 mls/hr IV Q6H MONTEZ Valproic Acid 250 mg/ Dextrose 52.5 mls @ 52.5 mls/hr IV Q8H MONTEZ Magnesium Hydroxide (Milk Of Magnesia 30 Ml Oral.Susp) 30 ml PO DAILY PRN PRN Reason: Constipation Melatonin (Melatonin 3 Mg Tablet) 6 mg PO BEDTIME PRN PRN Reason: Insomnia Ondansetron HCl (Ondansetron Hcl 4 Mg/2 Ml Vial) 4 mg IVPUSH Q8H PRN PRN Reason: Nausea and Vomiting Sodium Chloride (0.9 % Sodium Chloride Flush 3 Ml Syringe) 3 ml IVFLUSH QSHIFT [facility] Home Medications ?Medication ?Instructions ?Recorded ?Confirmed ?Last Taken ?Type acetaminophen 325 mg capsule 650 mg PO Q6H PRN PAIN/TEMP>100 02/15/21 03/22/25 Unknown History benztropine 1 mg tablet 1 mg PO BID 02/15/21 03/22/25 01/17/24 History clonazepam 1 mg tablet 1 mg PO TID 02/15/21 03/22/25 01/17/24 History diazepam 5 mg tablet 5 mg PO BID 02/15/21 03/22/25 01/17/24 History haloperidol 5 mg tablet 5 mg PO BID 02/15/21 03/22/25 01/17/24 History lithium carbonate 150 mg capsule 150 mg PO DAILY 02/15/21 03/22/25 Unknown History propranolol 10 mg tablet 10 mg PO TID 02/15/21 03/22/25 01/17/24 History sennosides 8.6 mg capsule (senna) 8.6 mg PO DAILY PRN Constipation 02/15/21 03/22/25 Unknown History benztropine 0.5 mg tablet 0.5 mg PO BID 01/17/22 03/22/25 01/17/24 History divalproex 125 mg capsule,delayed 750 mg PO BID 01/17/22 03/22/25 01/17/24 History release sprinkle (Depakote Sprinkles) risperidone 2 mg tablet 2 mg PO BEDTIME 01/17/22 03/22/25 Unknown History bisacodyl 10 mg rectal suppository 10 mg NE DAILY PRN Constipation 08/21/22 03/22/25 Unknown History docusate sodium 100 mg capsule 100 mg PO BID 08/21/22 03/22/25 Unknown History lactulose 10 gram/15 mL oral 30 ml PO TID 08/21/22 03/22/25 Unknown History solution hydrocortisone acetate 25 mg 25 mg NE DAILY PRN Hemorrhoids 09/10/23 03/22/25 Unknown History rectal suppository (Anusol-HC) lithium carbonate 300 mg tablet 300 mg PO BEDTIME 09/10/23 03/22/25 Unknown History chlorhexidine gluconate 4 % 1 appl topical SUTUTH@1800 04/11/24 03/22/25 Unknown History topical liquid (Hibiclens) sodium phosphates 19 gram-7 118 ml NE BEDTIME PRN Constipation 04/11/24 03/22/25 Unknown History gram/118 mL enema (Fleet Enema) sertraline 25 mg tablet 25 mg PO BEDTIME 03/22/25 03/22/25 Unknown History Physical Exam Vital Signs and Narrative: Vital Signs: Last Vital Signs Temp 102 F H 03/22/25 11:30 Pulse 107 H 03/22/25 11:30 Resp 18 03/22/25 11:30 BP 97/62 03/22/25 11:30 Pulse Ox 97 03/22/25 11:05 O2 Del Method Room Air 03/22/25 11:05 BMI result Body Mass Index 28.5 Const: Other: Constitutional : altered, lethargic, not in distress Cardiovascular : no JVP, no lower extremity edema Respiratory : bilateral chest movement, not in resp distress Gastrointestinal: soft, lax, Non tender Skin : Warm, Dry Neurological : lethargic, altered, response to stimuli but unclear responses, moving extremities and positioning Results Labs 03/22/25 04:29 03/22/25 04:29 Labs: Laboratory Results - last 24 hr 03/22/25 03/22/25 03/22/25 04:16 04:29 04:35 MCV 90.3 MCH 28.8 MCHC 31.9 RDW 15.8 Plt Count 152 L MPV 10.1 Immature Gran % (Auto) 0.5 H Neut % (Auto) 93.7 H Lymph % (Auto) 2.4 L Wilkes % (Auto) 2.8 Eos % (Auto) 0.2 Baso % (Auto) 0.4 Lymph # (Auto) 0.2 L Wilkes # (Auto) 0.3 Eos # (Auto) 0.0 Baso # (Auto) 0.0 Abs Immat Gran (auto) 0.05 H Absolute Neuts (auto) 9.4 H Absolute Nucleated RBC 0.000 Nucleated RBC % (auto) 0.0 Smear Tech's Comments VERIFIED PT 12.7 H INR 1.1 Anion Gap 11 L Estim Creat Clear Calc TNP Estimated GFR > 60 Random Glucose 113 Lactic Acid 1.4 Calcium 8.9 Total Bilirubin 0.4 AST 21 ALT 11 Alkaline Phosphatase 58 Troponin I High Sens 2.7 Total Protein 5.9 L Albumin 3.4 L Urine Color RED Urine Appearance Turbid Urine pH TNP Ur Specific [place] <= 1.005 Urine Protein TNP Urine Glucose (UA) Negative Urine Ketones TNP Urine Blood Large (3+) H Urine Nitrite TNP Ur Leukocyte Esterase TNP Urine RBC >20 H Urine WBC 0-5 Ur Squamous Epith Cells 0-2 Other Crystals Present Urine Bacteria 4+ Hyaline Casts 0-2 COVID-19 (TONI) COVID-19 Clin Com Influenza Type A (HAILEY) Influenza Type B (HAILEY) Influenza A & B Note 03/22/25 08:35 MCV MCH MCHC RDW Plt Count MPV Immature Gran % (Auto) Neut % (Auto) Lymph % (Auto) Wilkes % (Auto) Eos % (Auto) Baso % (Auto) Lymph # (Auto) Wilkes # (Auto) Eos # (Auto) Baso # (Auto) Abs Immat Gran (auto) Absolute Neuts (auto) Absolute Nucleated RBC Nucleated RBC % (auto) Smear Tech's Comments PT INR Anion Gap Estim Creat Clear Calc Estimated GFR Random Glucose Lactic Acid Calcium Total Bilirubin AST ALT Alkaline Phosphatase Troponin I High Sens Total Protein Albumin Urine Color Urine Appearance Urine pH Ur Specific [place] Urine Protein Urine Glucose (UA) Urine Ketones Urine Blood Urine Nitrite Ur Leukocyte Esterase Urine RBC Urine WBC Ur Squamous Epith Cells Other Crystals Urine Bacteria Hyaline Casts COVID-19 (TONI) Negative COVID-19 Clin Com See Note Influenza Type A (HAILEY) Negative Influenza Type B (HAILEY) Negative Influenza A & B Note See Note Assessment and Plan (1) Hypotension: Status: Acute (2) Hematuria: Status: Acute (3) Severe sepsis: Status: Acute (4) Toxic metabolic encephalopathy: Status: Acute Plan A 59-year-old male with a history of chronic urinary retention with indwelling Muller catheter, hypertension, diabetes mellitus, COPD, coronary artery disease, Psychiatric and behavioral problems and chronic kidney disease was brought to the ED via EMS from his long-term care facility for fever, chills, and hematuria. Sepsis 2/2 Urine infection Concerns over fat stranding around kidneys in CT scan and recent instrumentation with changing Muller catheter Pending urine and blood cultures Cover with IV Zosyn Received a dose of Vancomycin Loading, hold on further Vancomycin for now pending final cultures If he remains altered , febrile we should consider LP and possible FAMILY HELPER infx but no other meningeal signs noticed on exam (nuchal rigidity, rash..) Tylenol\Toradol for fever Cold compressors Check resp viral Panel Hypotension Transient in state of sepsis, responded to IVF bolus Lactic acid normal Continue IVF maintenance for now Toxic metabolic encephalopathy 2/2 sepsis Hold sedative medications : he is on many of them and NPO for now , to restart once recurrent orientation AUTOMATED PROCESS OPERATOR eval NPO Hx retention with HEmaturia Likely from placing new Muller, traumatic Started on CBI with clearance of urine, to Hold and monitor for now Seizure disorder IV Valproate for now Rest of home medications on hold as NPO Code status: Full Patient has a guardian. Will need at least 2 overnight hospital stay for treatment of sepsis pending final blood cultures on IV antibiotics and blood pressure monitoring Quality Stroke Does the patient have a stroke diagnosis?: No VTE Prior VTE?: No VTE Risk Level:: Medical - moderate - high VTE Device Contraindication: N/A - Device Ordered VTE Drug Contraindication: Treatment Not Indicated
--- NOTE | 2025-03-22 11:34 | PHA.MEDREC ---
Pharmacy Consult ? Medication Reconciliation Pharmacy has completed the medication reconciliation.Med rec complete, utilized list from [facility]
[2025-03-22] MEDS: Lactated Ringers 1,000 ML 75 ML IVCONT (12:00)
[2025-03-22] MEDS: Valproic Acid (as Sodium Salt) 250 MG in Dextrose 5 % 50 ML 52.5 MG IV ×2 (12:08→20:53)
[2025-03-22] MEDS: Albumin Human 25 % 50 ML 400 ML IV ×2 (12:37→12:54)
--- NOTE | 2025-03-22 12:40 | PC.NURSE ---
MD yanes'd for this RN to give albumin over 15 minutes vs 1 hour d/t hypotension
--- NOTE | 2025-03-22 13:14 | PC.NURSE ---
MD aware of critical lactic, most recent vitals, reported he will be coming to bedside
--- NOTE | 2025-03-22 13:16 | PC.NURSE ---
Provider aware of low BP , poor urinary output.,
--- NOTE | 2025-03-22 13:50 | PC.NURSE ---
hospitalist at bedside stating to take maintenance fluids off pump and run them wde open. aware of low urinary output
--- NOTE | 2025-03-22 13:53 | PC.NURSE ---
bladder scanned for 0 mls
[2025-03-22 14:30] LABS: Chlamydia pneumoniae PCR Not Detected (Not Detect.); Coronavirus 229E PCR Not Detected (Not Detect.); Coronavirus HKU1 PCR Not Detected (Not Detect.); Coronavirus NL63 PCR Not Detected (Not Detect.); Coronavirus OC43 PCR Not Detected (Not Detect.); RSV PCR Not Detected (Not Detect.); Rhino/Enterovirus PCR Not Detected (Not Detect.)
[2025-03-22 14:31] LABS: Reflex Lactate? Lactic Acid Added
[2025-03-22 14:36] LABS: Influenza A H1 PCR Not Detected (Not Detect.); Influenza A H1-2009 PCR Not Detected (Not Detect.); Influenza A H3 PCR Not Detected (Not Detect.); SARS-CoV-2 PCR Not Detected (Not Detect.)
--- NOTE | 2025-03-22 15:04 | PC.NURSE ---
total of 100mls urinary output since completion of CBI. Bladder scanned for 25mls
[2025-03-22 16:03] LABS: ~Lactic Acid-LAB USE ONLY 2.1 mmol/L (0.5-2.0)
--- NOTE | 2025-03-22 16:06 | PC.NURSE ---
Critical lab result reported by lab: Lactic 2.2 Primary RN informed.
[2025-03-22 17:03] LABS: Reflex Lactate? 2 Y
[2025-03-22 18:17] LABS: ~Lactic Acid-LAB USE ONLY 2.3 mmol/L (0.5-2.0)
--- NOTE | 2025-03-22 22:25 | PC.NURSE ---
Addendum entered by Manisha Wilkinson RN 03/22/25 22:45: Temp improving with cooling blanket, per MD can hold IV Toradol. Original Note: late entry approx 1999 patient noted to have diarrhea and rectal probe was out. patient cleaned up and rectal probe reinserted, temp 101.2F. Jerry Carmona was notified at 2011 and iv tylenol was given per aug. patients temp did not improve. patient had another BM, soft and diarrhea mixed large amount. rectal probe reinserted and rectal temp 101.7F. MD notified and patient placed on cooling blanket. also ordered ivp toradol.
[2025-03-23] VITALS (12 sets, daily range): BP systolic 102–137; BP diastolic 57–85; PULSE 51–114; RESP 14–20; TEMP 37.1–38.7; O2SAT 95–100; BMI 23.8
[2025-03-23] MEDS: Lactated Ringers 1,000 ML 75 ML IVCONT (02:56)
[2025-03-23] MEDS: Valproic Acid (as Sodium Salt) 250 MG in Dextrose 5 % 50 ML 52.5 MG IV ×3 (04:09→19:59)
--- NOTE | 2025-03-23 04:27 | PC.NURSE ---
MD aware of change in temperature. Cooling blanket remains in place. per MD will order IV medication.
[2025-03-23 04:46] LABS: Alanine Aminotransferase 66 U/L (0-40); Albumin Level 3.4 g/dL (3.5-5.0); Alkaline Phosphatase 59 U/L (39-117); Anion Gap 16 (12-20); Aspartate Amino Transferase 106 U/L (5-37); Blood Urea Nitrogen 19 mg/dL (9-16); Calcium 8.1 mg/dL (8.4-10.2); Carbon Dioxide 17 mmol/L (22-29); Chloride 115 mmol/L (96-108); Creatinine Clr Calc Pharmacy 76.7; Estimated Glomerular Filt Rate > 60; Potassium 4.7 mmol/L (3.3-5.1); Sodium 143 mmol/L (135-145); Total Protein 5.7 g/dL (6.5-8.0)
[2025-03-23] MEDS: 0.9 % Sodium Chloride Flush 3 ML SYRINGE IVFLUSH ×2 (07:57→17:19)
--- NOTE | 2025-03-23 08:57 | P.PNIM_ITS ---
Subjective Subjective Date of Service: 03/23/25 Interval History: Fever returned yesterday evening and overnight Has been placed on cooling blanket Tylenol Appears to be mentating better Repeats name, but not answering appropriately Unclear if experiencing rigors or tardive dyskinesia Review of Systems Review of Systems: Yes Unobtainable due to mental status Physical Exam 2 Exam: Exam: General: AOx1, difficult to understand or appreciate whether answering appropriately. In no acute distress Resp: CTA bilaterally CVS: S1, S2, RRR GI: +BS, NT, no distention : Tea-colored urine in Muller catheter; clear straw-colored urine in the tubing Skin: Warm, dry Neuro: Cranial nerves II-XII grossly intact bilaterally. Motor grossly intact bilaterally. Facial tremors, question of tardive dyskinesia. Mild intentional upper extremity tremors Extremities: No edema Psych: Calm, cooperative Vital Signs: Vital Signs: Last Vital Signs Temp 99.7 F 03/23/25 07:25 Pulse 114 H 03/23/25 07:22 Resp 20 03/23/25 07:22 BP 125/74 03/23/25 07:25 Pulse Ox 96 03/23/25 07:22 O2 Del Method Room Air 03/23/25 07:22 BMI result Body Mass Index 28.5 Objective Data Active Medications Acetaminophen (Acetaminophen 325 Mg Tablet) 650 mg PO Q6H PRN PRN Reason: Pain, Mild 1-3,fever,headache Calcium Carbonate (Calcium Carbonate 750 Mg Tab.Chew) 750 mg PO Q4H PRN PRN Reason: Heartburn Haloperidol Lactate (Haloperidol Lactate 5 Mg/Ml Vial) 2.5 mg IM Q8H PRN PRN Reason: anxiety/restlessness Lactated Ringer's (Lr) 1,000 mls @ 75 mls/hr IVCONT .[id number] [facility] Last Admin: 03/23/25 02:56 Dose: 75 mls/hr Documented By: SHY Valproic Acid 250 mg/ Dextrose 52.5 mls @ 52.5 mls/hr IV Q8H [facility] Last Infusion: 03/23/25 05:09 Dose: Infused Documented By: LAYNE Piperacillin Sod/Tazobactam (Sod 4.5 gm/ Sodium Chloride) 100 mls @ 200 mls/hr IV Q6H [facility] Last Admin: 03/23/25 07:55 Dose: 100 mls/hr Documented By: SAMMY Magnesium Hydroxide (Milk Of Magnesia 30 Ml Oral.Susp) 30 ml PO DAILY PRN PRN Reason: Constipation Melatonin (Melatonin 3 Mg Tablet) 6 mg PO BEDTIME PRN PRN Reason: Insomnia Ondansetron HCl (Ondansetron Hcl 4 Mg/2 Ml Vial) 4 mg IVPUSH Q8H PRN PRN Reason: Nausea and Vomiting Sodium Chloride (0.9 % Sodium Chloride Flush 3 Ml Syringe) 3 ml IVFLUSH QSHIFT [facility] Last Admin: 03/23/25 07:57 Dose: 3 ml Documented By: SAMMY Labs 03/23/25 10:07 03/23/25 04:02 Labs: Laboratory Results - last 24 hr 03/22/25 03/22/25 03/22/25 08:35 12:14 12:26 Hold Purple Top Anion Gap Estim Creat Clear Calc Estimated GFR Random Glucose Lactic Acid 2.4 H* Lactic Acid F/U @ 2Hr Lactic Acid F/U @ 4Hr Calcium Total Bilirubin AST ALT Alkaline Phosphatase Total Protein Albumin Hold Yellow Top Respiratory Panel Hussein See Note Adenovirus (Rapid PCR) Not Detected B.pert (TEM-PCR) Not Detected B.parapertussis DNA PCR Not Detected C. pneumoniae DNA (PCR) Not Detected Coronavirus OC43 (PCR) Not Detected Coronavirus HKU1 (PCR) Not Detected Coronavirus 229E (PCR) Not Detected COVID-19 (TONI) Negative COVID-19 Clin Com See Note Coronavirus NL63 (PCR) Not Detected Human Metapneumovir PCR Not Detected Influenza Type A (HAILEY) Negative Influenza A (RT-PCR) Not Detected Influenza A (H1) PCR Not Detected Influ A (H1/09) PCR Not Detected Influenza A (H3) PCR Not Detected Influenza Type B (HAILEY) Negative Influenza B (RT-PCR) Not Detected Influenza A & B Note See Note M. pneumoniae (PCR) Not Detected Parainfluenza 1 (PCR) Not Detected Parainfluenza 2 (PCR) Not Detected Parainfluenza 3 (PCR) Not Detected Parainfluenza 4 (PCR) Not Detected RSV (PCR) Not Detected Entero/Rhino (PCR) Not Detected SARS-CoV-2 RNA (RT-PCR) Not Detected 03/22/25 03/22/25 03/23/25 15:01 17:46 04:02 Hold Purple Top SEE NOTE Anion Gap 16 Estim Creat Clear Calc 76.7 Estimated GFR > 60 Random Glucose 80 Lactic Acid Lactic Acid F/U @ 2Hr 2.1 H* Lactic Acid F/U @ 4Hr 2.3 H* Calcium 8.1 L D Total Bilirubin 1.2 H AST 106 H ALT 66 H Alkaline Phosphatase 59 Total Protein 5.7 L Albumin 3.4 L Hold Yellow Top See Note Respiratory Panel Hussein Adenovirus (Rapid PCR) B.pert (TEM-PCR) B.parapertussis DNA PCR C. pneumoniae DNA (PCR) Coronavirus OC43 (PCR) Coronavirus HKU1 (PCR) Coronavirus 229E (PCR) COVID-19 (TONI) COVID-19 Clin Com Coronavirus NL63 (PCR) Human Metapneumovir PCR Influenza Type A (HAILEY) Influenza A (RT-PCR) Influenza A (H1) PCR Influ A (H1/09) PCR Influenza A (H3) PCR Influenza Type B (HAILEY) Influenza B (RT-PCR) Influenza A & B Note M. pneumoniae (PCR) Parainfluenza 1 (PCR) Parainfluenza 2 (PCR) Parainfluenza 3 (PCR) Parainfluenza 4 (PCR) RSV (PCR) Entero/Rhino (PCR) SARS-CoV-2 RNA (RT-PCR) Microbiology Microbiology Results: Microbiology 03/22/25 04:24 Blood Culture - Preliminary Blood - Venous No growth after 24 hours. 03/22/25 04:29 Blood Culture - Preliminary Blood - Venous No growth after 24 hours. Assessment and Plan (1) Hematuria: Status: Acute (2) Toxic metabolic encephalopathy: Status: Acute Plan A 59-year-old male with a history of chronic urinary retention with indwelling Muller catheter, hypertension, diabetes mellitus, COPD, coronary artery disease, Psychiatric and behavioral problems and chronic kidney disease was brought to the ED via EMS from his long-term care facility for fever, chills, and hematuria. Sepsis 2/2 Urine infection Concerns over fat stranding around kidneys in CT scan and recent instrumentation with changing Muller catheter Pending urine and blood cultures Cover with IV Zosyn, day 2 Received a dose of Vancomycin Loading, hold on further Vancomycin for now pending final cultures If he remains altered, febrile we should consider LP and possible DANCE HALL HOSTESS infx but no other meningeal signs noticed on exam (nuchal rigidity, rash..) Tylenol\Toradol for fever Cold compressors, cooling blanket as necessary Resp viral panel negative Hypotension Transient in state of sepsis, responded to IVF bolus; bp stable since Lactic acid normal Continue IVF maintenance for now, D5 LR Toxic metabolic encephalopathy 2/2 sepsis Hold sedative medications: he is on many of them and NPO for now , to restart once no longer NPO Recurrent orientation SCRAP PICKER eval still pending Will do nurse swallow screen, start on pureed and thin liquid if passes Currently still NPO Hx retention with Hematuria Likely from placing new Muller, traumatic Started on CBI with clearance of urine, to Hold and monitor for now Urine has remained clear in the tubing, tea colored in the Muller Seizure disorder IV Valproate for now Rest of home medications on hold as NPO Code status: Full Patient has a guardian. Pt will require continued hospitalization for treatment with empiric IV antibiotics due to continued fever. Will await blood and urine cultures. Quality Stroke Does the patient have a stroke diagnosis?: No VTE Prior VTE?: No VTE Risk Level:: Medical - moderate - high VTE Device Contraindication: N/A - Device Ordered VTE Drug Contraindication: Treatment Not Indicated
--- NOTE | 2025-03-23 09:42 | PC.NURSE ---
spoke with Martinez TINSLEY and informed that I stopped the cooling blanket, suggested IV apap and he will order, aware of pending swallow eval
[2025-03-23] MEDS: Dextrose 5 % and Lactated Ring 1,000 ML 80 ML IVCONT ×2 (09:59→22:45)
[2025-03-23 10:13] LABS: Hemoglobin 12.0 g/dl (14.0-18.0); MANUAL DIFF FLAG SCAN; NRBC Abs Auto 0.000 X10*3/uL (0.0-0.012); NRBC Pct Auto 0.0 /100WBC (0.0-0.2); PLT CLUMP 1; SCAN SMEAR FLAG 1
[2025-03-23 10:14] LABS: Hematocrit 38.1 % (42.0-52.0); Imm Gran Abs Auto 0.10 X10*3/uL (0.00-0.03); Imm Gran Pct Auto 1.4 % (0.0-0.4); Lymphocytes Absolute Auto 0.6 X10*3/uL (1.2-4.9); Mean Corpuscular HGB Conc 31.5 g/dl (31.0-36.0); Mean Corpuscular Hemoglobin 28.8 pg (27.0-33.0); Mean Corpuscular Volume 91.6 fL (80.0-98.0); Red Blood Count 4.16 X10*6/uL (4.60-5.80)
[2025-03-23 11:04] LABS: Platelet Count 69 X10*3/uL (160-400); White Blood Count 7.3 X10*3/uL (4.8-10.8)
--- NOTE | 2025-03-23 14:25 | MHC.CM.PN ---
Pt. resides at [facility] [place], guardian listed is: Edel Law, call place and message left. DCP: pt. to return to [facility] via BLS, CM to follow for DC needs.
--- NOTE | 2025-03-23 16:12 | HO.NURTONUR ---
Pt from [facility], extensive hx of schizophrenia, keno terminal operator indwelling catheter. Report from [facility] states pt pulled at catheter, and new on inserted and pt developed hematuria. Pt arrived and was febrile, placed on cooling blanket overnight, d/c'd by this am. Rectal probe remains. Pt temp 99; no cooling blanket. CT shows ?cystitis, lopez draining tea colored urine. Pt follows commands, takes pills whole in applesauce, and at baseline, w/c bound. Despite temp, no signs of source of poss infection.
[2025-03-24] VITALS (7 sets, daily range): BP systolic 126–141; BP diastolic 73–94; PULSE 82–104; RESP 18–20; TEMP 36.7–38.6; O2SAT 95–98
[2025-03-24] MEDS: Valproic Acid (as Sodium Salt) 250 MG in Dextrose 5 % 50 ML 52.5 MG IV ×3 (03:34→21:06)
[2025-03-24 07:05] LABS: Alanine Aminotransferase 55 U/L (0-40); Albumin Level 3.0 g/dL (3.5-5.0); Alkaline Phosphatase 56 U/L (39-117); Anion Gap 12 (12-20); Aspartate Amino Transferase 100 U/L (5-37); Blood Urea Nitrogen 16 mg/dL (9-16); Calcium 8.0 mg/dL (8.4-10.2); Carbon Dioxide 21 mmol/L (22-29); Chloride 116 mmol/L (96-108); Creatinine Clr Calc Pharmacy 82.1; Estimated Glomerular Filt Rate > 60; Potassium 3.6 mmol/L (3.3-5.1); Sodium 145 mmol/L (135-145); Total Protein 5.1 g/dL (6.5-8.0)
[2025-03-24] MEDS: Dextrose 5 % and Lactated Ring 1,000 ML 80 ML IVCONT (12:03)
--- NOTE | 2025-03-24 14:44 | MHC.SL.SWA ---
Speech Pathologist Impression: Risk of Aspiration Due to: Confusion, mild to moderate oral pharyngeal dysphagia Dysphasia Diet Status: Liquid Consistency and Strategies for Safe Swallow: Liquid Intake Recommendation: Thin Liquid Intake Strategies: Solid Food Consistency: Dietary Recommendations: Grnd/Mech Altered (NDD2) Additional Modifications to Solid Foods: Oral Medication Intake: Crushed with Puree Please contact the pharmacy regarding appropriate crushable or liquid drug formulations that are available whenever modified delivery is recommended. Compensatory Strategies and Precautions to be Taken for Safe Swallow: Supervision While Eating and Drinking for Safe Swallow: Total Assistance (1:1) Foods to Avoid: Dry, crunchy foods, tough, difficult to chew solids. Swallowing Recommended Treatments: Recommendation for Speech: Inpatient Speech Therapy Comment: Patient presents with a mild to moderate oral pharyngeal phase dysphagia. Patient is edentulous, has essential tremor in UE, head, requires full assistance with meals. Recommend start on patient's baseline diet of Ground/Mechanical (NDD2) with THIN liquids, pills crushed in puree. MD was present at time of evaluation was advised of recommendation in person, RN as well. ELECTRICAL AUTOMATION ENGINEER will continue to follow. Frequency/Duration: Date Range for Service Req: Timeline to reassess: Truck Driver Helper Clinican/Clinical Fellow: No Supervisory Statement: I have reviewed and agree with the student/clinical fellow's documentation: N/A Speech Language Pathologist: Debbie Wiseman M.A., [facility]-ELECTRICAL AUTOMATION ENGINEER
[2025-03-24] MEDS: 0.9 % Sodium Chloride Flush 3 ML SYRINGE IVFLUSH (16:54)
--- NOTE | 2025-03-24 17:08 | HO.PM.IMPN ---
Subjective Subjective Date of Service: 03/24/25 Interval History: Seen by HEALTH PLAN MANAGER and cleared for ground/mech altered (NDD2) diet with thin liquids Continued to spike fever this morning UA culture growing mixed alisson consistent with urogenital contamination Pt denies any acute medical complaints, though overall he is difficult to understand and a poor historian Appears more awake and alert Review of Systems Review of Systems: Yes all other systems are reviewed and are negative Physical Exam Exam: Exam: General: AOx1, difficult to understand or appreciate whether answering appropriately. In no acute distress Resp: CTA bilaterally CVS: S1, S2, RRR GI: +BS, NT, no distention : Clear straw-colored urine in the Muller Skin: Warm, dry Neuro: Cranial nerves II-XII grossly intact bilaterally. Motor grossly intact bilaterally. Facial tremors, question of tardive dyskinesia. Upper extremity resting and intentional tremors Extremities: No edema Psych: Calm, cooperative Vital Signs: Vital Signs: Last Vital Signs Temp 98.2 F 03/24/25 15:19 Pulse 82 03/24/25 15:19 Resp 18 03/24/25 15:19 BP 126/73 03/24/25 15:19 Pulse Ox 95 03/24/25 15:19 O2 Del Method Room Air 03/24/25 15:19 BMI result Body Mass Index 23.8 Objective Data Active Medications Acetaminophen (Acetaminophen 325 Mg Tablet) 650 mg PO Q6H PRN PRN Reason: Pain, Mild 1-3,fever,headache Last Admin: 03/24/25 11:51 Dose: 650 mg Documented By: SOCO Calcium Carbonate (Calcium Carbonate 750 Mg Tab.Chew) 750 mg PO Q4H PRN PRN Reason: Heartburn Haloperidol Lactate (Haloperidol Lactate 5 Mg/Ml Vial) 2.5 mg IM Q8H PRN PRN Reason: anxiety/restlessness Acetaminophen (Ofirmev) 1,000 mg in 100 mls @ 400 mls/hr IV Q6H PRN PRN Reason: Pain, Mild 1-3,fever,headache Last Infusion: 03/23/25 16:25 Dose: Infused Documented By: SOLEDAD Dextrose/Lactated Ringer's (D5lr) 1,000 mls @ 80 mls/hr IVCONT .[id number] [facility] Last Admin: 03/24/25 12:03 Dose: 80 mls/hr Documented By: SOCO Piperacillin Sod/Tazobactam (Sod 4.5 gm/ Sodium Chloride) 100 mls @ 200 mls/hr IV Q6H [facility] Last Admin: 03/24/25 16:52 Dose: 200 mls/hr Documented By: SOCO Valproic Acid 250 mg/ Dextrose 52.5 mls @ 52.5 mls/hr IV Q8H [facility] Last Infusion: 03/24/25 13:51 Dose: Infused Documented By: SOCO Magnesium Hydroxide (Milk Of Magnesia 30 Ml Oral.Susp) 30 ml PO DAILY PRN PRN Reason: Constipation Melatonin (Melatonin 3 Mg Tablet) 6 mg PO BEDTIME PRN PRN Reason: Insomnia Ondansetron HCl (Ondansetron Hcl 4 Mg/2 Ml Vial) 4 mg IVPUSH Q8H PRN PRN Reason: Nausea and Vomiting Sodium Chloride (0.9 % Sodium Chloride Flush 3 Ml Syringe) 3 ml IVFLUSH QSHIFT [facility] Last Admin: 03/24/25 16:54 Dose: 3 ml Documented By: SOCO Labs 03/23/25 10:07 03/24/25 06:14 Labs: Laboratory Results - last 24 hr 03/24/25 06:14 Anion Gap 12 Estim Creat Clear Calc 82.1 Estimated GFR > 60 Random Glucose 108 Calcium 8.0 L Total Bilirubin 0.8 AST 100 H ALT 55 H Alkaline Phosphatase 56 Total Protein 5.1 L Albumin 3.0 L Microbiology Microbiology Results: Microbiology 03/22/25 04:24 Blood Culture - Preliminary Blood - Venous No growth after 48 hours. 03/22/25 04:29 Blood Culture - Preliminary Blood - Venous No growth after 48 hours. Assessment and Plan (1) Toxic metabolic encephalopathy: Status: Acute (2) Fever: Status: Acute Plan A 59-year-old male with a history of chronic urinary retention with indwelling Muller catheter, hypertension, diabetes mellitus, COPD, coronary artery disease, Psychiatric and behavioral problems and chronic kidney disease was brought to the ED via EMS from his long-term care facility for fever, chills, and hematuria. Acute metabolic encephalopathy and sepsis with fever of unclear etiology CT with concerns over fat stranding around kidneys in CT scan and recent instrumentation with changing Muller catheter Initially thought to be secondary to UTI from chronic indwelling Muller catheter, though urine culture grew mixed bacterial alisson characteristic of urogenital contamination Blood cultures negative after 48 hours CXR negative, respiratory viral panel negative, no N/V/D/abdominal pain, no meningeal signs on exam Continue empiric IV Zosyn, day 3 Patient's mentation appears improved, though continues to spike fevers >101 while on antibiotics Will get ID consult Tylenol\Toradol for fever Diet Pt seen and evaluated by SBO who recommended continuing home diet Recommend ground/mech altered (NDD2) diet with thin liquids Hx retention with HEmaturia Likely from placing new Muller, traumatic Started on CBI with clearance of urine Urine clear today, H&H stable Constipation CT showing large stool burden with question of impaction Continue home bowel regimen Monitor output, enema/suppository as necessary Transaminitis Of unclear etiology, pt appears asymptomatic Trend labs, additional workup as indicated Seizure disorder Continued Depakote Mood disorder Continue home medications Code status: Full Patient has a guardian. Pt will require continued hospitalization for empiric IV antibiotic coverage and Infectious Disease consultation due to continued fevers and negative workup so far Quality Stroke Does the patient have a stroke diagnosis?: No VTE Prior VTE?: No VTE Risk Level:: Medical - moderate - high VTE Device Contraindication: N/A - Device Ordered VTE Drug Contraindication: Treatment Not Indicated
[2025-03-24] MEDS: Divalproex Sodium Sprinkles 125 MG CAP.DR.SPR 750 MG PO (21:55)
[2025-03-25] VITALS (9 sets, daily range): BP systolic 116–141; BP diastolic 63–79; PULSE 70–84; RESP 14–20; TEMP 36.6–38.3; O2SAT 94–96; BMI 24.8
[2025-03-25] MEDS: Dextrose 5 % and Lactated Ring 1,000 ML 80 ML IVCONT (00:21)
[2025-03-25] MEDS: Valproic Acid (as Sodium Salt) 250 MG in Dextrose 5 % 50 ML 52.5 MG IV ×3 (04:39→20:35)
[2025-03-25 07:25] LABS: Ammonia 46 umol/L (13-55)
[2025-03-25 07:38] LABS: Alanine Aminotransferase 45 U/L (0-40); Albumin Level 2.7 g/dL (3.5-5.0); Alkaline Phosphatase 65 U/L (39-117); Anion Gap 9 (12-20); Aspartate Amino Transferase 69 U/L (5-37); Blood Urea Nitrogen 12 mg/dL (9-16); Calcium 8.0 mg/dL (8.4-10.2); Carbon Dioxide 24 mmol/L (22-29); Chloride 117 mmol/L (96-108); Creatinine Clr Calc Pharmacy 103.9; Estimated Glomerular Filt Rate > 60; Potassium 3.6 mmol/L (3.3-5.1); Sodium 146 mmol/L (135-145); Total Protein 4.7 g/dL (6.5-8.0)
[2025-03-25] MEDS: Divalproex Sodium Sprinkles 125 MG CAP.DR.SPR 750 MG PO ×2 (09:23→20:36)
--- NOTE | 2025-03-25 13:36 | MHC.CM.PN ---
EMR REVIEWED, PER HOSPITALIST PT WILL NEED TO BE CLEARED BY MILAGROS BRADEN RETURN TO [facility] TOMORROW 03/26 AT 2PM, SNF IS PROVIDING TRANSPORT D/T [place] [employer]ICA[employer], CM WILL CONT TO FOLLOW DC NEEDS.
--- NOTE | 2025-03-25 13:52 | MHC.SLORD ---
Speech Language Pathology Order Status: Pt took sips of gingerale only as he had been vomitting this morning. Oropharyngeal coordination adequate though tremors persist. KAYAK MAKER to assess pt PO tolerance when pt resumes eating. RN consulted.
--- NOTE | 2025-03-25 15:22 | P.CNID_ITS ---
History of Present Illness Data of Consult Service Date: 03/25/25 Requesting physician: Amy Jin Primary Care Provider: Qamar Chacon DO HPI Reason for consult: fever of unknown origin,probable septic shock He presents for catheter change on 03/22 to ER. He did have hypotension after this occurred with temperature to 101.5 and pulse of 114. He was transferred to ICU and given piperacillin/tazobactam. He had mixed alisson isolated from urine and blood cultures negative. Review of Systems 2 Review of Systems: Yes Unobtainable due to mental condition PMFSH Past Medical History Medical History TBI (traumatic brain injury) Astigmatism Seasonal allergies Bilateral cataracts Preglaucoma Insomnia Presbyopia Parkinsons disease Seizures Fall Pneumonia General weakness Hypoxia COVID-19 Resides in [facility] facility Dementia Schizophrenia Hypernatremia Metabolic encephalopathy BPH (benign prostatic hyperplasia) HTN (hypertension) GERD (gastroesophageal reflux disease) Anxiety Family History Family history: reviewed and not pertinent Surgical History Surgical History Hx of colonoscopy Hx of cystoscopy Social History Social History Household Members: None Housing: [facility] Housing Other:: [facility] Do you presently have visiting nurse or other home services: Yes (long term care) Alcohol intake: never Comment: Sitter Patient Tobacco Use Status: Never used Tobacco Advance Directives Date on File: 01/17/22 service: No Current occupational status: disabled Meds Allergies Allergy/AdvReac Type Severity Reaction Status Date / Time Sulfa (Sulfonamide Allergy Intermediate Rash Verified 03/22/25 05:03 Antibiotics) (SULFA (SULFONAMIDE ANTIBIOTICS)) [id number] Reductase Allergy Unknown Unknown Verified 03/22/25 05:03 Inhibitor ([id number] REDUCTASE INHIBITOR) ANTIARTERIOSCLEROTIC DRUGS AdvReac Unknown Unknown Uncoded 03/22/25 05:03 Active Medications: Current Medications Acetaminophen (Acetaminophen 325 Mg Tablet) 650 mg PO Q6H PRN PRN Reason: Pain, Mild 1-3,fever,headache Last Admin: 03/24/25 11:51 Dose: 650 mg Benztropine Mesylate (Benztropine Mesylate 0.5 Mg Tablet) 0.5 mg PO BID [facility] Last Admin: 03/25/25 09:24 Dose: 0.5 mg Benztropine Mesylate (Benztropine Mesylate 1 Mg Tablet) 1 mg PO BID [facility] Last Admin: 03/25/25 09:24 Dose: 1 mg Bisacodyl (Bisacodyl 10 Mg Supp.Rect) 10 mg OR DAILY PRN PRN Reason: Constipation Calcium Carbonate (Calcium Carbonate 750 Mg Tab.Chew) 750 mg PO Q4H PRN PRN Reason: Heartburn Clonazepam (Clonazepam 1 Mg Tablet) 1 mg PO TID [facility] Last Admin: 03/25/25 09:24 Dose: 1 mg Diazepam (Diazepam 5 Mg Tablet) 5 mg PO BID [facility] Last Admin: 03/25/25 09:24 Dose: 5 mg Divalproex Sodium (Divalproex Sodium Sprinkles 125 Mg Cap.Spr) 750 mg PO BID [facility] Last Admin: 03/25/25 09:23 Dose: 750 mg Docusate Sodium (Docusate Sodium 100 Mg Capsule) 100 mg PO BID [facility] Last Admin: 03/25/25 09:41 Dose: Not Given Doxazosin Mesylate (Doxazosin Mesylate 2 Mg Tablet) 8 mg PO BEDTIME [facility] Last Admin: 03/24/25 21:56 Dose: 8 mg Finasteride (Finasteride 5 Mg Tablet) 5 mg PO DAILY [facility] Last Admin: 03/25/25 09:23 Dose: 5 mg Haloperidol (Haloperidol 5 Mg Tablet) 5 mg PO BID [facility] Last Admin: 03/25/25 09:24 Dose: 5 mg Haloperidol Lactate (Haloperidol Lactate 5 Mg/Ml Vial) 2.5 mg IM Q8H PRN PRN Reason: anxiety/restlessness Acetaminophen (Ofirmev) 1,000 mg in 100 mls @ 400 mls/hr IV Q6H PRN PRN Reason: Pain, Mild 1-3,fever,headache Last Infusion: 03/23/25 16:25 Dose: Infused Piperacillin Sod/Tazobactam (Sod 4.5 gm/ Sodium Chloride) 100 mls @ 200 mls/hr IV Q6H [facility] Last Infusion: 03/25/25 11:51 Dose: Infused Valproic Acid 250 mg/ Dextrose 52.5 mls @ 52.5 mls/hr IV Q8H [facility] Last Infusion: 03/25/25 14:16 Dose: Infused Lactulose (Lactulose 20 Gm/30 Ml Solution) 20 gm PO TID [facility] Last Admin: 03/25/25 09:23 Dose: 20 gm [place] Carbonate ([place] Carbonate 300 Mg Capsule) 300 mg PO BEDTIME [facility] Last Admin: 03/24/25 21:56 Dose: 300 mg [place] Carbonate ([place] Carbonate 300 Mg Tablet) 150 mg PO DAILY [facility] Last Admin: 03/25/25 09:24 Dose: 150 mg Magnesium Hydroxide (Milk Of Magnesia 30 Ml Oral.Susp) 30 ml PO DAILY PRN PRN Reason: Constipation Melatonin (Melatonin 3 Mg Tablet) 6 mg PO BEDTIME PRN PRN Reason: Insomnia Ondansetron HCl (Ondansetron Hcl 4 Mg/2 Ml Vial) 4 mg IVPUSH Q8H PRN PRN Reason: Nausea and Vomiting Propranolol HCl (Propranolol Hcl 10 Mg Tablet) 10 mg PO TID [facility]; Protocol Last Admin: 03/25/25 09:24 Dose: 10 mg Risperidone (Risperidone 2 Mg Tablet) 2 mg PO BEDTIME [facility] Last Admin: 03/24/25 21:55 Dose: 2 mg Senna (Sennosides 8.6 Mg Tablet) 8.6 mg PO DAILY PRN PRN Reason: Constipation Sertraline HCl (Sertraline Hcl 25 Mg Tablet) 25 mg PO BEDTIME [facility] Last Admin: 03/24/25 21:55 Dose: 25 mg Sodium Biphosphate/Sodium Phosphate (Sodium Phosphate,[place]-Dibasic 133 Ml Enema) 118 ml OR BEDTIME PRN PRN Reason: Constipation Sodium Chloride (0.9 % Sodium Chloride Flush 3 Ml Syringe) 3 ml IVFLUSH [facility] Last Admin: 03/25/25 09:25 Dose: Not Given Home Medications ?Medication ?Instructions ?Recorded ?Confirmed ?Last Taken ?Type acetaminophen 325 mg capsule 650 mg PO Q6H PRN PAIN/TE MP>100 02/15/21 03/22/25 Unknown History benztropine 1 mg tablet 1 mg PO BID 02/15/21 5 01/17/24 History clonazepam 1 mg tablet 1 mg PO TID 02/15/21 5 01/17/24 History diazepam 5 mg tablet 5 mg PO BID 02/15/21 5 01/17/24 History haloperidol 5 mg tablet 5 mg PO BID 02/15/21 5 01/17/24 History lithium carbonate 150 mg capsule 150 mg PO DAILY 02/1503/22/25 Unknown History propranolol 10 mg tablet 10 mg PO TID 02/15/2101/17/24 History sennosides 8.6 mg capsule (senna) 8.6 mg PO DAILY PRN Constipation 02/15/21 03/22/25 Unknown History benztropine 0.5 mg tablet 0.5 mg PO BID 01/17/2203/2201/17/24 History divalproex 125 mg capsule,delayed 750 mg PO BID 03/22/25 01/17/24 History release sprinkle (Depakote Sprinkles) risperidone 2 mg tablet 2 mg PO BEDTIME 01/17/22 Unknown History bisacodyl 10 mg rectal suppository 10 mg OR DAILY PRN Constipation 08/21/22 03/22/25 Unknown History docusate sodium 100 mg capsule 100 mg PO BID 08/21/22 03/22/25 Unknown History lactulose 10 gram/15 mL oral 30 ml PO TID 08/21/22 Unknown History solution hydrocortisone acetate 25 mg 25 mg OR DAILY PRN Hemorr hoids 09/10/23 03/22/25 Unknown History rectal suppository (Anusol-HC) lithium carbonate 300 mg tablet 300 mg PO BEDTIME 01/2503/22/25 Unknown History chlorhexidine gluconate 4 % 1 appl topical SUTUTH@1800 04/11/24 03/22/25 Unknown History topical liquid (Hibiclens) sodium phosphates 19 gram-7 118 ml OR BEDTIME PRN Cons tipation 04/11/24 03/22/25 Unknown History gram/118 mL enema (Fleet Enema) sertraline 25 mg tablet 25 mg PO BEDTIME 03/22/25 Unknown History Physical Exam 2 Vital Signs: Vital Signs: Last Vital Signs Temp 99.8 F 03/25/25 13:20 Pulse 83 03/25/25 13:20 Resp 16 03/25/25 13:20 BP 127/63 03/25/25 13:20 Pulse Ox 96 03/25/25 13:20 O2 Del Method Room Air 03/25/25 13:20 BMI result Body Mass Index 24.8 Const: General: cooperative HEENT: Head: Yes normal to inspection Face and sinus: Yes normal facial exam Mouth: Normal oral and palatal mucosa present Teeth and gingiva: d entition normal Eyes: General: appearance normal, both eyes and all related structures P upils: Equal, round and reactive pupils present Resp: Effort & Inspection: normal respiratory effort Cardio: Rate: regular rate Rhythm: regular rhythm GI: Palpation (GI): Soft to palpation and nontender : General: Yes no CVA tenderness Back/Spine/Pelvis: Back: no CVA tenderness Skin: General skin exam: no rashes or lesions noted Neuro: General: moves all extremities Cranial nerves: Yes Equal, round and reactive pupils present Extrem: General: Yes normal to inspection Psych: Other: chronic encephalopathy Results Labs 03/23/25 10:07 03/25/25 06:57 Labs: BMP 03/25/25 06:57 Sodium 146 H Potassium 3.6 Chloride 117 H Carbon Dioxide 24 BUN 12 Creatinine 0.79 Calcium 8.0 L Liver Function 03/25/25 Range/Units 06:57 Total Bilirubin 0.5 (0.0-1.0) mg/dL AST 69 H (5-37) U/L ALT 45 H (0-40) U/L Alkaline Phosphatase 65 (39-117) U/L Albumin 2.7 L (3.5-5.0) g/dL Microbiology Microbiology Results: Microbiology 03/22/25 04:24 Blood - Venous Blood Culture - Preliminary No growth after 48 hours. 03/22/25 04:29 Blood - Venous Blood Culture - Preliminary No growth after 48 hours. 03/22/25 Unknown Urine Catheterized - Muller Catheter Urine Culture - Final Assessment and Plan (1) Hypotension: Status: Acute (2) Acute UTI: Status: Acute Plan He has concern over urinary source of early sepsis. Would continue piperacillin/tazobactam and discharge on po Augmentin for a week.
--- NOTE | 2025-03-25 15:32 | MHC.CM.PN ---
spoke with nehemiah to try to get back dcd today per md request..leila/.nehemiah says the race car driver is unavliable seed cone picker for pt has been changed from 2 pm to 9am
--- NOTE | 2025-03-25 15:33 | PC.NURSE ---
Clarify with MD, patient is not SI, sitter for behavioral issues, Fall risk.
[2025-03-25] MEDS: 0.9 % Sodium Chloride Flush 3 ML SYRINGE IVFLUSH ×2 (16:01→20:35)
--- NOTE | 2025-03-25 16:15 | HO.PM.IMPN ---
Subjective Subjective Date of Service: 03/25/25 Interval History: No acute events overnight No fevers since 11:00 yesterday Pt emotionally labile this morning, crying and complaining rather incoherently about money Nursing reports had a bowel movement last night Addendum: Pt seen and evaluated again later in the afternoon where he is resting comfortably in bed and pleasantly conversant. Pt has no acute medical complaints at this time. Review of Systems Review of Systems: Yes all other systems are reviewed and are negative Physical Exam Exam: Exam: General: AOx1, emotionally labile, crying out. Difficult to understand. Resp: CTA bilaterally CVS: S1, S2, RRR GI: +BS, NT, no distention : Clear straw-colored urine in the Muller Skin: Warm, dry Neuro: Cranial nerves II-XII grossly intact bilaterally. Motor grossly intact bilaterally. Chronic facial and upper extremity tremors. Extremities: No edema Psych: Crying, difficult to re-direct Vital Signs: Vital Signs: Last Vital Signs Temp 101.0 F H 03/25/25 15:40 Pulse 80 03/25/25 15:40 Resp 14 03/25/25 15:40 BP 141/78 H 03/25/25 15:40 Pulse Ox 94 03/25/25 15:40 O2 Del Method Room Air 03/25/25 15:40 BMI result Body Mass Index 24.8 Objective Data Active Medications Acetaminophen (Acetaminophen 325 Mg Tablet) 650 mg PO Q6H PRN PRN Reason: Pain, Mild 1-3,fever,headache Last Admin: 03/25/25 15:56 Dose: 650 mg Documented By: BENEDICTO Benztropine Mesylate (Benztropine Mesylate 0.5 Mg Tablet) 0.5 mg PO BID [facility] Last Admin: 03/25/25 09:24 Dose: 0.5 mg Documented By: ANA Benztropine Mesylate (Benztropine Mesylate 1 Mg Tablet) 1 mg PO BID [facility] Last Admin: 03/25/25 09:24 Dose: 1 mg Documented By: ANA Bisacodyl (Bisacodyl 10 Mg Supp.Rect) 10 mg AL DAILY PRN PRN Reason: Constipation Calcium Carbonate (Calcium Carbonate 750 Mg Tab.Chew) 750 mg PO Q4H PRN PRN Reason: Heartburn Clonazepam (Clonazepam 1 Mg Tablet) 1 mg PO TID [facility] Last Admin: 03/25/25 09:24 Dose: 1 mg Documented By: ANA Diazepam (Diazepam 5 Mg Tablet) 5 mg PO BID [facility] Last Admin: 03/25/25 09:24 Dose: 5 mg Documented By: ANA Divalproex Sodium (Divalproex Sodium Sprinkles 125 Mg ) 750 mg PO BID [facility] Last Admin: 03/25/25 09:23 Dose: 750 mg Documented By: ANA Docusate Sodium (Docusate Sodium 100 Mg Capsule) 100 mg PO BID [facility] Last Admin: 03/25/25 09:41 Dose: Not Given Documented By: ANA Non-Admin Reason: unable to crush Doxazosin Mesylate (Doxazosin Mesylate 2 Mg Tablet) 8 mg PO BEDTIME [facility] Last Admin: 03/24/25 21:56 Dose: 8 mg Documented By: URIEL Finasteride (Finasteride 5 Mg Tablet) 5 mg PO DAILY [facility] Last Admin: 03/25/25 09:23 Dose: 5 mg Documented By: ANA Haloperidol (Haloperidol 5 Mg Tablet) 5 mg PO BID [facility] Last Admin: 03/25/25 09:24 Dose: 5 mg Documented By: ANA Haloperidol Lactate (Haloperidol Lactate 5 Mg/Ml Vial) 2.5 mg IM Q8H PRN PRN Reason: anxiety/restlessness Acetaminophen (Ofirmev) 1,000 mg in 100 mls @ 400 mls/hr IV Q6H PRN PRN Reason: Pain, Mild 1-3,fever,headache Last Infusion: 03/23/25 16:25 Dose: Infused Documented By: SOLEDAD Piperacillin Sod/Tazobactam (Sod 4.5 gm/ Sodium Chloride) 100 mls @ 200 mls/hr IV Q6H [facility] Last Admin: 03/25/25 16:02 Dose: 200 mls/hr Documented By: BENEDICTO Valproic Acid 250 mg/ Dextrose 52.5 mls @ 52.5 mls/hr IV Q8H [facility] Last Infusion: 03/25/25 14:16 Dose: Infused Documented By: REGINALD Lactulose (Lactulose 20 Gm/30 Ml Solution) 20 gm PO TID [facility] Last Admin: 03/25/25 15:56 Dose: 20 gm Documented By: BENEDICTO [place] Carbonate ([place] Carbonate 300 Mg Capsule) 300 mg PO BEDTIME [facility] Last Admin: 03/24/25 21:56 Dose: 300 mg Documented By: URIEL [place] Carbonate ([place] Carbonate 300 Mg Tablet) 150 mg PO DAILY [facility] Last Admin: 03/25/25 09:24 Dose: 150 mg Documented By: ANA Magnesium Hydroxide (Milk Of Magnesia 30 Ml Oral.Susp) 30 ml PO DAILY PRN PRN Reason: Constipation Melatonin (Melatonin 3 Mg Tablet) 6 mg PO BEDTIME PRN PRN Reason: Insomnia Ondansetron HCl (Ondansetron Hcl 4 Mg/2 Ml Vial) 4 mg IVPUSH Q8H PRN PRN Reason: Nausea and Vomiting Propranolol HCl (Propranolol Hcl 10 Mg Tablet) 10 mg PO TID [facility]; Protocol Last Admin: 03/25/25 15:56 Dose: 10 mg Documented By: BENEDICTO Risperidone (Risperidone 2 Mg Tablet) 2 mg PO BEDTIME [facility] Last Admin: 03/24/25 21:55 Dose: 2 mg Documented By: URIEL Senna (Sennosides 8.6 Mg Tablet) 8.6 mg PO DAILY PRN PRN Reason: Constipation Sertraline HCl (Sertraline Hcl 25 Mg Tablet) 25 mg PO BEDTIME [facility] Last Admin: 03/24/25 21:55 Dose: 25 mg Documented By: URIEL Sodium Biphosphate/Sodium Phosphate (Sodium Phosphate,[place]-Dibasic 133 Ml Enema) 118 ml AL BEDTIME PRN PRN Reason: Constipation Sodium Chloride (0.9 % Sodium Chloride Flush 3 Ml Syringe) 3 ml IVFLUSH QSHIFT [facility] Last Admin: 03/25/25 16:01 Dose: 3 ml Documented By: BENEDICTO Labs 03/23/25 10:07 03/25/25 06:57 Labs: Laboratory Results - last 24 hr 03/25/25 06:57 Hold Purple Top SEE NOTE Anion Gap 9 L Estim Creat Clear Calc 103.9 Estimated GFR > 60 Random Glucose 132 H Calcium 8.0 L Total Bilirubin 0.5 AST 69 H ALT 45 H Alkaline Phosphatase 65 Ammonia 46 Total Protein 4.7 L Albumin 2.7 L Assessment and Plan (1) Fever: Status: Acute (2) Toxic metabolic encephalopathy: Status: Acute Plan A 59-year-old male with a history of chronic urinary retention with indwelling Muller catheter, hypertension, diabetes mellitus, COPD, coronary artery disease, Psychiatric and behavioral problems and chronic kidney disease was brought to the ED via EMS from his long-term care facility for fever, chills, and hematuria. Acute metabolic encephalopathy and sepsis with fever of unclear etiology CT with concerns over fat stranding around kidneys in CT scan and recent instrumentation with changing Muller catheter Initially thought to be secondary to UTI from chronic indwelling Muller catheter, though urine culture grew mixed bacterial alisson characteristic of urogenital contamination Blood cultures negative after 48 hours CXR negative, respiratory viral panel negative, no N/V/D/abdominal pain, no meningeal signs on exam Continue empiric IV Zosyn, day 4 Patient's mentation appears improved, though continued to spike fevers >101 while on antibiotics; no fever since 11:00 on 03/24 ID consulted, will d/c on Augmentin x7 days Tylenol\Toradol for fever Diet Pt seen and evaluated by SBO who recommended continuing home diet Recommend ground/mech altered (NDD2) diet with thin liquids Hx retention with HEmaturia Likely from placing new Muller, traumatic Started on CBI with clearance of urine Urine clear today, H&H stable Constipation CT showing large stool burden with question of impaction Continue home bowel regimen Monitor output, enema/suppository as necessary Transaminitis Of unclear etiology, pt appears asymptomatic Trend labs, additional workup as indicated Seizure disorder Continued Depakote Mood disorder Continue home medications Code status: Full Patient has a guardian. Pt will require continued hospitalization for empiric IV antibiotic coverage for possible sepsis with urinary source. Pt will likely be discharged back to facility tomorrow morning. Quality Stroke Does the patient have a stroke diagnosis?: No VTE Prior VTE?: No VTE Risk Level:: Medical - moderate - high VTE Device Contraindication: N/A - Device Ordered VTE Drug Contraindication: Treatment Not Indicated
[2025-03-26] MEDS: Valproic Acid (as Sodium Salt) 250 MG in Dextrose 5 % 50 ML 52.5 MG IV ×3 (03:35→21:25)
[2025-03-26 03:40] VITALS: BP 120/69; PULSE 75; RESP 18; TEMP 36.7; O2SAT 96
[2025-03-26 08:16] VITALS: BP 136/78; PULSE 71; RESP 18; TEMP 37.1; O2SAT 98
[2025-03-26] MEDS: Divalproex Sodium Sprinkles 125 MG CAP.DR.SPR 750 MG PO ×2 (09:23→20:11)
[2025-03-26] MEDS: 0.9 % Sodium Chloride Flush 3 ML SYRINGE IVFLUSH ×3 (09:23→21:25)
[2025-03-26 10:30] LABS: Hematocrit 33.0 % (42.0-52.0); Hemoglobin 10.5 g/dl (14.0-18.0); Mean Corpuscular HGB Conc 31.8 g/dl (31.0-36.0); Mean Corpuscular Hemoglobin 28.6 pg (27.0-33.0); Mean Corpuscular Volume 89.9 fL (80.0-98.0); NRBC Abs Auto 0.000 X10*3/uL (0.0-0.012); NRBC Pct Auto 0.0 /100WBC (0.0-0.2); Red Blood Count 3.67 X10*6/uL (4.60-5.80); White Blood Count 7.4 X10*3/uL (4.8-10.8)
[2025-03-26 10:32] LABS: Platelet Count 86 X10*3/uL (160-400)
[2025-03-26 10:52] LABS: Alanine Aminotransferase 39 U/L (0-40); Albumin Level 2.8 g/dL (3.5-5.0); Alkaline Phosphatase 75 U/L (39-117); Anion Gap 10 (12-20); Aspartate Amino Transferase 53 U/L (5-37); Blood Urea Nitrogen 10 mg/dL (9-16); Calcium 8.2 mg/dL (8.4-10.2); Carbon Dioxide 24 mmol/L (22-29); Chloride 117 mmol/L (96-108); Creatinine Clr Calc Pharmacy 102.6; Estimated Glomerular Filt Rate > 60; Potassium 3.9 mmol/L (3.3-5.1); Sodium 147 mmol/L (135-145); Total Protein 5.7 g/dL (6.5-8.0)
[2025-03-26 11:04] LABS: Procalcitonin 1.56 ng/mL
--- NOTE | 2025-03-26 12:34 | P.CDIM_ITS ---
PROVIDER RESPONSE TEXT: To clarify, the appropriate diagnosis supported by the clinical indicators: Other (explain): Septic shock ruled out. QUERY TEXT: PHYSICIAN'S DOCUMENTATION REQUEST Date of Query: 03/26/2025 06:15 AM EDT Patient Name: Willie Salomon Admit Date: 03/22/2025 Dear Amy TINSLEY, A review of the medical record indicates additional documentation may be needed. Please review below and update the documentation accordingly. Clinical Indicators: Infectious Disease Consultation note 03/25/25 - Reason for Consult: Fever of unknown origin, probable Septic Shock. He present for catheter change on 03/22 in ED, he did have hypotension after this occurred BP 94/52. H&P 03/22/25 - Admitted to hospitalist team as BP stabilized with concerns over possible deterioration and needing higher level of care at ICU. Progress note 03/23/25 - Sepsis 2/2 Urine infection Cover with IV Zosyn, received a dose of Vancomycin loading. Progress note 03/25/25 - Acute metabolic encephalopathy and Sepsis with fever of unknown etiology. Please clarify which of the following is the most likely etiology of the above symptoms and treatment rendered: Septic shock Shock, unknown type Hypotension Indicate type/etiology, such as idiopathic, neurogenic or orthostatic, post- procedural, postoperative, due to hemodialysis, chronic, drug induced (indicate drug), etc. After study, Shock has been ruled out Other (explain) Clinically unable to determine (explain) Thank you, Lucille Solis, CCS, CDIS Use of terms such as suspected, likely, concern for, or probable (associated with a specific diagnosis that is being evaluated, monitored, or treated as if it exists) are acceptable and can be coded in the inpatient setting, when documented at the time of discharge. Please use your independent medical judgment in providing your response. THIS QUERY IS PART OF THE PERMANENT MEDICAL RECORD
[2025-03-26 15:25] VITALS: BP 120/68; PULSE 60; RESP 16; TEMP 36.7; O2SAT 96
--- NOTE | 2025-03-26 17:15 | MHC.SLORD ---
Speech Language Pathology Order Status: Patient not seen today for swallow treatment, per HUM[employer] FACTORS SPECIALIST who fed patient this a.m., patient tolerating his baseline diet of Ground/Mechanical with Thin liquids well.
--- NOTE | 2025-03-26 18:00 | P.PNIM_ITS ---
Subjective Subjective Date of Service: 03/26/25 Interval History: Pt was febrile again at 101.0 yesterday evening Other vitals signs stable LFTs trending down Pt has no acute medical complaints [facility] staff at bedside, reports he appears back to baseline We will continue monitoring for fever or change in mental status Review of Systems Review of Systems: Yes all other systems are reviewed and are negative Physical Exam 2 Exam: Exam: General: AOx1, resting comfortably in bed. Difficult to understand. Resp: CTA bilaterally CVS: S1, S2, RRR GI: +BS, NT, no distention : Clear straw-colored urine in the Muller Skin: Warm, dry Neuro: Cranial nerves II-XII grossly intact bilaterally. Motor grossly intact bilaterally. Chronic facial and upper extremity tremors. Extremities: No edema Psych: Calm, cooperative Vital Signs: Vital Signs: Last Vital Signs Temp 98.1 F 03/26/25 15:25 Pulse 60 03/26/25 15:25 Resp 16 03/26/25 15:25 BP 120/68 03/26/25 15:25 Pulse Ox 96 03/26/25 15:25 O2 Del Method Room Air 03/26/25 15:25 BMI result Body Mass Index 24.8 Objective Data Active Medications Acetaminophen (Acetaminophen 325 Mg Tablet) 650 mg PO Q6H PRN PRN Reason: Pain, Mild 1-3,fever,headache Last Admin: 03/25/25 15:56 Dose: 650 mg Documented By: BENEDICTO Benztropine Mesylate (Benztropine Mesylate 0.5 Mg Tablet) 0.5 mg PO BID [facility] Last Admin: 03/26/25 09:23 Dose: 0.5 mg Documented By: SONNY Benztropine Mesylate (Benztropine Mesylate 1 Mg Tablet) 1 mg PO BID [facility] Last Admin: 03/26/25 09:23 Dose: 1 mg Documented By: SONNY Bisacodyl (Bisacodyl 10 Mg Supp.Rect) 10 mg WA DAILY PRN PRN Reason: Constipation Calcium Carbonate (Calcium Carbonate 750 Mg Tab.Chew) 750 mg PO Q4H PRN PRN Reason: Heartburn Clonazepam (Clonazepam 1 Mg Tablet) 1 mg PO TID [facility] Last Admin: 03/26/25 15:18 Dose: Not Given Documented By: SONNY Non-Admin Reason: LETHARGIC Diazepam (Diazepam 5 Mg Tablet) 5 mg PO BID [facility] Last Admin: 03/26/25 09:23 Dose: 5 mg Documented By: SONNY Divalproex Sodium (Divalproex Sodium Sprinkles 125 Mg ) 750 mg PO BID [facility] Last Admin: 03/26/25 09:23 Dose: 750 mg Documented By: SONNY Docusate Sodium (Docusate Sodium 100 Mg Capsule) 100 mg PO BID [facility] Last Admin: 03/26/25 09:23 Dose: 100 mg Documented By: SONNY Doxazosin Mesylate (Doxazosin Mesylate 2 Mg Tablet) 8 mg PO BEDTIME [facility] Last Admin: 03/25/25 20:36 Dose: 8 mg Documented By: BENEDICTO Finasteride (Finasteride 5 Mg Tablet) 5 mg PO DAILY [facility] Last Admin: 03/26/25 09:23 Dose: 5 mg Documented By: SONNY Haloperidol (Haloperidol 5 Mg Tablet) 5 mg PO BID [facility] Last Admin: 03/26/25 09:23 Dose: 5 mg Documented By: SONNY Haloperidol Lactate (Haloperidol Lactate 5 Mg/Ml Vial) 2.5 mg IM Q8H PRN PRN Reason: anxiety/restlessness Piperacillin Sod/Tazobactam (Sod 4.5 gm/ Sodium Chloride) 100 mls @ 200 mls/hr IV Q6H [facility] Last Infusion: 03/26/25 17:45 Dose: Infused Documented By: SONNY Valproic Acid 250 mg/ Dextrose 52.5 mls @ 52.5 mls/hr IV Q8H [facility] Last Infusion: 03/26/25 13:27 Dose: Infused Documented By: SONNY Lactulose (Lactulose 20 Gm/30 Ml Solution) 20 gm PO TID [facility] Last Admin: 03/26/25 15:16 Dose: 20 gm Documented By: SONNY [place] Carbonate ([place] Carbonate 300 Mg Capsule) 300 mg PO BEDTIME [facility] Last Admin: 03/25/25 20:37 Dose: 300 mg Documented By: BENEDICTO [place] Carbonate ([place] Carbonate 300 Mg Tablet) 150 mg PO DAILY [facility] Last Admin: 03/26/25 09:23 Dose: 150 mg Documented By: HO.LUCIAME Magnesium Hydroxide (Milk Of Magnesia 30 Ml Oral.Susp) 30 ml PO DAILY PRN PRN Reason: Constipation Melatonin (Melatonin 3 Mg Tablet) 6 mg PO BEDTIME PRN PRN Reason: Insomnia Last Admin: 03/25/25 20:36 Dose: 6 mg Documented By: BENEDICTO Ondansetron HCl (Ondansetron Hcl 4 Mg/2 Ml Vial) 4 mg IVPUSH Q8H PRN PRN Reason: Nausea and Vomiting Propranolol HCl (Propranolol Hcl 10 Mg Tablet) 10 mg PO TID [facility]; Protocol Last Admin: 03/26/25 15:20 Dose: 10 mg Documented By: SONNY Risperidone (Risperidone 2 Mg Tablet) 2 mg PO BEDTIME [facility] Last Admin: 03/25/25 20:36 Dose: 2 mg Documented By: BENEDICTO Senna (Sennosides 8.6 Mg Tablet) 8.6 mg PO DAILY PRN PRN Reason: Constipation Sertraline HCl (Sertraline Hcl 25 Mg Tablet) 25 mg PO BEDTIME [facility] Last Admin: 03/25/25 20:36 Dose: 25 mg Documented By: BENEDICTO Sodium Biphosphate/Sodium Phosphate (Sodium Phosphate,Boundary-Dibasic 133 Ml Enema) 118 ml WA BEDTIME PRN PRN Reason: Constipation Sodium Chloride (0.9 % Sodium Chloride Flush 3 Ml Syringe) 3 ml IVFLUSH QSHIFT [facility] Last Admin: 03/26/25 15:23 Dose: 3 ml Documented By: SONNY Labs 03/26/25 10:21 03/26/25 10:21 Labs: Laboratory Results - last 24 hr 03/26/25 10:21 MCV 89.9 MCH 28.6 MCHC 31.8 RDW 16.4 H Plt Count 86 L MPV 11.4 Absolute Nucleated RBC 0.000 Nucleated RBC % (auto) 0.0 ESR 14 Anion Gap 10 L Estim Creat Clear Calc 102.6 Estimated GFR > 60 Random Glucose 137 H Calcium 8.2 L Total Bilirubin 0.5 AST 53 H ALT 39 Alkaline Phosphatase 75 C-Reactive Protein 4.69 H Total Protein 5.7 L Albumin 2.8 L Procalcitonin 1.56 Assessment and Plan (1) Toxic metabolic encephalopathy: Status: Acute (2) Fever: Status: Acute Plan A 59-year-old male with a history of chronic urinary retention with indwelling Muller catheter, hypertension, diabetes mellitus, COPD, coronary artery disease, Psychiatric and behavioral problems and chronic kidney disease was brought to the ED via EMS from his long-term care facility for fever, chills, and hematuria. Acute metabolic encephalopathy and sepsis with fever of unclear etiology CT with concerns over fat stranding around kidneys in CT scan and recent instrumentation with changing Muller catheter Initially thought to be secondary to UTI from chronic indwelling Muller catheter, though urine culture grew mixed bacterial alisson characteristic of urogenital contamination Blood cultures negative after 48 hours CXR negative, respiratory viral panel negative, no N/V/D/abdominal pain, no meningeal signs on exam Continue empiric IV Zosyn, day 5 Patient's mentation appears back to baseline, though continued to spike fevers >101 while on antibiotics yesterday evening ID consulted, will d/c on Augmentin x7 days Tylenol\Toradol for fever Hypotension Pt with hypotension in the ED as low as 81/47 Transient in the setting sepsis, responded to IVF bolus and albumin; bp stable since Lactic acid normal Diet Pt seen and evaluated by SBO who recommended continuing home diet Recommend ground/mech altered (NDD2) diet with thin liquids Hx retention with Hematuria Likely from placing new Muller, traumatic Started on CBI with clearance of urine Urine has since been clear, H&H stable Constipation CT showing large stool burden with question of impaction Continue home bowel regimen Has had bowel movements while here Monitor output, enema/suppository as necessary Transaminitis Of unclear etiology, pt appears asymptomatic LFTS have been trending down No indication for additional workup at this time Seizure disorder Continued Depakote Mood disorder Continue home medications Code status: Full Patient has a guardian. Pt will require continued hospitalization for empiric IV antibiotic coverage for possible severe sepsis of unclear etiology. Pt was set to be discharged this morning but became febrile again yesterday evening. Will plan on discharge when pt is afebrile for >24h. Quality Stroke Does the patient have a stroke diagnosis?: No VTE Prior VTE?: No VTE Risk Level:: Medical - moderate - high VTE Device Contraindication: N/A - Device Ordered VTE Drug Contraindication: Treatment Not Indicated
[2025-03-26 20:00] VITALS: BP 121/65; PULSE 74; RESP 16; TEMP 36.6; O2SAT 96
[2025-03-26 20:11] VITALS: BP 121/65; PULSE 74
[2025-03-27 03:18] VITALS: BP 112/67; PULSE 70; RESP 16; TEMP 36.8; O2SAT 96
[2025-03-27] MEDS: Valproic Acid (as Sodium Salt) 250 MG in Dextrose 5 % 50 ML 52.5 MG IV ×2 (03:42→12:52)
[2025-03-27 07:48] VITALS: BP 125/70; PULSE 66; RESP 18; TEMP 36.1; O2SAT 95
[2025-03-27] MEDS: 0.9 % Sodium Chloride Flush 3 ML SYRINGE IVFLUSH (09:49)
[2025-03-27] MEDS: Divalproex Sodium Sprinkles 125 MG CAP.DR.SPR 750 MG PO (09:50)
--- NOTE | 2025-03-27 12:49 | P.DS_ITS ---
DS: Providers Provider Date of Service: 03/27/25 Date of admission: 03/22/25 11:14 Date of discharge: 03/27/25 Primary care physician: Qamar Chacon DO Consults: 03/24/25 18:32 Consult to Infectious Diseases Routine Consulting Provider: [facility] Reason for consultation: Fever of unknown origin DS: Diagnosis Discharge Diagnosis (1) Toxic metabolic encephalopathy: Status: Acute (2) Fever: Status: Acute DS: Summary Hospital Course Hospital Course: From admission HPI: Date of Service: 03/22/25 Chief Complaint: Fever, altered mentation A 59-year-old male with a history of chronic urinary retention with indwelling Muller catheter, Seizure disorder, dementia, schizophrenia , hypertension, diabetes mellitus, COPD, coronary artery disease and chronic kidney disease was brought to the ED via EMS from his long-term care facility for fever, chills, and hematuria. According to facility staff, his Muller catheter was changed yesterday, and today he developed bright red urine along with fevers up to 100.4?F. On arrival to the ED, he was noted to be febrile to 102.5?F and tachypneic, with altered mental status limiting history-taking. No vomiting or bowel changes were reported; cough was noted to be nonproductive. During ED evaluation, his temperature peaked at 104.1?F with rigors and hypotension (MAP 62 mmHg) despite initial fluid resuscitation. Additional IV fluids and albumin were administered for blood pressure support. CT abdomen/pelvis showed perinephric fat stranding bilaterally, consistent with pyelonephritis. Given the high fevers and acute decline, sepsis secondary to complicated UTI/pyelonephritis is strongly suspected. COVID and influenza swabs are negative Patient?s condition has improved slightly with better mentation and decreased rigors after fluids and antibiotics; however, blood pressure remains borderline. Admitted to the hospitalist team as BP stabilized with concerns over possible deterioration and needing higher level of care at ICU. Hospital course Pt was admitted to the hospital for acute metabolic encephalopathy in the setting of meeting SIRS criteria with an unclear source of infection. Pt initially presented with hematuria and CTA evidence suggestive of possible cystitis, however urine cultures ultimately were negative. Pt initially was hypotensive that was slow to respond with aggressive IV fluids. Pt was initially considered for ICU admission, though BP eventually improved after IVF and albumin. BP was stable and normotensive throughout the remainder of patient's hospital stay. Pt was treated with empiric Zosyn x5 days, though continued to intermittently spike fevers of 101+ which prolonged his hospital stay. Workup for infection was ultimately negative. pt was seen and evaluated by Infectious Disease who thought fever and meeting SIRS criteria possibly secondary to viral syndrome; however, suggested continuing empiric antibiotic treatment and discharging pt on Augmentin upon discharge. Pt is now mentating at baseline and has been afebrile for greater than 24 hours. Pt is set to be discharged back to [facility]. He should continue all of his other home medications. Additional details concerning hospital stay as indicated below. Acute metabolic encephalopathy and sepsis with fever of unclear etiology CT with concerns over fat stranding around kidneys in CT scan and recent instrumentation with changing Muller catheter Initially thought to be secondary to UTI from chronic indwelling Muller catheter, though urine culture grew mixed bacterial alisson characteristic of urogenital contamination Blood cultures negative after 48 hours CXR negative, respiratory viral panel negative, no N/V/D/abdominal pain, no meningeal signs on exam Treated with empiric IV Zosyn x5 days Patient's mentation appears back to baseline, though continued to spike fevers >101 while on antibiotics yesterday evening ID consulted, will d/c on Augmentin Tylenol\Toradol for fever Hypotension Pt with hypotension in the ED as low as 81/47 Transient in the setting sepsis, responded to IVF bolus and albumin; bp stable since Lactic acid normal Diet Pt seen and evaluated by [facility]BO who recommended continuing home diet Recommend ground/mech altered (NDD2) diet with thin liquids Hx retention with Hematuria Likely from placing new Muller, traumatic Started on CBI with clearance of urine Urine has since been clear, H&H stable Constipation CT showing large stool burden with question of impaction Continue home bowel regimen Has had bowel movements while here Monitor output, enema/suppository as necessary Transaminitis Of unclear etiology, pt appears asymptomatic LFTS have been trending down No indication for additional workup at this time Seizure disorder Continued Depakote Mood disorder Continue home medications 35 Time Attestation Discharge Coordination Time (in mins): 35 Quality: Safe Use of Opioids Does Pt have an Active Cancer Diagnosis on the Problem List?: No Quality: Stroke Does the patient have a stroke diagnosis?: No Physical Exam Exam: Exam: General: AOx1, resting comfortably in bed. Difficult to understand. Resp: CTA bilaterally CVS: S1, S2, RRR GI: +BS, NT, no distention : Clear straw-colored urine in the Muller Skin: Warm, dry Neuro: Cranial nerves II-XII grossly intact bilaterally. Motor grossly intact bilaterally. Chronic facial and upper extremity tremors. Extremities: No edema Psych: Calm, cooperative Vital Signs: Vital Signs: Last Vital Signs Temp 97.0 F 03/27/25 07:48 Pulse 66 03/27/25 07:48 Resp 18 03/27/25 07:48 BP 125/70 03/27/25 07:48 Pulse Ox 95 03/27/25 07:48 O2 Del Method Room Air 03/27/25 07:48 BMI result Body Mass Index 24.8 Discharge Plan Discharge Anticipated Discharge Date/Time: 03/27/25 07:45 Patient Disposition: Xfer SNF Discharge Diagnosis: Fever, hypotension, and SIRS criteria of unclear origin Referrals: [facility] [Other] - 1 Week Qamar Chacon DO [Primary Care Provider, Hospitalist] - 1 Week Discharge Medications: New amoxicillin-pot clavulanate 875-125 mg tablet 1 tab PO BID Qty: 11 0RF Rx Instructions: Take one tablet twice a day with food for the next 5 days, starting on the evening of 03/27 and ending on the evening of 04/01 Continued benztropine 0.5 mg Tablet 0.5 mg PO BID Rx Instructions: TDD = 1.5 MG BID risperidone 2 mg Tablet 2 mg PO BEDTIME divalproex [Depakote Sprinkles] 125 mg Capsule, Delayed Rel Sprinkle 750 mg PO BID Rx Instructions: CAPSULES OPENED IN PUDDING OR APPLESAUCE bisacodyl 10 mg Suppository 10 mg NH DAILY PRN (Reason: Constipation) Rx Instructions: If Senna Ineffective. docusate sodium 100 mg Capsule 100 mg PO BID lactulose 10 gram/15 mL Solution 30 ml PO TID sertraline 25 mg Tablet 25 mg PO BEDTIME hydrocortisone acetate [Anusol-HC] 25 mg Suppository 25 mg NH DAILY PRN (Reason: Hemorrhoids) lithium carbonate 300 mg Tablet 300 mg PO BEDTIME Fleet Enema 19-7 gram/118 mL Enema 118 ml NH BEDTIME PRN (Reason: Constipation) Rx Instructions: If Bisacodyl supp. ineffective. chlorhexidine gluconate [Hibiclens] 4 % Liquid 1 appl TOPICAL SUTUTH@1800 Protocol: Apply to: Apply to: BILATERAL LEGS Rx Instructions: lower legs acetaminophen 325 mg capsule 650 mg PO Q6H MDD 3 gm/day PRN (Reason: PAIN/TEMP>100) benztropine 1 mg tablet 1 mg PO BID Rx Instructions: TDD = 1.5 MG BID clonazepam 1 mg tablet 1 mg PO TID diazepam 5 mg tablet 5 mg PO BID haloperidol 5 mg tablet 5 mg PO BID lithium carbonate 150 mg capsule 150 mg PO DAILY propranolol 10 mg tablet 10 mg PO TID senna 8.6 mg capsule 8.6 mg PO DAILY PRN (Reason: Constipation) finasteride 5 mg tablet 5 mg PO DAILY 90 Days Qty: 90 3RF terazosin 10 mg capsule 10 mg PO BEDTIME 90 Days Qty: 90 3RF Discharge Orders: Discharge Order (Routine); Ordered 03/27/25 Ordered By: Amy Jin Activity on Discharge: As tolerated Stand Alone Forms: Patient Portal Discharge page Print Language: Luxembourgish Care Plan Goals: See below Health Concerns: Acute metabolic encephalopathy Sepsis Fever UTI Hypotension Plan of Treatment: You were admitted to the hospital for acute metabolic encephalopathy with sepsis with severe features that was ultimately of unknown source. You initially presented with hematuria and CT evidence was suggestive of possible acute UTI, however urine cultures were ultimately negative. Hematuria and CT findings lik jackie secondary to traumatic insertion when your Muller catheter was recently replaced. You initially had low blood pressure that required aggressive repletion with intravenous fluids and albumin. Your BP has been stable since being admitted to the hospital. You were treated with empiric IV antibiotics though continued to experience fevers even while on antibiotics. You were seen and evaluated by Infectious Disease who thought this was possibly from a viral syndrome, though they suggested discharge you home with p.o. Augmentin. You have now been afebrile for greater than 24 hours. He will be discharged back to your facility on Augmentin 875 mg twice a day for the next 5 days, starting the evening of 03/27 and ending the evening of 04/01. Assessment: See discharge summary
--- NOTE | 2025-03-27 14:38 | MHC.CM.PN ---
Patient discharged back to [facility] today. The facility provided transportation by [employer]. Spoke with ESTUARDO. She approved the transfer today.
--- NOTE | 2025-04-07 07:23 | P.CDIM_ITS ---
PROVIDER RESPONSE TEXT: To clarify, the appropriate diagnosis supported by the clinical indicators: Hypernatremia: Mild QUERY TEXT: PHYSICIAN'S DOCUMENTATION REQUEST Date of Query: 03/26/2025 06:09 AM EDT Patient Name: Willie Salomon Admit Date: 03/22/2025 Dear Amy TINSLEY, A review of the medical record indicates additional documentation may be needed. Please review below and update the documentation accordingly. Clinical Indicators: LABS: Sodium 146 H fluids Based on the above, is there a diagnosis that correlates with these findings? Hypernatremia possible, suspected, resolved etc. Labs indicate a diagnosis of (please specify) Other (explain) Clinically unable to determine (explain) Thank you, Lucille Solis, CCS, CDIS Use of terms such as suspected, likely, concern for, or probable (associated with a specific diagnosis that is being evaluated, monitored, or treated as if it exists) are acceptable and can be coded in the inpatient setting, when documented at the time of discharge. Please use your independent medical judgment in providing your response. THIS QUERY IS PART OF THE PERMANENT MEDICAL RECORD
--- NOTE | 2025-04-07 07:26 | P.CDIM_ITS ---
PROVIDER RESPONSE TEXT: To clarify, the appropriate diagnosis supported by the clinical indicators: CKD, please provide stage: CKD 1 QUERY TEXT: PHYSICIAN'S DOCUMENTATION REQUEST Date of Query: 03/27/2025 08:36 AM EDT Patient Name: Willie Salomon Admit Date: 03/22/2025 Dear Amy TINSLEY, A review of the medical record indicates additional documentation may be needed. Please review below and update the documentation accordingly. Clinical Indicators: Progress notes 03/23 - 03/26/25 - Past Medical History of CKD Grf >60 Cr 0.80 Bun 10 Please clarify which of the following accurately represents the stage of the noted CKD: CKD, please provide stage 1, 2, 3a, 3b, 4 ESRD - CKD V now requiring permanent dialysis and/or transplant Other (explain) Clinically unable to determine (explain) Thank you, Lucille Solis, CCS, CDIS Use of terms such as suspected, likely, concern for, or probable (associated with a specific diagnosis that is being evaluated, monitored, or treated as if it exists) are acceptable and can be coded in the inpatient setting, when documented at the time of discharge. Please use your independent medical judgment in providing your response. THIS QUERY IS PART OF THE PERMANENT MEDICAL RECORD
--- NOTE | 2025-04-20 07:17 | P.CDIM_ITS ---
PROVIDER RESPONSE TEXT: To clarify, the appropriate diagnosis supported by the clinical indicators: Sepsis due to UTI: Suspected QUERY TEXT: PHYSICIAN'S DOCUMENTATION REQUEST Date of Query: 04/16/2025 09:20 AM EST Patient Name: Willie Salomon Admit Date: 03/22/2025 Dear Amy TINSLEY, RETROSPECTIVE QUERY A review of the medical record indicates additional documentation may be needed. Please review below and update the documentation accordingly. Clinical indicators: Discharge Summary dated 03/27/25 - Admitted for acute metabolic encephalopathy in the setting of meeting SIRS criteria unclear source. Acute metabolic encephalopathy and Sepsis with fever of unclear etiology. Treated with IV Zosyn x5 days. Jadiel fever 101 while on abx. Hypotension, BP 81/47 Transient in the setting of Sepsis. Health concerns: Acute metabolic encephalopathy, Sepsis, Fever, UTI, hypotension. Plan of treatment: Admitted with acute metabolic encephalopathy with Sepsis with severe features. CT evidence was suggestive of UTI however UA negative. Infectious disease thought this was possibly from a viral syndrome. Augmentin at home. Sepsis Systemic manifestations of infection, with 2 or more SIRS criteria which include: Fever > 100.4?F or hypothermia < 96.8?F Leukocytosis - WBC > 12,000 or leukopenia, WBC < 4,000, or > 10% bands Tachycardia- > 90 beats/minute Tachypnea- RR > 20 breaths/minute or PaCO2 < 32mmHg SIRS Based on the above information and the recognized standard for sepsis, could you please clarify if this diagnoses is still accurate and reflective of the patient's condition to ensure quality of the medical record: Consistency and clarity of documentation: Sepsis due to UTI possible, probable, cannot rule out, suspected etc. Sepsis due to Viral Syndrome SIRS Sepsis due to other source Other (explain) Clinically unable to determine (explain) Thank you, Lucille Solis, CCS, CDIS Use of terms such as suspected, likely, concern for, or probable (associated with a specific diagnosis that is being evaluated, monitored, or treated as if it exists) are acceptable and can be coded in the inpatient setting, when documented at the time of discharge. Please use your independent medical judgment in providing your response. THIS QUERY IS PART OF THE PERMANENT MEDICAL RECORD
== END 2025-03-27 14:26 | disposition skilled nursing facility (03) | DRG 871 ==
LOC: HO.ED 07:50 → HO.EDOVER 11:29 → HO.IMC 03-23 16:05 → HO.S3 03-25 11:44
PROVIDERS: Admitting Provider Student in an Organized Health Care Education/Training Program; Emergency Provider Emergency Medicine; PCP Hospitalist; Visit Provider Student in an Organized Health Care Education/Training Program
DX: A41.9 Sepsis, unspecified organism (principal); G92.8 Other toxic encephalopathy; N39.0 Urinary tract infection, site not specified; I95.9 Hypotension, unspecified; G20.A1 Parkinson's disease without dyskinesia, without mention of fluctuations; K56.41 Fecal impaction; F02.80 Dementia in other diseases classified elsewhere, unspecified severity, without behavioral disturbance, psychotic disturbance, mood disturbance, and anxiety; N18.1 Chronic kidney disease, stage 1; F20.9 Schizophrenia, unspecified; G40.909 Epilepsy, unspecified, not intractable, without status epilepticus; R31.9 Hematuria, unspecified; J44.9 Chronic obstructive pulmonary disease, unspecified; Z20.822 Contact with and (suspected) exposure to COVID-19; Z79.899 Other long term (current) drug therapy
CPT/HCPCS: 36415; 71045; 74176; 80053; 81001; 82140; 83605; 84145; 84484; 85025; 85027; 85610; 85652; 86140; 87040; 87086; 87502; 87633; 87635; 92610; 93005; 99285; J0131; J1885; J2543; J3010; J3373; J7120; P9047

== ENCOUNTER → 2025-03-22 04:03 | Outpatient (BNV) | payer MEDICAID, SELFPAY | PROVIDERS: Admitting Provider Student in an Organized Health Care Education/Training Program; Emergency Provider Emergency Medicine; PCP Hospitalist; Visit Provider Internal Medicine Cardiovascular Disease | DX: A41.9 Sepsis, unspecified organism (principal) | CPT/HCPCS: 93010 ==

== ENCOUNTER → 2025-03-22 04:44 | Outpatient (BNV) | payer OTHER, SELFPAY | PROVIDERS: Emergency Provider Emergency Medicine; PCP Hospitalist; Visit Provider Radiology Diagnostic Radiology | DX: R31.9 Hematuria, unspecified (principal); R50.9 Fever, unspecified; J98.11 Atelectasis; J98.4 Other disorders of lung | CPT/HCPCS: 71045; 74176 ==

== ENCOUNTER → 2025-03-22 11:14 | Outpatient (BNV) | payer MEDICAID, SELFPAY | PROVIDERS: Admitting Provider Student in an Organized Health Care Education/Training Program; Emergency Provider Emergency Medicine; PCP Hospitalist; Visit Provider Student in an Organized Health Care Education/Training Program | DX: G92.8 Other toxic encephalopathy (principal); R50.9 Fever, unspecified | CPT/HCPCS: 99223; 99233 ==

== ENCOUNTER → 2025-03-22 11:14 | Outpatient (BNV) | payer OTHER, SELFPAY | PROVIDERS: Admitting Provider Student in an Organized Health Care Education/Training Program; Emergency Provider Emergency Medicine; PCP Hospitalist; Visit Provider Internal Medicine | DX: I95.9 Hypotension, unspecified (principal); N39.0 Urinary tract infection, site not specified | CPT/HCPCS: 99222 ==

== ENCOUNTER 2025-04-03 14:16 | Outpatient (AMB) | payer MEDICAID, SELFPAY ==
--- NOTE | 2025-04-03 14:20 | A.OFFVIS_ITS ---
Intake Visit Reasons: 6w follow up Intake Note: Patient is present for 6wk F/U Urology Medication:FINASTERIDE,TERAZOSIN Antibiotic Allergy:SULFA Blood Thinner:NONE Investor Relations Specialist Required: No Accompanied by: Self / Same As Patient Allergies Sulfa (Sulfonamide Antibiotics) (SULFA (SULFONAMIDE ANTIBIOTICS)) Allergy (Intermediate, Verified 04/03/25 14:20) Rash [id number] Reductase Inhibitor ([id number] REDUCTASE INHIBITOR) Allergy (Unknown, Verified 04/03/25 14:20) Unknown ANTIARTERIOSCLEROTIC DRUGS Adverse Reaction (Unknown, Uncoded 03/22/25 05:03) Unknown HPI Comments Details: Willie is a pleasant male. Resident at [facility] for long-term care. Seen for following urologic issues - lower urinary tract symptoms - left hydrocele Four-month follow-up Muller catheter in place Prostate procedure in 2021 was incision with small prostate Recommend suprapubic tube Discussed with nurse who was in attendance Guardian information was provided Guardian [employer] [address] [facility] Cell - [phone] Office [phone] Hydrocele drainage in office 04/27 - 200 cc Lower urinary tract symptoms Followed for many years High postvoid residual Current therapy terazosin 10 mg with finasteride PSA 11/22 0.3 Prior cystoscopy with lobar hypertrophy Background lithium Prostate procedure 2021 PFSH Medical History TBI (traumatic brain injury) Astigmatism Seasonal allergies Bilateral cataracts Preglaucoma Insomnia Presbyopia Parkinsons disease Seizures Fall Pneumonia General weakness Hypoxia COVID-19 Resides in shelter facility Dementia Schizophrenia Hypernatremia Metabolic encephalopathy BPH (benign prostatic hyperplasia) HTN (hypertension) GERD (gastroesophageal reflux disease) Anxiety Surgical History Hx of colonoscopy Hx of cystoscopy Social History Household Members: None [facility] Other:: [facility] Do you presently have visiting nurse or other home services: Yes (detention care) Unable to assess alcohol history related to: Unable to respond Alcohol intake: never Comment: 1:1 sitter Patient Tobacco Use Status: Never used Tobacco Advance Directives Date on File: 01/17/22 service: No Current occupational status: disabled Review of Systems Const Denies chills and Denies fever(s) Card Reports no additional complaints and Denies syncope Resp Denies cough GI Denies abdominal pain and Denies heartburn Reports as per HPI and Denies change in libido Neuro Denies syncope Psych Denies change in libido Endo Denies change in libido Physical Exam Const General: cooperative, healthy appearing, comfortable and no acute distress Orientation/consciousness: patient oriented x3 HEENT Face and sinus: Yes normal facial exam Mouth: moist mucous membranes Neck Neck: Yes normal visual inspection, Yes full ROM and Yes trachea midline Chest Chest palpation & inspection: normal inspection of the chest Resp Effort & Inspection: normal respiratory effort, able to speak in complete sentences and no respiratory distress GI Inspection: Yes normal to inspection Back/Spine/Pelvis Cervical Spine: normal cervical lordosis Thoracic/Lumbar Spine: thoracic and lumbar spine normal to inspection Skin General skin exam: no rashes or lesions noted Neuro General: patient oriented x3, gait normal, tone normal and moves all extremities Extrem General: Yes normal to inspection and Yes capillary refill normal Assessment & Plan Assessment & Plan (1) Urinary retention: Code(s): R33.9 - Retention of urine, unspecified Category: Medical Plan Risks, benefits and alternatives to therapy were discussed. These include but are not limited to infection, bleeding, damage to local organs and tissues, need for further interventions. Anesthetic risks regarding cardiac arrhythmia, blood clots, and potential mortality were discussed. The patient understands the typical recovery time and the outpatient nature of the procedure. After consideration of these risks the patient gives full informed consent and they wish to move ahead with the procedure. - cystoscopy, suprapubic tube placement Patient Instructions: This note is constructed using voice recognition software. While every effort has been made to ensure accuracy shift commander errors may have been included. Imaging studies, laboratory and physical exam results were discussed and reviewed in detail. No major barriers to patient understanding were identified. An opportunity to ask questions regarding the treatment plan was provided. All questions were answered. The patient expressed understanding and agreement with the above treatment plan. The patient is aware they should contact our office by phone for worsening of their current condition or the appearance of new urologic symptoms. Compliance is encouraged with any medications and followup testing that is ordered. It is a privilege to participate in the urologic care of your patient. If you have any questions or concerns regarding treatment for the above conditions, or other urologic issues, please do not hesitate to contact me. The office telephone contact is [phone]. Sincerely, Dr Jevon Sharif MD, [facility] - Urology Compassionate Specialist Care for the Genitourinary System Coding Level of Care Code Est Pt Level 4 (12481) Complex EM visit Add On G2211 Diagnoses Urinary retention R33.9
--- OUTSIDE RECORDS SUMMARY | 2025-04-03 14:56 | XMS_ITS | Encounter Summary ---
Author Organization [employer] Address [address] [place] [address] Care Team Providers Care Director Of Cardiac Rehabilitation Name Role Phone Qamar Chacon MD Primary Care Provider [phone] Encounter Details Date Type Department Care Team (Late st Contact Info) Description 11/10/2024 Lab Requisition [facility] - Main Lab [address] [facility] [place] [address] Qamar Chacon MD [address] [place] [address] [address] [place] Disorder of urea cycle metabolism, unspecified (CMS/HCC [...] mcmol/L LAB CHEMISTRY METHOD 11/10/2024 7:[address] [facility] Blood Venous blood specimen / Unknown 11/10/2024 7:09 AM EDT 11/10/2024 7:37 AM EDT Qamar Chacon MD LAB BLOOD ORDERABLES Final Resul t [facility] [address] [place] [address], [place] [phone] * Comprehensive metabolic panel (11/10/2024 7:09 AM EDT) [facility] Sodium 142 133 - 145 mmol/L LAB CHEMISTRY METHOD 11/10/2024 8:[address] [facility] Potassium 3.8 3.5 - 5.5 mmol/L LAB CHEMISTRY METHOD 11/10/2024 8:[address] [facility] Chloride 108 96 - 110 mmol/L LAB CHEMISTRY METHOD 11/10/2024 8:[address] [facility] CO2 28 21 - 32 mmol/L LAB CHEMISTRY METHOD 11/10/2024 8:[address] [facility] Anion Gap 6 3 - 11 LAB CHEMISTRY METHOD 11/10/2024 8:[address] [facility] Glucose 87 70 - 100 mg/dL LAB CHEMISTRY METHOD 11/10/2024 8:[address] [facility] BUN 17 5 - 25 mg/dL LAB CHEMISTRY METHOD 11/10/2024 8:[address] [facility] Creatinine 1.00 0.70 - 1.30 mg/dL LAB CHEMISTRY METHOD 11/10/2024 8:[address] [facility] eGFR 87 >=60 mL/min/1. 73m2 LAB CHEMISTRY METHOD 11/10/2024 8:[address] [facility] Comment:Calculation based on the Chronic Kidney Disease Epidemiology Collaboration (CKD-EPI) equation refit without adjustment for race. BUN/Creatinine Ratio 17.0 LAB CHEMISTRY METHOD 11/10/2024 8:[address] [facility] Calcium 9.2 8.5 - 10.5 mg/dL LAB CHEMISTRY METHOD 11/10/2024 8:[address] [facility] AST (SGOT) 19 10 - 42 unit/L LAB CHEMISTRY METHOD 11/10/2024 8:[address] [facility] ALT (SGPT) 22 10 - 60 unit/L LAB CHEMISTRY METHOD 11/10/2024 8:[address] [facility] Alkaline Phosphatase 70 42 - 121 unit/L LAB CHEMISTRY METHOD 11/10/2024 8:[address] [facility] Total Protein 6.9 6.0 - 8.0 g/dL LAB CHEMISTRY METHOD 11/10/2024 8:[address] [facility] Albumin 3.5 3.2 - 5.0 g/dL LAB CHEMISTRY METHOD 11/10/2024 8:[address] [facility] Total Bilirubin 0.5 0.0 - 1.4 mg/dL LAB CHEMISTRY METHOD 11/10/2024 8:[address] [facility] Blood Venous blood specimen / Unknown 11/10/2024 7:09 AM EDT 11/10/2024 7:37 AM EDT us Qamar Chacon MD LAB BLOOD ORDERABLES Final Resul t [facility] [address] [place] [address], * (ABNORMAL) Complete blood count (11/10/2024 7:09 AM EDT) WBC 8.5 4.8 - 10.8 K/[facility] LAB HEMETOLOGY METHOD 11/10/2024 7:[address] [facility] RBC 4.50 4.50 - 5.50 M/mcL LAB HEMETOLOGY METHOD 11/10/2024 7:[address] [facility] Hemoglobin 13.2(L) 13.5 - 17.5 g/dL LAB HEMETOLOGY METHOD 11/10/2024 7:[address] [facility] Hematocrit 42.3 42.0 - 54.0 % LAB HEMETOLOGY METHOD 11/10/2024 7:[address] [facility] MCV 93.2 79.0 - 98.0 FL LAB HEMETOLOGY METHOD 11/10/2024 7:[address] [facility] MCH 29.1 27.0 - 32.0 pcg LAB HEMETOLOGY METHOD 11/10/2024 7:[address] [facility] MCHC 31.2(L) 32.0 - 37.0 g/dL LAB HEMETOLOGY METHOD 11/10/2024 7:[address] [facility] RDW 14.6 11.0 - 15.0 % LAB HEMETOLOGY METHOD 11/10/2024 7:[address] [facility] Platelets 196 130 - 400 K/mcL LAB HEMETOLOGY METHOD 11/10/2024 7:[address] [facility] MPV 10.1 7.0 - 11.0 FL LAB HEMETOLOGY METHOD 11/10/2024 7:[address] [facility] NRBC 0.0 <1.0 % LAB HEMETOLOGY METHOD 11/10/2024 7:[address] [facility] NRBC Absolute 0.00 <0.10 K/mcL LAB HEMETOLOGY METHOD 11/10/2024 7:[address] [facility] Blood Venous blood specimen / Unknown 11/10/2024 7:09 AM EDT 11/10/2024 7:37 AM EDT Qamar Chacon MD LAB BLOOD ORDERABLES Final Resul t [facility] [address] [place] [address], documented in this encounter Visit Diagnoses Diagnosis Disorder of urea cycle metabolism, unspecified (CMS/HCC V24) Unspecified convulsions (CMS/HCC V24, CMS/HCC V28) documented in this encounter Care Teams Director Of Cardiac Rehabilitation Relationship Specialty Start Date End Date Qamar Chacon MD [address] [place] [address] Dr [address] [place], [place] PCP - General Internal Medicine 07/14/24 documented as of this encounter
--- OUTSIDE RECORDS SUMMARY | 2025-04-03 14:56 | XMS_ITS | Encounter Summary ---
Author Organization [employer] [facility] Address [address] [place] [address] Care Team Providers Care River Captain Name Role Phone Qamar Chacon MD Primary Care Provider [phone] Encounter Details Date Type Department Care Team (Late st Contact Info) Description 10/22/2024 Lab Requisition [facility] - Main Lab [address] [place] [address] Qamar Chacon MD [address] [place] [address] [address] [place], [place] Benign prostatic hyperplasia with lower urinary [...] LAB CHEMISTRY METHOD 10/22/2024 9:24 AM EDT [facility] Blood Venous blood specimen / Unknown 10/22/2024 6:41 AM EDT 10/22/2024 7:13 AM EDT Narrative [facility] - 10/22/2024 9:24 AM EDT The Siemens Advia Centaur Chemiluminescent Immunoassay is used. Results obtained with different assay methods or kits cannot be used interchangeably. Results cannot be interpreted as absolute evidence of the presence or absence of malignant disease. us Qamar Chacon MD LAB BLOOD ORDERABLES Final Resul t [facility] ([facility]) [facility] [address] [place] [address], documented in this encounter Visit Diagnoses Diagnosis Benign prostatic hyperplasia with lower urinary tract symptoms documented in this encounter Care Teams River Captain Relationship Specialty Start Date End Date Qamar Chacon MD [address] [place] [address] Dr [address] [place], [place] PCP - General Internal Medicine 07/14/24 documented as of this encounter
--- OUTSIDE RECORDS SUMMARY | 2025-04-03 14:56 | XMS_ITS | Encounter Summary ---
Author Organization [employer] Address [address] [place] [address] Care Team Providers Care Side Panel Padder Name Role Phone Qamar Chacon MD Primary Care Provider [phone] Encounter Details Date Type Department Care Team (Late st Contact Info) Description 05/27/2024 Lab Requisition [facility] - Main Lab 299 [facility] [place] [address] Qamar Chacon MD [address] [place] [address] [address] [place] Schizophrenia, unspecified (CMS/HCC V24, CMS/HCC V28); Disorder [...] mcmol/L LAB CHEMISTRY METHOD 05/27/2024 7:26 AM [facility] Blood Venous blood specimen / Unknown 05/27/2024 6:35 AM EST 05/27/2024 6:59 AM EST us Qamar Chacon MD LAB BLOOD ORDERABLES Final Resul t [facility] [address] [place] [address], [place] [phone] * (ABNORMAL) Comprehensive metabolic panel (05/27/2024 6:35 AM EST) Sodium 143 133 - 145 mmol/L LAB CHEMISTRY METHOD 05/27/2024 7:45 AM [facility] Potassium 4.2 3.5 - 5.5 mmol/L LAB CHEMISTRY METHOD 05/27/2024 7:45 AM [facility] Chloride 112(H) 96 - 110 mmol/L LAB CHEMISTRY METHOD 05/27/2024 7:45 AM [facility] CO2 26 21 - 32 mmol/L LAB CHEMISTRY METHOD 05/27/2024 7:45 AM [facility] Anion Gap 5 3 - 11 LAB CHEMISTRY METHOD 05/27/2024 7:45 AM [facility] Glucose 86 70 - 100 mg/dL LAB CHEMISTRY METHOD 05/27/2024 7:45 AM [facility] BUN 18 5 - 25 mg/dL LAB CHEMISTRY METHOD 05/27/2024 7:45 AM [facility] Creatinine 0.95 0.70 - 1.30 mg/dL LAB CHEMISTRY METHOD 05/27/2024 7:45 AM [facility] eGFR 93 >=60 mL/min/1. 73m2 LAB CHEMISTRY METHOD 05/27/2024 7:45 AM [facility] Comment:Calculation based on the Chronic Kidney Disease Epidemiology Collaboration (CKD-EPI) equation refit without adjustment for race. BUN/Creatinine Ratio 18.9 LAB CHEMISTRY METHOD 05/27/2024 7:45 AM [facility] Calcium 9.2 8.5 - 10.5 mg/dL LAB CHEMISTRY METHOD 05/27/2024 7:45 AM [facility] AST (SGOT) 21 10 - 42 unit/L LAB CHEMISTRY METHOD 05/27/2024 7:45 AM [facility] ALT (SGPT) 21 10 - 60 unit/L LAB CHEMISTRY METHOD 05/27/2024 7:45 AM [facility] Alkaline Phosphatase 65 42 - 121 unit/L LAB CHEMISTRY METHOD 05/27/2024 7:45 AM [facility] Total Protein 6.0 6.0 - 8.0 g/dL LAB CHEMISTRY METHOD 05/27/2024 7:45 AM [facility] Albumin 2.9(L) 3.2 - 5.0 g/dL LAB CHEMISTRY METHOD 05/27/2024 7:45 AM [facility] Total Bilirubin 0.4 0.0 - 1.4 mg/dL LAB CHEMISTRY METHOD 05/27/2024 7:45 AM [facility] Blood Venous blood specimen / Unknown 05/27/2024 6:35 AM EST 05/27/2024 6:59 AM EST us Qamar Chacon MD LAB BLOOD ORDERABLES Final Resul t [facility] [address] [place] [address], * (ABNORMAL) Complete blood count (05/27/2024 6:35 AM EST) WBC 7.7 4.8 - 10.8 K/mcL LAB HEMETOLOGY METHOD 05/27/2024 7:07 AM [facility] RBC 4.00(L) 4.50 - 5.50 M/mcL LAB HEMETOLOGY METHOD 05/27/2024 7:07 AM [facility] Hemoglobin 11.6(L) 13.5 - 17.5 g/dL LAB HEMETOLOGY METHOD 05/27/2024 7:07 AM [facility] Hematocrit 36.8(L) 42.0 - 54.0 % LAB HEMETOLOGY METHOD 05/27/2024 7:07 AM [facility] MCV 91.1 79.0 - 98.0 FL LAB HEMETOLOGY METHOD 05/27/2024 7:07 AM [facility] MCH 28.7 27.0 - 32.0 pcg LAB HEMETOLOGY METHOD 05/27/2024 7:07 AM [facility] MCHC 31.5(L) 32.0 - 37.0 g/dL LAB HEMETOLOGY METHOD 05/27/2024 7:07 AM [facility] RDW 15.1(H) 11.0 - 15.0 % LAB HEMETOLOGY METHOD 05/27/2024 7:07 AM [facility] Platelets 116(L) 130 - 400 K/mcL LAB HEMETOLOGY METHOD 05/27/2024 7:07 AM [facility] MPV 11.1(H) 7.0 - 11.0 FL LAB HEMETOLOGY METHOD 05/27/2024 7:07 AM [facility] NRBC 0.0 <1.0 % LAB HEMETOLOGY METHOD 05/27/2024 7:07 AM [facility] NRBC Absolute 0.00 <0.10 K/mcL LAB HEMETOLOGY METHOD 05/27/2024 7:07 AM [facility] Blood Venous blood specimen / Unknown 05/27/2024 6:35 AM EST 05/27/2024 6:59 AM EST Qamar Chacon MD LAB BLOOD ORDERABLES Final Resul t [facility]) [facility] [address] [place] [address], documented in this encounter Visit Diagnoses Diagnosis Schizophrenia, unspecified (CMS/HCC V24, CMS/HCC V28) Disorder of urea cycle metabolism, unspecified (CMS/HCC V24) documented in this encounter Care Teams Side Panel Padder Relationship Specialty Start Date End Date Qamar Chacon MD [address] [place] [address] Dr [address] [place], [place] PCP - General Internal Medicine 07/14/24 documented as of this encounter
--- OUTSIDE RECORDS SUMMARY | 2025-04-03 14:56 | XMS_ITS | Encounter Summary ---
Author Organization [facility] Address [address] [place] [address] Care Team Providers Care Bar Examiner Name Role Phone Qamar Chacon MD Primary Care Provider [phone] Encounter Details Date Type Department Care Team (Late st Contact Info) Description 07/14/2024 Lab Requisition [facility] - Main Lab [address] [place] [address] Qamar Chacon MD [address] [place] [address] [address] [place], [place] Other hyperlipidemia; Hypothyroidism, unspecified Social History [...] 07/14/2024 9:01 AM EST [facility] [place] ([facility]) [facility] Blood Venous blood specimen / Unknown 07/14/2024 6:36 AM EST 07/14/2024 8:18 AM EST us Qamar Chacon MD LAB BLOOD ORDERABLES Final Resul t [facility] [address] [place] [address], [place] [phone] * (ABNORMAL) Lipid panel with reflex to direct LDL (07/14/2024 6:36 AM EST) Cholesterol 123 0 - 200 mg/dL LAB CHEMISTRY METHOD 07/14/2024 8:53 AM EST [facility] Triglycerides 134 0 - 150 mg/dL LAB CHEMISTRY METHOD 07/14/2024 8:53 AM EST [facility] HDL 36(L) >=40 mg/dL LAB CHEMISTRY METHOD 07/14/2024 8:53 AM EST [facility] LDL Calculated 60 0 - 100 mg/dL LAB CHEMISTRY METHOD 07/14/2024 8:53 AM EST [facility] VLDL Cholesterol Booker 26.8 mg/dL LAB CHEMISTRY METHOD 07/14/2024 8:53 AM EST [facility] Non HDL Chol. (LDL+VLDL) 87 <145 mg/dL LAB CHEMISTRY METHOD 07/14/2024 8:53 AM EST [facility] Chol/HDL Ratio 3.4 0.0 - 4.4 LAB CHEMISTRY METHOD 07/14/2024 8:53 AM EST [facility] Blood Venous blood specimen / Unknown 07/14/2024 6:36 AM EST 07/14/2024 8:18 AM EST us Qamar Chacon MD LAB BLOOD ORDERABLES Final Resul t [facility] [address] [place] [address], [place] [phone] documented in this encounter Visit Diagnoses Diagnosis Other hyperlipidemia Hypothyroidism, unspecified documented in this encounter Care Teams Bar Examiner Relationship Specialty Start Date End Date Qamar Chacon MD [address] [place] PCP - General Internal Medicine 07/14/24 documented as of this encounter
--- OUTSIDE RECORDS SUMMARY | 2025-04-03 14:56 | XMS_ITS | Encounter Summary ---
Author Organization [employer] Address [address] [place] [address] Care Team Providers Care Product Marketing Manager Name Role Phone Qamar Chacon MD Primary Care Provider [phone] Encounter Details Date Type Department Care Team (Late st Contact Info) Description 10/01/2024 Lab Requisition [facility] - Main Lab 299 [facility] [place] [address] Qamar Chacon MD [address] [place] [address] [address] [place], [place] Schizophrenia, unspecified (CMS/HCC V24, CMS/HCC V28) [...] reflex microscopic (10/01/2024 5:00 AM EDT) Specific [place] Urine 1.016 1.003 - 1.030 LAB URINALYSIS - AUTOMATED METHOD 10/01/2024 8:55 AM [facility] pH, Urine 6.0 5.0 - 8.0 pH LAB URINALYSIS - AUTOMATED METHOD 10/01/2024 8:55 AM [facility] Leukocytes, Urine Trace(A) Negative LAB URINALYSIS - AUTOMATED METHOD 10/01/2024 8:55 AM [facility] Nitrite, Urine Negative Negative LAB URINALYSIS - AUTOMATED METHOD 10/01/2024 8:55 AM [facility] Protein, Urine Negative <=Trace mg/dL LAB URINALYSIS - AUTOMATED METHOD 10/01/2024 8:55 AM [facility] Glucose, Urine Negative Negative mg/dL LAB URINALYSIS - AUTOMATED METHOD 10/01/2024 8:55 AM [facility] Ketones, Urine Negative Negative mg/dL LAB URINALYSIS - AUTOMATED METHOD 10/01/2024 8:55 AM [facility] Urobilinogen, Urine 0.2 0.2 - 1.0 mg/dL LAB URINALYSIS - AUTOMATED METHOD 10/01/2024 8:55 AM [facility] Bilirubin, Urine Negative Negative LAB URINALYSIS - AUTOMATED METHOD 10/01/2024 8:55 AM [facility] Blood, Urine Negative Negative LAB URINALYSIS - AUTOMATED METHOD 10/01/2024 8:55 AM [facility] RBC, Urine 1.5 0 - 4 /HPF LAB URINALYSIS - AUTOMATED METHOD 10/01/2024 8:55 AM [facility] WBC, Urine 4.5(H) 0 - 4 /HPF LAB URINALYSIS - AUTOMATED METHOD 10/01/2024 8:55 AM [facility] Squamous Epithelial, Urine 13 0 - 60 /LPF LAB URINALYSIS - AUTOMATED METHOD 10/01/2024 8:55 AM [facility] Bacteria, Urine Negative Negative /HPF LAB URINALYSIS - AUTOMATED METHOD 10/01/2024 8:55 AM EDT [facility] Hyaline Casts, Urine 1.2 0 - 3 /LPF LAB URINALYSIS - AUTOMATED METHOD 10/01/2024 8:55 AM EDT [facility] Urine Urine specimen obtained by clean catch procedure / Unknown 10/01/2024 5:00 AM EDT 10/01/2024 8:06 AM EDT us Qamar Chacon MD LAB URINE ORDERABLES Final Resul t [facility] [address] [place] [address], [place] [phone] * Culture urine (10/01/2024 5:00 AM EDT) Culture, Urine <10,000 cfu/ml, insignificant count, no further workup. 10/02/2024 11:01 AM EDT [facility] Urine Urine specimen obtained by clean catch procedure / Unknown 10/01/2024 5:00 AM EDT 10/01/2024 8:06 AM EDT us Qamar Chacon MD LAB MICROBIOLOGY - GENERAL ORDER LIDA Final Result [facility] [address] [place] [address], [place] [phone] documented in this encounter Visit Diagnoses Diagnosis Schizophrenia, unspecified (CMS/HCC V24, CMS/HCC V28) documented in this encounter Care Teams Product Marketing Manager Relationship Specialty Start Date End Date Qamar Chacon MD [address] [place] [address] Dr Preethi Ste[place] PCP - General Internal Medicine 07/14/24 documented as of this encounter
--- OUTSIDE RECORDS SUMMARY | 2025-04-03 14:56 | XMS_ITS | Encounter Summary ---
Author Organization [employer] Address [address] [place] [address] Care Team Providers Care Electric Tape Slitter Name Role Phone Qamar Chacon MD Primary Care Provider [phone] Encounter Details Date Type Department Care Team (Late st Contact Info) Description 09/18/2024 Lab Requisition [facility] - Main Lab 299 [facility] [place] [address] Qamar Chacon MD [address] [place] [address] [address] [place] Schizophrenia, unspecified (CMS/HCC V24, CMS/HCC V28); Unspecified [...] Hold for add-ons. 09/18/2024 9:01 AM EDT [facility] Comment:Auto resulted. Blood Venous blood specimen / Unknown 09/18/2024 7:00 AM EDT 09/18/2024 7:38 AM EDT us Qamar Chacon MD LAB BLOOD ORDERABLES Final Resul t Performing Organization Address [facility] de Phone Number [facility] [address] [place] [address], [place] [phone] * Valproic acid level, total (09/18/2024 7:00 AM EDT) Pathologist [facility] Valproic Acid, Total 50 50 - 100 mcg/mL LAB CHEMISTRY METHOD 09/18/2024 8:48 AM EDT [facility] Blood Venous blood specimen / Unknown 09/18/2024 7:00 AM EDT 09/18/2024 7:37 AM EDT us Qamar Chacon MD LAB BLOOD ORDERABLES Final Resul t Performing Organization Address [facility] de Phone Number [facility] [address] [place] [address], [place] [phone] * [place] level (09/18/2024 7:00 AM EDT) Pathologist [facility] [place] Level 0.6 0.6 - 1.2 mEq/L LAB CHEMISTRY METHOD 09/18/2024 8:56 AM EDT [facility] Blood Venous blood specimen / Unknown 09/18/2024 7:00 AM EDT 09/18/2024 7:37 AM EDT us Qamar Chacon MD LAB BLOOD ORDERABLES Final [facility]ul [facility] LAB [address] [place] [address], documented in this encounter Visit Diagnoses Diagnosis Schizophrenia, unspecified (CMS/HCC V24, CMS/HCC V28) Unspecified convulsions (CMS/HCC V24, CMS/HCC V28) documented in this encounter Care Teams Electric Tape Slitter Relationship Specialty Start Date End Date Qamar Chacon MD [address] [place] [address] Dr [address] [place], [place] PCP - General Internal Medicine 07/14/24 documented as of this encounter
--- OUTSIDE RECORDS SUMMARY | 2025-04-03 14:56 | XMS_ITS | Encounter Summary ---
Author Organization [employer] [facility] Address [address] [place] [address] Care Team Providers Care Silviculturist Name Role Phone Qamar Chacon MD Primary Care Provider [phone] Encounter Details Date Type Department Care Team (Late st Contact Info) Description 08/05/2024 Lab Requisition [facility] - Main Lab [address] [place] [address] Qamar Chacon MD [address] [place] [address] [address] [place], [place] Encounter for screening for other metabolic [...] LAB CHEMISTRY METHOD 08/05/2024 8:45 AM EST [facility] Potassium 4.9 3.5 - 5.5 mmol/L LAB CHEMISTRY METHOD 08/05/2024 8:45 AM EST [facility] Chloride 109 96 - 110 mmol/L LAB CHEMISTRY METHOD 08/05/2024 8:45 AM [facility] CO2 30 21 - 32 mmol/L LAB CHEMISTRY METHOD 08/05/2024 8:45 AM [facility] Anion Gap 6 3 - 11 LAB CHEMISTRY METHOD 08/05/2024 8:45 AM [facility] Glucose 89 70 - 100 mg/dL LAB CHEMISTRY METHOD 08/05/2024 8:45 AM [facility] BUN 14 5 - 25 mg/dL LAB CHEMISTRY METHOD 08/05/2024 8:45 AM [facility] Creatinine 0.92 0.70 - 1.30 mg/dL LAB CHEMISTRY METHOD 08/05/2024 8:45 AM [facility] eGFR 96 >=60 mL/min/1. 73m2 LAB CHEMISTRY METHOD 08/05/2024 8:45 AM [facility] Comment:Calculation based on the Chronic Kidney Disease Epidemiology Collaboration (CKD-EPI) equation refit without adjustment for race. BUN/Creatinine Ratio 15.2 LAB CHEMISTRY METHOD 08/05/2024 8:45 AM [facility] Calcium 9.6 8.5 - 10.5 mg/dL LAB CHEMISTRY METHOD 08/05/2024 8:45 AM [facility] AST (SGOT) 24 10 - 42 unit/L LAB CHEMISTRY METHOD 08/05/2024 8:45 AM [facility] ALT (SGPT) 24 10 - 60 unit/L LAB CHEMISTRY METHOD 08/05/2024 8:45 AM [facility] Alkaline Phosphatase 68 42 - 121 unit/L LAB CHEMISTRY METHOD 08/05/2024 8:45 AM [facility] Total Protein 6.5 6.0 - 8.0 g/dL LAB CHEMISTRY METHOD 08/05/2024 8:45 AM [facility] Albumin 3.2 3.2 - 5.0 g/dL LAB CHEMISTRY METHOD 08/05/2024 8:45 AM EST [facility] Total Bilirubin 0.3 0.0 - 1.4 mg/dL LAB CHEMISTRY METHOD 08/05/2024 8:45 AM EST [facility] Blood Venous blood specimen / Unknown 08/05/2024 7:01 AM EST 08/05/2024 8:07 AM EST us Qamar Chacon MD LAB BLOOD ORDERABLES Final Resul t Performing Organization Address City/[facility]/ZIP Co de Phone Number [facility] [address] [place] [address], [place] [phone] * Ammonia (08/05/2024 7:01 AM EST) Ammonia 28 11 - 35 mcmol/L LAB CHEMISTRY METHOD 08/05/2024 8:50 AM EST [facility] Blood Venous blood specimen / Unknown 08/05/2024 7:01 AM EST 08/05/2024 8:07 AM EST us Qamar Chacon MD LAB BLOOD ORDERABLES Final Resul t Performing Organization Address [facility]/ZIP Co de Phone Number [facility] [address] [place] [address], [place] [phone] documented in this encounter Visit Diagnoses Diagnosis Encounter for screening for other metabolic disorders Disorder of urea cycle metabolism, unspecified (CMS/HCC V24) documented in this encounter Care Teams Silviculturist Relationship Specialty Start Date End Date Qamar Chacon MD [address] [facility] [address] [facility] [address] [place] PCP - General Internal Medicine 07/14/24 documented as of this encounter
--- OUTSIDE RECORDS SUMMARY | 2025-04-03 14:56 | XMS_ITS | Clinical Summary ---
Author Organization 299 [facility] Address [address] [place] [address] Phone Care Team Providers Care Truck Car And Bus Cleaner Name Role Phone Qamar Chacon MD Primary Care Provider [phone] Encounters Date Type Department Care Team Description 03/17/2025 Lab Requisition [facility] Lab [address] [place] [phone] Qamar Chacon MD Disorder of urea cycle metabolism, unspecified ([facility] V24) 03/11/2025 Lab Requisition [facility] Lab [address] [place] [phone] Qamar Chacon MD Disorder of urea cycle metabolism, unspecified (CMS/HCC V24); Unspecified convulsions (CMS/HCC V24, CMS/HCC V28) 02/13/2025 Lab Requisition [facility] Lab [address] [place] [phone] Qamar Chacon MD Disorder of urea cycle metabolism, unspecified (CMS/HCC V24) 02/03/2025 Lab Requisition [facility] Lab [address] [place] [phone] Qamar Chacon MD Encounter for other specified special examinations 01/19/2025 Lab Requisition [facility] Lab [address] [place] [phone] Qamar Chacon MD Schizophrenia, unspecified (CMS/HCC V24, CMS/HCC V28); Unspecified convulsions (CMS/HCC V24, CMS/HCC V28); Disorder of urea cycle metabolism, unspecified (CMS/HCC V24) 01/15/2025 Lab Requisition [facility] Lab [address] [place] [address] Qamar Chacon MD Abnormal results [...] LAB CHEMISTRY METHOD 03/17/2025 8:47 AM T [facility] Potassium 4.2 3.5 - 5.5 mmol/L LAB CHEMISTRY METHOD 03/17/2025 8:47 AM [facility] Chloride 109 96 - 110 mmol/L LAB CHEMISTRY METHOD 03/17/2025 8:47 AM [facility] CO2 31 21 - 32 mmol/L LAB CHEMISTRY METHOD 03/17/2025 8:47 AM [facility] Anion Gap 3 3 - 11 LAB CHEMISTRY METHOD 03/17/2025 8:47 AM EDT [facility] Glucose 88 70 - 100 mg/dL LAB CHEMISTRY METHOD 03/17/2025 8:47 AM EDT [facility] BUN 12 5 - 25 mg/dL LAB CHEMISTRY METHOD 03/17/2025 8:47 AM EDT [facility] Creatinine 0.84 0.70 - 1.30 mg/dL LAB CHEMISTRY METHOD 03/17/2025 8:47 AM EDT [facility] eGFR 100 >=60 mL/min/1. 73m2 LAB CHEMISTRY METHOD 03/17/2025 8:47 AM EDT [facility] Comment:Calculation based on the Chronic Kidney Disease Epidemiology Collaboration (CKD-EPI) equation refit without adjustment for race. BUN/Creatinine Ratio 14.3 LAB CHEMISTRY METHOD 03/17/2025 8:47 AM EDT [facility] Calcium 9.4 8.5 - 10.5 mg/dL LAB CHEMISTRY METHOD 03/17/2025 8:47 AM T [facility] Blood Venous blood specimen / Unknown 03/17/2025 6:41 AM EDT 03/17/2025 7:49 AM EDT us Qamar Chacon MD LAB BLOOD ORDERABLES Final Resul t [facility] [address] [place] [address], * Valproic acid level, total (03/11/2025 6:46 AM EDT) Only the most recent of2 resultswithin the time period is included. Valproic Acid, Total 56 50 - 100 mcg/mL LAB CHEMISTRY METHOD 03/11/2025 8:23 AM EDT [facility] Blood Venous blood specimen / Unknown 03/11/2025 6:46 AM EDT 03/11/2025 7:24 AM EDT us Qamar Chacon MD LAB BLOOD ORDERABLES Final Resul t [facility] [address] [place] [address], * (ABNORMAL) Comprehensive metabolic panel (03/11/2025 6:46 AM EDT) Only the most recent of2 resultswithin the time period is included. Sodium 146(H) 133 - 145 mmol/L LAB CHEMISTRY METHOD 03/11/2025 8:35 AM [facility] Potassium 4.0 3.5 - 5.5 mmol/L LAB CHEMISTRY METHOD 03/11/2025 8:35 AM [facility] Chloride 115(H) 96 - 110 mmol/L LAB CHEMISTRY METHOD 03/11/2025 8:35 AM [facility] CO2 29 21 - 32 mmol/L LAB CHEMISTRY METHOD 03/11/2025 8:35 AM [facility] Anion Gap 2(L) 3 - 11 LAB CHEMISTRY METHOD 03/11/2025 8:35 AM [facility] Glucose 98 70 - 100 mg/dL LAB CHEMISTRY METHOD 03/11/2025 8:35 AM [facility] BUN 8 5 - 25 mg/dL LAB CHEMISTRY METHOD 03/11/2025 8:35 AM [facility] Creatinine 0.76 0.70 - 1.30 mg/dL LAB CHEMISTRY METHOD 03/11/2025 8:35 AM [facility] eGFR 104 >=60 mL/min/1. 73m2 LAB CHEMISTRY METHOD 03/11/2025 8:35 AM [facility] Comment:Calculation based on the Chronic Kidney Disease Epidemiology Collaboration (CKD-EPI) equation refit without adjustment for race. BUN/Creatinine Ratio 10.5 LAB CHEMISTRY METHOD 03/11/2025 8:35 AM [facility] Calcium 8.9 8.5 - 10.5 mg/dL LAB CHEMISTRY METHOD 03/11/2025 8:35 AM EDT [facility] AST (SGOT) 22 10 - 42 unit/L LAB CHEMISTRY METHOD 03/11/2025 8:35 AM EDT [facility] ALT (SGPT) 21 10 - 60 unit/L LAB CHEMISTRY METHOD 03/11/2025 8:35 AM EDT [facility] Alkaline Phosphatase 76 42 - 121 unit/L LAB CHEMISTRY METHOD 03/11/2025 8:35 AM EDT [facility] Total Protein 5.4(L) 6.0 - 8.0 g/dL LAB CHEMISTRY METHOD 03/11/2025 8:35 AM EDT [facility] Albumin 2.5(L) 3.2 - 5.0 g/dL LAB CHEMISTRY METHOD 03/11/2025 8:35 AM EDT [facility] Total Bilirubin 0.2 0.0 - 1.4 mg/dL LAB CHEMISTRY METHOD 03/11/2025 8:35 AM EDT [facility] Blood Venous blood specimen / Unknown 03/11/2025 6:46 AM EDT 03/11/2025 7:24 AM EDT us Qamar Chacon MD LAB BLOOD ORDERABLES Final Resul t [facility] [address] [place] [address], * Ammonia (02/13/2025 6:49 AM EDT) Only the most recent of2 resultswithin the time period is included. Ammonia 30 11 - 35 mcmol/L LAB CHEMISTRY METHOD 02/13/2025 7:43 AM EDT [facility] Blood Venous blood specimen / Unknown 02/13/2025 6:49 AM EDT 02/13/2025 7:14 AM EDT us Qamar Chacon MD LAB BLOOD ORDERABLES Final Resul t [facility] [address] [place] [address], * (ABNORMAL) Complete blood count (02/03/2025 7:09 AM EDT) WBC 9.9 4.8 - 10.8 K/mcL LAB HEMETOLOGY METHOD 02/03/2025 8:00 AM EDT [facility] RBC 4.60 4.50 - 5.50 M/mcL LAB HEMETOLOGY METHOD 02/03/2025 8:00 AM [facility] Hemoglobin 12.9(L) 13.5 - 17.5 g/dL LAB HEMETOLOGY METHOD 02/03/2025 8:00 AM [facility] Hematocrit 42.4 42.0 - 54.0 % LAB HEMETOLOGY METHOD [facility] MCV 92.8 79.0 - 98.0 FL LAB HEMETOLOGY METHOD 02/03/2025 8:00 AM [facility] MCH 28.2 27.0 - 32.0 pcg LAB HEMETOLOGY METHOD 02/03/2025 8:00 AM [facility] MCHC 30.4(L) 32.0 - 37.0 g/dL LAB HEMETOLOGY METHOD 02/03/2025 8:00 AM [facility] RDW 15.1(H) 11.0 - 15.0 % LAB HEMETOLOGY METHOD 02/03/2025 8:00 AM [facility] Platelets 198 130 - 400 K/mcL LAB HEMETOLOGY METHOD 02/03/2025 8:00 AM T [facility] MPV 11.1(H) 7.0 - 11.0 FL LAB HEMETOLOGY METHOD 02/03/2025 8:00 AM EDT [facility] NRBC 0.0 <1.0 % LAB HEMETOLOGY METHOD 02/03/2025 8:00 AM EDT [facility] NRBC Absolute 0.00 <0.10 K/mcL LAB HEMETOLOGY METHOD 02/03/2025 8:00 AM EDT [facility] Blood Venous blood specimen / Unknown 02/03/2025 7:09 AM EDT 02/03/2025 7:48 AM EDT us Qamar Chacon MD LAB BLOOD ORDERABLES Final Resul t [facility] [address] [place] [address], * (ABNORMAL) Hepatic function panel (02/03/2025 7:09 AM EDT) Total Protein 6.3 6.0 - 8.0 g/dL LAB CHEMISTRY METHOD 02/03/2025 8:35 AM [facility] Albumin 3.0(L) 3.2 - 5.0 g/dL LAB CHEMISTRY METHOD 02/03/2025 8:35 AM [facility] Total Bilirubin 0.3 0.0 - 1.4 mg/dL LAB CHEMISTRY METHOD 02/03/2025 8:35 AM [facility] Bilirubin, Direct <0.1 0.0 - 0.3 mg/dL LAB CHEMISTRY METHOD 02/03/2025 8:35 AM [facility] Bilirubin, Indirect LAB CHEMISTRY METHOD 02/03/2025 8:35 AM [facility] Comment:Unable to calculate Indirect Bilirubin. ALT (SGPT) 14 10 - 60 unit/L LAB CHEMISTRY METHOD 02/03/2025 8:35 AM [facility] AST (SGOT) 13 10 - 42 unit/L LAB CHEMISTRY METHOD 02/03/2025 8:35 AM EDT [facility] Alkaline Phosphatase 74 42 - 121 unit/L LAB CHEMISTRY METHOD 02/03/2025 8:35 AM EDT [facility] Blood Venous blood specimen / Unknown 02/03/2025 7:09 AM EDT 02/03/2025 7:48 AM EDT us Qamar Chacon MD LAB BLOOD ORDERABLES Final Resul t [facility] [address] [place] [address], * (ABNORMAL) CBC auto differential (01/19/2025 6:44 AM EDT) WBC 11.3(H) 4.8 - 10.8 K/mcL LAB HEMETOLOGY METHOD 01/19/2025 8:14 AM [facility] RBC 4.10(L) 4.50 - 5.50 M/[facility] LAB HEMETOLOGY METHOD 01/19/2025 8:14 AM [facility] Hemoglobin 11.8(L) 13.5 - 17.5 g/dL LAB HEMETOLOGY METHOD 01/19/2025 8:14 AM [facility] Hematocrit 37.5(L) 42.0 - 54.0 % LAB HEMETOLOGY METHOD 01/19/2025 8:14 AM [facility] MCV 91.5 79.0 - 98.0 FL LAB HEMETOLOGY METHOD 01/19/2025 8:14 AM [facility] MCH 28.8 27.0 - 32.0 pcg LAB HEMETOLOGY METHOD 01/19/2025 8:14 AM [facility] MCHC 31.5(L) 32.0 - 37.0 g/dL LAB HEMETOLOGY METHOD 01/19/2025 8:14 AM [facility] RDW 14.6 11.0 - 15.0 % LAB HEMETOLOGY METHOD 01/19/2025 8:14 AM [facility] Platelets 220 130 - 400 K/mcL LAB HEMETOLOGY METHOD 01/19/2025 8:14 AM [facility] MPV 10.9 7.0 - 11.0 FL LAB HEMETOLOGY METHOD 01/19/2025 8:14 AM [facility] NRBC 0.0 <1.0 % LAB HEMETOLOGY METHOD 01/19/2025 8:14 AM [facility] NRBC Absolute 0.00 <0.10 K/mcL LAB HEMETOLOGY METHOD 01/19/2025 8:14 AM [facility] Neutrophils Relative 75.2 % LAB HEMETOLOGY METHOD 01/19/2025 8:14 AM [facility] Lymphocytes Relative 14.8 % LAB HEMETOLOGY METHOD 01/19/2025 8:14 AM [facility] Monocytes Relative 8.7 % LAB HEMETOLOGY METHOD 01/19/2025 8:14 AM [facility] Eosinophils Relative 0.5 % LAB HEMETOLOGY METHOD 01/19/2025 8:14 AM [facility] Basophils Relative 0.4 % LAB HEMETOLOGY METHOD 01/19/2025 8:14 AM [facility] Immature Granulocytes Relative 0.4 % LAB HEMETOLOGY METHOD 01/19/2025 8:14 AM [facility] Neutrophils Absolute 8.50(H) 1.50 - 7.00 K/mcL LAB HEMETOLOGY METHOD 01/19/2025 8:14 AM [facility] Lymphocytes Absolute 1.68 1.00 - 5.00 K/[facility] LAB HEMETOLOGY METHOD 01/19/2025 8:14 AM EDT [facility] Monocytes Absolute 0.99 0.20 - 1.00 K/[facility] LAB HEMETOLOGY METHOD 01/19/2025 8:14 AM EDT [facility] Eosinophils Absolute 0.06 0.00 - 0.50 K/[facility] LAB HEMETOLOGY METHOD 01/19/2025 8:14 AM EDT [facility] Basophils Absolute 0.04 0.00 - 0.20 K/[facility] LAB HEMETOLOGY METHOD 01/19/2025 8:14 AM EDT [facility] Immature Granulocytes Absolute 0.05(H) 0.00 - 0.03 K/[facility] LAB HEMETOLOGY METHOD 01/19/2025 8:14 AM EDT [facility] Blood Venous blood specimen / Unknown 01/19/2025 6:44 AM EDT 01/19/2025 7:42 AM EDT us Qamar Chacon MD LAB BLOOD ORDERABLES Final Resul t Performing Organization Address City/[facility]/ZIP Co de Phone Number [facility] [address] [place] [address], [place] [phone] * Red tube (01/19/2025 6:44 AM EDT) Extra Tube Hold for add-ons. 01/19/2025 9:01 AM EDT [facility] Comment:Auto resulted. Blood Venous blood specimen / Unknown 01/19/2025 6:44 AM EDT 01/19/2025 7:42 AM EDT us Qamar Chacon MD LAB BLOOD ORDERABLES Final Resul t Performing Organization Address [facility]/ZIP Co de Phone Number [facility] [address] [place] [address], [place] [phone] * [place] level (01/19/2025 6:44 AM EDT) [place] Level 0.6 0.6 - 1.2 mEq/L LAB CHEMISTRY METHOD 01/19/2025 8:37 AM EDT [facility] Blood Venous blood specimen / Unknown 01/19/2025 6:44 AM EDT 01/19/2025 7:42 AM EDT us Qamar Chacon MD LAB BLOOD ORDERABLES Final Resul t Performing Organization Address [facility]/ZIP Co de Phone Number [facility] [address] [place] [address], [place] [phone] * Thyroid stimulating hormone (01/15/2025 7:00 AM EDT) TSH 1.31 0.40 - 4.00 mcIU/mL LAB CHEMISTRY METHOD 01/15/2025 9:31 AM EDT [facility] Blood Venous blood specimen / Unknown 01/15/2025 7:00 AM EDT 01/15/2025 8:27 AM EDT us Qamar Chacon MD LAB BLOOD ORDERABLES Final Resul t Performing Organization Address City/[facility]/ZIP Co de Phone Number [facility] [address] [place] [address], [place] [phone] from Last 3 Months Care Teams Truck Car And Bus Cleaner Relationship Specialty Start Date End Date Qamar Chacon MD [address] [place] [address] Dr Preethi [address] [place] PCP - General Internal Medicine 07/14/24
--- OUTSIDE RECORDS SUMMARY | 2025-04-03 14:56 | XMS_ITS | Encounter Summary ---
Author Organization [employer] [facility] Address [address] [place] [address] Care Team Providers Care Fruit Vendor Name Role Phone Qamar Chacon MD Primary Care Provider [phone] Encounter Details Date Type Department Care Team (Late st Contact Info) Description 03/17/2025 Lab Requisition [facility] Lab [address] [place] [address] Qamar Chacon MD [address] [place] [address] [address] [place], [place] Disorder of urea cycle metabolism, unspecified [...] LAB CHEMISTRY METHOD 03/17/2025 8:47 AM EDT [facility] Potassium 4.2 3.5 - 5.5 mmol/L LAB CHEMISTRY METHOD 03/17/2025 8:47 AM EDT [facility] Chloride 109 96 - 110 mmol/L LAB CHEMISTRY METHOD 03/17/2025 8:47 AM EDT [facility] CO2 31 21 - 32 mmol/L LAB [facility]STR[facility] 3 3 - 11 LAB CHEMISTRY METHOD 03/17/2025 8:47 AM [facility] Glucose 88 70 - 100 mg/dL LAB CHEMISTRY METHOD 03/17/2025 8:47 AM [facility] BUN 12 5 - 25 mg/dL LAB CHEMISTRY METHOD 03/17/2025 8:47 AM [facility] Creatinine 0.84 0.70 - 1.30 mg/dL LAB CHEMISTRY METHOD 03/17/2025 8:47 AM [facility] eGFR 100 >=60 mL/min/1. 73m2 LAB CHEMISTRY METHOD 03/17/2025 8:47 AM [facility] Comment:Calculation based on the Chronic Kidney Disease Epidemiology Collaboration (CKD-EPI) equation refit without adjustment for race. BUN/Creatinine Ratio 14.3 LAB CHEMISTRY METHOD 03/17/2025 8:47 AM [facility] Calcium 9.4 8.5 - 10.5 mg/dL LAB CHEMISTRY METHOD 03/17/2025 8:47 AM [facility] Blood Venous blood specimen / Unknown 03/17/2025 6:41 AM EDT 03/17/2025 7:49 AM EDT us Qamar Chacon MD LAB BLOOD ORDERABLES Final Resul t [facility] [address] [place] [address], documented in this encounter Visit Diagnoses Diagnosis Disorder of urea cycle metabolism, unspecified (CMS/HCC V24) documented in this encounter Care Teams Fruit Vendor Relationship Specialty Start Date End Date Qamar Chacon MD [address] [place] [address] Dr O[address] [facility] [place] PCP - General Internal Medicine 07/14/24 documented as of this encounter
--- OUTSIDE RECORDS SUMMARY | 2025-04-03 14:56 | XMS_ITS | Encounter Summary ---
Author Organization [email or web address] Address [address] [place] [address] Care Team Providers Care Paper Tube Cutter Name Role Phone Qamar Chacon MD Primary Care Provider Encounter Details Date Type Department Care Team (Late st Contact Info) Description 03/11/[address] [facility] [address] [facility] [place] [address] Qamar Chacon MD [address] [place] [address] Dr [address] [place] Disorder of urea cycle metabolism, unspecified (CMS/HCC [...] CHEMISTRY METHOD 03/11/2025 8:23 AM EDT [facility] Blood Venous blood specimen / Unknown 03/11/2025 6:46 AM EDT 03/11/2025 7:24 AM EDT us Qamar Chacon MD LAB BLOOD ORDERABLES Final Resul t [facility] [address] [place] [address], * (ABNORMAL) Comprehensive metabolic panel (03/11/2025 6:46 AM EDT) Sodium 146(H) 133 - 145 mmol/L LAB CHEMISTRY METHOD 03/11/2025 8:35 AM [facility] Potassium 4.0 3.5 - 5.5 mmol/L LAB CHEMISTRY METHOD 03/11/2025 8:35 AM [facility] Chloride 115(H) 96 - 110 mmol/L LAB CHEMISTRY METHOD 03/11/2025 8:35 AM [facility] CO2 29 21 - 32 mmol/L LAB CHEMISTRY METHOD 03/11/2025 8:35 AM [facility] Anion Gap 2(L) 3 - 11 LAB CHEMISTRY METHOD 03/11/2025 8:35 AM [facility] Glucose 98 70 - 100 mg/dL LAB CHEMISTRY METHOD 03/11/2025 8:35 AM [facility] BUN 8 5 - 25 mg/dL LAB CHEMISTRY METHOD 03/11/2025 8:35 AM [facility] Creatinine 0.76 0.70 - 1.30 mg/dL LAB CHEMISTRY METHOD 03/11/2025 8:35 AM [facility] eGFR 104 >=60 mL/min/1. 73m2 LAB CHEMISTRY METHOD 03/11/2025 8:35 AM [facility] Comment:Calculation based on the Chronic Kidney Disease Epidemiology Collaboration (CKD-EPI) equation refit without adjustment for race. BUN/Creatinine Ratio .5 LAB CHEMISTRY METHOD 03/11/2025 8:35 AM [facility] Calcium 8.9 8.5 - 10.5 mg/dL LAB CHEMISTRY METHOD 03/11/2025 8:35 AM [facility] AST (SGOT) 22 10 - 42 unit/L LAB CHEMISTRY METHOD 03/11/2025 8:35 AM [facility] ALT (SGPT) 21 10 - 60 unit/L LAB CHEMISTRY METHOD 03/11/2025 8:35 AM [facility] Alkaline Phosphatase 76 42 - 121 unit/L LAB CHEMISTRY METHOD 03/11/2025 8:35 AM [facility] Total Protein 5.4(L) 6.0 - 8.0 g/dL LAB CHEMISTRY METHOD 03/11/2025 8:35 AM [facility] Albumin 2.5(L) 3.2 - 5.0 g/dL LAB CHEMISTRY METHOD 03/11/2025 8:35 AM [facility] Total Bilirubin 0.2 0.0 - 1.4 mg/dL LAB CHEMISTRY METHOD 03/11/2025 8:35 AM [facility] Blood Venous blood specimen / Unknown 03/11/2025 6:46 AM EDT 03/11/2025 7:24 AM EDT Qamar Chacon MD LAB BLOOD ORDERABLES Final Resul t [facility] [address] [place] [address], documented in this encounter Visit Diagnoses Diagnosis Disorder of urea cycle metabolism, unspecified (CMS/HCC V24) Unspecified convulsions (CMS/HCC V24, CMS/HCC V28) documented in this encounter Care Teams Paper Tube Cutter Relationship Specialty Start Date End Date Qamar Chacon MD [address] [place] [address] Dr Preethi [facility] [place], [place] PCP - General Internal Medicine 07/14/24 documented as of this encounter
--- OUTSIDE RECORDS SUMMARY | 2025-04-03 14:57 | XMS_ITS | Encounter Summary ---
Author Organization [employer] Address [address] [place] [address] Care Team Providers Care Customer Service Manager Name Role Phone Qamar Chacon MD Primary Care Provider [phone] Encounter Details Date Type Department Care Team (Late st Contact Info) Description 02/13/2025 Lab Requisition [facility] Main Lab [address] [place] [id number] Qamar Chacon MD [address] [place] [address] [address] [place], [place] Disorder of urea cycle metabolism, unspecified [...] Resul t [facility] [address] [place], [place] [address] [phone] documented in this encounter Visit Diagnoses Diagnosis Disorder of urea cycle metabolism, unspecified (CMS/HCC V24) documented in this encounter Care Teams Customer Service Manager Relationship Specialty Start Date End Date Qamar Chacon MD [address] [place] [address] Dr [address] [place] PCP - General Internal Medicine 07/14/24 documented as of this encounter
--- OUTSIDE RECORDS SUMMARY | 2025-04-03 14:57 | XMS_ITS | Encounter Summary ---
Author Organization [employer] [facility] Address [address] [place] [address] Care Team Providers Care Vascular Manager Name Role Phone Qamar Chacon MD Primary Care Provider [phone] Encounter Details Date Type Department Care Team (Late st Contact Info) Description 02/03/2025 Lab Requisition [facility] - Main Lab [address] [place] [address] Qamar Chacon MD [address] [place] [address] [address] [place], [place] Encounter for other specified special examinations [...] AM EDT) WBC 9.9 4.8 - 10.8 [facility] LAB HEMETOLOGY METHOD 02/03/2025 8:00 AM EDT [facility] RBC 4.60 4.50 - 5.50 M/mcL LAB HEMETOLOGY METHOD 02/03/2025 8:00 AM EDT [facility] Hemoglobin 12.9(L) 13.5 - 17.5 g/dL LAB HEMETOLOGY METHOD 02/03/2025 8:00 AM [facility] Hematocrit 42.4 42.0 - 54.0 % LAB HEMETOLOGY METHOD 02/03/2025 8:00 AM [facility] MCV 92.8 79.0 - 98.0 [...] 02/03/2025 8:00 AM [facility] MPV 11.1(H) 7.0 - 11.0 FL LAB HEMETOLOGY METHOD 02/03/2025 8:00 AM [facility] NRBC 0.0 <1.0 % LAB HEMETOLOGY METHOD 02/03/2025 8:00 AM [facility] NRBC Absolute 0.00 <0.10 K/mcL LAB HEMETOLOGY METHOD 02/03/2025 8:00 AM [facility] Blood Venous blood specimen / Unknown 02/03/2025 7:09 AM EDT 02/03/2025 7:48 AM EDT us Qamar Chacon MD LAB BLOOD ORDERABLES Final Resul t [facility] [address] [place] [address], [place] [phone] * (ABNORMAL) Basic metabolic panel (02/03/2025 7:09 AM EDT) Sodium 142 133 - 145 mmol/L LAB CHEMISTRY METHOD 02/03/2025 9:00 AM [facility] Potassium 4.5 3.5 - 5.5 mmol/L LAB CHEMISTRY METHOD 02/03/2025 9:00 AM [facility] Chloride 109 96 - 110 mmol/L LAB CHEMISTRY METHOD 02/03/2025 9:00 AM [facility] CO2 31 21 - 32 mmol/L LAB CHEMISTRY METHOD 02/03/2025 9:00 AM [facility] Anion Gap 2(L) 3 - 11 LAB CHEMISTRY METHOD 02/03/2025 9:00 AM [facility] Glucose 79 70 - 100 mg/dL LAB CHEMISTRY METHOD 02/03/2025 9:00 AM [facility] BUN 11 5 - 25 mg/dL LAB CHEMISTRY METHOD 02/03/2025 9:00 AM [facility] Creatinine 0.83 0.70 - 1.30 mg/dL LAB CHEMISTRY METHOD 02/03/2025 9:00 AM [facility] eGFR 101 >=60 mL/min/1. 73m2 LAB CHEMISTRY METHOD 02/03/2025 9:00 AM [facility] Comment:Calculation based on the Chronic Kidney Disease Epidemiology Collaboration (CKD-EPI) equation refit without adjustment for race. BUN/Creatinine Ratio 13.3 LAB CHEMISTRY METHOD 02/03/2025 9:00 AM [facility] Calcium 9.3 8.5 - 10.5 mg/dL LAB CHEMISTRY METHOD 02/03/2025 9:00 AM [facility] Blood Venous blood specimen / Unknown 02/03/2025 7:09 AM EDT 02/03/2025 7:48 AM EDT us Qamar Chacon MD LAB BLOOD ORDERABLES Final Resul t [facility] [address] [place] [address], [place] [phone] * (ABNORMAL) Hepatic function panel (02/03/2025 7:09 AM EDT) Pathologist [facility] Total Protein 6.3 6.0 - 8.0 g/dL LAB CHEMISTRY METHOD 02/03/2025 8:35 AM EDT [facility] Albumin 3.0(L) 3.2 - 5.0 g/dL LAB CHEMISTRY METHOD 02/03/2025 8:35 AM EDT [facility] Total Bilirubin 0.3 0.0 - 1.4 mg/dL LAB CHEMISTRY METHOD 02/03/2025 8:35 AM T [facility] Bilirubin, Direct <0.1 0.0 - 0.3 mg/dL LAB CHEMISTRY METHOD 02/03/2025 8:35 AM T [facility] Bilirubin, Indirect LAB CHEMISTRY METHOD 02/03/2025 8:35 AM T [facility] Comment:Unable to calculate Indirect Bilirubin. ALT (SGPT) 14 10 - 60 unit/L LAB CHEMISTRY METHOD 02/03/2025 8:35 AM EDT [facility] AST (SGOT) 13 10 - 42 unit/L LAB CHEMISTRY METHOD 02/03/2025 8:35 AM T [facility] Alkaline Phosphatase 74 42 - 121 unit/L LAB CHEMISTRY METHOD 02/03/2025 8:35 AM [facility] Blood Venous blood specimen / Unknown 02/03/2025 7:09 AM EDT 02/03/2025 7:48 AM EDT us Qamar Chacon MD LAB BLOOD ORDERABLES Final Resul t [facility] [address] [place] [address], documented in this encounter Visit Diagnoses Diagnosis Encounter for other specified special examinations documented in this encounter Care Teams Vascular Manager Relationship Specialty Start Date End Date Qamar Chacon MD [address] [place] [address] Dr [address] [place], [place] PCP - General Internal Medicine 07/14/24 documented as of this encounter
--- OUTSIDE RECORDS SUMMARY | 2025-04-03 14:57 | XMS_ITS | Encounter Summary ---
Author Organization [facility] Address [address] [place] [address] Care Team Providers Care Rigger Third Name Role Phone Qamar Chacon MD Primary Care Provider [phone] Encounter Details Date Type Department Care Team (Late st Contact Info) Description 01/15/[address] [facility] - Main Lab [address] [place] [id number] Qamar Chacon MD [address] [place] [address] [address] [place], [place] Abnormal results of thyroid function studies [...] LAB CHEMISTRY METHOD 01/15/2025 9:31 AM EDT [facility] Blood Venous blood specimen / Unknown 01/15/2025 7:00 AM EDT 01/15/2025 8:27 AM EDT us Qamar Chacon MD LAB BLOOD ORDERABLES Final Resul t [facility] [address] [place] [address], [place] [phone] documented in this encounter Visit Diagnoses Diagnosis Abnormal results of thyroid function studies Nonspecific abnormal results of thyroid function study documented in this encounter Care Teams Rigger Third Relationship Specialty Start Date End Date Qamar Chacon MD [address] [place] [address] Dr [address] [place] PCP - General Internal Medicine 07/14/24 documented as of this encounter
--- OUTSIDE RECORDS SUMMARY | 2025-04-03 14:57 | XMS_ITS | Encounter Summary ---
Author Organization [employer] Address [address] [place] [address] Care Team Providers Care [facility] Products Assembler Name Role Phone Qamar Chacon MD Primary Care Provider [phone] Encounter Details Date Type Department Care Team (Late st Contact Info) Description 01/19/2025 Lab Requisition [facility] - Main Lab [address] [facility] [place] [address] Qamar Chacon MD [address] [place] [address] [address] [place], [place] Schizophrenia, unspecified (CMS/HCC V24, CMS/HCC V28); [...] Hold for add-ons. 01/19/2025 9:01 AM EDT [facility] Comment:Auto resulted. Blood Venous blood specimen / Unknown 01/19/2025 6:44 AM EDT 01/19/2025 7:42 AM EDT Qamar Chacon MD LAB BLOOD ORDERABLES Final Resul t [facility] [address] [place] [address], * (ABNORMAL) CBC auto differential (01/19/2025 6:44 AM EDT) WBC 11.3(H) 4.8 - 10.8 K/mcL LAB HEMETOLOGY METHOD 01/19/2025 8:14 AM EDT [facility] RBC 4.10(L) 4.50 - 5.50 M/mcL LAB HEMETOLOGY METHOD 01/19/2025 8:14 AM EDT [facility] Hemoglobin 11.8(L) 13.5 - 17.5 g/dL LAB HEMETOLOGY METHOD 01/19/2025 8:14 AM EDT [facility] Hematocrit 37.5(L) 42.0 - 54.0 % LAB HEMETOLOGY METHOD 01/19/2025 8:14 AM EDT [facility] MCV 91.5 79.0 - 98.0 FL LAB HEMETOLOGY METHOD 01/19/2025 8:14 AM EDT [facility] MCH 28.8 27.0 - 32.0 pcg LAB HEMETOLOGY METHOD 01/19/2025 8:14 AM EDT [facility] MCHC 31.5(L) 32.0 - 37.0 g/dL LAB HEMETOLOGY METHOD 01/19/2025 8:14 AM EDT [facility] RDW 14.6 11.0 - 15.0 % LAB HEMETOLOGY METHOD 01/19/2025 8:14 AM EDT [facility] Platelets 220 130 - 400 K/mcL LAB HEMETOLOGY METHOD 01/19/2025 8:14 AM EDT [facility] MPV 10.9 7.0 - 11.0 FL LAB HEMETOLOGY [facility] NRBC 0.0 <1.0 % LAB HEMETOLOGY METHOD 01/19/2025 8:14 AM [facility] NRBC Absolute 0.00 <0.10 K/mcL LAB HEMETOLOGY METHOD 01/19/2025 8:14 AM [facility] Neutrophils Relative 75.2 % LAB HEMETOLOGY METHOD 01/19/2025 8:14 AM [facility] Lymphocytes Relative 14.8 % LAB HEMETOLOGY METHOD 01/19/2025 8:14 AM [facility] Monocytes Relative 8.7 % LAB HEMETOLOGY METHOD 01/19/2025 8:14 AM [facility] Eosinophils Relative 0.5 % LAB HEMETOLOGY METHOD 01/19/2025 8:14 AM [facility] Basophils Relative 0.4 % LAB HEMETOLOGY METHOD 01/19/2025 8:14 AM [facility] Immature Granulocytes Relative 0.4 % LAB HEMETOLOGY METHOD 01/19/2025 8:14 AM [facility] Neutrophils Absolute 8.50(H) 1.50 - 7.00 K/mcL LAB HEMETOLOGY METHOD 01/19/2025 8:14 AM [facility] Lymphocytes Absolute 1.68 1.00 - 5.00 K/mcL LAB HEMETOLOGY METHOD 01/19/2025 8:14 AM [facility] Monocytes Absolute 0.99 0.20 - 1.00 K/mcL LAB HEMETOLOGY METHOD 01/19/2025 8:14 AM [facility] Eosinophils Absolute 0.06 0.00 - 0.50 K/mcL LAB HEMETOLOGY METHOD 01/19/2025 8:14 AM [facility] Basophils Absolute 0.04 0.00 - 0.20 K/mcL LAB HEMETOLOGY METHOD 01/19/2025 8:14 AM EDT [facility] Immature Granulocytes Absolute 0.05(H) 0.00 - 0.03 K/mcL LAB HEMETOLOGY METHOD 01/19/2025 8:14 AM EDT [facility] Blood Venous blood specimen / Unknown 01/19/2025 6:44 AM EDT 01/19/2025 7:42 AM EDT us Qamar Chacon MD LAB BLOOD ORDERABLES Final Resul t Performing Organization Address [facility] Co de Phone Number [facility] [address] [place] [address], [place] [phone] * [place] level (01/19/2025 6:44 AM EDT) [place] Level 0.6 0.6 - 1.2 mEq/L LAB CHEMISTRY METHOD 01/19/2025 8:37 AM EDT [facility] Blood Venous blood specimen / Unknown 01/19/2025 6:44 AM EDT 01/19/2025 7:42 AM EDT us Qamar Chacon MD LAB BLOOD ORDERABLES Final Resul t Performing Organization Address [facility] Co de Phone Number [facility] [address] [place] [address], [place] [phone] * Valproic acid level, total (01/19/2025 6:44 AM EDT) Valproic Acid, Total 56 50 - 100 mcg/mL LAB CHEMISTRY METHOD 01/19/2025 8:34 AM EDT [facility] Blood Venous blood specimen / Unknown 01/19/2025 6:44 AM EDT 01/19/2025 7:42 AM EDT us Qamar Chacon MD LAB BLOOD ORDERABLES Final Resul t Performing Organization Address City/[facility]/ZIP Co de Phone Number [facility] [address] [place] [address], [place] [phone] * Ammonia (01/19/2025 6:44 AM EDT) [facility] Ammonia 22 11 - 35 mcmol/L LAB CHEMISTRY METHOD 01/19/2025 8:02 AM EDT [facility] Blood Venous blood specimen / Unknown 01/19/2025 6:44 AM EDT 01/19/2025 7:42 AM EDT Qamar Chacon MD LAB BLOOD ORDERABLES Final Resul t Performing Organization Address [facility]/ZIP Co de Phone Number [facility] [address] [place] [address], [place] [phone] * (ABNORMAL) Comprehensive metabolic panel (01/19/2025 6:44 AM EDT) [facility] Sodium 144 133 - 145 mmol/L LAB CHEMISTRY METHOD 01/19/2025 8:35 AM [facility] Potassium 4.0 3.5 - 5.5 mmol/L LAB CHEMISTRY METHOD 01/19/2025 8:35 AM [facility] Chloride 113(H) 96 - 110 mmol/L LAB CHEMISTRY METHOD 01/19/2025 8:35 AM [facility] CO2 29 21 - 32 mmol/L LAB CHEMISTRY METHOD 01/19/2025 8:35 AM [facility] Anion Gap 2(L) 3 - 11 LAB CHEMISTRY METHOD 01/19/2025 8:35 AM [facility] Glucose 88 70 - 100 mg/dL LAB CHEMISTRY METHOD 01/19/2025 8:35 AM [facility] BUN 13 5 - 25 mg/dL LAB CHEMISTRY METHOD 01/19/2025 8:35 AM [facility] Creatinine 0.77 0.70 - 1.30 mg/dL LAB CHEMISTRY METHOD 01/19/2025 8:35 AM [facility] eGFR 103 >=60 mL/min/1. 73m2 LAB CHEMISTRY METHOD 01/19/2025 8:35 AM [facility] Comment:Calculation based on the Chronic Kidney Disease Epidemiology Collaboration (CKD-EPI) equation refit without adjustment for race. BUN/Creatinine Ratio 16.9 LAB CHEMISTRY METHOD 01/19/2025 8:35 AM [facility] Calcium 9.3 8.5 - 10.5 mg/dL LAB CHEMISTRY METHOD 01/19/2025 8:35 AM [facility] AST (SGOT) 9(L) 10 - 42 unit/L LAB CHEMISTRY METHOD 01/19/2025 8:35 AM [facility] ALT (SGPT) 19 10 - 60 unit/L LAB CHEMISTRY METHOD 01/19/2025 8:35 AM [facility] Alkaline Phosphatase 64 42 - 121 unit/L LAB CHEMISTRY METHOD 01/19/2025 8:35 AM [facility] Total Protein 5.7(L) 6.0 - 8.0 g/dL LAB CHEMISTRY METHOD 01/19/2025 8:35 AM [facility] Albumin 2.7(L) 3.2 - 5.0 g/dL LAB CHEMISTRY METHOD 01/19/2025 8:35 AM [facility] Total Bilirubin 0.5 0.0 - 1.4 mg/dL LAB CHEMISTRY METHOD 01/19/2025 8:35 AM [facility] Blood Venous blood specimen / Unknown 01/19/2025 6:44 AM EDT 01/19/2025 7:42 AM EDT us Qamar Chacon MD LAB BLOOD ORDERABLES Final Resul t [facility] [address] [place] [address], documented in this encounter Visit Diagnoses Diagnosis Schizophrenia, unspecified (CMS/HCC V24, CMS/HCC V28) Unspecified convulsions (CMS/HCC V24, CMS/HCC V28) Disorder of urea cycle metabolism, unspecified (CMS/HCC V24) documented in this encounter Care Teams [facility] Products Assembler Relationship Specialty Start Date End Date Qamar Chacon MD [address] [place] [address] Dr [address] [place], [place] PCP - General Internal Medicine 07/14/24 documented as of this encounter
--- OUTSIDE RECORDS SUMMARY | 2025-04-03 14:57 | XMS_ITS | Encounter Summary ---
Author Organization [facility] Address [address] [place] [address] Care Team Providers Care Resaw Operator Name Role Phone Qamar Chacon MD Primary Care Provider [phone] Encounter Details Date Type Department Care Team (Late st Contact Info) Description 12/02/2024 Lab Requisition [facility] - Main Lab [address] [place] [address] Qamar Chacon MD [address] [place] [address] [address] [place], [place] Schizophrenia, unspecified (CMS/HCC V24, CMS/HCC V28) [...] V28) documented in this encounter Results * [place] level (12/02/2024 6:58 AM EDT) [place] Level 0.6 0.6 - 1.2 mEq/L LAB CHEMISTRY METHOD 12/02/2024 8:27 AM EDT [facility] Blood Venous blood specimen / Unknown 12/02/2024 6:58 AM EDT 12/02/2024 7:41 AM EDT us Qamar Chacon MD LAB BLOOD ORDERABLES Final Resul t [facility] [address] [place] [address], * (ABNORMAL) Complete blood count (12/02/2024 6:58 AM EDT) [facility] WBC 10.5 4.8 - 10.8 K/mcL LAB HEMETOLOGY [facility] RBC 4.20(L) 4.50 - 5.50 M/mcL LAB HEMETOLOGY METHOD [facility] Hemoglobin 12.2(L) 13.5 - 17.5 g/dL LAB HEMETOLOGY METHOD 12/02/2024 7:57 AM [facility] Hematocrit 38.6(L) 42.0 - 54.0 % LAB HEMETOLOGY METHOD 12/02/2024 7:57 AM [facility] MCV 91.9 79.0 - 98.0 FL LAB HEMETOLOGY METHOD [facility]/02[facility]24 [facility] MCH 29.0 27.0 - 32.0 pcg LAB HEMETOLOGY METHOD 12/02/2024 7:57 AM [facility] MCHC 31.6(L) 32.0 - 37.0 g/dL LAB HEMETOLOGY METHOD 12/02/2024 7:57 AM [facility] RDW 14.6 11.0 - 15.0 % LAB HEMETOLOGY METHOD 12/02/2024 7:57 AM [facility] Platelets 142 130 - 400 K/mcL LAB HEMETOLOGY METHOD 12/02/2024 7:57 AM EDT [facility] MPV 11.1(H) 7.0 - 11.0 FL LAB HEMETOLOGY METHOD 12/02/2024 7:57 AM EDT [facility] NRBC 0.0 <1.0 % LAB HEMETOLOGY METHOD 12/02/2024 7:57 AM EDT [facility] NRBC Absolute 0.00 <0.10 K/[facility] LAB HEMETOLOGY METHOD 12/02/2024 7:57 AM EDT [facility] Blood Venous blood specimen / Unknown 12/02/2024 6:58 AM EDT 12/02/2024 7:41 AM EDT us Qamar Chacon MD LAB BLOOD ORDERABLES Final Resul t [facility] [address] [place] [address], [place] [phone] * (ABNORMAL) Comprehensive metabolic panel (12/02/2024 6:58 AM EDT) Sodium 144 133 - 145 mmol/L LAB CHEMISTRY METHOD 12/02/2024 8:26 AM [facility] Potassium 4.0 3.5 - 5.5 mmol/L LAB CHEMISTRY METHOD 12/02/2024 8:26 AM [facility] Chloride 112(H) 96 - 110 mmol/L LAB CHEMISTRY METHOD 12/02/2024 8:26 AM [facility] CO2 28 21 - 32 mmol/L LAB CHEMISTRY METHOD 12/02/2024 8:26 AM [facility] Anion Gap 4 3 - 11 LAB CHEMISTRY METHOD 12/02/2024 8:26 AM [facility] Glucose 109(H) 70 - 100 mg/dL LAB CHEMISTRY METHOD 12/02/2024 8:26 AM [facility] BUN 17 5 - 25 mg/dL LAB CHEMISTRY METHOD 12/02/2024 8:26 AM [facility] Creatinine 1.00 0.70 - 1.30 mg/dL LAB CHEMISTRY METHOD 12/02/2024 8:26 AM [facility] eGFR 87 >=60 mL/min/1. 73m2 LAB CHEMISTRY METHOD 12/02/2024 8:26 AM [facility] Comment:Calculation based on the Chronic Kidney Disease Epidemiology Collaboration (CKD-EPI) equation refit without adjustment for race. BUN/Creatinine Ratio 17.0 LAB CHEMISTRY METHOD 12/02/2024 8:26 AM [facility] Calcium 9.3 8.5 - 10.5 mg/dL LAB CHEMISTRY METHOD 12/02/2024 8:26 AM [facility] AST (SGOT) 30 10 - 42 unit/L LAB CHEMISTRY METHOD 12/02/2024 8:26 AM [facility] ALT (SGPT) 22 10 - 60 unit/L LAB CHEMISTRY METHOD 12/02/2024 8:26 AM [facility] Alkaline Phosphatase 64 42 - 121 unit/L LAB CHEMISTRY METHOD 12/02/2024 8:26 AM [facility] Total Protein 6.5 6.0 - 8.0 g/dL LAB CHEMISTRY METHOD 12/02/2024 8:26 AM [facility] Albumin 3.1(L) 3.2 - 5.0 g/dL LAB CHEMISTRY METHOD 12/02/2024 8:26 AM [facility] Total Bilirubin 0.7 0.0 - 1.4 mg/dL LAB CHEMISTRY METHOD 12/02/2024 8:26 AM [facility] Blood Venous blood specimen / Unknown 12/02/2024 6:58 AM EDT 12/02/2024 7:41 AM EDT us Qamar Chacon MD LAB BLOOD ORDERABLES Final Resul t [facility] ([facility]) [facility] [address] [place] [address], documented in this encounter Visit Diagnoses Diagnosis Schizophrenia, unspecified (CMS/HCC V24, CMS/HCC V28) documented in this encounter Care Teams Resaw Operator Relationship Specialty Start Date End Date Qamar Chacon MD [address] [place] [address] Dr [address] [place], [place] PCP - General Internal Medicine 07/14/24 documented as of this encounter
== END 2025-04-03 14:41 | disposition home or self-care (01) ==
LOC: HO.HUSH 14:17
PROVIDERS: Visit Provider Urology
DX: R33.9 Retention of urine, unspecified (principal)
CPT/HCPCS: 99214; G2211

== ENCOUNTER → 2025-04-03 14:16 | Outpatient (BNVA) | payer MEDICAID, SELFPAY | PROVIDERS: Visit Provider Urology | DX: R33.9 Retention of urine, unspecified (principal) | CPT/HCPCS: 99212 ==

== ENCOUNTER → 2025-04-14 09:52 | Outpatient (BNVA) | payer MEDICAID, SELFPAY | PROVIDERS: Visit Provider Urology | DX: Z46.6 Encounter for fitting and adjustment of urinary device (principal); R33.9 Retention of urine, unspecified | CPT/HCPCS: 51702 ==

== ENCOUNTER 2025-05-08 11:09 | Emergency (ER) | payer MEDICAID, SELFPAY ==
[2025-05-08 11:24] VITALS: BP 109/62; PULSE 75; RESP 16; TEMP 36.5; O2SAT 100; BMI 23.4
[2025-05-08 11:25] VITALS: BP 110/76; PULSE 75; O2SAT 100
[2025-05-08 11:27] VITALS: BP 109/62; PULSE 75; RESP 16; TEMP 36.5; O2SAT 100
--- NOTE | 2025-05-08 11:28 | ED.MALEGU ---
HPI - Male Genitourinary General Chief complaint: Urogenital-Male Stated complaint: NEEDS F/C REPLACED FROM [facility] PER EMS Time Seen by Provider: 05/08/25 11:11 Source: patient Limitations: no limitations History of Present Illness HPI Narrative: This is a 59 years old the patient presented to the emergency department with a chief complaint of replacement with a Muller catheter. The [facility] lives in [facility] he has a history of schizoaffective disorder, he has a history of dementia. According to the care home the patient pulled out the catheter Onset (ago): hour(s) (1) Severity: mild Related Data Home Medications ?Medication ?Instructions ?Recorded ?Confirmed acetaminophen 325 mg capsule 650 mg PO Q6H PRN PAIN/TEMP>100 02/15/21 03/22/25 benztropine 1 mg tablet 1 mg PO BID 02/15/21 03/22/25 clonazepam 1 mg tablet 1 mg PO TID 02/15/21 03/22/25 diazepam 5 mg tablet 5 mg PO BID 02/15/21 03/22/25 haloperidol 5 mg tablet 5 mg PO BID 02/15/21 03/22/25 lithium carbonate 150 mg capsule 150 mg PO DAILY 02/15/21 03/22/25 propranolol 10 mg tablet 10 mg PO TID 02/15/21 03/22/25 sennosides 8.6 mg capsule (senna) 8.6 mg PO DAILY PRN Constipation 02/15/21 03/22/25 benztropine 0.5 mg tablet 0.5 mg PO BID 01/17/22 03/22/25 divalproex 125 mg capsule,delayed 750 mg PO BID 01/17/22 03/22/25 release sprinkle (Depakote Sprinkles) risperidone 2 mg tablet 2 mg PO BEDTIME 01/17/22 03/22/25 bisacodyl 10 mg rectal suppository 10 mg TX DAILY PRN Constipation 08/21/22 03/22/25 docusate sodium 100 mg capsule 100 mg PO BID 08/21/22 03/22/25 lactulose 10 gram/15 mL oral 30 ml PO TID 08/21/22 03/22/25 solution hydrocortisone acetate 25 mg 25 mg TX DAILY PRN Hemorrhoids 09/10/23 03/22/25 rectal suppository (Anusol-HC) lithium carbonate 300 mg tablet 300 mg PO BEDTIME 09/10/23 03/22/25 chlorhexidine gluconate 4 % 1 appl topical SUTUTH@1800 04/11/24 03/22/25 topical liquid (Hibiclens) sodium phosphates 19 gram-7 118 ml TX BEDTIME PRN Constipation 04/11/24 03/22/25 gram/118 mL enema (Fleet Enema) sertraline 25 mg tablet 25 mg PO BEDTIME 03/22/25 03/22/25 Previous Rx's ?Medication ?Instructions ?Recorded finasteride 5 mg tablet 5 mg PO DAILY 90 days #90 tabs 11/13/24 terazosin 10 mg capsule 10 mg PO BEDTIME 90 days #90 caps 11/13/24 amoxicillin 875 mg-potassium 1 tab PO BID #11 tabs 03/27/25 clavulanate 125 mg tablet Allergies Allergy/AdvReac Type Severity Reaction Status Date / Time Sulfa (Sulfonamide Allergy Intermediate Rash Verified 05/08/25 11:25 Antibiotics) (SULFA (SULFONAMIDE ANTIBIOTICS)) [id number] Reductase Allergy Unknown Unknown Verified 05/08/25 11:25 Inhibitor (BURLEAR-PZQ-LPO REDUCTASE INHIBITOR) ANTIARTERIOSCLEROTIC DRUGS AdvReac Unknown Unknown Uncoded 05/08/25 11:25 Review of Systems Review of Systems: Yes Unobtainable due to mental condition PMFSH Past Medical History Attestation statement: The following information was validated with the patient. Medical History TBI (traumatic brain injury) Astigmatism Seasonal allergies Bilateral cataracts Preglaucoma Insomnia Presbyopia Parkinsons disease Seizures Fall Pneumonia General weakness Hypoxia COVID-19 Resides in snf facility Dementia Schizophrenia Hypernatremia Metabolic encephalopathy BPH (benign prostatic hyperplasia) HTN (hypertension) GERD (gastroesophageal reflux disease) Anxiety Surgical History Hx of colonoscopy Hx of cystoscopy Social History Social History Household Members: None Housing: [facility] Other:: [facility] Do you presently have visiting nurse or other home services: Yes ([facility]) Alcohol intake: never Comment: 1:1 sitter Patient Tobacco Use Status: Never used Tobacco Smoked in Last 30 Days: No Use of substances other than those prescribed or required for medical reasons: No Advance Directives: Yes Advance Directives on File: Yes Advance Directives Date on File: 01/17/22 Do you have a plan to hurt others: No Plan service: No Current occupational status: disabled Physical Exam Exam: Exam: No acute distress looks well Vital Signs: Vital Signs: Last Vital Signs Temp 97.0 F 05/08/25 17:05 Pulse 62 05/08/25 17:05 Resp 14 05/08/25 17:05 BP 112/63 05/08/25 17:05 Pulse Ox 96 05/08/25 17:05 O2 Del Method Room Air 05/08/25 17:05 BMI result Body Mass Index 23.4 Const: General: cooperative Nutritional Appearance: well nourished HEENT: Head: Yes normal to inspection Face and sinus: Yes normal facial exam Neck: Neck: Yes normal visual inspection Chest: Chest palpation & inspection: normal inspection of the chest Cardio: Jugular venous distension: no JVD Rate: regular rate Rhythm: regular rhythm GI: Inspection: Yes normal to inspection Palpation (GI): Soft to palpation, not firm and nontender Auscultation: normal bowel sounds Skin: General skin exam: no rashes or lesions noted and elasticity normal Lesions: no lesions Rashes: no rashes Medications Administered Discontinued Medications Generic Name Dose Route Start Last Admin Trade Name Freq PRN Reason Stop Dose Admin Sodium Chloride 1,000 mls @ 999 mls/hr 05/08/25 12:00 05/08/25 14:58 Ns IVCONT 05/08/25 13:00 Infused .Q1H1M MONTEZ Infusion Medical Decision Making Medical Decision Making [facility] Narrative: Patient is here because he pulled out the catheter catheter was replaced by me with cude because nurse unable to replace Differential Diagnosis Differential Diagnoses: The differential diagnosis associated with the presentation includes Traumatic urethral/urinary tract Admission/Observation Consideration of admission/observation: Escalation of care including admission/observation considered Lab Data [facility] Lab Attestation statement: I reviewed the patient's lab results. 05/08/25 12:58 05/08/25 12:45 Labs: Lab Results 05/08/25 05/08/25 Range/Units 12:45 12:58 WBC 7.2 (4.8-10.8) X10*3/uL RBC 3.34 L (4.60-5.80) X10*6/uL Hgb 9.7 L (14.0-18.0) g/dl Hct 30.7 L (42.0-52.0) % MCV 91.9 (80.0-98.0) fL MCH 29.0 (27.0-33.0) pg MCHC 31.6 (31.0-36.0) g/dl RDW 15.3 (11.0-16.0) % Plt Count 167 D (160-400) X10*3/uL MPV 10.0 (9.4-12.4) fL Immature Gran % (Auto) 0.3 (0.0-0.4) % Neut % (Auto) 53.1 (45-73) % Lymph % (Auto) 35.0 (20-40) % Maries % (Auto) 9.2 (2-11) % Eos % (Auto) 2.0 (0-4) % Baso % (Auto) 0.4 (0-2) % Lymph # (Auto) 2.5 (1.2-4.9) X10*3/uL Maries # (Auto) 0.7 (0.1-1.2) X10*3/uL Eos # (Auto) 0.1 (0.0-0.4) X10*3/uL Baso # (Auto) 0.0 (0.0-0.2) X10*3/uL Abs Immat Gran (auto) 0.02 (0.00-0.03) X10*3/uL Absolute Neuts (auto) 3.8 (2.0-8.3) x10*3/uL Absolute Nucleated RBC 0.000 (0.0-0.012) X10*3/uL Nucleated RBC % (auto) 0.0 (0.0-0.2) /100WBC Sodium 143 (135-145) mmol/L Potassium 3.9 (3.3-5.1) mmol/L Chloride 112 H (96-108) mmol/L Carbon Dioxide 28 (22-29) mmol/L Anion Gap 7 L (12-20) BUN 14 (9-16) mg/dL Creatinine 0.66 (0.5-1.4) mg/dL Estim Creat Clear Calc 112.6 Estimated GFR > 60 Random Glucose 95 (60-115) mg/dL Calcium 8.5 (8.4-10.2) mg/dL Total Bilirubin 0.2 (0.0-1.0) mg/dL AST 20 (5-37) U/L ALT 10 (0-40) U/L Alkaline Phosphatase 41 (39-117) U/L Total Protein 5.5 L (6.5-8.0) g/dL Albumin 3.0 L (3.5-5.0) g/dL Independent Historian Clinical information obtained from an independent historian. History obtained from or confirmed by: Other (FDC record) Chronic Conditions Patient?s care impacted by: Other (intellectual diability) Procedures Procedure Narrative Procedure Narrative: Cathter insertion (RN unable to place) I inserted 20 Coude catheter with minimal difficulty Discharge Plan Discharge Clinical Impression: Encounter for Muller catheter replacement Patient Disposition: er [facility] Instructions: Muller Catheter Care Additional Instructions: Follow-up with the Urology return to the emergency room if worse Prescriptions: No Action benztropine 0.5 mg Tablet 0.5 mg PO BID Rx Instructions: TDD = 1.5 MG BID risperidone 2 mg Tablet 2 mg PO BEDTIME divalproex [Depakote Sprinkles] 125 mg Capsule, Delayed Rel Sprinkle 750 mg PO BID Rx Instructions: CAPSULES OPENED IN PUDDING OR APPLESAUCE bisacodyl 10 mg Suppository 10 mg TX DAILY PRN (Reason: Constipation) Rx Instructions: If Senna Ineffective. docusate sodium 100 mg Capsule 100 mg PO BID lactulose 10 gram/15 mL Solution 30 ml PO TID sertraline 25 mg Tablet 25 mg PO BEDTIME amoxicillin-pot clavulanate 875-125 mg tablet 1 tab PO BID Qty: 11 0RF Rx Instructions: Take one tablet twice a day with food for the next 5 days, starting on the evening of 03/27 and ending on the evening of 04/01 hydrocortisone acetate [Anusol-HC] 25 mg Suppository 25 mg TX DAILY PRN (Reason: Hemorrhoids) lithium carbonate 300 mg Tablet 300 mg PO BEDTIME Fleet Enema 19-7 gram/118 mL Enema 118 ml TX BEDTIME PRN (Reason: Constipation) Rx Instructions: If Bisacodyl supp. ineffective. chlorhexidine gluconate [Hibiclens] 4 % Liquid 1 appl TOPICAL SUTUTH@1800 Protocol: Apply to: Apply to: BILATERAL LEGS Rx Instructions: lower legs acetaminophen 325 mg capsule 650 mg PO Q6H MDD 3 gm/day PRN (Reason: PAIN/TEMP>100) benztropine 1 mg tablet 1 mg PO BID Rx Instructions: TDD = 1.5 MG BID clonazepam 1 mg tablet 1 mg PO TID diazepam 5 mg tablet 5 mg PO BID haloperidol 5 mg tablet 5 mg PO BID lithium carbonate 150 mg capsule 150 mg PO DAILY propranolol 10 mg tablet 10 mg PO TID senna 8.6 mg capsule 8.6 mg PO DAILY PRN (Reason: Constipation) finasteride 5 mg tablet 5 mg PO DAILY 90 Days Qty: 90 3RF terazosin 10 mg capsule 10 mg PO BEDTIME 90 Days Qty: 90 3RF Interventions: ED Discharge Assessment Last Done: 05/08/25 17:05 Discharge Date/Time: 05/08/25 17:05 Print Language: Moldovan
--- NOTE | 2025-05-08 11:28 | MHC.EDTECH ---
pt in hospital gown, brief removed, visible penile bleeding noted, no complaints of pain. vitals obtained, call mistry within reach
--- NOTE | 2025-05-08 12:05 | PC.NURSE ---
20f coude lopez placed, multiple small clots presewnt, manually irrigated, now draining punch colored urine. Procedure tolerated well by pt
[2025-05-08 13:05] LABS: Hematocrit 30.7 % (42.0-52.0); Hemoglobin 9.7 g/dl (14.0-18.0); Imm Gran Abs Auto 0.02 X10*3/uL (0.00-0.03); Imm Gran Pct Auto 0.3 % (0.0-0.4); Lymphocytes Absolute Auto 2.5 X10*3/uL (1.2-4.9); Mean Corpuscular HGB Conc 31.6 g/dl (31.0-36.0); Mean Corpuscular Hemoglobin 29.0 pg (27.0-33.0); Mean Corpuscular Volume 91.9 fL (80.0-98.0); NRBC Abs Auto 0.000 X10*3/uL (0.0-0.012); NRBC Pct Auto 0.0 /100WBC (0.0-0.2); Platelet Count 167 X10*3/uL (160-400); Red Blood Count 3.34 X10*6/uL (4.60-5.80); White Blood Count 7.2 X10*3/uL (4.8-10.8)
[2025-05-08 13:11] LABS: Alanine Aminotransferase 10 U/L (0-40); Albumin Level 3.0 g/dL (3.5-5.0); Alkaline Phosphatase 41 U/L (39-117); Anion Gap 7 (12-20); Aspartate Amino Transferase 20 U/L (5-37); Blood Urea Nitrogen 14 mg/dL (9-16); Calcium 8.5 mg/dL (8.4-10.2); Carbon Dioxide 28 mmol/L (22-29); Chloride 112 mmol/L (96-108); Creatinine Clr Calc Pharmacy 112.6; Estimated Glomerular Filt Rate > 60; Potassium 3.9 mmol/L (3.3-5.1); Sodium 143 mmol/L (135-145); Total Protein 5.5 g/dL (6.5-8.0)
[2025-05-08 14:33] VITALS: BP 112/63; PULSE 62; RESP 14; TEMP 36.1; O2SAT 96
--- NOTE | 2025-05-08 14:56 | PC.NURSE ---
Spoke with Ayleen at [facility] in [place] Transport will be here to warp picker patient @ [id number] Verbal report given
[2025-05-08 17:05] VITALS: BP 112/63; PULSE 62; RESP 14; TEMP 36.1; O2SAT 96
--- NOTE | 2025-05-08 17:11 | PC.NURSE ---
report given to [facility] nurse on [facility]- pt transported [facility] to [facility]
== END 2025-05-08 17:05 ==
PROVIDERS: Emergency Provider Emergency Medicine
DX: T83.098A Other mechanical complication of other urinary catheter, initial encounter (principal); F25.9 Schizoaffective disorder, unspecified; F03.90 Unspecified dementia, unspecified severity, without behavioral disturbance, psychotic disturbance, mood disturbance, and anxiety; Y73.2 Prosthetic and other implants, materials and accessory gastroenterology and urology devices associated with adverse incidents; Z79.899 Other long term (current) drug therapy
CPT/HCPCS: 36415; 51701; 80053; 85025; 96360; 99284